=== PATIENT | female | born 1960 | race Caucasian/White ===

== ENCOUNTER → 2016-07-01 | Outpatient (CLI) | payer BC ==
--- NOTE | 2016-07-02 07:22 | US ---
EXAMINATION TYPE: US transvaginal DATE OF EXAM: 07/01/2016 5:13 PM COMPARISON: NONE CLINICAL HISTORY: N95.9 Endometriosis. order states "Thickened endometrium on 2014 TECHNIQUE: Transvaginal (TV) Date of LMP: Unknown EXAM MEASUREMENTS: Uterus: 7.9 x 3.8 x 5.0 cm Endometrial Stripe: 0.6 cm Right Ovary: 1.7 x 1.3 x 1.5 cm Left Ovary: Obscured by overlying gas 1. Uterus: Anteverted 2. Endometrium: wnl 3. Right Ovary: wnl 4. Left Ovary: Obscured by overlying bowel gas 5. Bilateral Adnexa: wnl 6. Posterior cul-de-sac: no free fluid IMPRESSION: Somewhat limited exam. Endometrial stripe thickness as described. Follow-up as indicated.
== END ==
LOC: RADUSWWP 16:58
PROVIDERS: ATTEND Specialist
DX: R93.8 Abnormal findings on diagnostic imaging of other specified body structures (principal)
CPT/HCPCS: 76830

== ENCOUNTER → 2016-09-16 | Outpatient (CLI) | payer BC ==
[2016-09-16 15:05] LABS: ALT 23 U/L (9-52); AST 21 U/L (14-36); Alkaline Phosphatase 74 U/L (38-126); Anion Gap 12 mmol/L; Blood Urea Nitrogen 13 mg/dL (7-17); Calcium 9.3 mg/dL (8.4-10.2); Carbon Dioxide 25 mmol/L (22-30); Chloride 105 mmol/L (98-107); Glucose 100 mg/dL (74-99); Non-African American GFR(MDRD) >60 (>60 ml/min/1.73 sqM); Sodium 142 mmol/L (137-145); Total Bilirubin 0.8 mg/dL (0.2-1.3); Total Protein 7.4 g/dL (6.3-8.2)
[2016-09-16 16:43] LABS: Estradiol 26 pg/mL
[2016-09-17 04:55] LABS: EBV - VCA IgM <10.0 U/mL (<36.0)
== END | disposition home or self-care (01) ==
LOC: LABWHC1 14:14
PROVIDERS: ATTEND Specialist
DX: E78.5 Hyperlipidemia, unspecified (principal); D89.9 Disorder involving the immune mechanism, unspecified; M85.80 Other specified disorders of bone density and structure, unspecified site; I10 Essential (primary) hypertension; E07.9 Disorder of thyroid, unspecified; E03.9 Hypothyroidism, unspecified; N95.9 Unspecified menopausal and perimenopausal disorder; R53.83 Other fatigue; R53.82 Chronic fatigue, unspecified
CPT/HCPCS: 36415; 80053; 82306; 82670; 82728; 84144; 84439; 84443; 84481; 86628; 86665

== ENCOUNTER → 2016-10-15 | Outpatient (CLI) | payer BC ==
--- NOTE | 2016-10-19 07:28 | MM ---
Reason for exam: screening (asymptomatic). Last mammogram was performed 1 year ago. History: Family history of breast cancer in mother at age 79. Benign left mammotome panel of the left breast, December 30, 2007. Physical Findings: A clinical breast exam by your physician is recommended on an annual basis and results should be correlated with mammographic findings. MG 3D Screening Mammo W/Cad Bilateral CC and MLO view(s) were taken. Prior study comparison: October 15, 2015, bilateral MG screening mammo w CAD. September 26, 2014, left breast MG work up mamm w CAD LT. September 21, 2014, bilateral MG screening mammo w CAD. September 15, 2013, bilateral MG screening mammo w CAD. August 26, 2012, bilateral digital screening mammo w/CAD. August 14, 2011, bilateral digital screening mammo w/CAD. The breast tissue is heterogeneously dense. This may lower the sensitivity of mammography. No significant changes when compared with prior studies. ASSESSMENT: Negative, BI-RAD 1 RECOMMENDATION: Routine screening mammogram of both breasts in 1 year.
== END | disposition home or self-care (01) ==
LOC: RADMAMWWP 13:21
PROVIDERS: ATTEND Obstetrics & Gynecology
DX: Z12.31 Encounter for screening mammogram for malignant neoplasm of breast (principal)
CPT/HCPCS: 77063; G0202

== ENCOUNTER → 2016-10-23 | Outpatient (CLI) | payer BC ==
--- NOTE | 2016-10-23 08:23 | CT ---
EXAMINATION TYPE: CT soft tissue neck w con DATE OF EXAM: 10/23/2016 COMPARISON: NONE HISTORY: Dysphagia CT DLP: 245.3 mGycm CONTRAST: CT scan of the neck is performed with IV Contrast, patient injected with 100 mL of Omnipaque 300. Contrast enhanced CT of the neck was performed from the skull base through the lung apices. AIRWAY: There is an asymmetric calcification noted adjacent to the right piriform sinus and inferio r aspect of the cricoid cartilage which measures 1.1 cm in length by approximately 0.8 cm in greatest transverse dimension. This is of uncertain clinical significance and etiology. Correlate clinically. The supraglottic, glottic, and subglottic portions of the airway appear patent and free of mass. SALIVARY GLANDS: The submandibular and parotid glands are free of mass or inflammatory process. THYROID GLAND: No nodules or masses seen. LYMPH NODES: No adenopathy seen greater than 1cm. LUNG APICES: No nodule or mass is seen. OTHER: Vascular structures are patent. Mild degenerative change of the cervical spine. No abscess s een. IMPRESSION: There is an asymmetric calcification noted adjacent to the right piriform sinus and inferior aspect of the cricoid cartilage which measures 1.1 cm in length by approximately 0.8 cm in greatest transver se dimension. This is of uncertain clinical significance and etiology. Correlate clinically.
== END | disposition home or self-care (01) ==
LOC: RADCTMAIN 07:14
PROVIDERS: ATTEND Otolaryngology
DX: J38.7 Other diseases of larynx (principal); M94.8X8 Other specified disorders of cartilage, other site; R13.10 Dysphagia, unspecified
CPT/HCPCS: 70491; Q9967

== ENCOUNTER → 2016-11-04 | Outpatient (CLI) | payer BC | END | disposition home or self-care (01) | LOC: LABWHC1 14:46 | PROVIDERS: ATTEND Otolaryngology | DX: R53.83 Other fatigue (principal) | CPT/HCPCS: 36415; 82164; 86235 ==

== ENCOUNTER → 2017-04-01 | Outpatient (CLI) | payer BC ==
--- NOTE | 2017-04-01 09:47 | CT ---
EXAMINATION TYPE: CT soft tissue neck w con DATE OF EXAM: 04/01/2017 COMPARISON: 10/23/2016 HISTORY: Follow up study for known calcification of the right piriform sinus. TECHNIQUE: Contiguous axial scanning of the soft tissues of the neck performed with IV Contrast, jose ent injected with 100 mL of Omnipaque 300. Coronal/sagittal reconstructions performed. CT DLP: 211.8 mGycm Automated exposure control for dose reduction was used. FINDINGS: Visualized intracranial structures, orbits and globes and mastoid air cells appear clear. There is tr radha mucosal thickening within the floor of the right maxillary sinus. Nasopharynx appears clear. Oropharynx appears clear. The prevertebral soft tissues and epiglottis are normal. Redemonstrated asymmetric dense calcifications in the right glottic/supraglottic region along the inf erior aspect of the right aryepiglottic fold. This seems to correspond to the expected location of th e arytenoid cartilage. Currently, this measures 9 x 10 mm versus 8 x 10 mm, previously, not significa ntly changed. No mass is identified. The tracheal column and visualized upper lungs are clear. 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 The thyroid and submandibular glands are within normal limits. Mild atrophy of the parotid glands. No cervical lymphadenopathy. Bones: Mild to moderate endplate spondylosis mid to lower cervical spine. IMPRESSION: STABLE ASYMMETRIC RIGHT ARYTENOID CARTILAGE SCLEROSIS. THIS IS OF QUESTIONABLE CLINICAL SIGNIFICANCE NO NEW OR ENLARGING LARYNGEAL MASS IS SEEN. CLINICAL AND IMAGING FOLLOW-UP INDICATED.
== END | disposition home or self-care (01) ==
LOC: RADCTMAIN 08:46
PROVIDERS: ATTEND Otolaryngology
DX: J38.7 Other diseases of larynx (principal)
CPT/HCPCS: 70491; Q9967

== ENCOUNTER 2017-04-30 18:23 | Observation (INO) | payer BC, OTHER ==
[2017-04-30] MEDS ORDERED: SODIUM CHLORIDE 0.9% 1,000 ML IV STA (18:40)
--- NOTE | 2017-04-30 18:59 | ED ---
General Adult HPI - General Chief complaint: Psychiatric Symptoms Stated complaint: Depression Time Seen by Provider: 04/30/17 18:40 Source: patient, family, RN notes reviewed, old records reviewed Mode of arrival: ambulatory Limitations: no limitations - History of Present Illness Initial comments: This is a 55-year-old female to ER for evaluation. Patient coming in for evaluation regards to depression. Patient was sent in by family doctor, Dr. Hurtado regarding symptoms, positive feeling lately. Patient denies being homicidal just does not feel well. No recent change about medications. No chest pain shortness breath or abdominal pain. No recent fevers. - Related Data Home Medications Medication Instructions Recorded Confirmed ALPRAZolam [Xanax] 1 mg PO Q6H 04/30/17 04/30/17 Aspirin [Adult Low Dose Aspirin EC] 81 mg PO DAILY 04/30/17 04/30/17 Calcium Carbonate/Vitamin D3 1 tab PO DAILY 04/30/17 04/30/17 [Calcium 600-Vit D3 400 Caplet] Metoprolol Tartrate [Lopressor] 25 mg PO DAILY 04/30/17 04/30/17 Multivitamins, Thera [Multivitamin 1 tab PO DAILY 04/30/17 04/30/17 (formulary)] Vitamin B Complex 1 tab PO DAILY 04/30/17 04/30/17 clonazePAM [KlonoPIN] 2 mg PO TID 04/30/17 04/30/17 Allergies Allergy/AdvReac Type Severity Reaction Status Date / Time hydralazine AdvReac "SHAKING Verified 04/30/17 18:58 ALL OVER" zolpidem tartrate AdvReac Unknown Verified 04/30/17 18:58 [From [place]kie] Review of Systems ROS Statement: Those systems with pertinent positive or pertinent negative responses have been documented in the HPI. ROS Other: All systems not noted in ROS Statement are negative. Past Medical History Past Medical History: GERD/Reflux, Hypertension Additional Past Medical History / Comment(s): diverticulosis. jose raul cheney virus History of Any Multi-Drug Resistant Organisms: None Reported Past Surgical History: Section, Cholecystectomy, Tonsillectomy Additional Past Surgical History / Comment(s): 10/04/14 EGD, 01/01/15 choleceystectomy, 02/05/15 EGD with BX, 2008 COLONOSCOPY, Past Anesthesia/Blood Transfusion Reactions: Motion Sickness, Postoperative Nausea & Vomiting (PONV) Past Psychological History: Anxiety Smoking Status: Never smoker Past Alcohol Use History: Rare Past Drug Use History: None Reported - Past Family History Mother Family Medical History: Cancer Additional Family Medical History / Comment(s): BREAST CANCER Father Family Medical History: Blood Disorder Additional Family Medical History / Comment(s): hemachromatosis. General Exam Limitations: no limitations General appearance: alert, in no apparent distress Head exam: Present: atraumatic, normocephalic, normal inspection Eye exam: Present: normal appearance, PERRL, EOMI. Absent: scleral icterus, conjunctival injection, periorbital swelling ENT exam: Present: normal exam, mucous membranes moist Neck exam: Present: normal inspection. Absent: tenderness, meningismus, lymphadenopathy Respiratory exam: Present: normal lung sounds bilaterally. Absent: respiratory distress, wheezes, rales, rhonchi, stridor Cardiovascular Exam: Present: regular rate, normal rhythm, normal heart sounds. Absent: systolic murmur, diastolic murmur, rubs, gallop, clicks GI/Abdominal exam: Present: soft, normal bowel sounds. Absent: distended, tenderness, guarding, rebound, rigid Extremities exam: Present: normal inspection, full ROM, normal capillary refill. Absent: tenderness, pedal edema, joint swelling, calf tenderness Back exam: Present: normal inspection Neurological exam: Present: alert, oriented X3, CN II-XII intact Psychiatric exam: Present: normal affect, normal mood Skin exam: Present: warm, dry, intact, normal color. Absent: rash Course Vital Signs 04/30/17 04/30/17 04/30/17 18:30 20:35 21:29 Temperature 98.2 F 97.7 F Pulse Rate 83 67 61 Respiratory 15 18 14 Rate Blood Pressure 123/77 115/72 125/71 O2 Sat by Pulse 99 97 98 Oximetry - Reevaluation(s) Reevaluation #1: 04/30/17 18:[address] Hurtado regarding patient, EKG Findings - EKG Comments: EKG Findings:: EKG shows normal sinus rhythm rate of 75, ND 152, QRS 80, QTC 422 Medical Decision Making - Medical Decision Making 56 female the ER for evaluation of psychiatric illness, underlying medical illness contributing to psychiatric illness. Patient will be admitted for continued evaluation and management by primary care physician - Lab Data Result diagrams: 05/01/17 06:11 05/01/17 06:11 Lab Results 04/30/17 04/30/17 04/30/17 Range/Units 18:30 18:30 18:30 WBC 6.2 (3.8-10.6) k/uL RBC 5.13 (3.80-5.40) m/uL Hgb 16.2 H (11.4-16.0) gm/dL Hct 50.1 H (34.0-46.0) % MCV 97.6 (80.0-100.0) fL MCH 31.5 (25.0-35.0) pg MCHC 32.3 (31.0-37.0) g/dL RDW 13.7 (11.5-15.5) % Plt Count 204 (150-450) k/uL Neutrophils % 62 % Lymphocytes % 28 % Monocytes % 6 % Eosinophils % 2 % Basophils % 1 % Neutrophils # 3.8 (1.3-7.7) k/uL Lymphocytes # 1.8 (1.0-4.8) k/uL Monocytes # 0.3 (0-1.0) k/uL Eosinophils # 0.1 (0-0.7) k/uL Basophils # 0.0 (0-0.2) k/uL Sodium 143 (137-145) mmol/L Potassium 4.4 (3.5-5.1) mmol/L Chloride 102 (98-107) mmol/L Carbon Dioxide 28 (22-30) mmol/L Anion Gap 13 mmol/L BUN 17 (7-17) mg/dL Creatinine 0.80 (0.52-1.04) mg/dL Est GFR (MDRD) Af Amer >60 (>60 ml/min/1.73 sqM) Est GFR (MDRD) Non-Af >60 (>60 ml/min/1.73 sqM) Glucose 91 (74-99) mg/dL Plasma Lactic Acid Gasper (0.7-2.0) mmol/L Calcium 9.0 (8.4-10.2) mg/dL Phosphorus 4.2 (2.5-4.5) mg/dL Magnesium 2.2 (1.6-2.3) mg/dL Total Bilirubin 0.7 (0.2-1.3) mg/dL AST 65 H (14-36) U/L ALT 36 (9-52) U/L Alkaline Phosphatase 78 (38-126) U/L Total Creatine Kinase 44 (30-135) U/L CK-MB (CK-2) <0.2 (0.0-2.4) ng/mL CK-MB (CK-2) Rel Index Troponin I <0.012 (0.000-0.034) ng/mL Total Protein 7.8 (6.3-8.2) g/dL Albumin 4.5 (3.5-5.0) g/dL TSH 3.860 (0.465-4.680) mIU/L Urine Color Urine Appearance (Clear) Urine pH (5.0-8.0) Ur Specific [place] (1.001-1.035) Urine Protein (Negative) Urine Glucose (UA) (Negative) Urine Ketones (Negative) Urine Blood (Negative) Urine Nitrite (Negative) Urine Bilirubin (Negative) Urine Urobilinogen (<2.0) mg/dL Ur Leukocyte Esterase (Negative) Urine RBC (0-5) /hpf Urine WBC (0-5) /hpf Ur Squamous Epith Cells (0-4) /hpf Calcium Oxalate Crystal (None) /hpf Urine Bacteria (None) /hpf Hyaline Casts (0-2) /lpf Urine Mucus (None) /hpf Salicylates mg/dL Acetaminophen ug/mL Serum Alcohol mg/dL 04/30/17 04/30/17 04/30/17 Range/Units 18:30 18:30 18:30 WBC (3.8-10.6) k/uL RBC (3.80-5.40) m/uL Hgb (11.4-16.0) gm/dL Hct (34.0-46.0) % MCV (80.0-100.0) fL MCH (25.0-35.0) pg MCHC (31.0-37.0) g/dL RDW (11.5-15.5) % Plt Count (150-450) k/uL Neutrophils % % Lymphocytes % % Monocytes % % Eosinophils % % Basophils % % Neutrophils # (1.3-7.7) k/uL Lymphocytes # (1.0-4.8) k/uL Monocytes # (0-1.0) k/uL Eosinophils # (0-0.7) k/uL Basophils # (0-0.2) k/uL Sodium (137-145) mmol/L Potassium (3.5-5.1) mmol/L Chloride (98-107) mmol/L Carbon Dioxide (22-30) mmol/L Anion Gap mmol/L BUN (7-17) mg/dL Creatinine (0.52-1.04) mg/dL Est GFR (MDRD) Af Amer (>60 ml/min/1.73 sqM) Est GFR (MDRD) Non-Af (>60 ml/min/1.73 sqM) Glucose (74-99) mg/dL Plasma Lactic Acid Gas[place] 1.3 (0.7-2.0) mmol/L Calcium (8.4-10.2) mg/dL Phosphorus (2.5-4.5) mg/dL Magnesium (1.6-2.3) mg/dL Total Bilirubin (0.2-1.3) mg/dL AST (14-36) U/L ALT (9-52) U/L Alkaline Phosphatase (38-126) U/L Total Creatine Kinase (30-135) U/L CK-MB (CK-2) (0.0-2.4) ng/mL CK-MB (CK-2) Rel Index Troponin I (0.000-0.034) ng/mL Total Protein (6.3-8.2) g/dL Albumin (3.5-5.0) g/dL TSH (0.465-4.680) mIU/L Urine Color Yellow Urine Appearance Clear (Clear) Urine pH 5.5 (5.0-8.0) Ur Specific [place] 1.018 (1.001-1.035) Urine Protein Negative (Negative) Urine Glucose (UA) Negative (Negative) Urine Ketones Negative (Negative) Urine Blood Negative (Negative) Urine Nitrite Negative (Negative) Urine Bilirubin Negative (Negative) Urine Urobilinogen 2.0 (<2.0) mg/dL Ur Leukocyte Esterase Trace H (Negative) Urine RBC 2 (0-5) /hpf Urine WBC 1 (0-5) /hpf Ur Squamous Epith Cells 6 H (0-4) /hpf Calcium Oxalate Crystal Rare H (None) /hpf Urine Bacteria Occasional H (None) /hpf Hyaline Casts 3 H (0-2) /lpf Urine Mucus Few H (None) /hpf Salicylates <1.0 mg/dL Acetaminophen <10.0 ug/mL Serum Alcohol mg/dL 04/30/17 Range/Units 19:27 WBC (3.8-10.6) k/uL RBC (3.80-5.40) m/uL Hgb (11.4-16.0) gm/dL Hct (34.0-46.0) % MCV (80.0-100.0) fL MCH (25.0-35.0) pg MCHC (31.0-37.0) g/dL RDW (11.5-15.5) % Plt Count (150-450) k/uL Neutrophils % % Lymphocytes % % Monocytes % % Eosinophils % % Basophils % % Neutrophils # (1.3-7.7) k/uL Lymphocytes # (1.0-4.8) k/uL Monocytes # (0-1.0) k/uL Eosinophils # (0-0.7) k/uL Basophils # (0-0.2) k/uL Sodium (137-145) mmol/L Potassium (3.5-5.1) mmol/L Chloride (98-107) mmol/L Carbon Dioxide (22-30) mmol/L Anion Gap mmol/L BUN (7-17) mg/dL Creatinine (0.52-1.04) mg/dL Est GFR (MDRD) Af Amer (>60 ml/min/1.73 sqM) Est GFR (MDRD) Non-Af (>60 ml/min/1.73 sqM) Glucose (74-99) mg/dL Plasma Lactic Acid [place] (0.7-2.0) mmol/L Calcium (8.4-10.2) mg/dL Phosphorus (2.5-4.5) mg/dL Magnesium (1.6-2.3) mg/dL Total Bilirubin (0.2-1.3) mg/dL AST (14-36) U/L ALT (9-52) U/L Alkaline Phosphatase (38-126) U/L Total Creatine Kinase (30-135) U/L CK-MB (CK-2) (0.0-2.4) ng/mL CK-MB (CK-2) Rel Index Troponin I (0.000-0.034) ng/mL Total Protein (6.3-8.2) g/dL Albumin (3.5-5.0) g/dL TSH (0.465-4.680) mIU/L Urine Color Urine Appearance (Clear) Urine pH (5.0-8.0) Ur Specific [place] (1.001-1.035) Urine Protein (Negative) Urine Glucose (UA) (Negative) Urine Ketones (Negative) Urine Blood (Negative) Urine Nitrite (Negative) Urine Bilirubin (Negative) Urine Urobilinogen (<2.0) mg/dL Ur Leukocyte Esterase (Negative) Urine RBC (0-5) /hpf Urine WBC (0-5) /hpf Ur Squamous Epith Cells (0-4) /hpf Calcium Oxalate Crystal (None) /hpf Urine Bacteria (None) /hpf Hyaline Casts (0-2) /lpf Urine Mucus (None) /hpf Salicylates mg/dL Acetaminophen ug/mL Serum Alcohol <10 mg/dL Disposition Clinical Impression: Weakness, Gastritis, Nausea, Depression Disposition: ADMITTED IP TO THIS HOSP Condition: Fair
[2017-04-30 19:04] LABS: Basophils % (A) 1 %; Eosinophils # (A) 0.1 k/uL (0-0.7); Eosinophils % (A) 2 %; HCT 50.1 % (34.0-46.0); HGB 16.2 gm/dL (11.4-16.0); Lymphocytes # (A) 1.8 k/uL (1.0-4.8); Lymphocytes % (A) 28 %; MCH 31.5 pg (25.0-35.0); MCHC 32.3 g/dL (31.0-37.0); MCV 97.6 fL (80.0-100.0); Mean Platelet Volume 9.3; Monocytes # (A) 0.3 k/uL (0-1.0); Monocytes % (A) 6 %; Neutrophils # (A) 3.8 k/uL (1.3-7.7); Neutrophils % (A) 62 %; Platelet Count 204 k/uL (150-450); RBC 5.13 m/uL (3.80-5.40); RDW 13.7 % (11.5-15.5); WBC 6.2 k/uL (3.8-10.6)
[2017-04-30 19:14] LABS: ALT 36 U/L (9-52); AST 65 U/L (14-36); Albumin 4.5 g/dL (3.5-5.0); Alkaline Phosphatase 78 U/L (38-126); Anion Gap 13 mmol/L; Blood Urea Nitrogen 17 mg/dL (7-17); Carbon Dioxide 28 mmol/L (22-30); Chloride 102 mmol/L (98-107); Glucose 91 mg/dL (74-99); Magnesium 2.2 mg/dL (1.6-2.3); Phosphorus 4.2 mg/dL (2.5-4.5); Potassium 4.4 mmol/L (3.5-5.1); Sodium 143 mmol/L (137-145); Total Bilirubin 0.7 mg/dL (0.2-1.3); Total Protein 7.8 g/dL (6.3-8.2)
[2017-04-30 19:15] LABS: Appearance,Urine Clear (Clear); Bacteria,Urine Occasional /hpf; Bilirubin,Urine Negative (Negative); Blood,Urine Negative (Negative); Calcium Oxalate Crystals,Urine Rare /hpf; Color,Urine Yellow; Glucose,Urine (UA) Negative (Negative); Hyaline Casts,Urine 3 /lpf (0-2); Ketones,Urine Negative (Negative); Leukocyte Esterase,Urine Trace (Negative); Mucus,Urine Few /hpf; Nitrite,Urine Negative (Negative); PH, Urine 5.5 (5.0-8.0); Protein,Urine Negative (Negative); RBC,Urine 2 /hpf (0-5); Specific Gravity,Urine 1.018 (1.001-1.035); Squamous Epithelial Cell,Urine 6 /hpf (0-4); WBC,Urine 1 /hpf (0-5)
[2017-04-30 19:16] LABS: Creatine Kinase 44 U/L (30-135)
[2017-04-30 19:30] LABS: Creatine Kinase MB <0.2 ng/mL (0.0-2.4); Troponin I <0.012 ng/mL (0.000-0.034)
[2017-04-30 19:38] LABS: Acetaminophen <10.0 ug/mL; Salicylate <1.0 mg/dL
[2017-04-30] MEDS ORDERED: SODIUM CHLORIDE 0.9% 1,000 ML IV ONE (19:49)
[2017-04-30 22:46] VITALS: BMI 23.0
[2017-04-30] MEDS ORDERED: ALPRAZolam 0.5 MG TAB PO PRN (23:03)
[2017-04-30] MEDS: clonazePAM 1 MG TAB PO SCH (23:56)
[2017-05-01 06:56] LABS: HCT 40.9 % (34.0-46.0); HGB 13.5 gm/dL (11.4-16.0); MCH 31.8 pg (25.0-35.0); MCHC 32.9 g/dL (31.0-37.0); MCV 96.5 fL (80.0-100.0); Mean Platelet Volume 8.9; Platelet Count 177 k/uL (150-450); RBC 4.24 m/uL (3.80-5.40); RDW 12.6 % (11.5-15.5)
[2017-05-01 07:18] LABS: ALT 35 U/L (9-52); AST 23 U/L (14-36); Alkaline Phosphatase 64 U/L (38-126); Anion Gap 7 mmol/L; Blood Urea Nitrogen 14 mg/dL (7-17); Calcium 8.7 mg/dL (8.4-10.2); Carbon Dioxide 30 mmol/L (22-30); Chloride 106 mmol/L (98-107); Glucose 75 mg/dL (74-99); Potassium 4.1 mmol/L (3.5-5.1); Sodium 143 mmol/L (137-145); Total Bilirubin 0.3 mg/dL (0.2-1.3); Total Protein 5.4 g/dL (6.3-8.2)
[2017-05-01] MEDS: clonazePAM 1 MG TAB PO SCH ×2 (08:50→21:01)
--- NOTE | 2017-05-01 11:17 | HP ---
HISTORY AND PHYSICAL CHIEF COMPLAINT: Psychiatric symptoms including depression, severe anxiety and severe fatigue. This is a 55-year-old white female that was admitted through the emergency room after I was called on the phone by her who said not only was she depressed, but she was weak with a fair amount of confusion. At that time, she was brought to the emergency room for evaluation and placed in the hospital for observation. Unfortunately, she has been going through situation with chronic fatigue syndrome, now going on 2 years. She has been seen by multiple institutions including [facility] and the patient is under supportive care. She just recently started seeing a new psychologist who switched her medication taking her off her Xanax and putting her on 2 mg of Klonopin 3 times a day. She is unable to sleep, so she was taking 1 mg of the Xanax at nighttime. MEDICATIONS: Include that of aspirin 81 daily, calcium carbonate, vitamin D 1 daily, metoprolol 25 daily, multivitamin, B complex, and Klonopin 2 mg 3 times a day. PAST MEDICAL HISTORY: GE reflux, hypertension, chronic fatigue syndrome. Diverticulosis. she has not had any multiple resistant organisms. PAST SURGICAL HISTORY: , cholecystectomy and tonsillectomy. She did have a colonoscopy in 2008 that was negative. Her EGD in 2014 shows some gastritis and had a biopsy of which that was at [facility]. She has had a history of some motion sickness and past anesthesia she has had post operative nausea and vomiting. PAST PSYCHIATRIC: Anxiety and depression, especially related with chronic fatigue syndrome. She has been on Zoloft. She has been on vibrio and she has been on Paxil, Cymbalta without any improvement and many many side effects. SOCIAL HISTORY: She is a rare alcohol drinker. She is a nonsmoker and no illicit drug use. FAMILY HISTORY: She has a mother who has had breast cancer. Father has hemochromatosis. REVIEW OF SYSTEMS: PSYCHIATRIC: She is very anxious, alert with multiple problems and is fairly depressed and just very fatigued. EYES: She is having no problem seeing. ENT: She has a dry mouth. CHEST: She has had no cough, no shortness of breath. HEART: No chest pain. No orthopnea. No proximal nocturnal dyspnea. GI: No hematemesis, melena or hematochezia. : No problem with urination. MUSCULOSKELETAL: Just very, very weak in general. ALLERGIES: She has had an adverse affect with HYDRALAZINE and also adverse affect with the AMBIEN. She also has had intolerance to a variety of previously mentioned ANTIDEPRESSIVE MEDICATIONS. LAB WORK: WBC is 6.2, hemoglobin is 16.2. She had a slightly elevated AST of 65. Sodium 143. Her salicylate, acetaminophen and alcohol level were all negative. Urinalysis was essentially within normal limits. CPK was negative. Troponin negative. TSH was 3.8. Vital signs at this time: Blood pressure is 133/56, heart rate was in the 60s, respiratory 16, temperature is 98.2. EYES: Pupils are equal, round, react to light and accommodation. ENT: Showed tympanic membranes and pharynx to be negative. NECK: Supple. Midline trachea. CHEST: Essentially clear to auscultation. HEART: Sinus rhythm with no murmur. ABDOMEN: Soft, nontender with no organomegaly. LOWER EXTREMITIES: She has good strength. Good palpable pulses. SKIN: Within normal limits. NEUROLOGICALLY: Cranial nerve 2-12 was intact. ALLERGIES: She does have a stuffy nose. ASSESSMENT: 1. History of chronic fatigue syndrome with severe fatigue. 2. Depression. 3. Anxiety neurosis. 4. Hypertension. 5. Rule out urinary tract infection. PLAN: Urine was cultured. Medication-daniel, patient was continued on her Xanax and Klonopin. She will be started back on metoprolol 25 mg a day. I have psychiatric consultation in order. We also will get an Infectious Disease consult. Please refer to my orders at this time. MMODL / IJN: [id number] /
[2017-05-01] MEDS ORDERED: DIVALPROEX ER 500 MG TAB.ER.24H PO STA (15:26)
[2017-05-01] MEDS: OLANZapine 5 MG TAB PO SCH ×2 (15:54→21:01)
--- NOTE | 2017-05-01 16:28 | CONS ---
CONSULTATION DATE OF CONSULTATION: 05/01/2017 PURPOSE OF CONSULTATION: Evaluate for depression, anxiety and long-term use of benzodiazepines. HISTORY OF PRESENTING ILLNESS: The patient is a 56-year-old female. She reports no distant history of any past psychiatric issues. She says most all of her problems started in 2014; at that time she had a gallbladder surgery. She also developed Rissa-Weber virus. All of this occurred right at the same time. She says pretty much immediately after surgery she got significant problems with anxiety that never went away. Also she has had chronic poor sleep where at most she sleeps for 2 hours at a time. She says anxiety and sleep problems have been persistent ever since then. She says early on she got on Xanax. She was taking up to 4 mg a day. She has been on Xanax ever since the start of her anxiety problems. In addition she has been tried on various antidepressants, including Zoloft and Paxil. She also took trazodone for sleep. She says she believes she was on some other medications. It is noteworthy that she has not been on any primary psychotropic medications while completely off of benzodiazepines. She has had a lot of exhaustion, which she relates to her Rissa-Weber virus. She had to stop work. She spends quite a bit of time at home and it is very difficult for her to do much in terms of any physical activity. She has crying spells. Her mood has been down. She has loss of motivation, energy and interest. She does not have any thoughts of self-harm. She has just seen Dr. Frias recently and was in the process of being switched from Xanax to Klonopin. Her psychotropic medications on admission are documented to be Xanax 1 mg q.6 hours and Klonopin 2 mg 3 times a day as her only psychotropic medication. She has not had any psychiatric hospitalizations going back before 2014. She did not have trouble with anxiety or depression. She had not been previously on any psychotropic medications. She says she was quite active, working, keeping up with home care and family issues. She reports no substance use issues. MENTAL STATUS: Patient was sitting up in bed. She gave good eye contact. Psychomotor activity was a little restless. Speech was clear. She answered questions with direct responses. She was spontaneous and interactive. Her affect was somewhat anxious, her mood reserved. She was moderately distressed. There was no indication of thought disorder. ASSESSMENT: This 56-year-old female is diagnosed with major depression and benzodiazepine dependence. It is noteworthy that she has not had trials of antidepressant medications when she was free of benzodiazepines; thus it would not be anticipated that she would get much benefit, if any at all, from primary antidepressant medications. I had an extensive discussion with the patient that it is critical for her to be off benzodiazepines and to get through the early withdrawal period before she can get an adequate evaluation and appropriate treatment for anxiety or mood disorder. I discussed the course of early benzodiazepine withdrawal, with most significant withdrawal issues within the first 2 weeks of stopping benzodiazepines and then beyond that being roughly 60% through withdrawal at 6 weeks and 80% through withdrawal at 3 months. I discussed treatment options for early acute benzodiazepine withdrawal. We also discussed that it would be reasonable for her to be transferred to the psychiatric unit. At this point, I will start the patient on Zyprexa 5 mg 3 times a day. The aim is Zyprexa to help reduce physiologic stress response related to acute benzodiazepine withdrawal. In addition I will start the patient on Depakote ER 500 mg twice a day. The aim of Depakote is prophylaxis to prevent seizures, which are a primary risk for tapering benzodiazepines. I will discontinue her Xanax and reduce her Klonopin from 2 mg 3 times a day down to 2 mg twice a day. We could consider starting the patient on something like trazodone or Tofranil to help with sleep, though I will wait to get an update from Nursing to see how she does with the medication changes. I have recommended the patient be admitted to the psychiatric unit for further evaluation. [id number] / JIMN: [id number] /
[2017-05-01] MEDS: DIVALPROEX ER 500 MG TAB.ER.24H PO SCH (21:01)
--- NOTE | 2017-05-01 23:58 | P.CONS ---
History of Present Illness - Reason for Consult Consult date: 05/01/17 - Chief Complaint Rissa-Weber viral infection - History of Present Illness 56-year-old female relates to a several year history of marked decline of her physical status. The patient relates that until a few years ago she was doing relatively well. 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 However in this time frame there is been a marked decline in her status. She has become so exhausted that she is not able to dissipate in almost any activities. She has lost motivation for all interactions of activity. She has stopped working. She relies on her who lives with her from most all other activities. She states she is too tired to perform activities such as shopping and cleaning and cooking. She relates when she got to the point where she had to stop working she just was so exhausted she was unable to get home safely. As noted from the psychiatric consult the patient has difficulties with benzodiazepine dependence, and apparently has not had significant trials of psychotropic medications for her significant mood disorder with depression. The patient relates that in her workup she was found evidence of positive serology for Rissa-Weber virus. The patient's and sister are present. They wanted to ensure that I was aware of the patient's positive Rissa-Weber virus status. The patient relates that she's had no significant fever chills rigors or sweats. She recently lost about 25 pounds when she first had a marked worsening of her symptoms. Her weight is now waxed and waned about 8 pounds over time. Review of Systems 56-year-old woman who relates she feels poorly all the time. She has chronic profound ongoing fatigue. HEENT:Denies headache or acute visual change. Denies sinus or mouth discomforts. Denies neck stiffness or pain. Denies significant oral cavity pain. Denies difficulty on swallowing. Lungs: Denies significant shortness of breath, cough, sputum production, or hemoptysis. Cardiovascular: Denies significant shortness of breath, chest pain, chest wall pain, orthopnea, dyspnea on exertion, syncope Gastrointestinal:Denies nausea, vomiting, diarrhea, constipation, hematemesis, melena, hematochezia. No no significant change of bowel habit noticed. Musculoskeletal: denies significant myalgias or arthralgias. No new joint swelling. Denies new back pain. Skin: Denies new rash or lesions. No new ulcers or wounds are related.. Neuro: He has occasional headache has no significant psychomotor weakness but has profound fatigue Psychiatric: Chronic depression anxiety is modestly controlled Endocrine: As noted severe fatigue and did have weight loss a couple years ago but has not been persistent Past Medical History Past Medical History: GERD/Reflux, Hypertension Additional Past Medical History / Comment(s): diverticulosis. rissa weber virus History of Any Multi-Drug Resistant Organisms: None Reported Past Surgical History: Section, Cholecystectomy, Tonsillectomy Additional Past Surgical History / Comment(s): 10/04/14 EGD, 01/01/15 choleceystectomy, 02/05/15 EGD with BX, 2008 COLONOSCOPY, Past Anesthesia/Blood Transfusion Reactions: Motion Sickness, Postoperative Nausea & Vomiting (PONV) Past Psychological History: Anxiety Additional Psychological History / Comment(s): Is noted the patient appears to have chronic depression. She is lives with and has adult children. She is a tobacco smoker or alcohol user. No recreational drug use. Is no longer working because of her fatigue. No experience. No international travel. no animal exposures Smoking Status: Never smoker Past Alcohol Use History: Rare Past Drug Use History: None Reported - Past Family History Mother Family Medical History: Cancer Additional Family Medical History / Comment(s): BREAST CANCER Father Family Medical History: Blood Disorder Additional Family Medical History / Comment(s): hemachromatosis. Medications and Allergies Home Medications and Allergies Comment(s): Current Medications Clonazepam (Klonopin) 2 mg PO BID [facility] Last Admin: 05/01/17 21:01 Dose: 2 mg Divalproex Sodium (Depakote Er) 500 mg PO BID [facility] Last Admin: 05/01/17 21:01 Dose: 500 mg Olanzapine (Zyprexa) 5 mg PO TID [facility] Last Admin: 05/01/17 21:01 Dose: 5 mg Home Medications Medication Instructions Recorded Confirmed Type ALPRAZolam [Xanax] 1 mg PO Q6H 04/30/17 04/30/17 History Aspirin [Adult Low Dose Aspirin EC] 81 mg PO DAILY 04/30/17 04/30/17 History Calcium Carbonate/Vitamin D3 1 tab PO DAILY 04/30/17 04/30/17 History [Calcium 600-Vit D3 400 Caplet] Metoprolol Tartrate [Lopressor] 25 mg PO DAILY 04/30/17 04/30/17 History Multivitamins, Thera [Multivitamin 1 tab PO DAILY 04/30/17 04/30/17 History (formulary)] Vitamin B Complex 1 tab PO DAILY 04/30/17 04/30/17 History clonazePAM [KlonoPIN] 2 mg PO TID 04/30/17 04/30/17 History Allergies Allergy/AdvReac Type Severity Reaction Status Date / Time hydralazine AdvReac "SHAKING Verified 04/30/17 18:58 ALL OVER" zolpidem tartrate AdvReac Unknown Verified 04/30/17 18:58 [[facility] Physical Exam Vitals: Vital Signs Temp Pulse Resp BP Pulse Ox 05/01/17 15:00 97 F L 76 20 134/75 98 05/01/17 14:57 81 16 05/01/17 08:00 97.8 F 54 L 16 95/57 100 05/01/17 04:00 98.2 F 60 16 113/56 05/01/17 03:24 56 L 16 Intake and Output 05/01/17 05/01/17 05/02/17 14:59 22:59 06:59 Intake Total 1200 Balance 1200 Intake: Intake, IV Titration 1200 Amount Sodium Chloride 0.9% 1, 1200 000 ml @ 100 mls/hr IV . Q10H ONE Rx#:[id number] Other: Voiding Method Toilet # Voids 3 Weight 58.967 kg Patient Weight 05/02/17 06:59 Weight 58.967 kg Pleasant 56-year-old woman who appears about her stated age HEENT: Anicteric conjunctiva are pink and moist nasal mucosa grossly intact without significant lesions, there is no thrush. Neck: The neck is supple without significant lymphadenopathy or thyromegaly. Lungs: Good bilateral air entry without significant crackles or wheezing. There is no significant bronchial sounds. There is no egophony or dullness. Heart: Regular rate and rhythm with an audible S1-S2, no S3 no S4. There is no significant murmur click or rub, PMI was nondisplaced. Abdomen: Positive bowel sounds soft and nontender without palpable masses or organomegaly. There was no guarding or rebound. Extremities: The upper extremities have excellent pulses they are symmetric, no significant petechiae or telangiectasia. No splinter hemorrhages were noted. The lower extremities are free from significant edema. The peripheral pulses were 2+ and symmetric. Neuro: Awake alert oriented to person place and time. There are no acute new gross focal sensory motor deficits. Mood patient is mildly anxious and withdrawn has significant lack of pleasure and complains of profound fatigue and lack of interaction Results CBC & Chem 7: 05/01/17 06:11 05/01/17 06:11 Labs: Abnormal Lab Results - Last 24 Hours (Table) 05/01/17 Range/Units 06:11 Total Protein 5.4 L (6.3-8.2) g/dL Albumin 3.0 L (3.5-5.0) g/dL Microbiology - Last 24 Hours (Table) 04/30/17 18:30 Urine Culture - Preliminary Urine,Voided Laboratory Results WBC 7.0 k/uL (3.8-10.6) 05/01/17 06:11 RBC 4.24 m/uL (3.80-5.40) 05/01/17 06:11 Hgb 13.5 gm/dL (11.4-16.0) 05/01/17 06:11 Hct 40.9 % (34.0-46.0) 05/01/17 06:11 MCV 96.5 fL (80.0-100.0) 05/01/17 06:11 MCH 31.8 pg (25.0-35.0) 05/01/17 06:11 MCHC 32.9 g/dL (31.0-37.0) 05/01/17 06:11 RDW 12.6 % (11.5-15.5) 05/01/17 06:11 Plt Count 177 k/uL (150-450) 05/01/17 06:11 Neutrophils % 62 % 04/30/17 18:30 Lymphocytes % 28 % 04/30/17 18:30 Monocytes % 6 % 04/30/17 18:30 Eosinophils % 2 % 04/30/17 18:30 Basophils % 1 % 04/30/17 18:30 Neutrophils # 3.8 k/uL (1.3-7.7) 04/30/17 18:30 Lymphocytes # 1.8 k/uL (1.0-4.8) 04/30/17 18:30 Monocytes # 0.3 k/uL (0-1.0) 04/30/17 18:30 Eosinophils # 0.1 k/uL (0-0.7) 04/30/17 18:30 Basophils # 0.0 k/uL (0-0.2) 04/30/17 18:30 Sodium 143 mmol/L (137-145) 05/01/17 06:11 Potassium 4.1 mmol/L (3.5-5.1) 05/01/17 06:11 Chloride 106 mmol/L (98-107) 05/01/17 06:11 Carbon Dioxide 30 mmol/L (22-30) 05/01/17 06:11 Anion Gap 7 mmol/L 05/01/17 06:11 BUN 14 mg/dL (7-17) 05/01/17 06:11 Creatinine 0.85 mg/dL (0.52-1.04) 05/01/17 06:11 Est GFR (MDRD) Af Amer >60 (>60 ml/min/1.73 sqM) 05/01/17 06:11 Est GFR (MDRD) Non-Af >60 (>60 ml/min/1.73 sqM) 05/01/17 06:11 Glucose 75 mg/dL (74-99) 05/01/17 06:11 Plasma Lactic Acid Gasper 1.3 mmol/L (0.7-2.0) 04/30/17 18:30 Calcium 8.7 mg/dL (8.4-10.2) 05/01/17 06:11 Phosphorus 4.2 mg/dL (2.5-4.5) 04/30/17 18:30 Magnesium 2.2 mg/dL (1.6-2.3) 04/30/17 18:30 Total Bilirubin 0.3 mg/dL (0.2-1.3) 05/01/17 06:11 AST 23 U/L (14-36) 05/01/17 06:11 ALT 35 U/L (9-52) 05/01/17 06:11 Alkaline Phosphatase 64 U/L (38-126) 05/01/17 06:11 Total Creatine Kinase 44 U/L (30-135) 04/30/17 18:30 CK-MB (CK-2) <0.2 ng/mL (0.0-2.4) 04/30/17 18:30 CK-MB (CK-2) Rel Index 04/30/17 18:30 Troponin I <0.012 ng/mL (0.000-0.034) 04/30/17 18:30 Total Protein 5.4 g/dL (6.3-8.2) L 05/01/17 06:11 Albumin 3.0 g/dL (3.5-5.0) L 05/01/17 06:11 TSH 3.860 mIU/L (0.465-4.680) 04/30/17 18:30 Urine Color Yellow 04/30/17 18:30 Urine Appearance Clear (Clear) 04/30/17 18: Urine pH 5.5 (5.0-8.0) 04/30/17 18:30 Ur Specific Sanderson 1.018 (1.001-1.035) 04/30/17 18:30 Urine Protein Negative (Negative) 04/30/17 18:30 Urine Glucose (UA) Negative (Negative) 04/30/17 18:30 Urine Ketones Negative (Negative) 04/30/17 18:30 Urine Blood Negative (Negative) 04/30/17 18:30 Urine Nitrite Negative (Negative) 04/30/17 18:30 Urine Bilirubin Negative (Negative) 04/30/17 18: Urine Urobilinogen 2.0 mg/dL (<2.0) 04/30/17 18:30 Ur Leukocyte Esterase Trace (Negative) H 04/30/17 18:30 Urine RBC 2 /hpf (0-5) 04/30/17 18:30 Urine WBC 1 /hpf (0-5) 04/30/17 18:30 Ur Squamous Epith Cells 6 /hpf (0-4) H 04/30/17 18:30 Calcium Oxalate Crystal Rare /hpf (None) H 04/30/17 18:30 Urine Bacteria Occasional /hpf (None) H 04/30/17 18:30 Hyaline Casts 3 /lpf (0-2) H 04/30/17 18:30 Urine Mucus Few /hpf (None) H 04/30/17 18:30 Salicylates <1.0 mg/dL 04/30/17 18: Acetaminophen <10.0 ug/mL 04/30/17 18:30 Serum Alcohol <10 mg/dL 04/30/17 19:27 Microbiology 04/30/17 18:30 Urine,Voided Urine Culture - Preliminary Assessment and Plan (1) Family history of hemochromatosis Narrative/Plan: 56-year-old female presents to Hospital because of ongoing and worsening fatigue associated with inability to perform daily activities. As noted she is now had psychiatric evaluation for her chronic and worsening depression. Also start have evidence of chronic benzodiazepine dependence. Psychiatry will be adding some psychotropic medications in attempt to try to improve her status. Suggest that she could do well on the psychiatric unit for careful monitoring. The family was concerned about her positive Rissa-Weber viral testing. It is discussed with the family that the vast majority of adults and it states have evidence of viral markers to see him for viral infection. At present time the long-standing scientific data that Rissa-Weber viral infection does not cause chronic fatigue or any syndrome such as that. Presence of Rissa-Weber viral markers cannot be used to explain her current symptoms. Agree that she has significant depression and requires aggressive therapy as outlined by psychiatry. She does relate a family history of hemochromatosis her sister is a carrier. She herself is unaware of her status. She does have evidence of an elevated AST. Iron studies will be obtained as well as hepatitis viral serologies. With her family history it is likely that her primary care physician has performed genetic testing for hemochromatosis in the past. If not can be performed as an outpatient. Current Visit: Yes Status: Acute Code(s): Z83.49 - FAMILY HISTORY OF ENDO, NUTRITIONAL AND METABOLIC DISEASES SNOMED Code(s): 420666013 (2) Elevated AST (SGOT) Current Visit: Yes Status: Acute Code(s): R74.0 - NONSPEC ELEV OF LEVELS OF TRANSAMNS & LACTIC ACID DEHYDRGNSE SNOMED Code(s): 392615241 (3) Depression Current Visit: Yes Status: Acute Code(s): F32.9 - MAJOR DEPRESSIVE DISORDER , SINGLE EPISODE, UNSPECIFIED SNOMED Code(s): 59997433
[2017-05-02 07:40] LABS: Reticulocyte % 0.9 % (0.5-2.0)
[2017-05-02] MEDS: OLANZapine 5 MG TAB PO SCH (07:52)
[2017-05-02] MEDS: clonazePAM 1 MG TAB PO SCH (07:52)
[2017-05-02] MEDS: DIVALPROEX ER 500 MG TAB.ER.24H PO SCH (07:53)
[2017-05-02 08:37] VITALS: BP 115/78; PULSE 65; RESP 18; TEMP 98.4
--- NOTE | 2017-05-02 13:18 | CONS ---
CONSULTATION DATE OF SERVICE: 05/02/2017 PURPOSE OF CONSULTATION: Evaluate for depression, anxiety, and long-term use of benzodiazepines. INTERVAL HISTORY: Patient has been doing fair. She tells me that after she got her evening medications, she slept quite hard for a couple hours, then she woke up. She says she did not sleep the rest of the night. She has been drowsy today. She said her mood is fairly good. She has not had significant anxiety issues. It is noteworthy that when I talked to her, she has some mild slurring of her speech. Her thoughts are clear. She was interactive. She did seem to be tired and a little lethargic. ASSESSMENT: I will continue the current diagnosis and treatment plan. I recommend focus on tapering her off of Klonopin. At this point, I will discontinue her Zyprexa altogether. I will continue Depakote ER 500 mg twice a day. Her Klonopin has been reduced from 2 mg 3 times a day down to 2 mg twice a day. I would look for another reduction in a few days. We may need to restart Zyprexa at a lower dose. I will get updates from nursing through the day. We could look at adding a medication to help with sleep. The patient will be reviewing the issues with her primary care, including the choice to be admitted to the psychiatric unit for a plan towards tapering her off of Klonopin completely, which is my recommendation. ARI / VARINDER: [id number] /
[2017-05-02 16:50] LABS: Iron Saturation 43.63 (12.00-45.00)
[2017-05-02 19:13] LABS: Hepatitis A Antibody IgM Non-Reactive (Non-Reactive); Hepatitis B Core IgM Non-Reactive (Non-Reactive)
--- NOTE | 2017-05-03 08:37 | DS ---
DISCHARGE SUMMARY ADMISSION DATE: 04/30/2017 DISCHARGE DATE: 05/02/2017 DISCHARGE DIAGNOSES: 1. Severe anxiety. Major depressive disorder. 2. Chronic fatigue syndrome. 3. History of palpitations. This is a 56-year-old white female who was admitted with major depressive disorder and anxiety neurosis with benzodiazepine dependence. This young lady started with severe fatigue, tiredness and panic attack-like symptomatology that did not respond to Zoloft. During that period of time, with all the testing done, she had elevated testing which was negative for cultures in general except for very, very high elevated IgG and IgM of Rissa Bar virus. She had negative herpes virus. She had negative CMV. She also had immune therapy, IgG, IgM, and IgA generalized and were within normal limits except for the elevation of the IgM independently. At this point, while in the hospital, she was seen and evaluated by Dr. Eduar He and evaluated accordingly. After evaluation and treatment, his recommendation was to have her go onto the Psychiatric Floor for treatment and in change. Dr. Pérez saw the patient and he is recommending a hepatitis A, B and C panel, iron binding transferrin level. Because for history of hematochromatosis, these levels have been drawn and they were negative in the last 2 years. At this period of time, I am sitting there talking with her and vital signs are stable. Blood pressure 115/78, heart rate is 65, respiratory rate is 16 with a 98.4 temperature. She is alert, well-orientated to person, place, and thing. She appears to be less anxious today and cognitively she is very clear. EYES: Pupils are equal, round, react to light accommodation. ENT: Showed tympanic membranes appears to be negative. Neck is supple with midline trachea. Chest is essentially clear to auscultation. Heart, sinus rhythm with no murmur. Abdomen soft, nontender with no organomegaly. She has good strength bilaterally. Skin is negative. is negative. MEDICATIONS: Have been changed. She now is on Klonopin 2 mg b.i.d. She takes Depakote ER 500 mg b.i.d. and she is on Zyprexa 5 mg 3 times a day. LAB WORK: Today shows a WBC of 7. She has a 13.5 hemoglobin. Her elevated AST was 65, it is down to 23 normally today and her CPK troponin was previously negative. We are still waiting transferrin level and also hepatitis levels. PLAN: The patient is being discharged to the Psychiatric Unit for treatment of her anxiety neurosis, to begin with and then treatment outpatient basis will be assumed and referred. I will take care of her upstairs. Prognosis is good. MMERNA / IJN: [id number] /
== END 2017-05-02 17:15 ==
LOC: EC 18:23 → 3OBS 19:50 → 5MS5E 05-01 07:12
PROVIDERS: ADMIT Family Medicine; ATTEND Family Medicine
DX: F41.1 Generalized anxiety disorder (principal); F32.9 Major depressive disorder, single episode, unspecified; R53.82 Chronic fatigue, unspecified; F13.20 Sedative, hypnotic or anxiolytic dependence, uncomplicated; R74.0 Nonspecific elevation of levels of transaminase and lactic acid dehydrogenase [LDH]; B27.00 Gammaherpesviral mononucleosis without complication; I10 Essential (primary) hypertension; K21.9 Gastro-esophageal reflux disease without esophagitis; K57.90 Diverticulosis of intestine, part unspecified, without perforation or abscess without bleeding; Z79.82 Long term (current) use of aspirin; Z79.899 Other long term (current) drug therapy; Z88.8 Allergy status to other drugs, medicaments and biological substances; Z86.79 Personal history of other diseases of the circulatory system; Z87.19 Personal history of other diseases of the digestive system; Z83.49 Family history of other endocrine, nutritional and metabolic diseases; Z80.3 Family history of malignant neoplasm of breast
CPT/HCPCS: 99285 ×2; 96360 ×2; 96361 ×5; 36415; 93005; 80053 ×2; 80074; 82550; 82553; 83540; 83550; 83605; 83735; 84100; 84443; 84484; 85025; 85027; 85045; 81001; 84466; 83520 ×2; 80320; 87086; G0378 ×3

== ENCOUNTER → 2017-08-26 | Outpatient (CLI) | payer BC ==
--- NOTE | 2017-08-26 12:23 | CONS ---
CONSULTATION DATE OF SERVICE: 08/26/2017 This 57-year-old lady has been evaluated in sleep center for her sleep problems, difficulty with falling asleep and not feeling refreshed in the morning after awakening from sleep and snoring witnessed by her . HISTORY OF PRESENT ILLNESS/SLEEP WAKE EVALUATION: Patient problems for 3 years. It happened after she has had cholecystectomy and at the same time period she stopped her menstrual periods. Presently his sleep schedule from around 10:30 to 11 p.m. until 5 to 6 a.m., basically 7 days a week. Sometimes she does have problem with falling asleep for 30 minutes and for more than 1 hour. She does not have TV in bedroom. She sleeps on the side position. She is not sure how many times she wakes up from sleep, but no episodes of nocturia. According to her , she has passing sounds while she sleeps. She wakes up tired, but usually does not take any naps. [place] Sleepiness Scale is 0. No history of hypnagogic hallucinations, sleep paralysis or cataplexy. PAST MEDICAL HISTORY: Positive for hypertension, chronic fatigue syndrome with positive history of Rissa- Weber virus infection. PAST SURGICAL HISTORY: Cholecystectomy 3 years ago. REVIEW OF SYSTEMS: Tiredness during the day. Menopause for 3 years. No fevers. No double vision. No recent chest pain. No shortness of breath. No abdominal pain. No bleeding episodes. No blood in urine. No seizure episodes. MEDICATIONS: Metoprolol, Klonopin. SOCIAL HISTORY: Negative for smoking or using alcohol. FAMILY HISTORY: Hypertension. PHYSICAL EXAMINATION: During physical exam, lady without distress. VITAL SIGNS: BP 168/84, HR 80, RR 16, height 5 feet 3 inches, weight 146, BMI 25.8, temperature 98, oxygen saturation on room air 98%. HEENT: PERRLA, EOMI. Oropharynx 1 to 2 mm retrognathia, extremely low position of soft palate. Mallampati IV. Slight restriction of nasal breathing. NECK: Supple, no JVD. Thyroid is not palpable. Neck 13 inches in circumference. LUNGS: Clear to percussion and to auscultation. Good air exchange. No wheezing or rhonchi. HEART: S1, S2 regular. No murmurs, gallops, or rubs. ABDOMEN: Soft and nontender. Bowel sounds are present. No organomegaly appreciated. EXTREMITIES: No clubbing or cyanosis. MEDICAL COLLECTOR: Awake, alert, and oriented x3. Cranial nerves 2 to 7 intact. There is no fasciculation or atrophy. noted. No focal deficits observed. IMPRESSION: 1. Insomnia with difficulties to initiate sleep. 2. Snoring, passing sounds during the sleep, extremely low position of soft palate, Mallampati IV. Symptoms of sleep problems related with starting menopause. Possible obstructive sleep apnea-hypopnea syndrome. 3. Hypertension. 4. History of chronic fatigue syndrome with history of Rissa-Weber virus infection. 5. Status post cholecystectomy 3 years ago. 6. Menopause for 3 years. PLAN: 1. We will start with home sleep apnea test, although the presence of insomnia might create some problems related to assessment of home sleep apnea test. 2. I discussed with patient psychological techniques for treatment of insomnia, including stimulus control, paradoxical intention, worry time. The patient will use these techniques. 3. No driving if feeling any sleepiness. Thank you very much for referring this patient for consultation. Sincerely. Julio Hays MD, PhD, FAASM Diplomat of [place] [employer] [place] [employer] Marketing Administrator of [facility] MMODL / IJN: [id number] /
== END | disposition home or self-care (01) ==
LOC: SLEEP 10:49
PROVIDERS: ATTEND Internal Medicine
DX: G47.00 Insomnia, unspecified (principal); R06.83 Snoring; I10 Essential (primary) hypertension; Z78.0 Asymptomatic menopausal state; Z90.49 Acquired absence of other specified parts of digestive tract; Z87.898 Personal history of other specified conditions; Z86.19 Personal history of other infectious and parasitic diseases; Z79.899 Other long term (current) drug therapy
CPT/HCPCS: 99211

== ENCOUNTER → 2017-11-19 | Outpatient (CLI) | payer BC ==
--- NOTE | 2017-11-23 13:26 | MM ---
Reason for exam: screening (asymptomatic). Last mammogram was performed 1 year and 1 month ago. History: Patient is postmenopausal. Family history of breast cancer in mother at age 79. Benign left mammotome panel of the left breast, December 30, 2007. Physical Findings: A clinical breast exam by your physician is recommended on an annual basis and results should be correlated with mammographic findings. MG 3D Screening Mammo W/Cad Bilateral CC and MLO view(s) were taken. Prior study comparison: October 15, 2016, bilateral MG 3d screening mammo w/cad. October 15, 2015, bilateral MG screening mammo w CAD. The breast tissue is heterogeneously dense. This may lower the sensitivity of mammography. Previous mammotome biopsy in the left breast. There is no discrete abnormality. ASSESSMENT: Benign, BI-RAD 2 RECOMMENDATION: Routine screening mammogram of both breasts in 1 year.
== END | disposition home or self-care (01) ==
LOC: RADMAMWWP 14:08
PROVIDERS: ATTEND Obstetrics & Gynecology
DX: Z12.31 Encounter for screening mammogram for malignant neoplasm of breast (principal); Z80.3 Family history of malignant neoplasm of breast
CPT/HCPCS: 77063; 77067

== ENCOUNTER 2018-06-06 13:19 | Observation (INO) | payer BC ==
[2018-06-06] MEDS ORDERED: NITROGLYCERIN OINT 1 INCH/GM PACKET TOPICAL STA (13:45)
[2018-06-06] MEDS ORDERED: ASPIRIN 81 MG PO STA (13:45)
--- NOTE | 2018-06-06 13:54 | ED ---
General Adult HPI - General Chief complaint: Chest Pain Stated complaint: chest pain Time Seen by Provider: 06/06/18 13:20 Source: patient, RN notes reviewed Mode of arrival: wheelchair Limitations: no limitations - History of Present Illness Initial comments: This is a 57-year-old female presents emergency Department complaining of chest pain intermittently for about a month. Patient states the chest pain comes and lasts for about an hour she sometimes is diaphoretic and the pain radiates to her left shoulder. Patient states she's also mildly short of breath when it occurs. Patient also over the last month is noted that walking up stairs makes her more short of breath. Patient states she's not had any recent fever chills or cough. Patient states there has been no swelling to her legs no calf tenderness. Patient denies any recent trips or travel. Patient states she went to see her primary medical care doctor in the center and to get an echo today and since she had more chest pain today she decided come to the emergency department. Patient denies any chest pain currently or any shortness of breath currently patient denies any lightheadedness dizziness or near syncopal episode. - Related Data Home Medications Medication Instructions Recorded Confirmed Aspirin [Adult Low Dose Aspirin EC] 81 mg PO DAILY 04/30/17 06/06/18 Ascorbic Acid [Vitamin C] 500 mg PO DAILY 06/06/18 06/06/18 Atorvastatin [Lipitor] 10 mg PO DAILY 06/06/18 06/06/18 Cholecalciferol [Vitamin D3] 1,000 unit PO DAILY 06/06/18 06/06/18 Citalopram Hydrobromide [CeleXA] 20 mg PO DAILY 06/06/18 06/06/18 Losartan [Cozaar] 25 mg PO DAILY 06/06/18 06/06/18 Multivitamin,Therapeutic [Thera] 1 tab PO DAILY 06/06/18 06/06/18 clonazePAM [KlonoPIN] 0.5 mg PO HS PRN 06/06/18 06/06/18 Allergies Allergy/AdvReac Type Severity Reaction Status Date / Time hydralazine AdvReac "SHAKING Verified 06/06/18 14:07 ALL OVER" zolpidem tartrate AdvReac Unknown Verified 06/06/18 14:07 [From Nikkie] Review of Systems ROS Statement: Those systems with pertinent positive or pertinent negative responses have been documented in the HPI. ROS Other: All systems not noted in ROS Statement are negative. Past Medical History Past Medical History: GERD/Reflux, Hypertension Additional Past Medical History / Comment(s): jose raul cheney virus History of Any Multi-Drug Resistant Organisms: None Reported Past Surgical History: Section, Cholecystectomy, Tonsillectomy Additional Past Surgical History / Comment(s): 10/04/14 EGD, 01/01/15 choleceystectomy, 02/05/15 EGD with BX, 2008 COLONOSCOPY, Past Anesthesia/Blood Transfusion Reactions: Motion Sickness, Postoperative Nausea & Vomiting (PONV) Past Psychological History: Anxiety Smoking Status: Never smoker Past Alcohol Use History: None Reported Past Drug Use History: None Reported - Past Family History Mother Family Medical History: Cancer Additional Family Medical History / Comment(s): BREAST CANCER Father Family Medical History: Blood Disorder Additional Family Medical History / Comment(s): hemachromatosis. General Exam - General Exam Comments Initial Comments: GENERAL: Patient is well-developed and well-nourished. Patient is nontoxic and well- hydrated and is in no acute distress. ENT: Neck is soft and supple. No significant lymphadenopathy is noted. Oropharynx is clear. Moist mucous membranes. Neck has full range of motion without eliciting any pain. EYES: The sclera were anicteric and conjunctiva were pink and moist. Extraocular movements were intact and pupils were equal round and reactive to light. Eyelids were unremarkable. PULMONARY: Unlabored respirations. Good breath sounds bilaterally. No audible rales rhonchi or wheezing was noted. CARDIOVASCULAR: There is a regular rate and rhythm without any murmurs gallops or rubs. Femoral pulses are equal bilaterally ABDOMEN: Soft and nontender with normal bowel sounds. No palpable organomegaly was noted. There is no palpable pulsatile mass. SKIN: Skin is clear with no lesions or rashes and otherwise unremarkable. NEUROLOGIC: Patient is alert and oriented x3. Cranial nerves II through XII are grossly intact. Motor and sensory are also intact. Normal speech, volume and content. Symmetrical smile. MUSCULOSKELETAL: Normal extremities with adequate strength and full range of motion. No lower extremity swelling or edema. No calf tenderness. LYMPHATICS: No significant lymphadenopathy is noted PSYCHIATRIC: Normal psychiatric evaluation. Normal interpersonal interactions appears functionally intact in deals appropriately with others. No signs of depression. No signs of anxiety. 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 Patient's EKG shows no acute abnormalities. Chest x-ray shows no acute abnormality. Patient's has had no chest pain while in the emergency department. I spoke with Dr. Williamson she agreed to admit the patient admitted the patient wrote admitting orders. I consult to cardiology. Because the patient's episodic chest pain I characterize this is unstable angina start the patient heparin I continue the heparin nitro and aspirin on the floor. - Lab Data Result diagrams: 06/06/18 13:45 06/06/18 13:45 Lab Results 06/06/18 06/06/18 06/06/18 Range/Units 13:45 13:45 13:45 WBC 8.5 (3.8-10.6) k/uL RBC 5.00 (3.80-5.40) m/uL Hgb 15.4 (11.4-16.0) gm/dL Hct 47.0 H (34.0-46.0) % MCV 94.0 (80.0-100.0) fL MCH 30.8 (25.0-35.0) pg MCHC 32.7 (31.0-37.0) g/dL RDW 13.0 (11.5-15.5) % Plt Count 245 (150-450) k/uL Neutrophils % 58 % Lymphocytes % 34 % Monocytes % 5 % Eosinophils % 1 % Basophils % 0 % Neutrophils # 5.0 (1.3-7.7) k/uL Lymphocytes # 2.9 (1.0-4.8) k/uL Monocytes # 0.4 (0-1.0) k/uL Eosinophils # 0.1 (0-0.7) k/uL Basophils # 0.0 (0-0.2) k/uL PT 9.9 (9.0-12.0) sec INR 0.9 (<1.2) APTT 24.7 (22.0-30.0) sec Sodium 141 (137-145) mmol/L Potassium 3.9 (3.5-5.1) mmol/L Chloride 104 (98-107) mmol/L Carbon Dioxide 28 (22-30) mmol/L Anion Gap 9 mmol/L BUN 15 (7-17) mg/dL Creatinine 0.78 (0.52-1.04) mg/dL Est GFR (CKD-EPI)AfAm >90 (>60 ml/min/1.73 sqM) Est GFR (CKD-EPI)NonAf 84 (>60 ml/min/1.73 sqM) Glucose 99 (74-99) mg/dL Calcium 9.5 (8.4-10.2) mg/dL Magnesium 2.1 (1.6-2.3) mg/dL Total Bilirubin 0.7 (0.2-1.3) mg/dL AST 25 (14-36) U/L ALT 33 (9-52) U/L Alkaline Phosphatase 99 (38-126) U/L Troponin I (0.000-0.034) ng/mL NT-Pro-B Natriuret Pep pg/mL Total Protein 7.6 (6.3-8.2) g/dL Albumin 4.4 (3.5-5.0) g/dL 06/06/18 06/06/18 Range/Units 13:45 13:45 WBC (3.8-10.6) k/uL RBC (3.80-5.40) m/uL Hgb (11.4-16.0) gm/dL Hct (34.0-46.0) % MCV (80.0-100.0) fL MCH (25.0-35.0) pg MCHC (31.0-37.0) g/dL RDW (11.5-15.5) % Plt Count (150-450) k/uL Neutrophils % % Lymphocytes % % Monocytes % % Eosinophils % % Basophils % % Neutrophils # (1.3-7.7) k/uL Lymphocytes # (1.0-4.8) k/uL Monocytes # (0-1.0) k/uL Eosinophils # (0-0.7) k/uL Basophils # (0-0.2) k/uL PT (9.0-12.0) sec INR (<1.2) APTT (22.0-30.0) sec Sodium (137-145) mmol/L Potassium (3.5-5.1) mmol/L Chloride (98-107) mmol/L Carbon Dioxide (22-30) mmol/L Anion Gap mmol/L BUN (7-17) mg/dL Creatinine (0.52-1.04) mg/dL Est GFR (CKD-EPI)AfAm (>60 ml/min/1.73 sqM) Est GFR (CKD-EPI)NonAf (>60 ml/min/1.73 sqM) Glucose (74-99) mg/dL Calcium (8.4-10.2) mg/dL Magnesium (1.6-2.3) mg/dL Total Bilirubin (0.2-1.3) mg/dL AST (14-36) U/L ALT (9-52) U/L Alkaline Phosphatase (38-126) U/L Troponin I <0.012 (0.000-0.034) ng/mL NT-Pro-B Natriuret Pep 26 pg/mL Total Protein (6.3-8.2) g/dL Albumin (3.5-5.0) g/dL Critical Care Time Critical Care Time: Yes Total Critical Care Time: 35 Disposition Clinical Impression: Unstable angina pectoris Disposition: ADMITTED IP TO THIS HOSP Referrals: Rajan Gutierres MD [Primary Care Provider] - 1-2 days Time of Disposition: 15:23
[2018-06-06 14:13] LABS: Basophils % (A) 0 %; Eosinophils # (A) 0.1 k/uL (0-0.7); Eosinophils % (A) 1 %; HGB 15.4 gm/dL (11.4-16.0); Lymphocytes # (A) 2.9 k/uL (1.0-4.8); Lymphocytes % (A) 34 %; MCH 30.8 pg (25.0-35.0); MCHC 32.7 g/dL (31.0-37.0); Mean Platelet Volume 8.5; Monocytes # (A) 0.4 k/uL (0-1.0); Monocytes % (A) 5 %; Neutrophils % (A) 58 %; Platelet Count 245 k/uL (150-450); WBC 8.5 k/uL (3.8-10.6)
[2018-06-06 14:24] LABS: ALT 33 U/L (9-52); AST 25 U/L (14-36); Albumin 4.4 g/dL (3.5-5.0); Alkaline Phosphatase 99 U/L (38-126); Anion Gap 9 mmol/L; Blood Urea Nitrogen 15 mg/dL (7-17); Calcium 9.5 mg/dL (8.4-10.2); Carbon Dioxide 28 mmol/L (22-30); Chloride 104 mmol/L (98-107); Glucose 99 mg/dL (74-99); Magnesium 2.1 mg/dL (1.6-2.3); Potassium 3.9 mmol/L (3.5-5.1); Sodium 141 mmol/L (137-145); Total Bilirubin 0.7 mg/dL (0.2-1.3); Total Protein 7.6 g/dL (6.3-8.2)
[2018-06-06 14:30] LABS: INR 0.9 (<1.2); Partial Thromboplastin Time 24.7 sec (22.0-30.0); Prothrombin Time 9.9 sec (9.0-12.0)
--- NOTE | 2018-06-06 14:36 | XR ---
EXAMINATION TYPE: XR chest 2V DATE OF EXAM: 06/06/2018 COMPARISON: 10/09/2015 HISTORY: Chest pain TECHNIQUE: Frontal and lateral views of the chest are obtained. FINDINGS: There is no focal air space opacity, pleural effusion, or pneumothorax seen. The cardiac silhouette size is within normal limits. The osseous structures are intact. IMPRESSION: No acute cardiopulmonary process.
[2018-06-06] MEDS ORDERED: HEPARIN SODIUM,PORCINE 5,000 UNIT/ML 1 ML VIAL IV ONE (15:24)
[2018-06-06] MEDS ORDERED: NITROGLYCERIN SL TABS 0.4 MG TAB SUBLINGUAL PRN (15:24)
[2018-06-06] MEDS ORDERED: HEPARIN SOD,PORK IN 0.45% NACL 25,000 UNIT in 0.45% NACL 1 250ML.BAG IV SCH (15:30)
[2018-06-06] MEDS ORDERED: NALOXONE 0.4 MG/ML 1 ML VIAL IV PRN (17:35)
[2018-06-06] MEDS ORDERED: CALCIUM CARBONATE 500 MG CHEWABLE PO PRN (17:35)
[2018-06-06] MEDS ORDERED: ACETAMINOPHEN TAB 325 MG TAB PO PRN (17:35)
[2018-06-06] MEDS ORDERED: MELATONIN 3 MG TABLET PO PRN (17:35)
[2018-06-06] MEDS ORDERED: clonazePAM 0.5 MG TAB PO PRN (17:37)
--- NOTE | 2018-06-06 17:41 | P.HPIM ---
History of Present Illness H&P Date: 06/06/18 Chief Complaint: chest pain Patient is a 57-year-old female with a past medical history of hypertension, dyslipidemia, GERD, and chronic fatigue syndrome who presented to the ER with complaints of chest pain. Per the patient she isn't having chest pain for the last month and was seen by her primary care physician. They ordered an outpatient echocardiogram which was completed today. She then decided she could no longer wait for a stress test that she presented to the ER. In the ER she underwent an extensive evaluation. Her initial troponin was negative, EKG had no signs of ischemia, and vital signs were within normal limits. She was subsequently admitted to the observation floor for further monitoring. Patient seen and examined at bedside. She complains of intermittent chest pain for the last 1 month. She describes the chest pain as left-sided with radiation into her left shoulder. It occurs 2-3 times a day. She states it happens both with movement and at rest. It mostly occurs at night when she is laying in bed and can last up to one hour. She denies any associated shortness of breath, nausea, vomiting, numbness, tingling, diaphoresis, or palpitation. She does report some dyspnea when walking up a flight of stairs, but does not have SOB when the chest pain occurs. She does report some nocturnal sweating. She denies any increased stress at home. She does not take any NSAIDs but does take a baby aspirin daily. She's never had a stress test in the past. She does report being taken off of metoprolol and placed on Cozaar she had suboptimal blood pressure control. She denies any recent cough, cold, fever, or flu. She does have a history of acid reflux. Paternal grandfather - [place] over the age of 65, maternal grandmother heart problems unknown what type and of CVA Review of Systems Pertinent positives and negatives as discussed in HPI, a complete review of systems was performed and all other systems are negative. Past Medical History Past Medical History: GERD/Reflux, Hyperlipidemia, Hypertension Additional Past Medical History / Comment(s): Chronic fatigue syndrome, depression History of Any Multi-Drug Resistant Organisms: None Reported Past Surgical History: Section, Cholecystectomy, Tonsillectomy Additional Past Surgical History / Comment(s): 10/04/14 EGD, 01/01/15 choleceystectomy, 02/05/15 EGD with BX, 2008 COLONOSCOPY, Past Anesthesia/Blood Transfusion Reactions: Motion Sickness, Postoperative Nausea & Vomiting (PONV) Past Psychological History: Anxiety Smoking Status: Never smoker Past Alcohol Use History: None Reported Past Drug Use History: None Reported Additional History: lives with her , no iassistive devices, does not work outside the house. - Past Family History Mother Family Medical History: Cancer Additional Family Medical History / Comment(s): BREAST CANCER Father Family Medical History: Blood Disorder Additional Family Medical History / Comment(s): hemachromatosis. Medications and Allergies Home Medications Medication Instructions Recorded Confirmed Type Aspirin [Adult Low Dose Aspirin EC] 81 mg PO DAILY 04/30/17 06/06/18 History Ascorbic Acid [Vitamin C] 500 mg PO DAILY 06/06/18 06/06/18 History Atorvastatin [Lipitor] 10 mg PO DAILY 06/06/18 06/06/18 History Cholecalciferol [Vitamin D3] 1,000 unit PO DAILY 06/06/18 06/06/18 History Citalopram Hydrobromide [CeleXA] 20 mg PO DAILY 06/06/18 06/06/18 History Losartan [Cozaar] 25 mg PO DAILY 06/06/18 06/06/18 History Multivitamin,Therapeutic [Thera] 1 tab PO DAILY 06/06/18 06/06/18 History clonazePAM [KlonoPIN] 0.5 mg PO HS PRN 06/06/18 06/06/18 History Allergies Allergy/AdvReac Type Severity Reaction Status Date / Time hydralazine AdvReac "SHAKING Verified 06/06/18 17:07 ALL OVER" zolpidem tartrate AdvReac Unknown Verified 06/06/18 17:07 [From Ambien] Physical Exam Osteopathic Statement: *. No significant issues noted on an osteopathic structural exam other than those noted in the History and Physical/Consult. Vitals: Vital Signs Temp Pulse Pulse Pulse Resp BP BP 06/06/18 17:10 06/06/18 16:32 98.2 F 67 18 135/83 06/06/18 16:00 16 06/06/18 15:51 78 18 137/89 06/06/18 15:00 145/92 06/06/18 13:58 75 06/06/18 13:26 97.7 F 79 18 136/89 Pulse Ox 06/06/18 17:10 97 06/06/18 16:32 97 06/06/18 16:00 06/06/18 15:51 99 06/06/18 15:00 06/06/18 13:58 06/06/18 13:26 98 Intake and Output 06/06/18 06/06/18 06/06/18 06:59 14:59 22:59 Other: Voiding Method Toilet Weight 72.121 kg General: non toxic, no distress, appears at stated age, normal weight Derm: no unusual rashes/lesions no unusual ecchymoses, warm, dry Head: atraumatic, normocephalic, symmetric Eyes: EOMI, no lid lag, anicteric sclera, pupils equal round reactive to light ENT: Nose and ears atraumatic, no thrush, no pharyngeal erythema Neck: No thyromegaly, no cervical lymphadenopathy, trachea midline, supple Mouth: no lip lesion, mucus membranes moist Cardiovascular: S1S2 reg, no murmur, positive posterior tibial pulse bilateral, trace edema, capillary refill less than 2 seconds, chest wall non tender to palpation Lungs: CTA bilateral, no rhonchi, no rales , no accessory muscle use Abdominal: soft, nontender to palpation, no guarding, no appreciable organomegaly, normal bowel sounds Ext: no gross muscle atrophy, muscle strength 5 out of 5 in all 4 extremities grossly, no contractures, Neuro: CN II-XI grossly intact, light touch intact all 4 extremities, finger to nose within normal limits, Psych: Alert, oriented, appropriate affect Results CBC & Chem 7: 06/06/18 13:45 06/06/18 13:45 Labs: Abnormal Lab Results - Last 24 Hours (Table) 06/06/18 Range/Units 13:45 Hct 47.0 H (34.0-46.0) % Thrombosis Risk Factor Assmnt - DVT/VTE Prophylaxis DVT/VTE Prophylaxis: Low risk, early ambulation encouraged - Choose All That Apply Any of the Below Risk Factors Present?: Yes Assessment and Plan Assessment: chest pain, atypical - serial troponins - tele - stop heaprin gtt - npo after midnight, stress test in AM - cardio consult - outpatient eval if stress negative - ASA - check lipid profile in AM - trial of PPI HTN, controlled - continue losartan HLD - statin GERD - PPI tonight The patient is placed in observation with an anticipated less than 2 per night stay for evaluation of chest pain. Surrogate decision-maker: - Michael CODE STATUS:Full DVT prophylaxis: SCD Discussed with: Patient, nursing Anticipated discharge date: in AM Anticipated discharge place: home A total of 35 minutes was spent on the care of this complex patient more than 50 % of the time was spent in counseling and care coordination.
[2018-06-06] MEDS: NITROGLYCERIN OINT 1 INCH/GM PACKET TOPICAL SCH (18:11)
[2018-06-06] MEDS ORDERED: CITALOPRAM HYDROBROMIDE 20 MG TAB PO SCH (21:00)
[2018-06-06] MEDS ORDERED: PANTOPRAZOLE 40 MG TABLET PO SCH (21:00)
[2018-06-07] MEDS: NITROGLYCERIN OINT 1 INCH/GM PACKET TOPICAL SCH ×2 (02:06→05:07)
[2018-06-07 03:51] LABS: Cholesterol 139 mg/dL (<200); HDL Cholesterol 33 mg/dL (40-60); LDL Cholesterol,Calculated 75 mg/dL (0-99); Triglycerides 155 mg/dL (<150)
--- NOTE | 2018-06-07 08:02 | CONS ---
CONSULTATION Mrs. Mary is a 57-year-old female with known history of hypertension and hyperlipidemia who presented with symptoms of chest discomfort. Her discomfort has been going on for the last months, on and off, not related to physical activity. The discomfort can last up to an hour. It is not associated with any other symptoms. She has underwent an echocardiogram yesterday as a not patient and the echocardiogram showed a preserved ventricular size systolic function with mild mitral and tricuspid regurgitation. Because of her symptoms, she stopped in the emergency room and she was evaluated subsequently admitted. Patient has no prior documented history of coronary artery disease. She has a little bit more active now than she has been in the past. She has prior history of Rissa's Weber virus, but she is getting more active. She denies any exertional chest pain. She has mild dyspnea on exertion. She has no PND, orthopnea, or peripheral edema. No dizziness, palpitation, or syncope. Her coronary risk factors positive for hypertension, hyperlipidemia, she is a nonsmoker, nondiabetic. MEDICATION: Includes Celexa 20 mg daily, Cozaar 25 mg daily, Lipitor 10 mg daily, clonazepam on a p.r.n. basis, and aspirin once a day. REVIEW OF SYSTEMS: RESPIRATORY SYSTEM: She has no documented history of asthma, emphysema or bronchitis. GI SYSTEM: No recent GI bleed. No peptic ulcer disease. SYSTEM: No dysuria or hematuria. NERVOUS SYSTEM: No stroke or seizure. PHYSICAL EXAMINATION: A 57-year-old female, alert, oriented, in no apparent distress. Blood pressure 103/60 with a heart in the 60s. HEAD: Normocephalic. EYES: Sclerae nonicteric. NECK: Good upstroke, no jugular venous distention. LUNGS: Clear to auscultation. HEART: Regular rhythm S1, S2. No S3. No S4. No murmur or rub. ABDOMEN: Soft nontender positive bowel sounds no organomegaly. EXTREMITIES: No edema intact distal pulses. LAB DATA: Lab data revealed troponin less than 0.012 for 3 samples. BUN and creatinine 15 and 0.78. Potassium 3.9 hemoglobin of 15.4. Cholesterol 139, LDL of 75. EKG revealed a sinus mechanism normal axis and intervals. No acute changes. Chest x-ray shows no acute infiltrate. IMPRESSION: 1. Chest discomfort has atypical features for ischemic heart disease probably noncardiac. 2. History of hypertension. 3. Hyperlipidemia. RECOMMENDATION: I will stop the nitroglycerin paste and proceed with a stress echocardiogram. If there is no evidence of inducible ischemia, then no further cardiac workup will be needed. ARI / JIMN: [id number] /
[2018-06-07] MEDS ORDERED: ATORVASTATIN 10 MG TAB PO SCH (09:00)
[2018-06-07] MEDS ORDERED: LOSARTAN 25 MG TAB PO SCH (09:00)
[2018-06-07] MEDS ORDERED: ASCORBIC ACID 500 MG TAB PO SCH (09:00)
[2018-06-07] MEDS ORDERED: CHOLECALCIFEROL 1,000 UNIT TAB PO SCH (09:00)
[2018-06-07] MEDS ORDERED: ASPIRIN 81 MG PO SCH (09:00)
[2018-06-07] MEDS ORDERED: ASPIRIN 325 MG TAB PO SCH (09:00)
[2018-06-07] MEDS ORDERED: MULTIVITAMINS, THERA 1 EACH TAB PO SCH (12:00)
[2018-06-07 13:16] VITALS: BP 122/79; PULSE 81; RESP 18; TEMP 97.9
--- NOTE | 2018-06-07 13:19 | ECHOS ---
STRESS ECHOCARDIOGRAM DATE OF SERVICE: 06/07/2018 INDICATIONS: Chest pain. MEDICATIONS: BASELINE HEART RATE: 94 BASELINE BLOOD PRESSURE: 125/70 MAXIMUM HEART RATE: 148 MAXIMUM BLOOD PRESSURE: 190/96 85% MPHR: 138 100% MPHR: 162 METS: MAXIMUM STAGE REACHED: III TOTAL EXERCISE TIME: 7 minutes CLINICAL INFORMATION: Baseline rhythm is sinus mechanism, rate of 94, normal axis and intervals, normal electrocardiogram. Baseline blood pressure 125/70 mmHg. Patient exercise on Kapil protocol for 7 minutes reaching peak rate 148 beats per minute which is equal to 91% maximum predicted heart rate. Peak blood pressure 190/96 mmHg. Test was terminated secondary to fatigue. There was no chest pain. Electrocardiograph monitoring revealed no evidence of diagnostic ischemic ST deviation. Baseline echocardiogram revealed normal wall thickening and motion. At peak exercise, there was normal wall motion augmentation with no hypokinesis or dyskinesis. CONCLUSION: 1. Average exercise tolerance with normal electrocardiographic response to exercise. 2. Normal stress echocardiogram with no evidence of stress induced ischemia. MMODL / IJN: [id number] /
--- NOTE | 2018-06-07 15:20 | P.DS ---
Providers Date of admission: 06/06/18 15:25 Expected date of discharge: 06/07/18 Attending physician: Abril Williamson DO Consults: 06/06/18 15:24 Consult Physician Urgent Consulting Provider: [facility] Consult Reason/Comments: Chest pain Do you want consulting provider notified?: Yes Primary care physician: Rajan Gutierres MD Hospital Course: Discharge Diagnosis: Atypical chest pain Probable GERD Hypertension, controlled Dyslipidemia Hospital Course: Patient is a 57-year-old female with a past medical history of hypertension, dyslipidemia, GERD, and chronic fatigue syndrome who presented to the ER with complaints of chest pain. Per the patient she isn't having chest pain for the last month and was seen by her primary care physician. They ordered an outpatient echocardiogram which was completed 06/06. She then decided she could no longer wait for a stress test that she presented to the ER. In the ER she underwent an extensive evaluation. Her initial troponin was negative , EKG had no signs of ischemia, and vital signs were within normal limits. She was subsequently admitted to the observation floor for further monitoring. Her troponin remained negative. Her echocardiogram was reviewed and did not have any definitive abnormalities. She was seen by cardiology in the morning of 06/07 and subsequently underwent stress echocardiogram did not show any evidence of ischemia. She was given a trial of the PPI prior to bed on 06/06 and she did not have any overnight chest pain. She was determined stable for discharge. I suggested a 2 week trial of Protonix 40 mg with dinner. She will try this and has an appointment to follow-up with Dr. Gutierres on 07/01. Patient seen and examined at bedside. No additional chest pain, shortness breath, nausea, or vomiting. Did not wake up with a hoarse voice today. Vital signs reviewed and stable. General: non toxic, no distress, appears at stated age Derm: warm, dry Head: atraumatic, normocephalic, symmetric Eyes: EOMI, no lid lag, anicteric sclera Mouth: no lip lesion, mucus membranes moist Cardiovascular: S1S2 reg, no murmur, positive posterior tibial pulse bilateral, Lungs: CTA bilateral, no rhonchi, no rales , no accessory muscle use Neuro: CN II-XI grossly intact, no focal neuro deficits Psych: Alert, oriented, appropriate affect A total of 25 minutes of time were spent preparing this complex discharge summary . Pertinent Studies: Stress echo-no signs of acute ischemia Echocardiogram-ejection fraction 55-60%, mild concentric LVH Patient Condition at Discharge: Stable Plan - Discharge Summary Discharge Rx Participant: No New Discharge Prescriptions: New Pantoprazole [Protonix] 40 mg PO HS tablet.dr Gregory Aspirin [Adult Low Dose Aspirin EC] 81 mg PO DAILY Losartan [Cozaar] 25 mg PO DAILY Citalopram Hydrobromide [CeleXA] 20 mg PO HS Cholecalciferol [Vitamin D3] 1,000 unit PO DAILY Atorvastatin [Lipitor] 10 mg PO DAILY Ascorbic Acid [Vitamin C] 500 mg PO DAILY clonazePAM [KlonoPIN] 0.5 mg PO HS PRN PRN Reason: Anxiety Multivitamin,Therapeutic [Thera] 1 tab PO DAILY Discharge Medication List Aspirin [Adult Low Dose Aspirin EC] 81 mg PO DAILY 04/30/17 [History] Ascorbic Acid [Vitamin C] 500 mg PO DAILY 06/06/18 [History] Atorvastatin [Lipitor] 10 mg PO DAILY 06/06/18 [History] Cholecalciferol [Vitamin D3] 1,000 unit PO DAILY 06/06/18 [History] Citalopram Hydrobromide [CeleXA] 20 mg PO HS 06/06/18 [History] Losartan [Cozaar] 25 mg PO DAILY 06/06/18 [History] Multivitamin,Therapeutic [Thera] 1 tab PO DAILY 06/06/18 [History] clonazePAM [KlonoPIN] 0.5 mg PO HS PRN 06/06/18 [History] Pantoprazole [Protonix] 40 mg PO HS tablet. 06/07/18 [Rx] Follow up Appointment(s)/Referral(s): Rajan Gutierres MD [Primary Care Provider] - 1-2 days Activity/Diet/Wound Care/Special Instructions: heart healthy diet activity as tolerated 2 week trial of protonix 40 mg at night with dinner. Discharge Disposition: HOME SELF-CARE
== END 2018-06-07 14:53 | disposition home or self-care (01) ==
LOC: EC 13:19 → 1SOBS 15:25
PROVIDERS: ADMIT Internal Medicine; ATTEND Internal Medicine
DX: R07.89 Other chest pain (principal); R61 Generalized hyperhidrosis; R06.02 Shortness of breath; I10 Essential (primary) hypertension; E78.5 Hyperlipidemia, unspecified; K21.9 Gastro-esophageal reflux disease without esophagitis; F41.9 Anxiety disorder, unspecified; R53.82 Chronic fatigue, unspecified; I08.1 Rheumatic disorders of both mitral and tricuspid valves; Z79.82 Long term (current) use of aspirin; Z79.899 Other long term (current) drug therapy; Z88.8 Allergy status to other drugs, medicaments and biological substances; Z90.49 Acquired absence of other specified parts of digestive tract; Z86.19 Personal history of other infectious and parasitic diseases; Z80.3 Family history of malignant neoplasm of breast; Z82.3 Family history of stroke; Z82.49 Family history of ischemic heart disease and other diseases of the circulatory system
CPT/HCPCS: 96366 ×3; 96376; 96365; 99291; 36415; 93005; 93351; 83880; 80061; 80053; 83735; 84484 ×2; 85025; 85610; 85730; 71046; G0378 ×2; J1644 ×2

== ENCOUNTER → 2018-06-06 | Outpatient (CLI) | payer BC ==
--- NOTE | 2018-06-06 14:29 | ECHOF ---
Referral Reason:R07.9 Chest pain MEASUREMENTS -------- HEIGHT: 160.0 cm WEIGHT: 69.4 kg BP: RVIDd: 2.1 cm (< 3.3) IVSd: 1.2 cm (0.6 - 1.1) LVIDd: 3.6 cm (3.9 - 5.3) LVPWd: 1.0 cm (0.6 - 1.1) IVSs: 1.3 cm LVIDs: 2.7 cm LVPWs: 1.2 cm LA Diam: 2.8 cm (2.7 - 3.8) LAESV Index (A-L): 14.75 ml/m Ao Diam: 2.7 cm (2.0 - 3.7) AV Cusp: 1.7 cm (1.5 - 2.6) LA Diam: 2.9 cm (2.7 - 3.8) MV EXCURSION: 14.881 mm (> 18.000) MV EF SLOPE: 62 mm/s (70 - 150) EPSS: 0.3 cm MV E Jude: 0.56 m/s MV DecT: 196 ms MV A Jude: 0.68 m/s MV E/A Ratio: 0.83 RAP: 5.00 mmHg RVSP: 16.74 mmHg FINDINGS -------- Sinus rhythm. This was a technically adequate study. The left ventricular size is normal. There is mild concentric left ventricular hypertrophy. Overa ll left ventricular systolic function is normal with, an EF between 55 - 60 %. The right ventricle is normal in size. Normal LA size by volume 22+/-6 ml/m2. The right atrial size is normal. The aortic valve is trileaflet, and appears structurally normal. No aortic stenosis or regurgitation. The mitral valve is normal. Mild mitral regurgitation is present. Mild tricuspid regurgitation present. There is no evidence of pulmonary hypertension. The right v entricular systolic pressure, as measured by Doppler, is 16.74mmHg. There is no pulmonic regurgitation present. The aortic root size is normal. There is no pericardial effusion. CONCLUSIONS -------- 1. Sinus rhythm. 2. This was a technically adequate study. 3. The left ventricular size is normal. 4. There is mild concentric left ventricular hypertrophy. 5. Overall left ventricular systolic function is normal with, an EF between 55 - 60 %. 6. Normal LA size by volume 22+/-6 ml/m2. 7. The aortic valve is trileaflet, and appears structurally normal. No aortic stenosis or regurgitati on. 8. Mild mitral regurgitation is present. 9. Mild tricuspid regurgitation present. 10. There is no evidence of pulmonary hypertension. 11. There is no pulmonic regurgitation present. 12. The aortic root size is normal. 13. There is no pericardial effusion. ENGLISH INSTRUCTOR: Rocío Hernandez RDCS
== END | disposition home or self-care (01) ==
LOC: RADECHMAIN 12:55
PROVIDERS: ATTEND Family Medicine
DX: I08.1 Rheumatic disorders of both mitral and tricuspid valves (principal); I10 Essential (primary) hypertension; R07.9 Chest pain, unspecified
CPT/HCPCS: 93306

== ENCOUNTER → 2018-12-22 | Outpatient (CLI) | payer BC ==
--- NOTE | 2018-12-23 18:42 | BD ---
EXAMINATION TYPE: Axial Bone Density DATE OF EXAM: 12/22/2018 COMPARISON: NONE CLINICAL HISTORY: Height: 5 FT 3 IN Weight: 156 FRAX RISK QUESTIONS: Family History (Parent hip fracture): YES Secondary Osteoporosis: RISK FACTORS HISTORY OF: Family History of Osteoporosis: YES Postmenopausal woman: AGE 54 Take estrogen and/or progesterone medications: TOOK FOR 6 MONTHS NOT NOW Poor Health: FAIR MEDICATIONS: Thyroid Medications: YES Which medication: SYNTHROID How Long: ONE MONTH Additional Medications: LIPITOR, LOVASTATIN, SYNTHROID Additional History: PT HAS MARY BARRS EXAM MEASUREMENTS: Bone mineral densitometry was performed using the [employer] System. Bone mineral density as measured about the Lumbar spine is: ----- L1-L4(G/cm2): 1.007 T Score Values are as follows: ----- L2: -1.4 ----- L3: -0.8 ----- L4: -0.5 ----- L1-L4: -0.9 Bone mineral density has: DECREASED -2.8 % since study of: 2015 Bone mineral density about the R hip (g/cm2): 0.778 Bone mineral density about the L hip (g/cm2): 0.728 T Score values are as follows: -----R Neck: -1.9 -----L Neck: -2.2 -----R Total: -1.4 -----L Total: -1.7 Bone mineral density has: INCREASED 2.8 % since study of: 2016 IMPRESSION: Osteopenia (T Score between -2.5 and -1). There is slightly increased risk of fracture and the patient may be considered for treatment. Re-Screen 2-5 years. NOTE: T-SCORE=SD OF THE YOUNG ADULT MEAN.
--- NOTE | 2018-12-26 10:35 | MM ---
Reason for exam: screening (asymptomatic). Last mammogram was performed 1 year and 1 month ago. History: Patient is postmenopausal. Family history of breast cancer in mother at age 79. Benign left mammotome panel of the left breast, December 30, 2007. Took hormonal contraceptives for 6 months. Physical Findings: A clinical breast exam by your physician is recommended on an annual basis and results should be correlated with mammographic findings. MG 3D Screening Mammo W/Cad Bilateral CC and MLO view(s) were taken. Prior study comparison: November 19, 2017, bilateral MG 3d screening mammo w/cad. October 15, 2016, bilateral MG 3d screening mammo w/cad. There are scattered fibroglandular densities. Previous mammotome biopsy in the left breast. No significant changes when compared with prior studies. ASSESSMENT: Benign, BI-RAD 2 RECOMMENDATION: Routine screening mammogram of both breasts in 1 year.
== END | disposition home or self-care (01) ==
LOC: RADMAMWWP 14:32
PROVIDERS: ATTEND Obstetrics & Gynecology
DX: Z12.31 Encounter for screening mammogram for malignant neoplasm of breast (principal); M85.80 Other specified disorders of bone density and structure, unspecified site; Z80.3 Family history of malignant neoplasm of breast; Z78.0 Asymptomatic menopausal state
CPT/HCPCS: 77063; 77067; 77080

== ENCOUNTER 2019-01-20 10:56 | Inpatient (IN) | payer BC, MEDICARE ==
--- NOTE | 2019-01-20 11:52 | ED ---
General Adult HPI - General Chief complaint: Psychiatric Symptoms Stated complaint: Mental health Time Seen by Provider: 01/20/19 11:12 Source: patient, family Mode of arrival: ambulatory Limitations: no limitations - History of Present Illness Initial comments: Dictation was produced using [employer] dictation software. please excuse any grammatical, word or spelling errors. Chief Complaint: 58-year-old male presents with chief complaint of depression. History of Present Illness: Patient is a 58-year-old female she presents with chief complaint of depression. Patient was struck in by her primary care physician to come to the emergency department. 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 Ever since after the surgery patient has been expressing chronic fatigue. She would sleep for 7-8 hours a day. Over the last several weeks patient has been more and more depressed. Patient has had thoughts of suicide however never does not have any detail plan. She reports that she's been admitted to the psychiatric unit in the past. Patient states she has no specific plan and explains that she would do something spontaneously. Denies any homicidal ideation. No visual or auditory hallucinations. Patient is accompanied by her significant other who states that he is worried about her well-being. She is here more for depression instead of any specific medical complaint. Patient has no medical complaints at this time. The ROS documented in this emergency department record has been reviewed and confirmed by me. Those systems with pertinent positive or negative responses have been documented in the HPI. All other systems are other negative and/or noncontributory. PHYSICAL EXAM: General Impression: Alert and oriented x3, not in acute distress HEENT: Normocephalic atraumatic, extra-ocular movements intact, pupils equal and reactive to light bilaterally, mucous membranes moist. Cardiovascular: Heart regular rate and rhythm, S1&S2 audible, no murmurs, rubs or gallops Chest: Lungs clear to auscultation bilaterally, no rhonchi, no wheeze, no rales Abdomen: Bowel sounds present, abdomen soft, non-tender, non-distended, no organomegaly Musculoskeletal: Pulses present and equal in all extremities, no peripheral edema Motor: no focal deficits noted Neurological: CN II-XII grossly intact, no focal motor or sensory deficits noted Skin: Intact with no visualized rashes Psych: Normal affect and mood ED course: 58 y old female presents with suicidal ideation and depression. Vital signs upon arrival shows heart rate 103, rest of vital signs within acceptable limits. Discussed patient case Dr. Hurtado who feels that patient has been worked up for the last 5 years for chronic fatigue. States that there is no concern for medical issue at this time. He is more concerned about her depression and suicidal ideation. Does obtained showing no acute processes. Patient medically cleared for EPS evaluation. EPS we'll admit patient to inpatient psychiatry. - Related Data Home Medications Medication Instructions Recorded Confirmed Atorvastatin [Lipitor] 10 mg PO DAILY 06/06/18 01/20/19 Multivitamin,Therapeutic [Thera] 1 tab PO DAILY 06/06/18 01/20/19 clonazePAM [KlonoPIN] 0.5 mg PO Q8H 06/06/18 01/20/19 Imipramine [Tofranil] 25 mg PO TID 01/20/19 01/20/19 Levothyroxine Sodium [Synthroid] 50 mcg PO DAILY 01/20/19 01/20/19 Losartan-Hctz 50-12.5 mg [Hyzaar 1 tab PO DAILY 01/20/19 01/20/19 50-12.5] Allergies Allergy/AdvReac Type Severity Reaction Status Date / Time hydralazine AdvReac "SHAKING Verified 01/20/19 11:32 ALL OVER" zolpidem tartrate AdvReac Unknown Verified 01/20/19 11:32 [From [place]] Review of Systems ROS Statement: Those systems with pertinent positive or pertinent negative responses have been documented in the HPI. ROS Other: All systems not noted in ROS Statement are negative. Past Medical History Past Medical History: GERD/Reflux, Hyperlipidemia, Hypertension Additional Past Medical History / Comment(s): Chronic fatigue syndrome, depression History of Any Multi-Drug Resistant Organisms: None Reported Past Surgical History: Section, Cholecystectomy, Tonsillectomy Additional Past Surgical History / Comment(s): 10/04/14 EGD, 01/01/15 cholec eystectomy, 02/05/15 EGD with BX, 2008 COLONOSCOPY, Past Anesthesia/Blood Transfusion Reactions: Motion Sickness, Postoperative Nausea & Vomiting (PONV) Past Psychological History: Anxiety Smoking Status: Never smoker Past Alcohol Use History: None Reported Past Drug Use History: None Reported - Past Family History Mother Family Medical History: Cancer Additional Family Medical History / Comment(s): BREAST CANCER Father Family Medical History: Blood Disorder Additional Family Medical History / Comment(s): hemachromatosis. General Exam Limitations: no limitations Course Vital Signs 01/20/19 11:03 Temperature 98.3 F Pulse Rate 103 H Respiratory 18 Rate Blood Pressure 118/78 O2 Sat by Pulse 96 Oximetry Medical Decision Making - Lab Data Result diagrams: 01/20/19 12:11 01/20/19 12:11 Lab Results 01/20/19 01/20/19 01/20/19 Range/Units 12:11 12:11 12:11 WBC 9.8 (3.8-10.6) k/uL RBC 4.77 (3.80-5.40) m/uL Hgb 14.9 (11.4-16.0) gm/dL Hct 46.0 (34.0-46.0) % MCV 96.4 (80.0-100.0) fL MCH 31.2 (25.0-35.0) pg MCHC 32.4 (31.0-37.0) g/dL RDW 13.2 (11.5-15.5) % Plt Count 285 (150-450) k/uL Neutrophils % 61 % Lymphocytes % 29 % Monocytes % 6 % Eosinophils % 1 % Basophils % 0 % Neutrophils # 6.0 (1.3-7.7) k/uL Lymphocytes # 2.9 (1.0-4.8) k/uL Monocytes # 0.6 (0-1.0) k/uL Eosinophils # 0.1 (0-0.7) k/uL Basophils # 0.0 (0-0.2) k/uL Sodium 144 (137-145) mmol/L Potassium 4.0 (3.5-5.1) mmol/L Chloride 106 (98-107) mmol/L Carbon Dioxide 26 (22-30) mmol/L Anion Gap 12 mmol/L BUN 14 (7-17) mg/dL Creatinine 0.83 (0.52-1.04) mg/dL Est GFR (CKD-EPI)AfAm 90 (>60 ml/min/1.73 sqM) Est GFR (CKD-EPI)NonAf 78 (>60 ml/min/1.73 sqM) Glucose 87 (74-99) mg/dL Calcium 9.6 (8.4-10.2) mg/dL Urine Opiates Screen Not Detected (NotDetected) Ur Oxycodone Screen Not Detected (NotDetected) Urine Methadone Screen Not Detected (NotDetected) Ur Propoxyphene Screen Not Detected (NotDetected) Ur Barbiturates Screen Not Detected (NotDetected) U Tricyclic Antidepress Not Detected (NotDetected) Ur Phencyclidine Scrn Not Detected (NotDetected) Ur Amphetamines Screen Not Detected (NotDetected) U Methamphetamines Scrn Not Detected (NotDetected) U Benzodiazepines Scrn Detected H (NotDetected) Urine Cocaine Screen Not Detected (NotDetected) U Marijuana (THC) Screen Not Detected (NotDetected) Disposition Clinical Impression: Suicidal ideation Disposition: ADMITTED IP TO THIS [facility] Condition: Fair Referrals: Yrn Hurtado MD [Primary Care Provider] - 1-2 days Decision Time: 15:53
[2019-01-20 12:45] LABS: Basophils % (A) 0 %; Eosinophils # (A) 0.1 k/uL (0-0.7); Eosinophils % (A) 1 %; HGB 14.9 gm/dL (11.4-16.0); Lymphocytes # (A) 2.9 k/uL (1.0-4.8); Lymphocytes % (A) 29 %; MCH 31.2 pg (25.0-35.0); MCHC 32.4 g/dL (31.0-37.0); MCV 96.4 fL (80.0-100.0); Mean Platelet Volume 7.8; Monocytes # (A) 0.6 k/uL (0-1.0); Monocytes % (A) 6 %; Neutrophils % (A) 61 %; Platelet Count 285 k/uL (150-450); RBC 4.77 m/uL (3.80-5.40); RDW 13.2 % (11.5-15.5); WBC 9.8 k/uL (3.8-10.6)
[2019-01-20 12:52] LABS: Calcium 9.6 mg/dL (8.4-10.2)
[2019-01-20 12:59] LABS: Amphetamine Screen,Urine Not Detected (NotDetected); Barbiturate Screen,Urine Not Detected (NotDetected); Benzodiazepines Screen,Urine Detected (NotDetected); Cocaine Screen,Urine Not Detected (NotDetected); Methadone Screen, Urine Not Detected (NotDetected); Opiate Screen,Urine Not Detected (NotDetected); Oxycodone Screen, Urine Not Detected (NotDetected); Phencyclidine Screen,Urine Not Detected (NotDetected); Tricyclic Antidepressant,Urine Not Detected (NotDetected); Urn Cannabinoid Scrn Not Detected (NotDetected)
[2019-01-20] MEDS ORDERED: LORazepam 1 MG TAB PO PRN (17:59)
[2019-01-20] MEDS ORDERED: MAGNESIUM HYDROXIDE 2,400 MG/10 ML CUP PO PRN (17:59)
[2019-01-20] MEDS ORDERED: ACETAMINOPHEN TAB 325 MG TAB PO PRN (17:59)
[2019-01-20] MEDS ORDERED: MAG HYDROX/AL HYDROX/SIMETH 30 ML CUP PO PRN (17:59)
[2019-01-21 03:55] LABS: Appearance,Urine Clear (Clear); Bilirubin,Urine Negative (Negative); Blood,Urine Negative (Negative); Color,Urine Yellow; Glucose,Urine (UA) Negative (Negative); Ketones,Urine Negative (Negative); Leukocyte Esterase,Urine Negative (Negative); Nitrite,Urine Negative (Negative); Protein,Urine Trace (Negative); Urobilinogen,Urine <2.0 mg/dL (<2.0)
[2019-01-21] MEDS ORDERED: IBUPROFEN 200 MG TAB PO STA (04:36)
[2019-01-21] MEDS: LEVOTHYROXINE 50 MCG TAB PO SCH (06:30)
[2019-01-21 08:13] LABS: Basophils % (A) 0 %; Eosinophils # (A) 0.1 k/uL (0-0.7); Eosinophils % (A) 1 %; HCT 42.5 % (34.0-46.0); HGB 13.6 gm/dL (11.4-16.0); Lymphocytes # (A) 2.6 k/uL (1.0-4.8); Lymphocytes % (A) 29 %; MCH 30.8 pg (25.0-35.0); MCV 96.4 fL (80.0-100.0); Mean Platelet Volume 8.1; Monocytes # (A) 0.5 k/uL (0-1.0); Monocytes % (A) 5 %; Neutrophils # (A) 5.5 k/uL (1.3-7.7); Neutrophils % (A) 62 %; Platelet Count 267 k/uL (150-450); RDW 13.2 % (11.5-15.5); WBC 8.9 k/uL (3.8-10.6)
[2019-01-21 08:35] LABS: ALT 23 U/L (9-52); AST 23 U/L (14-36); African American GFR (CKD) >90 (>60 ml/min/1.73 sqM); Alkaline Phosphatase 91 U/L (38-126); Anion Gap 7 mmol/L; Blood Urea Nitrogen 10 mg/dL (7-17); Calcium 9.2 mg/dL (8.4-10.2); Carbon Dioxide 30 mmol/L (22-30); Chloride 103 mmol/L (98-107); Cholesterol 148 mg/dL (<200); Glucose 92 mg/dL (74-99); HDL Cholesterol 31 mg/dL (40-60); LDL Cholesterol,Calculated 88 mg/dL (0-99); Sodium 140 mmol/L (137-145); Total Bilirubin 0.6 mg/dL (0.2-1.3); Total Protein 6.9 g/dL (6.3-8.2); Triglycerides 147 mg/dL (<150)
[2019-01-21] MEDS: LOSARTAN-HCTZ 50-12.5 MG 1 EACH TAB PO SCH (08:43)
[2019-01-21] MEDS: MULTIVITAMINS, THERA 1 EACH TAB PO SCH (08:43)
[2019-01-21] MEDS: ATORVASTATIN 10 MG TAB PO SCH (08:43)
--- NOTE | 2019-01-21 09:35 | CONS ---
CONSULTATION DATE OF SERVICE: 01/20/2019 REASON FOR CONSULTATION: Advice regarding chronic fatigue syndrome and other medical issues requested by Psychiatry. HISTORY OF PRESENT ILLNESS: This 58-year-old woman with a past medical history of multiple medical problems including GERD, hypertension, hyperlipidemia, chronic fatigue syndrome, depression, anxiety being followed by Dr. Hurtado in the outpatient setting was admitted with significant depression. The patient also complains of generalized weakness and occasional rigors. The patient was admitted for further evaluation and treatment. There is no history of any headache, loss of consciousness, chest pain, palpitations at this time. PAST MEDICAL HISTORY: History of GERD, hypertension, hyperlipidemia, history of Rissa Bar infection, chronic fatigue syndrome, history of anxiety and depression. MEDICATIONS: Home medications are: 1. Klonopin 0.5 mg q.8h. 2. Multivitamins 1 p.o. daily. 3. Hyzaar 50/12.5 mg p.o. daily. 4. Synthroid 50 mcg p.o. daily. 5. Tofranil 25 mg p.o. t.i.d. 6. Lipitor 10 mg p.o. daily. ALLERGIES: HYDRALAZINE. AMBIEN. FAMILY HISTORY: History of breast cancer in the family. SOCIAL HISTORY: No history of smoking. No history of alcohol intake. REVIEW OF SYSTEMS: ENT: No diminished vision. No diminished hearing. CARDIOVASCULAR: No angina or palpitations. RESPIRATIONS: No cough or hemoptysis. GI no nausea or vomiting. no dysuria. NERVOUS SYSTEM: As mentioned earlier. ALLERGIES/IMMUNOLOGY: No asthma or hayfever. MUSCULOSKELETAL as mentioned earlier. HEMATOLOGY/ONCOLOGY: No history of anemia. ENDOCRINE: Hypothyroidism. CONSTITUTIONAL: As mentioned earlier. Dermatology: Negative. Rheumatology: Negative. Psychiatry: As mentioned earlier. PHYSICAL EXAMINATION: Alert and oriented x3. Pulse 87. Blood pressure 138/89, respirations 16, temperature 97.1, pulse ox 98% on room air. HEENT: Conjunctivae normal. Oral mucosa moist. NECK is no jugular venous distention. No carotid bruit. No lymph node enlargement. CARDIOVASCULAR S1-S2. RESPIRATION: Breath sounds diminished in the bases. No rhonchi. No crackles. ABDOMEN: Soft, nontender. No mass palpable. LEGS no edema, no swelling. NERVOUS SYSTEM: Higher functions as mentioned earlier. Cranial nerves: Movements full in all directions. No nystagmus. No diplopia. No facial deviation. No facial asymmetry. No neck muscle weakness. Otherwise, power motor power is 5/5. Reflexes are normal. No sensory abnormalities. No sensory incoordination. Gait is normal. SKIN no ulcers, rashes or bleeding. JOINTS: No active deforming arthropathy. LYMPHATICS: No lymph nodes palpable in the neck, axillae or groin. LAB: Investigations are CBC, BMP within normals. Drug screen is positive benzodiazepines. ASSESSMENT: 1. Severe depression, anxiety for evaluation. 2. Chronic fatigue syndrome. 3. Hypertension. 4. Hyperlipidemia. 5. History of gastroesophageal reflux disease. 6. History of cholecystectomy. 7. History of anxiety. RECOMMENDATIONS AND DISCUSSION: In this 58-year-old woman who presented with multiple medical issues, at this time, I recommend to continue current medications, management and symptomatic treatment. I would also recommend baseline sedimentation rate and CRP. Otherwise, a UA also may be sought. Resume the home medications and the patient may be asked to follow with Dr. Hurtado closely after discharge. Thank you Dr. Newby for letting us participate in the care of this patient. MMODL / IJN: [id number] /
[2019-01-21] MEDS: DULoxetine HCL 30 MG CAPSULE.DR PO SCH (11:41)
[2019-01-21] MEDS: clonazePAM 0.5 MG TAB PO PRN ×2 (11:41→20:39)
--- NOTE | 2019-01-21 11:47 | P.HP ---
Psychiatric H&P - . H&P Date: 01/21/19 History & Physical: Allergies Allergy/AdvReac Type Severity Reaction Status Date / Time hydralazine AdvReac "SHAKING Verified 01/20/19 11:32 ALL OVER" zolpidem tartrate AdvReac Unknown Verified 01/20/19 11:32 From [place] Vital Signs Temp 96.8 F L 01/21/19 06:54 Pulse 107 H 01/21/19 08:40 Resp 16 01/21/19 06:54 BP 131/83 01/21/19 08:40 Pulse Ox 95 01/21/19 01:30 Intake & Output 01/20/19 01/21/19 01/21/19 18:59 06:59 18:59 Weight 70.76 kg 71.8 kg Laboratory Last Values WBC 8.9 k/uL (3.8-10.6) 01/21/19 07:36 RBC 4.40 m/uL (3.80-5.40) 01/21/19 07:36 Hgb 13.6 gm/dL (11.4-16.0) 01/21/19 07:36 Hct 42.5 % (34.0-46.0) 01/21/19 07:36 MCV 96.4 fL (80.0-100.0) 01/21/19 07:36 MCH 30.8 pg (25.0-35.0) 01/21/19 07:36 MCHC 32.0 g/dL (31.0-37.0) 01/21/19 07:36 RDW 13.2 % (11.5-15.5) 01/21/19 07:36 Plt Count 267 k/uL (150-450) 01/21/19 07:36 Neutrophils % 62 % 01/21/19 07:36 Lymphocytes % 29 % 01/21/19 07:36 Monocytes % 5 % 01/21/19 07:36 Eosinophils % 1 % 01/21/19 07:36 Basophils % 0 % 01/21/19 07:36 Neutrophils # 5.5 k/uL (1.3-7.7) 01/21/19 07:36 Lymphocytes # 2.6 k/uL (1.0-4.8) 01/21/19 07:36 Monocytes # 0.5 k/uL (0-1.0) 01/21/19 07:36 Eosinophils # 0.1 k/uL (0-0.7) 01/21/19 07:36 Basophils # 0.0 k/uL (0-0.2) 01/21/19 07:36 Sodium 140 mmol/L (137-145) 01/21/19 07:36 Potassium 4.0 mmol/L (3.5-5.1) 01/21/19 07:36 Chloride 103 mmol/L (98-107) 01/21/19 07:36 Carbon Dioxide 30 mmol/L (22-30) 01/21/19 07:36 Anion Gap 7 mmol/L 01/21/19 07:36 BUN 10 mg/dL (7-17) 01/21/19 07:36 Creatinine 0.78 mg/dL (0.52-1.04) 01/21/19 07:36 Est GFR (CKD-EPI)AfAm >90 (>60 ml/min/1.73 sqM) 01/21/19 07:36 Est GFR (CKD-EPI)NonAf 84 (>60 ml/min/1.73 sqM) 01/21/19 07:36 Glucose 92 mg/dL (74-99) 01/21/19 07:36 Calcium 9.2 mg/dL (8.4-10.2) 01/21/19 07:36 Total Bilirubin 0.6 mg/dL (0.2-1.3) 01/21/19 07:36 AST 23 U/L (14-36) 01/21/19 07:36 ALT 23 U/L (9-52) 01/21/19 07:36 Alkaline Phosphatase 91 U/L (38-126) 01/21/19 07:36 C-Reactive Protein 5.0 mg/L (<10.0) 01/21/19 07:36 Total Protein 6.9 g/dL (6.3-8.2) 01/21/19 07:36 Albumin 4.0 g/dL (3.5-5.0) 01/21/19 07:36 Triglycerides 147 mg/dL (<150) 01/21/19 07:36 Cholesterol 148 mg/dL (<200) 01/21/19 07:36 LDL Cholesterol, Calc 88 mg/dL (0-99) 01/21/19 07:36 HDL Cholesterol 31 mg/dL (40-60) L 01/21/19 07:36 TSH 1.600 mIU/L (0.465-4.680) 01/21/19 07:36 Urine Color Yellow 01/21/19 03:01 Urine Appearance Clear (Clear) 01/21/19 03:01 Urine pH 7.0 (5.0-8.0) 01/21/19 03:01 Ur Specific [place] 1.020 (1.001-1.035) 01/21/19 03:01 Urine Protein Trace (Negative) H 01/21/19 03:01 Urine Glucose (UA) Negative (Negative) 01/21/19 03:01 Urine Ketones Negative (Negative) 01/21/19 03:01 Urine Blood Negative (Negative) 01/21/19 03:01 Urine Nitrite Negative (Negative) 01/21/19 03:01 Urine Bilirubin Negative (Negative) 01/21/19 03:01 Urine Urobilinogen <2.0 mg/dL (<2.0) 01/21/19 03:01 Ur Leukocyte Esterase Negative (Negative) 01/21/19 03:01 Urine Opiates Screen Not Detected (NotDetected) 01/20/19 12:11 Ur Oxycodone Screen Not Detected (NotDetected) 01/20/19 12:11 Urine Methadone Screen Not Detected (NotDetected) 01/20/19 12:11 Ur Propoxyphene Screen Not Detected (NotDetected) 01/20/19 12:11 Ur Barbiturates Screen Not Detected (NotDetected) 01/20/19 12:11 U Tricyclic Antidepress Not Detected (NotDetected) 01/20/19 12:11 Ur Phencyclidine Scrn Not Detected (NotDetected) 01/20/19 12:11 Ur Amphetamines Screen Not Detected (NotDetected) 01/20/19 12:11 U Methamphetamines Scrn Not Detected (NotDetected) 01/20/19 12:11 U Benzodiazepines Scrn Detected (NotDetected) H 01/20/19 12:11 Urine Cocaine Screen Not Detected (NotDetected) 01/20/19 12:11 U Marijuana (THC) Screen Not Detected (NotDetected) 01/20/19 12:11 01/21/19 11:39 IDENTIFYING DATA: Patient is a 58-year-old female who currently lives with her in a house has 3 kids and is currently on disability HPI: Patient presented to the hospital with complaints of depression and suicid al ideations with no plan. Patient has a history of chronic fatigue syndrome for over 4 years. Today patient is endorsing flulike symptoms daily including nausea and abdominal bloating and cramping. Patient claims that she has been diagnosed with chronic fatigue syndrome per over 4 years after she got a cholecystectomy and claims that she felt "off afterwards" and claims that she has never been normal since then. She states that she was also positive for Rissa-Weber virus. Patient claims to be going to many different doctors and trying to figure out through many tests with the best form of treatment is. Patient at times feels hopeless and worthless. She claims that she is also dealing with anxiety throughout the day and claims it is hard not to be working as she had to leave her job 3 years ago due to taking excessive sickly. She reports poor sleep and poor concentration fair appetite and poor energy. At this time patient denies any auditory or visual hallucinations. Patient denies any flight of ideas racing thoughts and increased in goal directed behavior. Patient claims that she does not use any drugs or alcohol at this time. PAST PSYCHIATRIC HISTORY: Patient states that patient claims that she has a history of depression and anxiety and has been hospitalized in the mental health unit in May 2017. She was then put on Zyprexa, Tofranil, Depakote, Klonopin and states that she did well on those medications after being discharged however claims that they stopped working for her. She claims that she denies any suicide attempts in the past. PMH: GERD, each 0P, hypertension, chronic fatigue syndrome ALLERGIES: as per EMR CHEMICAL DEPENDENCY HISTORY: as per HPI FAMILY PSYCHIATRIC/SUBSTANCE USE HISTORY: denies SOCIAL HISTORY: She states that she was born in [facility] and completed high school. 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 She is currently with her lives in a house has 3 kids on disability. MENTAL STATUS EXAM: General Appearance: Patient appears to be stated age is alert, directable and cooperative. Patient has fair hygiene and fair grooming. Behavior: Patient is calmly seated without any agitated behavior. Speech: Patient's speech is fluent and nonpressured. Mood/Affect: Patient reports their mood is depressed, affect is congruent and constricted. Suicidality/Homicidality: Claims to have fleeting thoughts of suicide however no active plan at this time. Denies any homicidal ideations. Perceptions: Patient denies any auditory or visual hallucinations. Though content/process: There is no evidence of any delusional thought content and thought process is linear and goal-directed. Memory and concentration: AOX3, grossly intact for the purposes of this session. Can spell "WORLD" backwards Judgment and insight: Limited STRENGTHS/WEAKNESSES: strength is that patient has good support system, weaknesses that patient has chronic medical illness. INTELLECT: average IMPRESSIONS: Major depressive disorder, moderate-severe, recurrent Anxiety disorder unspecified PLAN: -Patient is admitted under voluntary status to MHU for stabilization of psychiatric symptoms and safety. Patient signed adult voluntary form and medication consent and is placed in patient's chart. -Medications : Will start patient on Cymbalta 30 mg daily for mood/anxiety. Patient will also start on her home dose of Klonopin 0.5 mg 3 times a day when necessary for anxiety. -Patient was informed of the risks, benefits and side effects of the medication and patient verbally consented to taking the medications. Patient signed med consent form and was placed in chart. -NRT -not need this patient does not smoke -SW on board for discharge planning
--- NOTE | 2019-01-21 13:59 | PN ---
PROGRESS NOTE DATE OF SERVICE: 01/21/2019 This 58-year-old woman who was admitted for psychiatric evaluation is complaining of bilateral abdominal pain. Patient previously also had evaluation, including apparently ultrasound from [facility]. Results are not available at this time. The patient was previously constipated on psych medications. There is no history of fever, rigors, chills. The patient is inquiring about PET scans as well as ultrasound. On exam, alert and oriented x3. Pulse 85, blood pressure 128/75, respirations 16, temperature 96.8, pulse ox 94% on room air. HEENT: Conjunctivae normal. NECK: No jugular venous distention. CARDIOVASCULAR SYSTEM: S1, S2 muffled. RESPIRATORY SYSTEM: Breath sounds diminished at the bases. A few rhonchi. No crackles. ABDOMEN: Soft. Mild diffuse discomfort. No hepatosplenomegaly. LEGS: No edema. No swelling. NERVOUS SYSTEM: No focal deficit. LABS: CBC and BMP noted. TSH 1.600. C-reactive protein is normal. ASSESSMENT: 1. Bilateral abdominal pain, possibly nonspecific; possibly irritable bowel syndrome. 2. Severe depression and anxiety for evaluation. 3. Chronic fatigue syndrome. 4. Hypertension. 5. Hyperlipidemia. 6. History of gastroesophageal reflux disease. 7. History of cholecystectomy. 8. History of anxiety. RECOMMENDATIONS AND DISCUSSION: In this 58-year-old woman who presented with multiple medical issues, at this time I recommend continue the current medications, continue with symptomatic treatment. I recommend Bentyl p.r.n. The patient also has a scheduled colonoscopy next week as an outpatient. I would recommend that the patient follow up closely with Dr. Hurtado regarding determination of further radiological investigations if needed. Further recommendations to follow. MMODL / IJN: [id number] /
[2019-01-21] MEDS ORDERED: DICYCLOMINE 20 MG TAB PO PRN (14:15)
[2019-01-21 14:41] LABS: Erythrocyte Sedimentation Rate 79 mm/hr (0-20)
[2019-01-21 20:57] LABS: Hemoglobin A1C 5.3 % (4.0-6.0)
[2019-01-22] MEDS ORDERED: IBUPROFEN 400 MG TAB PO PRN (01:38)
[2019-01-22] MEDS: LEVOTHYROXINE 50 MCG TAB PO SCH (06:25)
[2019-01-22] MEDS: ATORVASTATIN 10 MG TAB PO SCH (08:07)
[2019-01-22] MEDS: DULoxetine HCL 30 MG CAPSULE.DR PO SCH (08:07)
[2019-01-22] MEDS: MULTIVITAMINS, THERA 1 EACH TAB PO SCH (08:07)
[2019-01-22] MEDS: LOSARTAN-HCTZ 50-12.5 MG 1 EACH TAB PO SCH (08:08)
[2019-01-22] MEDS: clonazePAM 0.5 MG TAB PO PRN ×2 (11:18→20:03)
--- NOTE | 2019-01-22 12:10 | P.PN ---
Progress Note - Text Progress Note Date: 01/22/19 Interval history: Patient was seen laying down in her bed and was agreeable and directable to speak the display card writer. She states that she did feel some nausea yesterday and some upset stomach however claims that that has gotten better today. It is explained to her about the side effects of the medications and how serotonin reacts with her brain and also her stomach. Patient claims that her mood has been improving along with her anxiety. She claims that she is worried as she has not responded well to other medications in the past. She claims that she is going to some groups and try to participate and has fair appetite. She claims that she slept well last night.. At this time patient denies any suicidal or homicidal ideations intent or plan. Denies any Auditory or visual hallucinations. Patient has been compliant with meds. Mental status exam: General Appearance: Patient appears to be stated age is alert, directable and cooperative. Behavior: No agitated behavior. Patient is calm and directable Speech: Patient's speech is fluent and nonpressured. Soft spoken Mood/Affect: Mood is improving, affect is congruent and constricted. Suicidality/Homicidality: Patient denies having any suicidal or homicidal ideation intent or plan. Perceptions: Patient denies any auditory or visual hallucinations. Though content/process: There is no evidence of any delusional thought content and thought process is linear and goal-directed. Somatically preoccupied. Memory and concentration: AOX3, grossly intact for the purposes of this session Judgment and insight: Poor, improving mildly. Assessment/Plan: Continue with current diagnosis. Patient continues to meet criteria for inpatient psychiatric admission for symptom stabilization and safety.Patient will be maintained on current psychotropic medication regimen. Monitor for medication compliance and for any psychotropic medication side effects. Will continue to monitor ongoing response to treatment.
[2019-01-23 04:11] VITALS: BMI 28.0
[2019-01-23] MEDS: clonazePAM 0.5 MG TAB PO PRN ×2 (04:35→20:05)
[2019-01-23] MEDS: LEVOTHYROXINE 50 MCG TAB PO SCH (06:26)
[2019-01-23] MEDS: ATORVASTATIN 10 MG TAB PO SCH (09:05)
[2019-01-23] MEDS: DULoxetine HCL 30 MG CAPSULE.DR PO SCH ×2 (09:06→12:18)
[2019-01-23] MEDS: LOSARTAN-HCTZ 50-12.5 MG 1 EACH TAB PO SCH (09:06)
[2019-01-23] MEDS: MULTIVITAMINS, THERA 1 EACH TAB PO SCH (09:07)
[2019-01-23] MEDS ORDERED: diphenhydrAMINE 50 MG CAP PO PRN (18:19)
[2019-01-23] MEDS ORDERED: ONDANSETRON ODT 4 MG TAB PO PRN (18:20)
--- NOTE | 2019-01-23 18:37 | P.PN ---
Progress Note - Text Progress Note Date: 01/23/19 Interval History: The patient was evaluated today. Case discussed with treatment team. Reportedly the patient is more cooperative, but continued to feel "physically sick". Patient reports her depression is getting better and she feels less overwhelmed and more active with better motivation level. She minimizes hopelessness, and denies suicidal ideation. She denies A/ V hallucinations, and no delusions could be elicited. Reports last night had troubles falling asleep. Shed denies any manic symptoms. Minimizes anxiety and denies any panic attacks. Mental Status Examination: Appearance: Appears stated age, adequately groomed, average body built, and no specific features. Gait/ posture: Steady gait, normal arm swinging, and no abnormal movements, with relaxed posture. Attitude and Behavior: Engaged, cooperative, maintained eye contact during course of interview. Motor Activity: No psychomotor agitation or retardation Speech: Normal rate, rhythm, articulation, and prosody. None pressured. Mood: "better" Affect: Constricted Thought form: Goal directed, linear, and relevant, not incoherent and no clang association. Association: intact. Thought content: Logical, non-delusional, denies suicidal thoughts, denies homicidal thoughts, intentions, or plans. Perception: Denies any auditory/ visual or tactile hallucinations. Attention: No impairment. Orientation: Patient is oriented to time, place, person, and situation. Insight: better. Judgment: better Impulse control: improving. Assessment: Major depressive disorder, recurrent, moderate to severe without psychotic features. Anxiety disorder, unspecified. Hyperlipidemia. Hypertension. Plan: Continue inpatient level of care due to patient needs further stabilization on medications. Continue treatment of depression and anxiety disorders Provide psychiatric education regarding her diagnosis. Precautions: continue 15 minutes check for safety. Consider medical consultation if any acute medical issues arise Provide the patient individual, group therapy, to give better insight and learn coping skills. Continue follow up with the patient daily to monitor progress of improvement of psychiatric symptoms. Medications: Change Cymbalta to 20 mg BID for better control of depression and anxiety symptoms. Continue Klonopin 0.5 mg BID PRN for anxiety. Start Benadryl 25 mg HS PRN for insomnia Continue Lipitor 10 mg daily for hyperlipidemia Continue Losartan/HCTZ for HTN Start Zofran 2 mg Q 8 hrs PRN nausea. Discharge patient to outpatient services upon stabilization Prognosis: Improving Expected LOS: 2-3 days.
[2019-01-23] MEDS: DULoxetine HCL 20 MG CAPSULE.DR PO SCH (21:26)
[2019-01-24] MEDS: LEVOTHYROXINE 50 MCG TAB PO SCH (06:15)
[2019-01-24 06:57] VITALS: TEMP 98
[2019-01-24] MEDS: LOSARTAN-HCTZ 50-12.5 MG 1 EACH TAB PO SCH (08:32)
[2019-01-24] MEDS: MULTIVITAMINS, THERA 1 EACH TAB PO SCH (08:32)
[2019-01-24] MEDS: ATORVASTATIN 10 MG TAB PO SCH (08:32)
[2019-01-24] MEDS: DULoxetine HCL 20 MG CAPSULE.DR PO SCH ×2 (08:32→20:55)
[2019-01-24] MEDS: clonazePAM 0.5 MG TAB PO PRN (10:32)
--- NOTE | 2019-01-24 13:37 | P.PN ---
Progress Note - Text Progress Note Date: 01/24/19 Chief complaint: "I feel better today " Subjective: The patient has been seen today as follow-up, chart reviewed, case discussed with the treatment team. Patient slept about 7 hours last night. Patient has been going to groups and other unit activities. Patient reports good appetite. Patient denies feeling depressed, hopeless, or suicidal. She reports her mood is much better and her anxiety is controlled. The patient is compliant with her medications and denies any adverse reactions. The patient denies any manic symptoms including sustained period of time with elevated or irritable mood, impulsive or irrational behavior, inflated self- esteem, or absence need to sleep due to increases goal-directed activities. The patient denies any auditory or visual hallucinations. Also the patient denies any paranoid ideation. Objective: Mental status examination; Appearance: The patient appears stated age, adequately groomed and dressed, no specific features. Gait/posture: Normal gait, Normal arm swinging: No abnormal movements. Attitude and behavior: engaged, cooperative, eye contact. Motor activity: Normal psychomotor activity Speech: Normal rate, tone. Mood: "Fair" Affect: Constricted Thought form: goal-directed, linear, coherent. Thought content: Non-delusional, denies suicidal thoughts, denies homicidal thoughts, denies intentions or plans. Perception: Denies any auditory or visual hallucinations Attention: No impairment. Patient was able to repeat serial 5. Orientation: Patient patient was fully oriented to time place person and situation. Insight: Patient has fair insight about his psychiatric disorder. Judgment: Patient has fair judgment about his psychiatric treatment. Assessment: Major depressive disorder, recurrent, moderate to severe without psychotic features. Anxiety disorder, unspecified. Hyperlipidemia. Hypertension. Plan: Continue inpatient level of care due to further stabilization. Continue treatment of depression and anxiety disorders providee psychiatric education regarding her diagnosis Precautions: Continue 15 minutes check for safety. Consider medical consultation if any acute medical issues arise. Provide the patient individual, group therapy, substance use disorder counseling to give better insight and learn coping skills. Continue follow-up with the patient daily to monitor progress of depression and anxiety symptoms. Medications: Continue Cymbalta 20 mg twice daily for depression and anxiety. Continue Klonopin 0.5 mg twice daily as needed for anxiety. Continue Benadryl 25 mg at bedtime as needed for insomnia. Continue Lipitor 10 mg for hyperlipidemia. Continue losartan/HCTZ for hypertension. Continue Zofran 2 mg as needed for nausea. Discharge patient to OUTPATIENT services upon a stabilization Prognosis: Improving Expected LOS: Discharge planning tomorrow
[2019-01-25] MEDS: clonazePAM 0.5 MG TAB PO PRN ×2 (03:40→11:41)
[2019-01-25] MEDS: LEVOTHYROXINE 50 MCG TAB PO SCH (05:57)
[2019-01-25 06:48] VITALS: RESP 16
[2019-01-25] MEDS: LOSARTAN-HCTZ 50-12.5 MG 1 EACH TAB PO SCH (08:29)
[2019-01-25] MEDS: ATORVASTATIN 10 MG TAB PO SCH (08:30)
[2019-01-25] MEDS: MULTIVITAMINS, THERA 1 EACH TAB PO SCH (08:30)
[2019-01-25] MEDS: DULoxetine HCL 20 MG CAPSULE.DR PO SCH (08:30)
--- NOTE | 2019-01-25 09:33 | P.DS ---
Providers Date of admission: 01/20/19 17:48 Expected date of discharge: 01/25/19 Attending physician: Sherri Toribio MD Consults: 01/20/19 17:59 Consult Physician Routine Consulting Provider: Andrew Steele Consult Reason/Comments: H&P for mental health admission Do you want consulting provider notified?: Yes 01/21/19 06:51 Consult Physician Routine Consulting Provider: Andrew Steele Consult Reason/Comments: bilateral abdominal pain Do you want consulting provider notified?: Yes, Notify in am Primary care physician: Yrn Hurtado Hospital Course: Brief HPI: As per the HPI from initial psychiatric evaluation during this hospital stay: " Patient is a 58-year-old female she presents with chief complaint of depression. Patient was struck in by her primary care physician to come to the emergency department. 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 Ever since after the surgery patient has been expressing chronic fatigue. She would sleep for 7-8 hours a day. Over the last several weeks patient has been more and more depressed. Patient has had thoughts of suicide however never does not have any detail plan. She reports that she's been admitted to the psychiatric unit in the past. Patient states she has no specific plan and explains that she would do something spontaneously. Denies any homicidal ideation. No visual or auditory hallucinations. Patient is accompanied by her significant other who states that he is worried about her well-being. She is here more for depression instead of any specific medical complaint. Patient has no medical complaints at this time. The ROS documented in this emergency department record has been reviewed and confirmed by me. Those systems with pertinent positive or negative responses have been documented in the HPI. All other systems are other negative and/or noncontributory. " Hospital Course: Psychiatric: The patient was initiated on psychotropic medication Cymbalta for depression and anxiety symptoms, and continued home medication Klonopin as needed for severe anxiety. The medication doses has been adjusted to optimize the stability of the psychiatric symptoms, and to avoid side effects. Patient tolerated the above medication/s very well, without side effects. The patient was admitted for a safe and supportive environment. A psychiatric, medical, and psychosocial evaluations were done on admission. The patient's hospital stay is unremarkable. Patient did not exhibit any aggression towards self or others during her hospitalization, and there was no requirements for emergency medications or restraints. The patient attended most of the groups to obtain coping skills and process stress. Patient was compliant with her medications. Patient got along with her peers and with staff. The objective signs of depression and anxiety have been improved. Patient denies any suicidal ideation, not made any hopelessness/helplessness statements for more than 3 days prior to discharge. Maximum hospitalization benefit was reached and subsequently discharge was planned, and patient is appropriate to continue treatment on an outpatient basis. On the day of discharge the patient was able to create an appropriate safety plan and denies any side effect of medications. Medical: Patient continued the medical management of her medical conditions. Non- psychiatric medications including Lipitor, Synthroid, and losartan was maintained to manage hyperlipidemia, hypothyroidism, and hypertension respe ctively. Assessment: Assessment at the day of discharge: The patient was seen at the day of discharge. Patient denies any sleep or appetite disturbances, denies feeling hopeless, worthless or helpless. Also, patient denies any other depressive or manic symptoms. Patient denies any psychotic symptoms. Patient denies suicidal or homicidal thoughts, intention or plans. Nurses and therapist reported patient is psychiatrically stable, and agreed to discharge plan. Mental status examination on discharge: Appearance: The patient appears stated age, adequately groomed and dressed, no specific features. Gait/posture: Normal gait, Normal arm swinging: No abnormal movements. Attitude and behavior: engaged, cooperative, eye contact. Motor activity: Normal psychomotor activity Speech: Normal rate, tone. Mood:" Fair" Affect: Constricted Thought form: goal-directed, linear, coherent. Thought content: Non-delusional, denies suicidal thoughts, denies homicidal thoughts, denies intentions or plans. Perception: Denies any auditory or visual hallucinations Attention: No impairment. Patient was able to repeat serial 5. Orientation: Patient patient was fully oriented to time place person and situation. Insight: Patient has fair insight about his psychiatric disorder. Judgment: Patient has fair judgment about his psychiatric treatment. Health Concerns: Activity: as tolerated Diet: Low-fat Special Instructions: Labs to be completed after discharge: As clinically indicated by her outpatient psychiatrist and PCP. Discharge checklist for suicide and violence to determine stability: Safety plan was discussed with the patient. Patient denies any current suicidal/ homicidal or violent ideation/plan/ intent. Patient has ability to address stressors/emotions. Patient understands and is comfortable with discharge plan. Outpatient appointments is [facility] Emergency number (911, crisis number) provided to the patient. . Avoid the use of street drugs and alcohol. Take all medications as prescribed. When you are in need of refills please contact your medical provider and/or outpatient psychiatrist to have this done. Please go to scheduled outpatient appointment for aftercare. If symptoms return or become worse call the crisis line at and/or go to the nearest emergency room for an evaluation. Pertinent Studies: Laboratory Tests Range/Units 01/20/19 01/20/19 01/20/19 12:11 12:11 12:11 WBC (3.8-10.6) k/uL 9.8 RBC (3.80-5.40) m/uL 4.77 Hgb (11.4-16.0) gm/dL 14.9 Hct (34.0-46.0) % 46.0 MCV (80.0-100.0) fL 96.4 MCH (25.0-35.0) pg 31.2 MCHC (31.0-37.0) g/dL 32.4 RDW (11.5-15.5) % 13.2 Plt Count (150-450) k/uL 285 Neutrophils % % 61 Lymphocytes % % 29 Monocytes % % 6 Eosinophils % % 1 Basophils % % 0 Neutrophils # (1.3-7.7) k/uL 6.0 Lymphocytes # (1.0-4.8) k/uL 2.9 Monocytes # (0-1.0) k/uL 0.6 Eosinophils # (0-0.7) k/uL 0.1 Basophils # (0-0.2) k/uL 0.0 ESR (0-20) mm/hr Sodium (137-145) mmol/L 144 Potassium (3.5-5.1) mmol/L 4.0 Chloride (98-107) mmol/L 106 Carbon Dioxide (22-30) mmol/L 26 Anion Gap mmol/L 12 BUN (7-17) mg/dL 14 Creatinine (0.52-1.04) mg/dL 0.83 Est GFR (CKD-EPI)AfAm (>60 ml/min/1.73 sqM) 90 Est GFR (CKD-EPI)NonAf (>60 ml/min/1.73 sqM) 78 Glucose (74-99) mg/dL [address] Glu mg/dL Hemoglobin A1c (4.0-6.0) % Calcium (8.4-10.2) mg/dL 9.6 Total Bilirubin (0.2-1.3) mg/dL AST (14-36) U/L ALT (9-52) U/L Alkaline Phosphatase (38-126) U/L C-Reactive Protein (<10.0) mg/L Total Protein (6.3-8.2) g/dL Albumin (3.5-5.0) g/dL Triglycerides (<150) mg/dL Cholesterol (<200) mg/dL LDL Cholesterol, Calc (0-99) mg/dL HDL Cholesterol (40-60) mg/dL TSH (0.465-4.680) mIU/L Urine Color Urine Appearance (Clear) Urine pH (5.0-8.0) Ur Specific [place] (1.001-1.035) Urine Protein (Negative) Urine Glucose (UA) (Negative) Urine Ketones (Negative) Urine Blood (Negative) Urine Nitrite (Negative) Urine Bilirubin (Negative) Urine Urobilinogen (<2.0) mg/dL Ur Leukocyte Esterase (Negative) Urine Opiates Screen (NotDetected) Not Detected Ur Oxycodone Screen (NotDetected) Not Detected Urine Methadone Screen (NotDetected) Not Detected Ur Propoxyphene Screen (NotDetected) Not Detected Ur Barbiturates Screen (NotDetected) Not Detected U Tricyclic Antidepress (NotDetected) Not Detected Ur Phencyclidine Scrn (NotDetected) Not Detected Ur Amphetamines Screen (NotDetected) Not Detected U Methamphetamines Scrn (NotDetected) Not Detected U Benzodiazepines Scrn (NotDetected) Detected H Urine Cocaine Screen (NotDetected) Not Detected U Marijuana (THC) Screen (NotDetected) Not Detected Range/Units 01/21/19 01/21/19 01/21/19 03:01 07:36 07:36 WBC (3.8-10.6) k/uL 8.9 RBC (3.80-5.40) m/uL 4.40 Hgb (11.4-16.0) gm/dL 13.6 Hct (34.0-46.0) % 42.5 MCV (80.0-100.0) fL 96.4 MCH (25.0-35.0) pg 30.8 MCHC (31.0-37.0) g/dL 32.0 RDW (11.5-15.5) % 13.2 Plt Count (150-450) k/uL 267 Neutrophils % % 62 Lymphocytes % % 29 Monocytes % % 5 Eosinophils % % 1 Basophils % % 0 Neutrophils # (1.3-7.7) k/uL 5.5 Lymphocytes # (1.0-4.8) k/uL 2.6 Monocytes # (0-1.0) k/uL 0.5 Eosinophils # (0-0.7) k/uL 0.1 Basophils # (0-0.2) k/uL 0.0 ESR (0-20) mm/hr 79 H Sodium (137-145) mmol/L Potassium (3.5-5.1) mmol/L Chloride (98-107) mmol/L Carbon Dioxide (22-30) mmol/L Anion Gap mmol/L BUN (7-17) mg/dL Creatinine (0.52-1.04) mg/dL Est GFR (CKD-EPI)AfAm (>60 ml/min/1.73 sqM) Est GFR (CKD-EPI)NonAf (>60 ml/min/1.73 sqM) Glucose (74-99) mg/dL Estimated Ave Glu mg/dL 105 Hemoglobin A1c (4.0-6.0) % 5.3 Calcium (8.4-10.2) mg/dL Total Bilirubin (0.2-1.3) mg/dL AST (14-36) U/L ALT (9-52) U/L Alkaline Phosphatase (38-126) U/L C-Reactive Protein (<10.0) mg/L Total Protein (6.3-8.2) g/dL Albumin (3.5-5.0) g/dL Triglycerides (<150) mg/dL Cholesterol (<200) mg/dL LDL Cholesterol, Calc (0-99) mg/dL HDL Cholesterol (40-60) mg/dL TSH (0.465-4.680) mIU/L Urine Color Yellow Urine Appearance (Clear) Clear Urine pH (5.0-8.0) 7.0 Ur Specific [place] (1.001-1.035) 1.020 Urine Protein (Negative) Trace H Urine Glucose (UA) (Negative) Negative Urine Ketones (Negative) Negative Urine Blood (Negative) Negative Urine Nitrite (Negative) Negative Urine Bilirubin (Negative) Negative Urine Urobilinogen (<2.0) mg/dL <2.0 Ur Leukocyte Esterase (Negative) Negative Urine Opiates Screen (NotDetected) Ur Oxycodone Screen (NotDetected) Urine Methadone Screen (NotDetected) Ur Propoxyphene Screen (NotDetected) Ur Barbiturates Screen (NotDetected) U Tricyclic Antidepress (NotDetected) Ur Phencyclidine Scrn (NotDetected) Ur Amphetamines Screen (NotDetected) U Methamphetamines Scrn (NotDetected) U Benzodiazepines Scrn (NotDetected) Urine Cocaine Screen (NotDetected) U Marijuana (THC) Screen (NotDetected) Range/Units 01/21/19 07:36 WBC (3.8-10.6) k/uL RBC (3.80-5.40) m/uL Hgb (11.4-16.0) gm/dL Hct (34.0-46.0) % MCV (80.0-100.0) fL MCH (25.0-35.0) pg MCHC (31.0-37.0) g/dL RDW (11.5-15.5) % Plt Count (150-450) k/uL Neutrophils % % Lymphocytes % % Monocytes % % Eosinophils % % Basophils % % Neutrophils # (1.3-7.7) k/uL Lymphocytes # (1.0-4.8) k/uL Monocytes # (0-1.0) k/uL Eosinophils # (0-0.7) k/uL Basophils # (0-0.2) k/uL ESR (0-20) mm/hr Sodium (137-145) mmol/L 140 Potassium (3.5-5.1) mmol/L 4.0 Chloride (98-107) mmol/L 103 Carbon Dioxide (22-30) mmol/L 30 Anion Gap mmol/L 7 BUN (7-17) mg/dL 10 Creatinine (0.52-1.04) mg/dL 0.78 Est GFR (CKD-EPI)AfAm (>60 ml/min/1.73 sqM) >90 Est GFR (CKD-EPI)NonAf (>60 ml/min/1.73 sqM) 84 Glucose (74-99) mg/dL [address] Glu mg/dL Hemoglobin A1c (4.0-6.0) % Calcium (8.4-10.2) mg/dL 9.2 Total Bilirubin (0.2-1.3) mg/dL 0.6 AST (14-36) U/L 23 ALT (9-52) U/L 23 Alkaline Phosphatase (38-126) U/L 91 C-Reactive Protein (<10.0) mg/L 5.0 Total Protein (6.3-8.2) g/dL 6.9 Albumin (3.5-5.0) g/dL 4.0 Triglycerides (<150) mg/dL 147 Cholesterol (<200) mg/dL 148 LDL Cholesterol, Calc (0-99) mg/dL 88 HDL Cholesterol (40-60) mg/dL 31 L TSH (0.465-4.680) mIU/L 1.600 Urine Color Urine Appearance (Clear) Urine pH (5.0-8.0) Ur Specific [place] (1.001-1.035) Urine Protein (Negative) Urine Glucose (UA) (Negative) Urine Ketones (Negative) Urine Blood (Negative) Urine Nitrite (Negative) Urine Bilirubin (Negative) Urine Urobilinogen (<2.0) mg/dL Ur Leukocyte Esterase (Negative) Urine Opiates Screen (NotDetected) Ur Oxycodone Screen (NotDetected) Urine Methadone Screen (NotDetected) Ur Propoxyphene Screen (NotDetected) Ur Barbiturates Screen (NotDetected) U Tricyclic Antidepress (NotDetected) Ur Phencyclidine Scrn (NotDetected) Ur Amphetamines Screen (NotDetected) U Methamphetamines Scrn (NotDetected) U Benzodiazepines Scrn (NotDetected) Urine Cocaine Screen (NotDetected) U Marijuana (THC) Screen (NotDetected) Procedures: Discharge diagnoses: Major depressive disorder, recurrent, moderate to severe without psychotic features. Anxiety disorder, unspecified. Hyperlipidemia. Hypertension. Plan: Patient will continue follow-up at-. As per discharge plan Continue the following medications: As per discharge plan Patient Condition at Discharge: Stable Patient will be discharge to home Discharge Medication List Atorvastatin [Lipitor] 10 mg PO DAILY 06/06/18 [History] Multivitamin,Therapeutic [Thera] 1 tab PO DAILY 06/06/18 [History] Levothyroxine Sodium [Synthroid] 50 mcg PO DAILY 01/20/19 [History] Losartan-Hctz 50-12.5 mg [Hyzaar 50-12.5] 1 tab PO DAILY 01/20/19 [History] DULoxetine HCL 40 mg PO HS 30 Days #30 capsule. 01/25/19 [Rx] clonazePAM [KlonoPIN] 0.5 mg PO TID PRN tab 01/25/19 [Rx] Patient Condition at Discharge: Stable Plan - Discharge Summary Discharge Rx Participant: Yes New Discharge Prescriptions: New DULoxetine HCL 40 mg PO HS 30 Days #30 capsule. clonazePAM [KlonoPIN] 0.5 mg PO TID PRN tab PRN Reason: Anxiety Continue Atorvastatin [Lipitor] 10 mg PO DAILY Multivitamin,Therapeutic [Thera] 1 tab PO DAILY Losartan-Hctz 50-12.5 mg [Hyzaar 50-12.5] 1 tab PO DAILY Levothyroxine Sodium [Synthroid] 50 mcg PO DAILY Discontinued clonazePAM [KlonoPIN] 0.5 mg PO Q8H Imipramine [Tofranil] 25 mg PO TID Discharge Medication List Atorvastatin [Lipitor] 10 mg PO DAILY 06/06/18 [History] Multivitamin,Therapeutic [Thera] 1 tab PO DAILY 06/06/18 [History] Levothyroxine Sodium [Synthroid] 50 mcg PO DAILY 01/20/19 [History] Losartan-Hctz 50-12.5 mg [Hyzaar 50-12.5] 1 tab PO DAILY 01/20/19 [History] DULoxetine HCL 40 mg PO HS 30 Days #30 capsule. 01/25/19 [Rx] clonazePAM [KlonoPIN] 0.5 mg PO TID PRN tab 01/25/19 [Rx] Follow up Appointment(s)/Referral(s): [facility] Li [Outside] - 02/01/19 10:30 am (Yrn Cota MD [Primary Care Provider] - 1-2 days Patient Instructions/Handouts: Depression (DC), Suicide Prevention (DC) Activity/Diet/Wound Care/Special Instructions: Labs to be completed after discharge: As clinically indicated by her outpatient psychiatrist and PCP. Discharge checklist for suicide and violence to determine stability: Safety plan was discussed with the patient. Patient denies any current suicidal/ homicidal or violent ideation/plan/ intent. Patient has ability to address stressors/emotions. Patient understands and is comfortable with discharge plan. Outpatient appointments is near [facility] Emergency number (911, crisis number) provided to the patient. Avoid the use of street drugs and alcohol. Take all medications as prescribed. When you are in need of refills please contact your medical provider and/or outpatient psychiatrist to have this done. Please go to scheduled outpatient appointment for aftercare. If symptoms return or become worse call the crisis line at and/or go to the nearest emergency room for an evaluation. Discharge Disposition: HOME SELF-CARE
[2019-01-25 09:47] VITALS: BP 133/83; PULSE 116
== END 2019-01-25 12:23 | disposition home or self-care (01) | DRG 885 ==
LOC: EC 10:56 → 3MHU 17:48
PROVIDERS: ADMIT Psychiatry & Neurology Psychiatry; ATTEND Psychiatry & Neurology Psychiatry
DX: F33.2 Major depressive disorder, recurrent severe without psychotic features (principal); R45.851 Suicidal ideations; F41.9 Anxiety disorder, unspecified; E78.5 Hyperlipidemia, unspecified; I10 Essential (primary) hypertension; K21.9 Gastro-esophageal reflux disease without esophagitis; E03.9 Hypothyroidism, unspecified; R53.82 Chronic fatigue, unspecified; R10.9 Unspecified abdominal pain; Z79.890 Hormone replacement therapy; Z79.899 Other long term (current) drug therapy; Z90.49 Acquired absence of other specified parts of digestive tract; Z86.19 Personal history of other infectious and parasitic diseases; Z98.891 History of uterine scar from previous surgery; Z98.890 Other specified postprocedural states; Z88.8 Allergy status to other drugs, medicaments and biological substances; Z80.3 Family history of malignant neoplasm of breast; Z83.2 Family history of diseases of the blood and blood-forming organs and certain disorders involving the immune mechanism
CPT/HCPCS: 36415; 80048; 80053; 80061; 80306; 81003; 82075; 83036; 84443; 85025; 85652; 86140; 99285

== ENCOUNTER 2019-02-15 08:06 | Day surgery (SDC) | payer MEDICARE ==
[2019-02-14 10:39] VITALS: BMI 26.5
[~2019-02-15 08:06] MED LIST: LACTATED RINGERS 1,000 ML IV SCH; LIDOCAINE 1% 20 ML VIAL (10MG/ML) FOR IV START INTRADERMA PRN
[2019-02-15] MEDS ORDERED: ONDANSETRON 4 MG/2 ML VIAL IVP ONE (09:04)
[2019-02-15] MEDS ORDERED: PROPOFOL 10 MG/ML 20 ML VIAL IV ONE (09:09)
--- NOTE | 2019-02-15 09:26 | P.PCN ---
Date of Procedure: 02/15/19 Procedure(s) Performed: BRIEF HISTORY: Patient is a 58-year-old pleasant white female scheduled for an elective colonoscopy as a part of screening for colorectal neoplasia. PROCEDURE PERFORMED: Colonoscopy. PREOPERATIVE DIAGNOSIS: Screening for colon cancer. IV sedation per Anesthesia. PROCEDURE: After informed consent was obtained, the patient, was brought into the endoscopy unit. IV sedation was administered by Anesthesia under continuous monitoring. Digital rectal examination was normal. Initially the Olympus CF-160 flexible video colonoscope was then inserted in the rectum, gradually advanced into the cecum without any difficulty. Careful examination was performed as the scope was gradually being withdrawn. Ileocecal valve and the appendiceal orifice were visualized and appeared normal. Prep was excellent. Mucosa of the cecum, ascending colon, transverse colon, descending colon, sigmoid colon, and rectum appeared normal. Retroflexion was performed in the rectum and no lesions were seen. The patient tolerated the procedure well. IMPRESSION: Normal-appearing colon from rectum to cecum with no evidence of colorectal neoplasia. RECOMMENDATIONS: Findings of this examination were discussed with the patient as well as her family. She was advised to have a repeat screening colonoscopy in 10 years.
[2019-02-15] MEDS ORDERED: IV FLUID CONTINUATION 700 ML IV ONE (09:28)
[2019-02-15 10:14] VITALS: BP 124/84; PULSE 71; RESP 16
== END 2019-02-15 10:16 | disposition home or self-care (01) ==
LOC: ORWHC2ENDO 08:06
PROVIDERS: ATTEND Internal Medicine Gastroenterology
DX: Z12.11 Encounter for screening for malignant neoplasm of colon (principal); I10 Essential (primary) hypertension; E78.5 Hyperlipidemia, unspecified; R53.82 Chronic fatigue, unspecified; K21.9 Gastro-esophageal reflux disease without esophagitis; Z91.040 Latex allergy status; Z88.8 Allergy status to other drugs, medicaments and biological substances; Z79.899 Other long term (current) drug therapy; Z79.890 Hormone replacement therapy; Z87.898 Personal history of other specified conditions
CPT/HCPCS: J2405; J2704; G0121

== ENCOUNTER → 2019-05-05 | Outpatient (CLI) | payer MEDICARE ==
--- NOTE | 2019-05-07 17:28 | US ---
EXAMINATION TYPE: US transvaginal DATE OF EXAM: 05/05/2019 COMPARISON: NONE CLINICAL HISTORY: 58-year-old female R10.2 Pelvic pain. Pain since January 2019. TECHNIQUE: Transvaginal (TV). FINDINGS: EXAM MEASUREMENTS: Uterus: 6.6 x 3.6 x 3.7 cm Endometrial Stripe: .3 cm Neither ovary could be visualized. 1. Uterus: Nabothian cysts seen. Hypoechoic area seen along the anterior lower uterine segment region measuring 1.2 cm. This measured 8 mm back on 2016. An additional heterogeneous area measuring .8 x .5 x .8 cm in the region of the right uterine body is of unclear etiology. Its relationship to the en dometrium is not well delineated on these images. 2. Endometrium: wnl 3. Right Ovary: Obscured by overlying bowel gas 4. Left Ovary: Obscured by overlying bowel gas 5. Bilateral Adnexa: wnl 6. Posterior cul-de-sac: wnl IMPRESSION: 1. A 1.2 cm hypoechoic lesion along the anterior lower uterine segment measuring 8 mm back on 07/02/19 17. Possible scar niche. Correlate for history of prior . 2. An additional 8 mm heterogeneous area along the right uterine body. Its relationship to the endome trium is not well delineated on these images. A small fibroid is possible. Not clearly seen on 017. Follow-up in 6-8 weeks to reassess. 3. Neither ovary could be visualized.
== END | disposition home or self-care (01) ==
LOC: RADUSWWP 15:43
PROVIDERS: ATTEND Obstetrics & Gynecology
DX: N85.9 Noninflammatory disorder of uterus, unspecified (principal)
CPT/HCPCS: 76830

== ENCOUNTER → 2019-06-20 | Outpatient (CLI) | payer MEDICARE ==
--- NOTE | 2019-06-20 10:59 | US ---
EXAMINATION TYPE: US transvaginal DATE OF EXAM: 06/20/2019 COMPARISON: US dated 05/05/2019 and 2017 CLINICAL HISTORY: R10.2 PELVIC PAIN. F/U previous exam TECHNIQUE: Transvaginal (TV). Transvaginal sonographic images of the pelvis were acquired. EXAM MEASUREMENTS: Uterus: 7.1 x 3.2 x 3.7 cm Endometrial Stripe: 0.4 cm 1. Uterus: Anteverted Heterogeneous, hypoechoic area lower uterine segment as visualized on previo us= 1.1 x 0.9 x 1.2 cm (previously 1.2 cm on the exam of 05/05/2019 and 0.8 cm in the exam of 2017), a second hypoechoic area right uterus visualized on previous= 0.8 x 0.5 x 0.9 cm (previously 0.8 x 0.5 x 0.8 cm, possible leiomyoma. 2. Endometrium: wnl 3. Right Ovary: Obscured by overlying bowel gas 4. Left Ovary: Obscured by overlying bowel gas 5. Bilateral Adnexa: wnl 6. Posterior cul-de-sac: wnl IMPRESSION: 1. Similar size of the oval hypoechoic lesion along the lower uterine segment that on some images emmanuel ears external to the uterus. Endometrial implant could be considered or the previously mentioned cesa rean niche. CT pelvis with contrast may provide better anatomic delineation. 2. Similar size of the probable small intrauterine leiomyoma. 3. Ovaries are again nonvisualized.
== END | disposition home or self-care (01) ==
LOC: RADUSWWP 10:13
PROVIDERS: ATTEND Obstetrics & Gynecology
DX: N85.9 Noninflammatory disorder of uterus, unspecified (principal); D25.9 Leiomyoma of uterus, unspecified
CPT/HCPCS: 76830

== ENCOUNTER → 2019-12-29 | Outpatient (CLI) | payer MEDICARE ==
--- NOTE | 2020-01-01 14:05 | MM ---
Reason for exam: screening (asymptomatic). Last mammogram was performed 1 year ago. History: Patient is postmenopausal. Family history of breast cancer in mother at age 79. Benign left mammotome panel of the left breast, December 30, 2007. Took hormonal contraceptives for 6 months. Physical Findings: A clinical breast exam by your physician is recommended on an annual basis and results should be correlated with mammographic findings. MG 3D Screening Mammo W/Cad Bilateral CC and MLO view(s) were taken. Prior study comparison: December 22, 2018, bilateral MG 3d screening mammo w/cad. November 19, 2017, bilateral MG 3d screening mammo w/cad. There are scattered fibroglandular densities. Previous mammotome biopsy in the left breast. No significant changes when compared with prior studies. ASSESSMENT: Benign, BI-RAD 2 RECOMMENDATION: Routine screening mammogram of both breasts in 1 year.
== END | disposition home or self-care (01) ==
LOC: RADMAMWWP 15:51
PROVIDERS: ATTEND Obstetrics & Gynecology
DX: Z12.31 Encounter for screening mammogram for malignant neoplasm of breast (principal); Z80.3 Family history of malignant neoplasm of breast
CPT/HCPCS: 77063; 77067

== ENCOUNTER → 2020-04-25 | Outpatient (CLI) | payer MEDICARE ==
--- NOTE | 2020-04-26 07:09 | US ---
EXAMINATION TYPE: US pelvic complete DATE OF EXAM: 04/25/2020 COMPARISON: 06/20/2019 CLINICAL HISTORY: R10.2 pelvic pain. TECHNIQUE: Transabdominal (TA). Date of LMP: 5 years postmenopausal EXAM MEASUREMENTS: Uterus: 8.6 x 2.5 x 4.2 cm Endometrial Stripe: 0.4 cm Right Ovary: 1.7 x 1.4 x 1.3 cm Left Ovary: 1.2 x 1.1 x 1.0 cm 1. Uterus: probable fibroid seen previously measuring 1.2 x 0.9 x 1.0cm 2. Endometrium: wnl 3. Right Ovary: wnl 4. Left Ovary: wnl 5. Bilateral Adnexa: wnl 6. Posterior cul-de-sac: wnl IMPRESSION: 1. Hypoechoic mass within the uterus measuring 1.2 cm most likely in the basis of a small fibroid cor relate clinically. The previously noted oval hypoechoic lesion along the lower uterine segment is not seen on today's exam but may be secondary to lack of transvaginal imaging. Correlate clinically.
== END | disposition home or self-care (01) ==
LOC: RADUSWWP 15:31
PROVIDERS: ATTEND Obstetrics & Gynecology
DX: N85.8 Other specified noninflammatory disorders of uterus (principal)
CPT/HCPCS: 76856

== ENCOUNTER 2020-06-03 19:32 | Observation (INO) | payer MEDICARE ==
[2020-06-03] MEDS ORDERED: NITROGLYCERIN OINT 1 INCH/GM PACKET TOPICAL STA (20:13)
[2020-06-03] MEDS ORDERED: ASPIRIN 81 MG PO STA (20:13)
[2020-06-03 20:31] LABS: Basophils # (A) 0.1 k/uL (0-0.2); Basophils % (A) 1 %; Eosinophils # (A) 0.2 k/uL (0-0.7); Eosinophils % (A) 2 %; HCT 45.6 % (34.0-46.0); Lymphocytes # (A) 3.1 k/uL (1.0-4.8); Lymphocytes % (A) 31 %; MCH 32.8 pg (25.0-35.0); MCHC 35.1 g/dL (31.0-37.0); MCV 93.3 fL (80.0-100.0); Mean Platelet Volume 9.2; Monocytes # (A) 0.6 k/uL (0-1.0); Monocytes % (A) 6 %; Neutrophils # (A) 5.9 k/uL (1.3-7.7); Neutrophils % (A) 59 %; Platelet Count 264 k/uL (150-450); RBC 4.88 m/uL (3.80-5.40); RDW 12.5 % (11.5-15.5); WBC 9.9 k/uL (3.8-10.6)
[2020-06-03 20:43] LABS: INR 0.9 (<1.2); Partial Thromboplastin Time 23.7 sec (22.0-30.0)
[2020-06-03 20:46] LABS: ALT 29 U/L (4-34); AST 35 U/L (14-36); African American GFR (CKD) >90 (>60 ml/min/1.73 sqM); Albumin 4.5 g/dL (3.5-5.0); Alkaline Phosphatase 83 U/L (38-126); Anion Gap 9 mmol/L; Blood Urea Nitrogen 9 mg/dL (7-17); Calcium 9.9 mg/dL (8.4-10.2); Carbon Dioxide 30 mmol/L (22-30); Chloride 97 mmol/L (98-107); Glucose 128 mg/dL (74-99); Magnesium 1.9 mg/dL (1.6-2.3); Non-African American GFR(CKD) 83 (>60 ml/min/1.73 sqM); Potassium 3.5 mmol/L (3.5-5.1); Sodium 136 mmol/L (137-145); Total Bilirubin 0.7 mg/dL (0.2-1.3); Total Protein 7.7 g/dL (6.3-8.2)
--- NOTE | 2020-06-03 20:49 | XR ---
EXAMINATION TYPE: XR chest 2V DATE OF EXAM: 06/03/2020 COMPARISON: 06/06/2018 HISTORY: Chest pain TECHNIQUE: FINDINGS: Heart and mediastinum are normal. There is minimal subsegmental atelectasis left lung base. The other lung mckeon are clear. There are no hilar masses. There are chest leads. Diaphragm is norm al. IMPRESSION: Minimal subsegmental atelectasis is new compared to old exam. Normal heart.
--- NOTE | 2020-06-03 21:23 | ED ---
Chest Pain HPI - General Chief Complaint: Chest Pain Stated Complaint: Chest pain Time Seen by Provider: 06/03/20 20:05 Source: patient Mode of arrival: wheelchair Limitations: no limitations - History of Present Illness Initial Comments: This 59-year-old female present with a complaint of some chest pain. This is described as a numbness type of sensation to her bilateral chest. She denies any shortness of breath. She denies any radiation of the pain. She has had some dizziness described as a lightheadedness over the last several days. She thinks that this is related to her starting a medication called modafinil 3 days ago. She denies any known previous cardiac disease. She did have a negative stress test approximately one year ago. She denies any leg pain or swelling or history of DVT or PE. She does have a history of anxiety. She took extra Xanax today and this did not seem to help her symptoms. No other complaints or modifying factors. - Related Data Home Medications Medication Instructions Recorded Confirmed Atorvastatin [Lipitor] 10 mg PO DAILY 06/06/18 02/15/19 Multivitamin,Therapeutic [Thera] 1 tab PO DAILY 06/06/18 02/15/19 Levothyroxine Sodium [Synthroid] 50 mcg PO QAM 01/20/19 02/15/19 Losartan-Hctz 50-12.5 mg [Hyzaar 1 tab PO DAILY 01/20/19 02/15/19 50-12.5] ALPRAZolam [Xanax] 0.5 mg PO TID 02/14/19 02/15/19 Calcium Carb/Vitamin D3/Vit K1 1 each PO DAILY 02/14/19 02/15/19 [Citracal Soft Chew] Vit C/E/Zn/Coppr/Lutein/Zeaxan 1 each PO DAILY 02/14/19 02/15/19 [Preservision Areds 2 Softgel] clonazePAM [KlonoPIN] 0.5 mg PO HS 02/14/19 02/15/19 Previous Rx's Medication Instructions Recorded DULoxetine HCL 40 mg PO HS 30 Days #30 capsule. 01/25/19 Allergies Allergy/AdvReac Type Severity Reaction Status Date / Time hydralazine AdvReac "SHAKING Verified 02/15/19 08:58 ALL OVER" zolpidem tartrate AdvReac Unknown Verified 02/15/19 08:58 [From Nikkie] Review of Systems ROS Statement: Those systems with pertinent positive or pertinent negative responses have been documented in the HPI. ROS Other: All systems not noted in ROS Statement are negative. Past Medical History Past Medical History: GERD/Reflux, Hyperlipidemia, Hypertension Additional Past Medical History / Comment(s): Chronic fatigue syndrome, depression, Epi Ceja Weber History of Any Multi-Drug Resistant Organisms: None Reported Past Surgical History: Section, Cholecystectomy, Tonsillectomy Additional Past Surgical History / Comment(s): 10/04/14 EGD, 01/01/15 choleceystectomy, 02/05/15 EGD with BX, 2008 COLONOSCOPY, Past Anesthesia/Blood Transfusion Reactions: Motion Sickness, Postoperative Nausea & Vomiting (PONV) Past Psychological History: Anxiety Past Alcohol Use History: None Reported Past Drug Use History: None Reported - Past Family History Son(s) Family Medical History: No Reported History Daughter(s) Family Medical History: No Reported History Mother Family Medical History: Cancer Additional Family Medical History / Comment(s): BREAST CANCER Father Family Medical History: Blood Disorder Additional Family Medical History / Comment(s): hemachromatosis. General Exam - General Exam Comments Initial Comments: GENERAL: The patient is well nourished and well hydrated. VITAL SIGNS: Heart rate, blood pressure, respiratory rate reviewed as recorded in nurse's notes. EYES: Pupils are round and reactive. Extraocular movements are intact. No conjunctival / lid redness or swelling. ENT: No external evidence of injury, swelling, or ecchymosis. Airway is patent. Throat is clear. NECK: Nontender. No swelling or evidence of injury. No subcutaneous emphysema. Trachea is midline. No thyroid mass. HEART: Regular rate and rhythm. Good peripheral pulses. LUNGS/CHEST: Breath sounds clear and equal bilaterally. No rales, rhonchi, or wheezes. No ecchymosis, subcutaneous emphysema, or tenderness. ABDOMEN: Abdomen soft without tenderness. No palpable masses or organomegaly. No peritoneal signs. No abdominal wall swelling or ecchymosis. EXTREMITIES: No extremity tenderness. Normal muscle tone and function. No thoracolumbar tenderness. NEUROLOGIC: Sensation is grossly intact. Cranial nerve exam reveals face is symmetrical, tongue is midline, speech is clear. SKIN: No abrasions or ecchymosis is noted. No induration or masses noted. PSYCHIATRIC: Alert and oriented. Appropriate behavior and judgment. Limitations: no limitations Course Vital Signs 06/03/20 19:38 Temperature 98.1 F Pulse Rate 107 H Respiratory 18 Rate Blood Pressure 130/92 O2 Sat by Pulse 96 Oximetry Chest Pain MDM - MDM The patient was seen and examined. All diagnostics are reviewed. The patient had a EKG done which shows a sinus tachycardia with a heart rate of 101. There is no acute ST elevation. There is some nonspecific changes in the inferior leads. The MA intervals 148, QRS duration is 94, and the QTC intervals 446. The patient had a chest x-ray which did not show any acute abnormalities. The cardiac profile labs are all essentially within normal limits. She had an aspirin and also some Nitropaste and the chest pain symptoms seemed to improve to a certain degree. It is felt as though she would benefit from admission to the hospital to rule out the possibility of acute coronary syndrome. She is agreeable with this plan. Case is discussed with KIM Lockhart for internal medicine and he is agreeable with cardiology to consult. Disposition Clinical Impression: Unstable angina pectoris, Chest pain Disposition: ADMITTED IP TO THIS HOSP Condition: Fair Is patient prescribed a controlled substance at d/c from ED?: No Referrals: None,Stated [Primary Care Provider] - 1-2 days Time of Disposition: 21:23 Decision Date: 06/03/20 Decision Time: 21:23
[2020-06-03] MEDS ORDERED: NITROGLYCERIN SL TABS 0.4 MG TAB SUBLINGUAL PRN (21:24)
[2020-06-03] MEDS ORDERED: ACETAMINOPHEN TAB 325 MG TAB PO PRN (21:24)
[2020-06-03] MEDS: NITROGLYCERIN OINT 1 INCH/GM PACKET TOPICAL SCH (23:37)
[2020-06-04 03:11] LABS: Cholesterol 159 mg/dL (<200); HDL Cholesterol 34 mg/dL (40-60); LDL Cholesterol,Calculated 88 mg/dL (0-99); Triglycerides 186 mg/dL (<150)
[2020-06-04 04:25] VITALS: TEMP 97.5
[2020-06-04] MEDS: NITROGLYCERIN OINT 1 INCH/GM PACKET TOPICAL SCH (05:31)
[2020-06-04] MEDS ORDERED: LEVOTHYROXINE 50 MCG TAB PO SCH (06:30)
[2020-06-04 08:24] VITALS: BP 131/77; PULSE 82; RESP 14
[2020-06-04] MEDS ORDERED: ALPRAZolam 0.5 MG TAB PO SCH (09:00)
[2020-06-04] MEDS ORDERED: MULTIVITAMINS, THERA 1 EACH TAB PO SCH (09:00)
[2020-06-04] MEDS ORDERED: LOSARTAN-HCTZ 50-12.5 MG 1 EACH TAB PO SCH (09:00)
[2020-06-04] MEDS ORDERED: ATORVASTATIN 10 MG TAB PO SCH (09:00)
[2020-06-04] MEDS ORDERED: ENOXAPARIN 40 MG/0.4 ML SYRINGE SQ SCH (09:00)
[2020-06-04] MEDS ORDERED: ASPIRIN 325 MG TAB PO SCH (09:00)
--- NOTE | 2020-06-04 10:55 | P.CRDCN ---
History of Present Illness History of present illness: HISTORY OF PRESENTING ILLNESS This is a pleasant 59-year-old female past medical history significant for hypertension, dyslipidemia, chronic fatigue syndrome and depression. 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 We have been asked to see in consultation for chest pain. States she was started on a new medication for her chronic fatigue syndrome 4 days ago and since starting the medication she has been having persistent nausea. Yesterday she was experiencing discomfort in the left precordial region described as electrical impulses. The discomfort was brief in nature. Not related to exertion or activity. Happen multiple times throughout the day. DIAGNOSTICS EKG reveals sinus tachycardia with first-degree AV block heart rate of 101. Telemetry tracings indicate sinus mechanism. Chest xray subsegmental atelectasis. Laboratory reviewed, CBC unremarkable, sodium 136, potassium 3.5, creatinine 0.78, magnesium 1.9, cardiac enzymes negative 3, LDL 88 HDL 34. Current cardiac medications include aspirin 325 mg daily, atorvastatin 10 mg daily and losartan/hydrochlorothiazide 50/12.5 mg daily. REVIEW OF SYSTEMS At the time of my exam: CONSTITUTIONAL: Denies fever or chills. CARDIOVASCULAR: Denies chest pain, shortness of breath, orthopnea, PND or palpitations. RESPIRATORY: Denies cough. GASTROINTESTINAL: Denies abdominal pain, diarrhea, constipation, nausea or vomiting. MUSCULOSKELETAL: Denies myalgias. NEUROLOGIC: Denies numbness, tingling, headacbe or weakness. ENDOCRINE: Denies fatigue, weight change, polydipsia or polyurina. GENITOURINARY: Denies burning, hematuria or urgency with micturation. HEMATOLOGIC: Denies history of anemia or bleeding. PHYSICAL EXAMINATION Blood pressure 131/77 heart rate 82 afebrile and maintaining oxygen saturation on room air. CONSTITUTIONAL: No apparent distress. HEENT: Head is normocephalic. Pupils are equal, round. Sclerae anicteric. Mucous membranes of the mouth are moist. No JVD. No carotid bruit. CHEST EXAMINATION: Lungs are clear to auscultation. No chest wall tenderness is noted on palpation or with deep breathing. HEART EXAMINATION: Regular rate and rhythm. S1, S2 heard. No murmurs, gallops or rub. ABDOMEN: Soft, nontender. Positive bowel sounds. EXTREMITIES: 2+ peripheral pulses, no lower extremity edema and no calf tenderness. NEUROLOGIC EXAMINATION: Patient is awake, alert and oriented x3. ASSESSMENT Chest pain, atypical Hypertension Dyslipidemia Chronic fatigue syndrome PLAN Acute coronary event has been ruled out. Echocardiogram has been obtained and will be reviewed. Discussed with the patient the possibility of undergoing stress testing today however she states she did not get any rest last night she feels extremely tired and would like to do it as an outpatient. This is reasonable given her normal EKG and enzymes negative. Decrease aspirin to 81 mg daily. Follow-up in the office with Dr. Lakhani for outpatient stress test in 1-2 weeks. Thank you kindly for this consultation. Nurse Practitioner note has been reviewed, I agree with a documented findings and plan of care. Patient was seen and examined. Past Medical History Past Medical History: GERD/Reflux, Hyperlipidemia, Hypertension Additional Past Medical History / Comment(s): Chronic fatigue syndrome, depression, Epi Ceja Weber History of Any Multi-Drug Resistant Organisms: None Reported Past Surgical History: Section, Cholecystectomy, Tonsillectomy Additional Past Surgical History / Comment(s): 10/04/14 EGD, 01/01/15 choleceystectomy, 02/05/15 EGD with BX, 2008 COLONOSCOPY, Past Anesthesia/Blood Transfusion Reactions: Motion Sickness, Postoperative Nausea & Vomiting (PONV) Past Psychological History: Anxiety Additional Psychological History / Comment(s): Is noted the patient appears to have chronic depression. She is lives with and has adult children. She is not a tobacco smoker or alcohol user. No recreational drug use. Is no longer working because of her fatigue. No experience. No international travel. no animal exposures Smoking Status: Never smoker Past Alcohol Use History: None Reported Past Drug Use History: None Reported - Past Family History Son(s) Family Medical History: No Reported History Daughter(s) Family Medical History: No Reported History Mother Family Medical History: Cancer Additional Family Medical History / Comment(s): BREAST CANCER Father Family Medical History: Blood Disorder Additional Family Medical History / Comment(s): hemachromatosis. Medications and Allergies Home Medications Medication Instructions Recorded Confirmed Type Atorvastatin [Lipitor] 10 mg PO DAILY 06/06/18 06/03/20 History Multivitamin,Therapeutic [Thera] 1 tab PO DAILY 06/06/18 06/03/20 History Levothyroxine Sodium [Synthroid] 50 mcg PO DAILY 01/20/19 06/03/20 History Losartan-Hctz 50-12.5 mg [Hyzaar 1 tab PO DAILY 01/20/19 06/03/20 History 50-12.5] ALPRAZolam [Xanax] 0.5 mg PO BID 02/14/19 06/03/20 History OLANZapine [ZyPREXA] 5 mg PO 06/04/20 History Allergies Allergy/AdvReac Type Severity Reaction Status Date / Time hydralazine AdvReac "SHAKING Verified 06/03/20 21:39 ALL OVER" lorazepam [From Ativan] AdvReac insomnia Verified 06/03/20 21:39 zolpidem tartrate AdvReac Unknown Verified 06/03/20 21:39 [From Ambien] Physical Exam Vitals: Vital Signs Temp Pulse Pulse Resp BP BP Pulse Ox 06/04/20 08:15 97.5 F L 82 14 131/77 96 06/04/20 04:15 97.5 F L 75 16 116/72 99 06/03/20 23:22 97.7 F 75 16 127/81 95 06/03/20 22:20 98.1 F 74 16 121/74 96 06/03/20 21:30 89 16 128/86 95 06/03/20 21:00 96 16 127/86 95 06/03/20 20:30 92 16 132/87 95 06/03/20 19:38 98.1 F 107 H 18 130/92 96 Intake and Output 06/03/20 06/04/20 06/04/20 22:59 06:59 14:59 Other: Voiding Method Toilet Toilet # Voids 1 Weight 79.379 kg 81.3 kg Results 06/03/20 20:22 06/03/20 20:22 Cardiac Enzymes 06/03/20 06/03/20 06/03/20 Range/Units 20:22 20:22 22:22 AST 35 (14-36) U/L Troponin I <0.012 <0.012 (0.000-0.034) ng/mL 06/04/20 Range/Units 00:12 AST (14-36) U/L Troponin I <0.012 (0.000-0.034) ng/mL Coagulation 06/03/20 Range/Units 20:22 PT 10.0 (9.0-12.0) sec APTT 23.7 (22.0-30.0) sec Lipids 06/04/20 Range/Units 00:12 Triglycerides 186 H (<150) mg/dL Cholesterol 159 (<200) mg/dL HDL Cholesterol 34 L (40-60) mg/dL CBC 06/03/20 Range/Units 20:22 WBC 9.9 (3.8-10.6) k/uL RBC 4.88 (3.80-5.40) m/uL Hgb 16.0 (11.4-16.0) gm/dL Hct 45.6 (34.0-46.0) % Plt Count 264 (150-450) k/uL Comprehensive Metabolic Panel 06/03/20 Range/Units 20:22 Sodium 136 L (137-145) mmol/L Potassium 3.5 (3.5-5.1) mmol/L Chloride 97 L (98-107) mmol/L Carbon Dioxide 30 (22-30) mmol/L BUN 9 (7-17) mg/dL Creatinine 0.78 (0.52-1.04) mg/dL Glucose 128 H (74-99) mg/dL Calcium 9.9 (8.4-10.2) mg/dL AST 35 (14-36) U/L ALT 29 (4-34) U/L Alkaline Phosphatase 83 (38-126) U/L Total Protein 7.7 (6.3-8.2) g/dL Albumin 4.5 (3.5-5.0) g/dL Current Medications Generic Name Dose Route Start Last Admin Trade Name Karlq PRN Reason Stop Dose Admin Acetaminophen 650 mg 06/03/20 21:24 06/04/20 00:43 Acetaminophen Tab 325 Mg Tab PO 650 mg Q4HR PRN Administration Pain Alprazolam 0.5 mg 06/04/20 09:00 06/04/20 08:18 Alprazolam 0.5 Mg Tab PO 0.5 mg BID POPPY Administration Aspirin 325 mg 06/04/20 09:00 06/04/20 08:17 Aspirin 325 Mg Tab PO 325 mg DAILY POPPY Administration Atorvastatin Calcium 10 mg 06/04/20 09:00 06/04/20 08:18 Atorvastatin 10 Mg Tab PO 10 mg DAILY POPPY Administration Enoxaparin Sodium 40 mg 06/04/20 09:00 06/04/20 08:20 Enoxaparin 40 Mg/0.4 Ml Syringe SQ Not Given DAILY POPPY HCTZ/Losartan Potassium 1 each 06/04/20 09:00 06/04/20 08:18 Losartan-Hctz 50-12.5 Mg 1 Each Tab PO 1 each DAILY POPPY Administration Levothyroxine Sodium 50 mcg 06/04/20 06:30 06/04/20 05:32 Levothyroxine 50 Mcg Tab PO 50 mcg DAILY@0630 POPPY Administration Multivitamins 1 each 06/04/20 09:00 06/04/20 08:17 Multivitamins, Thera 1 Each Tab PO 1 each DAILY POPPY Administration Nitroglycerin 0.4 mg 06/03/20 21:24 Nitroglycerin Sl Tabs 0.4 Mg Tab SUBLINGUAL Q5M PRN Chest Pain Nitroglycerin 1 inch 06/04/20 00:00 06/04/20 05:31 Nitroglycerin Oint 1 Inch/Gm Packet TOPICAL Not Given Q6HR POPPY Intake and Output 06/03/20 06/04/20 06/04/20 22:59 06:59 14:59 Other: Voiding Method Toilet Toilet # Voids 1 Weight 79.379 kg 81.3 kg 06/03/20 20:22 06/03/20 20:22
--- NOTE | 2020-06-04 11:37 | ECHOF ---
Referral Reason:cp MEASUREMENTS -------- HEIGHT: 160.0 cm WEIGHT: 81.2 kg BP: 116/72 RVIDd: 2.7 cm (< 3.3) IVSd: 1.2 cm (0.6 - 1.1) LVIDd: 3.4 cm (3.9 - 5.3) LVPWd: 1.3 cm (0.6 - 1.1) IVSs: 1.6 cm LVIDs: 2.3 cm LVPWs: 1.7 cm LAESV Index (A-L): 17.36 ml/m Ao Diam: 2.5 cm (2.0 - 3.7) AV Cusp: 1.7 cm (1.5 - 2.6) MV EXCURSION: 13.883 mm (> 18.000) MV EF SLOPE: 58 mm/s (70 - 150) EPSS: 0.4 cm MV E Jude: 0.45 m/s MV DecT: 187 ms MV A Jude: 0.58 m/s MV E/A Ratio: 0.79 RAP: 5.00 mmHg RVSP: 15.32 mmHg FINDINGS -------- Sinus rhythm. This was a technically good study. LV size, wall thickness and systolic function are normal, with an EF greater than 55%. The left marion tricular size is normal. The right ventricle is normal in size. Normal LA size by volume 22+/-6 ml/m2. The right atrial size is normal. The aortic valve is trileaflet, and appears structurally normal. No aortic stenosis or regurgitation. Mild mitral regurgitation is present. Mild tricuspid regurgitation present. Right ventricular systolic pressure is normal at < 35 mmHg. There is no pulmonic regurgitation present. The aortic root size is normal. Echo free space represents a pericardial fat pad. CONCLUSIONS -------- 1. LV size, wall thickness and systolic function are normal, with an EF greater than 55%. 2. The left ventricular size is normal. 3. The right ventricle is normal in size. 4. Normal LA size by volume 22+/-6 ml/m2. 5. The right atrial size is normal. 6. Mild mitral regurgitation is present. 7. Mild tricuspid regurgitation present. 8. Right ventricular systolic pressure is normal at < 35 mmHg. 9. The aortic root size is normal. 10. Echo free space represents a pericardial fat pad. HOUSING GRANT ANALYST: Rocío Hernandez RDCS
[2020-06-05] MEDS ORDERED: ASPIRIN 81 MG PO SCH (09:00)
--- NOTE | 2020-06-19 07:43 | P.HPIM ---
History of Present Illness H&P Date: 06/04/20 Chief Complaint: Chest pain 59-year-old female present with a complaint of some chest pain. This is described as a numbness type of sensation to her bilateral chest. She denies any shortness of breath. She denies any radiation of the pain. She has had some dizziness described as a lightheadedness over the last several days. She thinks that this is related to her starting a medication called modafinil 3 days ago. She denies any known previous cardiac disease. She did have a negative stress test approximately one year ago. She denies any leg pain or swelling or history of DVT or PE. She does have a history of anxiety. She took extra Xanax today and this did not seem to help her symptoms. No other complaints or modifying factors. Review of Systems REVIEW OF SYSTEMS At the time of my exam: CONSTITUTIONAL: Denies fever or chills. CARDIOVASCULAR: Denies chest pain, shortness of breath, orthopnea, PND or palpitations. RESPIRATORY: Denies cough. GASTROINTESTINAL: Denies abdominal pain, diarrhea, constipation, nausea or vomiting. MUSCULOSKELETAL: Denies myalgias. NEUROLOGIC: Denies numbness, tingling, headacbe or weakness. ENDOCRINE: Denies fatigue, weight change, polydipsia or polyurina. GENITOURINARY: Denies burning, hematuria or urgency with micturation. HEMATOLOGIC: Denies history of anemia or bleeding. Past Medical History Past Medical History: GERD/Reflux, Hyperlipidemia, Hypertension Additional Past Medical History / Comment(s): Chronic fatigue syndrome, depression, Epi Ceja Weber History of Any Multi-Drug Resistant Organisms: None Reported Past Surgical History: Section, Cholecystectomy, Tonsillectomy Additional Past Surgical History / Comment(s): 10/04/14 EGD, 01/01/15 choleceystectomy, 02/05/15 EGD with BX, 2008 COLONOSCOPY, Past Anesthesia/Blood Transfusion Reactions: Motion Sickness, Postoperative Nausea & Vomiting (PONV) Past Psychological History: Anxiety Additional Psychological History / Comment(s): Is noted the patient appears to have chronic depression. She is lives with and has adult children. She is not a tobacco smoker or alcohol user. No recreational drug use. Is no longer working because of her fatigue. No experience. No international travel. no animal exposures Smoking Status: Never smoker Past Alcohol Use History: None Reported Past Drug Use History: None Reported - Past Family History Son(s) Family Medical History: No Reported History Daughter(s) Family Medical History: No Reported History Mother Family Medical History: Cancer Additional Family Medical History / Comment(s): BREAST CANCER Father Family Medical History: Blood Disorder Additional Family Medical History / Comment(s): hemachromatosis. Medications and Allergies Home Medications Medication Instructions Recorded Confirmed Type Atorvastatin [Lipitor] 10 mg PO DAILY 06/06/18 06/03/20 History Multivitamin,Therapeutic [Thera] 1 tab PO DAILY 06/06/18 06/03/20 History Levothyroxine Sodium [Synthroid] 50 mcg PO DAILY 01/20/19 06/03/20 History Losartan-Hctz 50-12.5 mg [Hyzaar 1 tab PO DAILY 01/20/19 06/03/20 History 50-12.5] ALPRAZolam [Xanax] 0.5 mg PO BID 02/14/19 06/03/20 History Aspirin 81 mg PO DAILY #90 tab 06/04/20 Rx OLANZapine [ZyPREXA] 5 mg PO 06/04/20 History Allergies Allergy/AdvReac Type Severity Reaction Status Date / Time hydralazine AdvReac "SHAKING Verified 06/03/20 21:39 ALL OVER" lorazepam [From Ativan] AdvReac insomnia Verified 06/03/20 21:39 zolpidem tartrate AdvReac Unknown Verified 06/03/20 21:39 [From Ambien] Physical Exam Vitals: Vital Signs Temp Pulse Pulse Resp BP BP Pulse Ox 06/04/20 04:15 97.5 F L 75 16 116/72 99 06/03/20 23:22 97.7 F 75 16 127/81 95 06/03/20 22:20 98.1 F 74 16 121/74 96 06/03/20 21:30 89 16 128/86 95 06/03/20 21:00 96 16 127/86 95 06/03/20 20:30 92 16 132/87 95 06/03/20 19:38 98.1 F 107 H 18 130/92 96 Intake and Output 06/03/20 06/04/20 06/04/20 22:59 06:59 14:59 Other: Voiding Method Toilet Toilet # Voids 1 Weight 79.379 kg 81.3 kg PHYSICAL EXAMINATION Blood pressure 131/77 heart rate 82 afebrile and maintaining oxygen saturation on room air. CONSTITUTIONAL: No apparent distress. HEENT: Head is normocephalic. Pupils are equal, round. Sclerae anicteric. Mucous membranes of the mouth are moist. No JVD. No carotid bruit. CHEST EXAMINATION: Lungs are clear to auscultation. No chest wall tenderness is noted on palpation or with deep breathing. HEART EXAMINATION: Regular rate and rhythm. S1, S2 heard. No murmurs, gallops or rub. ABDOMEN: Soft, nontender. Positive bowel sounds. EXTREMITIES: 2+ peripheral pulses, no lower extremity edema and no calf tenderness. NEUROLOGIC EXAMINATION: Patient is awake, alert and oriented x3. Results CBC & Chem 7: 06/03/20 20:22 06/03/20 20:22 Labs: Abnormal Lab Results - Last 24 Hours (Table) 06/03/20 06/04/20 Range/Units 20:22 00:12 Sodium 136 L (137-145) mmol/L Chloride 97 L (98-107) mmol/L Glucose 128 H (74-99) mg/dL Triglycerides 186 H (<150) mg/dL HDL Cholesterol 34 L (40-60) mg/dL Thrombosis Risk Factor Assmnt - Choose All That Apply Each Factor Represents 1 point: Age 41-60 years, Obesity (BMI >25) Thrombosis Risk Factor Assessment Total Risk Factor Score: 2 Thrombosis Risk Factor Assessment Level: Low Risk Assessment and Plan Assessment: ASSESSMENT Chest pain, atypical Hypertension Dyslipidemia Chronic fatigue syndrome PLAN Acute coronary event has been ruled out. Echocardiogram has been obtained and will be reviewed. Discussed with the patient the possibility of undergoing stress testing today however she states she did not get any rest last night she feels extremely tired and would like to do it as an outpatient. This is reasonable given her normal EKG and enzymes negative. Decrease aspirin to 81 mg daily. Follow-up in the office with Dr. Lakhani for outpatient stress test in 1-2 weeks.
--- NOTE | 2020-06-19 07:45 | P.DS ---
Providers Date of admission: 06/03/20 21:24 Expected date of discharge: 06/04/20 Attending physician: Rubén Kraft Consults: 06/03/20 21:24 Consult Physician Urgent Consulting Provider: Magali Chakraborty Consult Reason/Comments: cp Do you want consulting provider notified?: Yes Primary care physician: Stated None Hospital Course: 59-year-old female present with a complaint of some chest pain. This is described as a numbness type of sensation to her bilateral chest. She denies any shortness of breath. She denies any radiation of the pain. She has had some dizziness described as a lightheadedness over the last several days. She thinks that this is related to her starting a medication called modafinil 3 days ago. She denies any known previous cardiac disease. She did have a negative stress test approximately one year ago. She denies any leg pain or swelling or history of DVT or PE. She does have a history of anxiety. She took extra Xanax today and this did not seem to help her symptoms. No other complaints or modifying factors. EKG reveals sinus tachycardia with first-degree AV block heart rate of 101. Telemetry tracings indicate sinus mechanism. Chest xray subsegmental atelectasis. Laboratory reviewed, CBC unremarkable, sodium 136, potassium 3.5, creatinine 0.78, magnesium 1.9, cardiac enzymes negative 3, LDL 88 HDL 34. Current cardiac medications include aspirin 325 mg daily, atorvastatin 10 mg daily and losartan/hydrochlorothiazide 50/12.5 mg daily. Acute coronary event has been ruled out. Echocardiogram has been obtained and will be reviewed. Discussed with the patient the possibility of undergoing stress testing today however she states she did not get any rest last night she feels extremely tired and would like to do it as an outpatient. This is reasonable given her normal EKG and enzymes negative. Decrease aspirin to 81 mg daily. Follow-up in the office with Dr. Lakhani for outpatient stress test in 1-2 weeks. Patient Condition at Discharge: Fair Plan - Discharge Summary Discharge Rx Participant: No New Discharge Prescriptions: New Aspirin 81 mg PO DAILY #90 tab Continue Atorvastatin [Lipitor] 10 mg PO DAILY Multivitamin,Therapeutic [Thera] 1 tab PO DAILY Losartan-Hctz 50-12.5 mg [Hyzaar 50-12.5] 1 tab PO DAILY Levothyroxine Sodium [Synthroid] 50 mcg PO DAILY ALPRAZolam [Xanax] 0.5 mg PO BID OLANZapine [ZyPREXA] 5 mg PO Discharge Medication List Atorvastatin [Lipitor] 10 mg PO DAILY 06/06/18 [History] Multivitamin,Therapeutic [Thera] 1 tab PO DAILY 06/06/18 [History] Levothyroxine Sodium [Synthroid] 50 mcg PO DAILY 01/20/19 [History] Losartan-Hctz 50-12.5 mg [Hyzaar 50-12.5] 1 tab PO DAILY 01/20/19 [History] ALPRAZolam [Xanax] 0.5 mg PO BID 02/14/19 [History] Aspirin 81 mg PO DAILY #90 tab 06/04/20 [Rx] OLANZapine [ZyPREXA] 5 mg PO 06/04/20 [History] Follow up Appointment(s)/Referral(s): Bebeto Lakhani DO [STAFF PHYSICIAN] - 2 Weeks (Office to call back with appointment date and time.) None,Stated [Primary Care Provider] - 1-2 days Patient Instructions/Handouts: Chest Pain (DC) Discharge Disposition: HOME SELF-CARE
== END 2020-06-04 12:24 | disposition home or self-care (01) ==
LOC: EC 19:32 → 3SCARD 21:24
PROVIDERS: ADMIT Internal Medicine; ATTEND Internal Medicine
DX: I44.0 Atrioventricular block, first degree (principal); R00.0 Tachycardia, unspecified; I10 Essential (primary) hypertension; R07.9 Chest pain, unspecified; R42 Dizziness and giddiness; J98.11 Atelectasis; R53.82 Chronic fatigue, unspecified; E78.5 Hyperlipidemia, unspecified; R20.0 Anesthesia of skin; F41.9 Anxiety disorder, unspecified; F32.9 Major depressive disorder, single episode, unspecified; Z80.3 Family history of malignant neoplasm of breast; Z79.82 Long term (current) use of aspirin; Z79.899 Other long term (current) drug therapy; Z79.890 Hormone replacement therapy; Z20.822 Contact with and (suspected) exposure to COVID-19
CPT/HCPCS: 93005 ×2; 99285; 36415; 93306; 80061; 80053; 84443; 83735; 84484 ×2; 85025; 85610; 85730; 87635; 71046; G0378 ×2

== ENCOUNTER → 2020-07-17 | Outpatient (CLI) | payer MEDICARE ==
--- NOTE | 2020-07-17 15:55 | SFUN ---
SLEEP CENTER FOLLOW UP NOTE DATE OF SERVICE: 07/17/2020 This 60-year-old lady had been followed in [facility] for insomnia and possible obstructive sleep apnea-hypopnea syndrome. I saw patient on 08/26/2017. At that time, I recommended to proceed with a home sleep apnea test, but for different reason it was not done. The patient continues to have significant problems with falling asleep, but also she has multiple awakenings from sleep and significant fatigue during the day. Sometimes she is lying down during the day because of the fatigue, but in that situation sometimes she is also falling asleep according to her . [place] Sleepiness Scale today is 4. MEDICATIONS: Depakote extended release 500 mg every night at bedtime, Klonopin 1 mg twice a day as needed for anxiety, Lipitor 10 mg once a day, losartan 50/12.5 mg once a day, Synthroid 50 mcg once a day, imipramine 25 mg twice a day. PHYSICAL EXAMINATION: GENERAL: Patient in no distress. VITAL SIGNS: BP 121/70, HR around 100, RR 12, height 5 feet 4 inches, weight 184.2, temperature 91.7, oxygen saturation in room air 94%. BMI 31.9. HEENT: PERRLA, EOMI. Oropharynx retrognathia 1 to 2 mm, extremely low position of soft palate, Mallampati 4. NECK: Supple, no JVD. Thyroid is not palpable. LUNGS: Clear to percussion and to auscultation. Good air exchange. No wheezing or rhonchi. HEART: S1, S2 regular. No murmurs, gallops, or rubs. ABDOMEN: Soft and nontender. Bowel sounds are present. No organomegaly appreciated. EXTREMITIES: No clubbing or cyanosis. DIRECTOR CASE: Awake, alert, and oriented X3. Cranial nerves 2 to 7 intact. There is no fasciculation or atrophy. noted. No focal deficits observed. IMPRESSION: 1. Snoring, multiple awakenings from sleep, extremely low position of soft palate, feeling tiredness during the day, obstructive sleep apnea-hypopnea syndrome. 2. Insomnia with difficulties to initiate sleep. Possibly secondary to anxiety. 3. Hypertension. 4. History of chronic fatigue syndrome with history of Rissa-Weber virus infection. 5. History of anxiety. 6. Status post cholecystectomy. 7. Menopause for about 5 years. PLAN: 1. Home sleep apnea test for evaluation of patient's breathing during the sleep. 2. Following plan after reviewing results of the sleep test. 3. Continue psychological techniques which I discussed with the patient before for insomnia. 4. Precautions related to driving. No driving if feeling any sleepiness. 5. Watching and losing weight. Thank you very much for allowing me to participate in management of your patient. Sincerely, Julio Hays MD, PhD, FAASM Diplomat of [employer] [place] [facility] Laboratory Technologist of [facility] [place] MMODL / JIMN: [id number] /
== END | disposition home or self-care (01) ==
LOC: SLEEP 10:24
PROVIDERS: ATTEND Internal Medicine
DX: G47.33 Obstructive sleep apnea (adult) (pediatric) (principal); G47.00 Insomnia, unspecified; I10 Essential (primary) hypertension; Z86.19 Personal history of other infectious and parasitic diseases; Z90.49 Acquired absence of other specified parts of digestive tract; Z86.59 Personal history of other mental and behavioral disorders; Z78.0 Asymptomatic menopausal state

== ENCOUNTER 2020-08-10 20:20 | Emergency (ER) | payer MEDICARE ==
[2020-08-10] MEDS ORDERED: ONDANSETRON 4 MG/2 ML VIAL IVP STA (20:32)
[2020-08-10] MEDS ORDERED: SODIUM CHLORIDE 0.9% 1,000 ML IV STA (20:32)
[2020-08-10 21:42] LABS: Appearance,Urine Cloudy (Clear); Bacteria,Urine Few /hpf; Bilirubin,Urine Negative (Negative); Blood,Urine Trace (Negative); Color,Urine Yellow; Glucose,Urine (UA) Negative (Negative); Hyaline Casts,Urine 32 /lpf (0-2); Ketones,Urine Negative (Negative); Leukocyte Esterase,Urine Trace (Negative); Mucus,Urine Rare /hpf; Nitrite,Urine Negative (Negative); Protein,Urine Trace (Negative); RBC,Urine 2 /hpf (0-5); Specific Gravity,Urine 1.011 (1.001-1.035); Squamous Epithelial Cell,Urine 23 /hpf (0-4); Urobilinogen,Urine <2.0 mg/dL (<2.0); WBC,Urine 9 /hpf (0-5)
[2020-08-10 21:45] LABS: Basophils % (A) 1 %; Eosinophils # (A) 0.2 k/uL (0-0.7); Eosinophils % (A) 2 %; HCT 45.2 % (34.0-46.0); HGB 15.9 gm/dL (11.4-16.0); Lymphocytes # (A) 2.8 k/uL (1.0-4.8); Lymphocytes % (A) 34 %; MCH 32.8 pg (25.0-35.0); MCHC 35.2 g/dL (31.0-37.0); MCV 93.2 fL (80.0-100.0); Mean Platelet Volume 8.4; Monocytes # (A) 0.6 k/uL (0-1.0); Monocytes % (A) 7 %; Neutrophils # (A) 4.4 k/uL (1.3-7.7); Neutrophils % (A) 54 %; Platelet Count 259 k/uL (150-450); RBC 4.85 m/uL (3.80-5.40); RDW 12.6 % (11.5-15.5); WBC 8.2 k/uL (3.8-10.6)
[2020-08-10 21:48] LABS: Amphetamine Screen,Urine Not Detected (NotDetected); Barbiturate Screen,Urine Not Detected (NotDetected); Benzodiazepines Screen,Urine Detected (NotDetected); Cocaine Screen,Urine Not Detected (NotDetected); Methadone Screen, Urine Not Detected (NotDetected); Opiate Screen,Urine Not Detected (NotDetected); Oxycodone Screen, Urine Not Detected (NotDetected); Phencyclidine Screen,Urine Not Detected (NotDetected); Tricyclic Antidepressant,Urine Detected (NotDetected); Urn Cannabinoid Scrn Not Detected (NotDetected)
--- NOTE | 2020-08-10 22:55 | ED ---
General Adult HPI - General Source: patient Mode of arrival: ambulatory Limitations: no limitations <Lo Webb - Last Filed: 08/10/20 22:52> <Magdaleno Lake - Last Filed: 08/11/20 06:48> - General Chief complaint: Nausea/Vomiting/Diarrhea Stated complaint: fatigue, diarrhea Time Seen by Provider: 08/10/20 20:25 - History of Present Illness Initial comments: Patient is a 60-year-old female who presents emergency department for nausea and lightheadedness. Patient states that she's had difficulty sleeping over the past week. She did get a prescription for Ambien 5 mg filled on Wednesday and began taking them on Wednesday. She did take one pill on Wednesday night. Each night since then the patient has taken multiple doses of her medications and is almost out of the entire prescription. Patient reports that she didn't intentionally take these medications she just wanted to sleep. Denies wanting to hurt herself. She was also recently started on Xanax starting and takes this 5 times daily. Due to the excess medications she has had nausea without vomiting. No recent infections. Denies any fever or chills. No head trauma. No chest pain or shortness of breath. No changes in her bowel or bladder habits. No other alleviating, precipitating or modifying factors (Lo Webb) - Related Data Home Medications Medication Instructions Recorded Confirmed Atorvastatin [Lipitor] 10 mg PO DAILY 06/06/18 06/03/20 Multivitamin,Therapeutic [Thera] 1 tab PO DAILY 06/06/18 06/03/20 Levothyroxine Sodium [Synthroid] 50 mcg PO DAILY 01/20/19 06/03/20 Losartan-Hctz 50-12.5 mg [Hyzaar 1 tab PO DAILY 01/20/19 06/03/20 50-12.5] ALPRAZolam [Xanax] 0.5 mg PO BID 02/14/19 06/03/20 OLANZapine [ZyPREXA] 5 mg PO 06/04/20 Previous Rx's Medication Instructions Recorded Aspirin 81 mg PO DAILY #90 tab 06/04/20 Allergies Allergy/AdvReac Type Severity Reaction Status Date / Time hydralazine AdvReac "SHAKING Verified 06/03/20 21:39 ALL OVER" lorazepam [From Ativan] AdvReac insomnia Verified 06/03/20 21:39 Review of Systems ROS Other: All systems not noted in ROS Statement are negative. <Lo Webb - Last Filed: 08/10/20 22:52> ROS Other: All systems not noted in ROS Statement are negative. <AleksandraMagdaleno B - Last Filed: 08/11/20 06:48> ROS Statement: Those systems with pertinent positive or pertinent negative responses have been documented in the HPI. Past Medical History Past Medical History: GERD/Reflux, Hyperlipidemia, Hypertension Additional Past Medical History / Comment(s): Chronic fatigue syndrome, depression, Epi Ceja Weber, History of Any Multi-Drug Resistant Organisms: None Reported Past Surgical History: Section, Cholecystectomy, Tonsillectomy Additional Past Surgical History / Comment(s): 10/04/14 EGD, 01/01/15 choleceystectomy, 02/05/15 EGD with BX, 2008 COLONOSCOPY, Past Anesthesia/Blood Transfusion Reactions: Motion Sickness, Postoperative Nausea & Vomiting (PONV) Past Psychological History: Anxiety Smoking Status: Never smoker Past Alcohol Use History: None Reported Past Drug Use History: None Reported - Past Family History Son(s) Family Medical History: No Reported History Daughter(s) Family Medical History: No Reported History Mother Family Medical History: Cancer Additional Family Medical History / Comment(s): BREAST CANCER Father Family Medical History: Blood Disorder Additional Family Medical History / Comment(s): hemachromatosis. <Lo Webb A - Last Filed: 08/10/20 22:52> General Exam Limitations: no limitations <Lo Webb Jonelle - Last Filed: 08/10/20 22:52> General appearance: alert, in no apparent distress, anxious Head exam: Present: atraumatic, normocephalic, normal inspection Eye exam: Present: normal appearance, PERRL, EOMI. Absent: scleral icterus, conjunctival injection, periorbital swelling ENT exam: Present: normal exam, mucous membranes moist Neck exam: Present: normal inspection. Absent: tenderness, meningismus, lymphadenopathy Respiratory exam: Present: normal lung sounds bilaterally. Absent: respiratory distress, wheezes, rales, rhonchi, stridor Cardiovascular Exam: Present: regular rate, normal rhythm, normal heart sounds. Absent: systolic murmur, diastolic murmur, rubs, gallop, clicks GI/Abdominal exam: Present: soft, normal bowel sounds. Absent: distended, tenderness, guarding, rebound, rigid Extremities exam: Present: normal inspection, full ROM, normal capillary refill. Absent: tenderness, pedal edema, joint swelling, calf tenderness Back exam: Present: normal inspection Neurological exam: Present: alert, oriented X3, CN II-XII intact Psychiatric exam: Present: normal affect, normal mood Skin exam: Present: warm, dry, intact, normal color. Absent: rash <Magdaleno Lake - Last Filed: 08/11/20 06:48> Course Vital Signs 08/10/20 08/10/20 08/10/20 20:22 21:31 23:03 Temperature 98.1 F Pulse Rate 114 H 88 92 Respiratory 18 18 16 Rate Blood Pressure 148/97 140/88 135/83 O2 Sat by Pulse 97 98 98 Oximetry 08/11/20 00:25 Temperature 97.9 F Pulse Rate 91 Respiratory 16 Rate Blood Pressure 133/81 O2 Sat by Pulse 98 Oximetry Medical Decision Making - Lab Data Result diagrams: 08/10/20 21:00 <Lo Webb - Last Filed: 08/10/20 22:52> - Lab Data Result diagrams: 08/10/20 21:00 08/10/20 22:20 <Magdaleno Lake - Last Filed: 08/11/20 06:48> - Medical Decision Making Upon arrival the patient was placed in room 15. There are history and physical exam was performed. Poison control is contacted. Laboratory studies were conducted. Patient was given a liter bolus of normal saline and 4 mg Zofran. Patient is adamant that she did not take these medications in attempt to harm herself. Labs are currently pending at this time patient will be signed out to Dr. Lake. (Lo Webb) 60 female to the ER for accidental drug ingestion. Patient feels well here in the ER and can be discharged home, not suicidal (Magdaleno Lake) - Lab Data Lab Results 08/10/20 08/10/20 08/10/20 Range/Units 20:56 20:56 21:00 WBC 8.2 (3.8-10.6) k/uL RBC 4.85 (3.80-5.40) m/uL Hgb 15.9 (11.4-16.0) gm/dL Hct 45.2 (34.0-46.0) % MCV 93.2 (80.0-100.0) fL MCH 32.8 (25.0-35.0) pg MCHC 35.2 (31.0-37.0) g/dL RDW 12.6 (11.5-15.5) % Plt Count 259 (150-450) k/uL MPV 8.4 Neutrophils % 54 % Lymphocytes % 34 % Monocytes % 7 % Eosinophils % 2 % Basophils % 1 % Neutrophils # 4.4 (1.3-7.7) k/uL Lymphocytes # 2.8 (1.0-4.8) k/uL Monocytes # 0.6 (0-1.0) k/uL Eosinophils # 0.2 (0-0.7) k/uL Basophils # 0.0 (0-0.2) k/uL Sodium (137-145) mmol/L Potassium (3.5-5.1) mmol/L Chloride (98-107) mmol/L Carbon Dioxide (22-30) mmol/L Anion Gap mmol/L BUN (7-17) mg/dL Creatinine (0.52-1.04) mg/dL Est GFR (CKD-EPI)AfAm (>60 ml/min/1.73 sqM) Est GFR (CKD-EPI)NonAf (>60 ml/min/1.73 sqM) Glucose (74-99) mg/dL Plasma Lactic Acid Gasper (0.7-2.0) mmol/L Calcium (8.4-10.2) mg/dL Total Bilirubin (0.2-1.3) mg/dL AST (14-36) U/L ALT (4-34) U/L Alkaline Phosphatase (38-126) U/L Total Protein (6.3-8.2) g/dL Albumin (3.5-5.0) g/dL Lipase (23-300) U/L TSH (0.465-4.680) mIU/L Urine Color Yellow Urine Appearance Cloudy H (Clear) Urine pH 6.0 (5.0-8.0) Ur Specific [place] 1.011 (1.001-1.035) Urine Protein Trace H (Negative) Urine Glucose (UA) Negative (Negative) Urine Ketones Negative (Negative) Urine Blood Trace H (Negative) Urine Nitrite Negative (Negative) Urine Bilirubin Negative (Negative) Urine Urobilinogen <2.0 (<2.0) mg/dL Ur Leukocyte Esterase Trace H (Negative) Urine RBC 2 (0-5) /hpf Urine WBC 9 H (0-5) /hpf Ur Squamous Epith Cells 23 H (0-4) /hpf Urine Bacteria Few H (None) /hpf Hyaline Casts 32 H (0-2) /lpf Urine Mucus Rare H (None) /hpf Salicylates mg/dL Urine Opiates Screen Not Detected (NotDetected) Ur Oxycodone Screen Not Detected (NotDetected) Urine Methadone Screen Not Detected (NotDetected) Ur Propoxyphene Screen Not Detected (NotDetected) Acetaminophen ug/mL Ur Barbiturates Screen Not Detected (NotDetected) U Tricyclic Antidepress Detected H (NotDetected) Ur Phencyclidine Scrn Not Detected (NotDetected) Ur Amphetamines Screen Not Detected (NotDetected) U Methamphetamines Scrn Not Detected (NotDetected) U Benzodiazepines Scrn Detected H (NotDetected) Urine Cocaine Screen Not Detected (NotDetected) U Marijuana (THC) Screen Not Detected (NotDetected) 08/10/20 08/10/20 Range/Units 21:28 22:20 WBC (3.8-10.6) k/uL RBC (3.80-5.40) m/uL Hgb (11.4-16.0) gm/dL Hct (34.0-46.0) % MCV (80.0-100.0) fL MCH (25.0-35.0) pg MCHC (31.0-37.0) g/dL RDW (11.5-15.5) % Plt Count (150-450) k/uL MPV Neutrophils % % Lymphocytes % % Monocytes % % Eosinophils % % Basophils % % Neutrophils # (1.3-7.7) k/uL Lymphocytes # (1.0-4.8) k/uL Monocytes # (0-1.0) k/uL Eosinophils # (0-0.7) k/uL Basophils # (0-0.2) k/uL Sodium 137 (137-145) mmol/L Potassium 3.4 L (3.5-5.1) mmol/L Chloride 102 (98-107) mmol/L Carbon Dioxide 29 (22-30) mmol/L Anion Gap 6 mmol/L BUN 11 (7-17) mg/dL Creatinine 1.00 (0.52-1.04) mg/dL Est GFR (CKD-EPI)AfAm 71 (>60 ml/min/1.73 sqM) Est GFR (CKD-EPI)NonAf 61 (>60 ml/min/1.73 sqM) Glucose 93 (74-99) mg/dL Plasma Lactic Acid Gasper 1.7 (0.7-2.0) mmol/L Calcium 8.7 (8.4-10.2) mg/dL Total Bilirubin 0.5 (0.2-1.3) mg/dL AST 28 (14-36) U/L ALT 22 (4-34) U/L Alkaline Phosphatase 82 (38-126) U/L Total Protein 6.3 (6.3-8.2) g/dL Albumin 3.7 (3.5-5.0) g/dL Lipase 72 (23-300) U/L TSH 1.080 (0.465-4.680) mIU/L Urine Color Urine Appearance (Clear) Urine pH (5.0-8.0) Ur Specific [place] (1.001-1.035) Urine Protein (Negative) Urine Glucose (UA) (Negative) Urine Ketones (Negative) Urine Blood (Negative) Urine Nitrite (Negative) Urine Bilirubin (Negative) Urine Urobilinogen (<2.0) mg/dL Ur Leukocyte Esterase (Negative) Urine RBC (0-5) /hpf Urine WBC (0-5) /hpf Ur Squamous Epith Cells (0-4) /hpf Urine Bacteria (None) /hpf Hyaline Casts (0-2) /lpf Urine Mucus (None) /hpf Salicylates <1.0 mg/dL Urine Opiates Screen (NotDetected) Ur Oxycodone Screen (NotDetected) Urine Methadone Screen (NotDetected) Ur Propoxyphene Screen (NotDetected) Acetaminophen <10.0 ug/mL Ur Barbiturates Screen (NotDetected) U Tricyclic Antidepress (NotDetected) Ur Phencyclidine Scrn (NotDetected) Ur Amphetamines Screen (NotDetected) U Methamphetamines Scrn (NotDetected) U Benzodiazepines Scrn (NotDetected) Urine Cocaine Screen (NotDetected) U Marijuana (THC) Screen (NotDetected) Disposition <Lo Webb A - Last Filed: 08/10/20 22:52> Is patient prescribed a controlled substance at d/c from ED?: No <Magdaleno Lake - Last Filed: 08/11/20 06:48> Clinical Impression: Weakness, Nausea and vomiting, Accidental overdose Disposition: HOME SELF-CARE Condition: Fair Instructions (If sedation given, give patient instructions): Acute Nausea and Vomiting (ED) Referrals: Romeo Lim MD [Primary Care Provider] - 1-2 days
[2020-08-10 23:05] VITALS: RESP 16
[2020-08-10 23:07] LABS: ALT 22 U/L (4-34); AST 28 U/L (14-36); Acetaminophen <10.0 ug/mL; African American GFR (CKD) 71 (>60 ml/min/1.73 sqM); Albumin 3.7 g/dL (3.5-5.0); Alkaline Phosphatase 82 U/L (38-126); Anion Gap 6 mmol/L; Blood Urea Nitrogen 11 mg/dL (7-17); Calcium 8.7 mg/dL (8.4-10.2); Carbon Dioxide 29 mmol/L (22-30); Chloride 102 mmol/L (98-107); Glucose 93 mg/dL (74-99); Lipase 72 U/L (23-300); Non-African American GFR(CKD) 61 (>60 ml/min/1.73 sqM); Potassium 3.4 mmol/L (3.5-5.1); Salicylate <1.0 mg/dL; Sodium 137 mmol/L (137-145); Total Bilirubin 0.5 mg/dL (0.2-1.3); Total Protein 6.3 g/dL (6.3-8.2)
[2020-08-10] MEDS ORDERED: POTASSIUM BICARBONATE/CIT AC 20 MEQ TABLET.EFF PO ONE (23:38)
[2020-08-11 00:31] VITALS: BP 133/81; PULSE 91; TEMP 97.9
== END 2020-08-11 00:25 | disposition home or self-care (01) ==
LOC: EC 20:20
DX: T42.71XA Poisoning by unspecified antiepileptic and sedative-hypnotic drugs, accidental (unintentional), initial encounter (principal); R53.1 Weakness; R11.2 Nausea with vomiting, unspecified; R19.7 Diarrhea, unspecified; R42 Dizziness and giddiness; I10 Essential (primary) hypertension; E78.5 Hyperlipidemia, unspecified; K21.9 Gastro-esophageal reflux disease without esophagitis; F41.9 Anxiety disorder, unspecified; Z79.899 Other long term (current) drug therapy
CPT/HCPCS: 82075; 36415; 80053; 84443; 83605; 83690; 85025; 81001; 80306; 80143; 80179; 99284; 96374; 96361; J2405; 93005

== ENCOUNTER 2020-10-01 14:54 | Emergency (ER) | payer MEDICARE ==
[2020-10-01 15:00] VITALS: BP 136/84; PULSE 109; RESP 16; TEMP 99.1
--- NOTE | 2020-10-01 15:27 | ED ---
General Adult HPI - General Chief complaint: Anxiety Stated complaint: Anxiety,Brain numbness Time Seen by Provider: 10/01/20 15:26 Source: patient Mode of arrival: ambulatory Limitations: no limitations - History of Present Illness Initial comments: Jade is a pleasant 60-year-old female presents the emergency department today with a multitude of complaints. Patient was previously on Xanax taking up to 2.5 mg daily, she was weaned 1.5 mg and that approximately a week ago stopped taking any. She states she's been feeling very anxious she feels like she is an abrasion fog care of come sometimes she feels like her heart is racing. - Related Data Home Medications Medication Instructions Recorded Confirmed Atorvastatin [Lipitor] 10 mg PO DAILY 06/06/18 10/01/20 Levothyroxine Sodium [Synthroid] 50 mcg PO DAILY 01/20/19 10/01/20 Losartan-Hctz 50-12.5 mg [Hyzaar 1 tab PO DAILY 01/20/19 10/01/20 50-12.5] Imipramine [Tofranil] 25 mg PO BID 10/01/20 10/01/20 QUEtiapine [SEROquel] 150 mg PO HS 10/01/20 10/01/20 Allergies Allergy/AdvReac Type Severity Reaction Status Date / Time hydralazine AdvReac "SHAKING Verified 10/01/20 16:17 ALL OVER" lorazepam [From Ativan] AdvReac insomnia Verified 10/01/20 16:17 Review of Systems ROS Statement: Those systems with pertinent positive or pertinent negative responses have been documented in the HPI. ROS Other: All systems not noted in ROS Statement are negative. Past Medical History Past Medical History: GERD/Reflux, Hyperlipidemia, Hypertension Additional Past Medical History / Comment(s): Chronic fatigue syndrome, depression, Epi Ceja Weber, History of Any Multi-Drug Resistant Organisms: None Reported Past Surgical History: Section, Cholecystectomy, Tonsillectomy Additional Past Surgical History / Comment(s): 10/04/14 EGD, 01/01/15 choleceystectomy, 02/05/15 EGD with BX, 2008 COLONOSCOPY, Past Anesthesia/Blood Transfusion Reactions: Motion Sickness, Postoperative Nausea & Vomiting (PONV) Past Psychological History: Anxiety Smoking Status: Never smoker Past Alcohol Use History: None Reported Past Drug Use History: None Reported - Past Family History Son(s) Family Medical History: No Reported History Daughter(s) Family Medical History: No Reported History Mother Family Medical History: Cancer Additional Family Medical History / Comment(s): BREAST CANCER Father Family Medical History: Blood Disorder Additional Family Medical History / Comment(s): hemachromatosis. General Exam - General Exam Comments Initial Comments: Physical Exam GENERAL: Patient is well-developed and well-nourished. Patient is nontoxic and well- hydrated and is in no distress. HENT: Normocephalic, Atraumatic. EYES: PERRL, EOMI PULMONARY: Unlabored respirations. No audible rales rhonchi or wheezing was noted. CARDIOVASCULAR: There is a regular rate and rhythm without any murmurs gallops or rubs. ABDOMEN: Soft and nontender with normal bowel sounds. SKIN: Skin is clear with no lesions or rashes and otherwise unremarkable. : Deferred NEUROLOGIC: Patient is alert and oriented x3. Moving all extremities spontaneously MUSCULOSKELETAL: Normal extremities with adequate strength and full range of motion. No lower extremity swelling or edema. No calf tenderness. PSYCHIATRIC: Patient has no suicidal or homicidal ideation Limitations: no limitations Course Vital Signs 10/01/20 14:56 Temperature 99.1 F Pulse Rate 109 H Respiratory 16 Rate Blood Pressure 136/84 O2 Sat by Pulse 98 Oximetry Medical Decision Making - Medical Decision Making The patient was seen and evaluated history is obtained from the patient 60-year-old female who has been on Xanax for the past 5 years quit taking it last week now feels anxious shaky brain fog feels like her heart is racing, has not seen her primary care about this, has not seen a psychiatrist psychologist and a number of years is not on any antianxiety or antidepressive medications I sat with the patient and her for well over 15 minutes discussing that her symptoms are all consistent with benzodiazepine withdraw however at 10 days out she is beyond the course where I would be concerned that she will have withdrawal seizure. I did offer an alternative medication including Librium for a longer taper however she does not want to be on any benzodiazepines. I did discuss that she likely needs to be on an anti-anxiety medication and possibly SSRI and she discussed this with a mental health professional. She states that she has been recommended take Paxil the past but has never taken it. I advised the patient that though she does have multiple things going on right now including dissatisfaction due to weight gain, depression resulting in her sleeping multiple hours per day, constant anxiety that getting an appropriate medication and seeking care and counseling will be very beneficial though will take weeks to months to see a benefit. Patient is agreeable. I did offer a CAT scan of the head given the patient's repeatedly complaining that she believes she is in the brain fog something to be wrong with her brain however patient and did agree that they're comfortable about a head CT, they will follow with her primary care as scheduled tomorrow. Disposition Clinical Impression: Benzodiazepine withdrawal Disposition: HOME SELF-CARE Condition: Stable Instructions (If sedation given, give patient instructions): Generalized An xiety Disorder (ED) Additional Instructions: Follow up with Dr Boogie, discuss alternate medications for anxiety/depression Continue to use the CPAP, it will get better Is patient prescribed a controlled substance at d/c from ED?: No Referrals: Romeo Lim MD [Primary Care Provider] - 1-2 days
== END 2020-10-01 16:25 | disposition home or self-care (01) ==
LOC: EC 14:54
DX: F13.239 Sedative, hypnotic or anxiolytic dependence with withdrawal, unspecified (principal); I10 Essential (primary) hypertension; E78.5 Hyperlipidemia, unspecified; K21.9 Gastro-esophageal reflux disease without esophagitis; Z79.82 Long term (current) use of aspirin
CPT/HCPCS: 99283

== ENCOUNTER 2020-10-07 05:46 | Emergency (ER) | payer MEDICARE ==
[2020-10-07 05:55] VITALS: TEMP 97.7
[2020-10-07] MEDS ORDERED: ONDANSETRON 4 MG/2 ML VIAL IVP STA (06:11)
[2020-10-07] MEDS ORDERED: SODIUM CHLORIDE 0.9% 1,000 ML IV STA (06:11)
[2020-10-07 06:31] LABS: Basophils # (A) 0.1 k/uL (0-0.2); Basophils % (A) 0 %; Eosinophils # (A) 0.1 k/uL (0-0.7); Eosinophils % (A) 1 %; HCT 45.5 % (34.0-46.0); HGB 15.5 gm/dL (11.4-16.0); Lymphocytes # (A) 1.2 k/uL (1.0-4.8); Lymphocytes % (A) 9 %; MCH 32.2 pg (25.0-35.0); MCV 94.7 fL (80.0-100.0); Monocytes # (A) 0.6 k/uL (0-1.0); Monocytes % (A) 5 %; Neutrophils # (A) 12.1 k/uL (1.3-7.7); Neutrophils % (A) 85 %; Platelet Count 314 k/uL (150-450); RBC 4.81 m/uL (3.80-5.40); RDW 13.3 % (11.5-15.5); WBC 14.3 k/uL (3.8-10.6)
[2020-10-07 06:39] LABS: Albumin 4.7 g/dL (3.5-5.0); Calcium 10.6 mg/dL (8.4-10.2); Potassium 3.2 mmol/L (3.5-5.1); Total Bilirubin 0.6 mg/dL (0.2-1.3); Total Protein 7.3 g/dL (6.3-8.2)
--- NOTE | 2020-10-07 06:47 | XR ---
EXAMINATION TYPE: XR KUB DATE OF EXAM: 10/07/2020 COMPARISON: 10/09/2015 HISTORY: Abdominal pain TECHNIQUE: 2 views upright FINDINGS: There is no sign of intestinal obstruction or pneumoperitoneum. Fecal pattern in the rectum is fairly normal. There are a few intestinal fluid levels. Lung bases are clear of consolidation. Th ere are no pathologic calcifications over the kidneys. There is slight lumbar levoscoliosis. IMPRESSION: There is some large bowel fluid levels that could relate to ileus. No free air.
--- NOTE | 2020-10-07 06:48 | ED ---
Abdominal Pain HPI - General Chief Complaint: Abdominal Pain Stated Complaint: Constipation Time Seen by Provider: 10/07/20 06:02 Source: patient, family Mode of arrival: ambulatory Limitations: no limitations - History of Present Illness Initial Comments: Patient is a 60-year-old female presenting to the emergency Department with complaints of nausea and vomiting as well as right-sided abdominal pain for the past 2 days. She states she has been constipated for the last 5-6 days, he has tried a laxative a couple times and has not had no results. She states she's been getting abdominal pain mostly on her right side, she states it kept her up late last night. She's had some nausea on and off for couple days, vomiting started today. She's has history of cholecystectomy, C-sections, no other abdominal surgeries. She denies any fevers or chills. She denies any chest pain or shortness of breath. She states she normally can take a laxative and have bowel movement without difficulty. She's had no obstructions in the past. No difficulty with urination. She has no further complaints at this time. Upon arrival to the ER, she is afebrile, tach at 120, rest of vitals normal. - Related Data Home Medications Medication Instructions Recorded Confirmed Atorvastatin [Lipitor] 10 mg PO DAILY 06/06/18 10/07/20 Levothyroxine Sodium [Synthroid] 50 mcg PO DAILY 01/20/19 10/07/20 Losartan-Hctz 50-12.5 mg [Hyzaar 1 tab PO DAILY 01/20/19 10/07/20 50-12.5] Imipramine [Tofranil] 25 mg PO BID 10/01/20 10/07/20 QUEtiapine [SEROquel] 150 mg PO HS 10/01/20 10/07/20 Allergies Allergy/AdvReac Type Severity Reaction Status Date / Time hydralazine AdvReac "SHAKING Verified 10/07/20 07:03 ALL OVER" lorazepam [From Ativan] AdvReac insomnia Verified 10/07/20 07:03 Review of Systems ROS Statement: Those systems with pertinent positive or pertinent negative responses have been documented in the HPI. ROS Other: All systems not noted in ROS Statement are negative. Past Medical History Past Medical History: GERD/Reflux, Hyperlipidemia, Hypertension Additional Past Medical History / Comment(s): Chronic fatigue syndrome, depr ession, Epi Ceja Weber, History of Any Multi-Drug Resistant Organisms: None Reported Past Surgical History: Section, Cholecystectomy, Tonsillectomy Additional Past Surgical History / Comment(s): 10/04/14 EGD, 01/01/15 c holeceystectomy, 02/05/15 EGD with BX, 2008 COLONOSCOPY, Past Anesthesia/Blood Transfusion Reactions: Motion Sickness, Postoperative Nausea & Vomiting (PONV) Past Psychological History: Anxiety Smoking Status: Never smoker Past Alcohol Use History: None Reported Past Drug Use History: None Reported - Past Family History Son(s) Family Medical History: No Reported History Daughter(s) Family Medical History: No Reported History Mother Family Medical History: Cancer Additional Family Medical History / Comment(s): BREAST CANCER Father Family Medical History: Blood Disorder Additional Family Medical History / Comment(s): hemachromatosis. General Exam - General Exam Comments Initial Comments: GENERAL: Patient is well-developed and well-nourished. Patient is nontoxic and in mild distress. HEAD: Atraumatic, normocephalic. EYES: Pupils equal round and reactive to light, extraocular movements intact, sclera anicteric, conjunctiva are normal. Eyelids were unremarkable. ENT: TMs normal, nares patent, oropharynx clear without exudates. Moist mucous membranes. NECK: Normal range of motion, supple without lymphadenopathy or JVD. LUNGS: Unlabored respirations. Breath sounds clear to auscultation bilaterally and equal. No wheezes rales or rhonchi. HEART: Regular rate and rhythm without murmurs, rubs or gallops. ABDOMEN: Soft, tender to palpation in the right side of the abdomen, normoactive bowel sounds. No guarding, no rebound. No masses appreciated. : Deferred MUSCULOSKELETAL: Normal extremities with adequate strength and normal range of motion, no pitting or edema. No clubbing or cyanosis. NEUROLOGICAL: Patient is alert and oriented x 3. Motor and sensory are also intact. Cranial nerves II through XII grossly intact. Symmetrical smile. Normal speech, normal gait. PSYCH: Normal mood, normal affect. SKIN: Warm, Dry, normal turgor, no rashes or lesions noted. Limitations: no limitations Course Vital Signs 10/07/20 10/07/20 05:50 08:22 Temperature 97.7 F Pulse Rate 120 H 101 H Respiratory 16 17 Rate Blood Pressure 135/86 145/93 O2 Sat by Pulse 95 95 Oximetry Medical Decision Making - Medical Decision Making Patient is 60-year-old female here for right-sided abdominal pain it's been intermittent for the last 2 days as well as nausea and vomiting that started yesterday. - Lab Data Result diagrams: 10/07/20 06:17 10/07/20 06:17 Lab Results 10/07/20 10/07/20 10/07/20 Range/Units 06:17 06:17 06:17 WBC 14.3 H (3.8-10.6) k/uL RBC 4.81 (3.80-5.40) m/uL Hgb 15.5 (11.4-16.0) gm/dL Hct 45.5 (34.0-46.0) % MCV 94.7 (80.0-100.0) fL MCH 32.2 (25.0-35.0) pg MCHC 34.0 (31.0-37.0) g/dL RDW 13.3 (11.5-15.5) % Plt Count 314 (150-450) k/uL MPV 9.0 Neutrophils % 85 % Lymphocytes % 9 % Monocytes % 5 % Eosinophils % 1 % Basophils % 0 % Neutrophils # 12.1 H (1.3-7.7) k/uL Lymphocytes # 1.2 (1.0-4.8) k/uL Monocytes # 0.6 (0-1.0) k/uL Eosinophils # 0.1 (0-0.7) k/uL Basophils # 0.1 (0-0.2) k/uL Sodium 139 (137-145) mmol/L Potassium 3.2 L (3.5-5.1) mmol/L Chloride 101 (98-107) mmol/L Carbon Dioxide 26 (22-30) mmol/L Anion Gap 12 mmol/L BUN 16 (7-17) mg/dL Creatinine 0.83 (0.52-1.04) mg/dL Est GFR (CKD-EPI)AfAm 89 (>60 ml/min/1.73 sqM) Est GFR (CKD-EPI)NonAf 77 (>60 ml/min/1.73 sqM) Glucose 138 H (74-99) mg/dL Plasma Lactic Acid [place] (0.7-2.0) mmol/L Calcium 10.6 H (8.4-10.2) mg/dL Total Bilirubin 0.6 (0.2-1.3) mg/dL AST 27 (14-36) U/L ALT 26 (4-34) U/L Alkaline Phosphatase 113 (38-126) U/L Total Protein 7.3 (6.3-8.2) g/dL Albumin 4.7 (3.5-5.0) g/dL Lipase 51 (23-300) U/L Urine Color Yellow Urine Appearance Cloudy H (Clear) Urine pH 5.5 (5.0-8.0) Ur Specific [place] 1.026 (1.001-1.035) Urine Protein 1+ H (Negative) Urine Glucose (UA) Negative (Negative) Urine Ketones Trace H (Negative) Urine Blood Negative (Negative) Urine Nitrite Negative (Negative) Urine Bilirubin Negative (Negative) Urine Urobilinogen 2.0 (<2.0) mg/dL Ur Leukocyte Esterase Negative (Negative) Urine RBC 3 (0-5) /hpf Urine WBC 3 (0-5) /hpf Ur Squamous Epith Cells 9 H (0-4) /hpf Calcium Oxalate Crystal Few H (None) /hpf Urine Bacteria Rare H (None) /hpf Hyaline Casts 115 H (0-2) /lpf Urine Mucus Many H (None) /hpf // Range/Units 06:17 WBC (3.8-10.6) k/uL RBC (3.80-5.40) m/uL Hgb (11.4-16.0) gm/dL Hct (34.0-46.0) % MCV (80.0-100.0) fL MCH (25.0-35.0) pg MCHC (31.0-37.0) g/dL RDW (11.5-15.5) % Plt Count (150-450) k/uL MPV Neutrophils % % Lymphocytes % % Monocytes % % Eosinophils % % Basophils % % Neutrophils # (1.3-7.7) k/uL Lymphocytes # (1.0-4.8) k/uL Monocytes # (0-1.0) k/uL Eosinophils # (0-0.7) k/uL Basophils # (0-0.2) k/uL Sodium (137-145) mmol/L Potassium (3.5-5.1) mmol/L Chloride (98-107) mmol/L Carbon Dioxide (22-30) mmol/L Anion Gap mmol/L BUN (7-17) mg/dL Creatinine (0.52-1.04) mg/dL Est GFR (CKD-EPI)AfAm (>60 ml/min/1.73 sqM) Est GFR (CKD-EPI)NonAf (>60 ml/min/1.73 sqM) Glucose (74-99) mg/dL Plasma Lactic Acid [place] 1.1 (0.7-2.0) mmol/L Calcium (8.4-10.2) mg/dL Total Bilirubin (0.2-1.3) mg/dL AST (14-36) U/L ALT (4-34) U/L Alkaline Phosphatase (38-126) U/L Total Protein (6.3-8.2) g/dL Albumin (3.5-5.0) g/dL Lipase (23-300) U/L Urine Color Urine Appearance (Clear) Urine pH (5.0-8.0) Ur Specific [place] (1.001-1.035) Urine Protein (Negative) Urine Glucose (UA) (Negative) Urine Ketones (Negative) Urine Blood (Negative) Urine Nitrite (Negative) Urine Bilirubin (Negative) Urine Urobilinogen (<2.0) mg/dL Ur Leukocyte Esterase (Negative) Urine RBC (0-5) /hpf Urine WBC (0-5) /hpf Ur Squamous Epith Cells (0-4) /hpf Calcium Oxalate Crystal (None) /hpf Urine Bacteria (None) /hpf Hyaline Casts (0-2) /lpf Urine Mucus (None) /hpf Disposition Clinical Impression: Constipation, Nausea Disposition: HOME SELF-CARE Condition: Stable Instructions (If sedation given, give patient instructions): Constipation (ED) Additional Instructions: Please return to the Emergency Department if symptoms worsen or any other concerns. Increase your water intake, trial of MiraLAX once a day for 1-2 weeks to help improve regularity. Please follow-up with your primary care physician. Is patient prescribed a controlled substance at d/c from ED?: No Referrals: Romeo Lim MD [Primary Care Provider] - 1-2 days Time of Disposition: 09:07
[2020-10-07 07:08] LABS: Appearance,Urine Cloudy (Clear); Bacteria,Urine Rare /hpf; Bilirubin,Urine Negative (Negative); Blood,Urine Negative (Negative); Calcium Oxalate Crystals,Urine Few /hpf; Color,Urine Yellow; Glucose,Urine (UA) Negative (Negative); Hyaline Casts,Urine 115 /lpf (0-2); Ketones,Urine Trace (Negative); Leukocyte Esterase,Urine Negative (Negative); Mucus,Urine Many /hpf; Nitrite,Urine Negative (Negative); PH, Urine 5.5 (5.0-8.0); Protein,Urine 1+ (Negative); RBC,Urine 3 /hpf (0-5); Specific Gravity,Urine 1.026 (1.001-1.035); Squamous Epithelial Cell,Urine 9 /hpf (0-4); WBC,Urine 3 /hpf (0-5)
[2020-10-07 08:22] VITALS: BP 145/93; PULSE 101; RESP 17
== END 2020-10-07 09:20 | disposition home or self-care (01) ==
LOC: EC 05:46
DX: K59.00 Constipation, unspecified (principal); R11.0 Nausea; K21.9 Gastro-esophageal reflux disease without esophagitis; E78.5 Hyperlipidemia, unspecified; I10 Essential (primary) hypertension; F32.9 Major depressive disorder, single episode, unspecified; Z90.49 Acquired absence of other specified parts of digestive tract; Z90.09 Acquired absence of other part of head and neck
CPT/HCPCS: 36415; 74018; 80053; 81001; 83605; 83690; 85025; 96361; 96374; 99284

== ENCOUNTER 2020-10-11 14:47 | Observation (INO) | payer MEDICARE ==
[2020-10-11] MEDS ORDERED: SODIUM CHLORIDE 0.9% 1,000 ML IV ONE (15:04)
[2020-10-11 15:22] LABS: Basophils % (A) 0 %; Eosinophils # (A) 0.1 k/uL (0-0.7); Eosinophils % (A) 1 %; HGB 14.5 gm/dL (11.4-16.0); Lymphocytes # (A) 1.9 k/uL (1.0-4.8); Lymphocytes % (A) 27 %; MCH 33.1 pg (25.0-35.0); MCHC 35.4 g/dL (31.0-37.0); MCV 93.2 fL (80.0-100.0); Mean Platelet Volume 8.5; Monocytes # (A) 0.5 k/uL (0-1.0); Monocytes % (A) 7 %; Neutrophils # (A) 4.5 k/uL (1.3-7.7); Neutrophils % (A) 63 %; Platelet Count 306 k/uL (150-450); RBC 4.39 m/uL (3.80-5.40); RDW 12.6 % (11.5-15.5); WBC 7.2 k/uL (3.8-10.6)
[2020-10-11 15:31] LABS: Albumin 4.3 g/dL (3.5-5.0); Calcium 9.5 mg/dL (8.4-10.2); Magnesium 1.9 mg/dL (1.6-2.3); Potassium 3.9 mmol/L (3.5-5.1); Total Bilirubin 0.4 mg/dL (0.2-1.3); Total Protein 6.9 g/dL (6.3-8.2)
--- NOTE | 2020-10-11 15:51 | ED ---
General Adult HPI - General Chief complaint: Recheck/Abnormal Lab/Rx Stated complaint: Sent by pcp,nausea,Brain pain Time Seen by Provider: 10/11/20 14:56 Source: patient Mode of arrival: ambulatory Limitations: no limitations - History of Present Illness Initial comments: 60 year-old female patient presents to the emergency department sent by her primary care physician for evaluation of nausea and headaches. Patient states that for the last 3-4 weeks she has been experiencing "brain fog, brain pain, and brain numbness". States that she did go to rehab for 4 days to stop taking xanax. States that she had to leave due to the smells from the cleaning solution they use making her nauseated. States she was seen recently in the emergency department for constipation and vomiting. States she is having normal bowel movements but continues to have nausea. States she did take zofran at home but it caused a headache. States she has been getting frequent episodes of "brain pain" mostly to the frontal region. Denies any visual disturbance, numbness, tin gling, or weakness to the extremities. States her doctor sent her in to be admitted for neurology consultation. Patient denies any recent rash, fever, chills, cough, shortness of breath, chest pain, abdominal pain, nausea, vomiting, diarrhea, constipation, hematuria, dysuria, urinary urgency, urinary frequency, or any other complaints. - Related Data Home Medications Medication Instructions Recorded Confirmed Atorvastatin [Lipitor] 10 mg PO HS 06/06/18 10/11/20 Losartan-Hctz 50-12.5 mg [Hyzaar 1 tab PO DAILY 01/20/19 10/11/20 50-12.5] Imipramine [Tofranil] 25 mg PO BID 10/01/20 10/11/20 QUEtiapine [SEROquel] 150 mg PO HS 10/01/20 10/11/20 Acetylcysteine [Nac] 500 mg PO BID 10/11/20 10/11/20 Aspirin EC [Ecotrin Low Dose] 81 mg PO DAILY 10/11/20 10/11/20 Charcoal Tabs 2 tab PO BID 10/11/20 10/11/20 Glutathione 1 tab PO BID 10/11/20 10/11/20 Levothyroxine Sodium [Synthroid] 100 mcg PO DAILY 10/11/20 10/11/20 Multivitamins, Thera [Multivitamin 1 tab PO DAILY 10/11/20 10/11/20 (formulary)] Allergies Allergy/AdvReac Type Severity Reaction Status Date / Time hydralazine AdvReac "SHAKING Verified 10/11/20 16:14 ALL OVER" hydroxyzine [From Vistaril] AdvReac Nausea Verified 10/11/20 16:22 lorazepam [From Ativan] AdvReac insomnia Verified 10/11/20 16:14 Review of Systems ROS Statement: Those systems with pertinent positive or pertinent negative responses have been documented in the HPI. ROS Other: All systems not noted in ROS Statement are negative. Past Medical History Past Medical History: GERD/Reflux, Hyperlipidemia, Hypertension Additional Past Medical History / Comment(s): Chronic fatigue syndrome, depression, Epi Ceja Weber, History of Any Multi-Drug Resistant Organisms: None Reported Past Surgical History: Section, Cholecystectomy, Tonsillectomy Additional Past Surgical History / Comment(s): 10/04/14 EGD, 01/01/15 choleceystectomy, 02/05/15 EGD with BX, 2008 COLONOSCOPY, Past Anesthesia/Blood Transfusion Reactions: Motion Sickness, Postoperative Nausea & Vomiting (PONV) Past Psychological History: Anxiety Smoking Status: Never smoker Past Alcohol Use History: None Reported Past Drug Use History: None Reported - Past Family History Son(s) Family Medical History: No Reported History Daughter(s) Family Medical History: No Reported History Mother Family Medical History: Cancer Additional Family Medical History / Comment(s): BREAST CANCER Father Family Medical History: Blood Disorder Additional Family Medical History / Comment(s): hemachromatosis. General Exam Limitations: no limitations General appearance: alert, in no apparent distress, other (This is a well developed, well nourished adult female in no acute distress. Vital signs upon presentation shows temp 98.9, pulse 112, resp 20, BP 129/79, pulse ox 98% on room air.) Eye exam: Present: normal appearance, PERRL, EOMI. Absent: scleral icterus, conjunctival injection, periorbital swelling ENT exam: Present: normal exam, normal oropharynx, mucous membranes moist Respiratory exam: Present: normal lung sounds bilaterally. Absent: respiratory distress, wheezes, rales, rhonchi, stridor Cardiovascular Exam: Present: regular rate, normal rhythm, normal heart sounds. Absent: systolic murmur, diastolic murmur, rubs, gallop, clicks GI/Abdominal exam: Present: soft, normal bowel sounds. Absent: distended, tenderness, guarding, rebound, rigid Neurological exam: Present: alert, oriented X3, CN II-XII intact Expanded Speech: Present: fluid speech Cranial nerves: EOM's Intact: Normal, Nystagmus: Normal Motor strength exam: RUE: 5, LUE: 5, RLE: 5, LLE: 5 Psychiatric exam: Present: flat affect Skin exam: Present: warm, dry, intact, normal color. Absent: rash Course Vital Signs 10/11/20 14:49 Temperature 98.9 F Pulse Rate 112 H Respiratory 20 Rate Blood Pressure 129/79 O2 Sat by Pulse 98 Oximetry Medical Decision Making - Medical Decision Making 60-year-old female patient presents to the emergency department today for evaluation of headaches, nausea, and what she calls "brain fog and pain". Physical examination is unremarkable. Shows have somewhat of a flat affect. She is neurologically intact with no focal deficits. Labs are unremarkable. EKG is unremarkable. CT brain is unremarkable. Patient be admitted to the hospital for psychiatric consult and neurology consult. Her primary care physician Dr. Lim is accepting. Patient is agreeable this plan. Case discussed with my attending Dr. Daiz. - Lab Data Result diagrams: 10/11/20 15:04 10/11/20 15:04 Lab Results 10/11/20 10/11/20 10/11/20 Range/Units 15:04 15:04 15:04 WBC 7.2 (3.8-10.6) k/uL RBC 4.39 (3.80-5.40) m/uL Hgb 14.5 (11.4-16.0) gm/dL Hct 41.0 (34.0-46.0) % MCV 93.2 (80.0-100.0) fL MCH 33.1 (25.0-35.0) pg MCHC 35.4 (31.0-37.0) g/dL RDW 12.6 (11.5-15.5) % Plt Count 306 (150-450) k/uL MPV 8.5 Neutrophils % 63 % Lymphocytes % 27 % Monocytes % 7 % Eosinophils % 1 % Basophils % 0 % Neutrophils # 4.5 (1.3-7.7) k/uL Lymphocytes # 1.9 (1.0-4.8) k/uL Monocytes # 0.5 (0-1.0) k/uL Eosinophils # 0.1 (0-0.7) k/uL Basophils # 0.0 (0-0.2) k/uL Sodium 139 (137-145) mmol/L Potassium 3.9 (3.5-5.1) mmol/L Chloride 103 (98-107) mmol/L Carbon Dioxide 27 (22-30) mmol/L Anion Gap 9 mmol/L BUN 13 (7-17) mg/dL Creatinine 0.95 (0.52-1.04) mg/dL Est GFR (CKD-EPI)AfAm 75 (>60 ml/min/1.73 sqM) Est GFR (CKD-EPI)NonAf 65 (>60 ml/min/1.73 sqM) Glucose 107 H (74-99) mg/dL Calcium 9.5 (8.4-10.2) mg/dL Magnesium 1.9 (1.6-2.3) mg/dL Total Bilirubin 0.4 (0.2-1.3) mg/dL AST 25 (14-36) U/L ALT 22 (4-34) U/L Alkaline Phosphatase 90 (38-126) U/L Troponin I <0.012 (0.000-0.034) ng/mL Total Protein 6.9 (6.3-8.2) g/dL Albumin 4.3 (3.5-5.0) g/dL - Radiology Data Radiology results: report reviewed, image reviewed CT brain without contrast is obtained. Report reviewed in its entirety. Impression by Dr. Otoole shows mild cerebral atrophy. No acute intracranial abnormality. Atrophy increase slightly compared to old exam. Disposition Clinical Impression: Headache, AMS (altered mental status) Disposition: ADMITTED IP TO THIS [facility] Condition: Serious Decision to Admit Reason: Admit from EC Decision Date: 10/11/20 Decision Time: 17:11
[2020-10-11] MEDS ORDERED: NALOXONE 0.4 MG/ML 1 ML VIAL IV PRN (17:08)
--- NOTE | 2020-10-11 17:34 | CT ---
EXAMINATION TYPE: CT brain wo con DATE OF EXAM: 10/11/2020 COMPARISON: 04/11/2015 HISTORY: Headache, nausea and weakness for 2+ months without injury CT DLP: 1202.4 mGycm Automated exposure control for dose reduction was used. Ventricles have normal size. There is no mass effect nor midline shift. There is mild cerebral atroph y. There is no evidence of intracranial hemorrhage. There is no evidence of cerebral edema. Calvarium is intact. Temporal bones appear normal. There is normal aeration of the mastoid sinuses. IMPRESSION: Mild cerebral atrophy. No acute intracranial abnormality. Atrophy increased slightly compared to old exam.
[2020-10-11] MEDS ORDERED: CHARCOAL PO SCH (21:30)
[2020-10-11] MEDS ORDERED: GLUTATHIONE PO SCH (21:30)
[2020-10-11] MEDS: ATORVASTATIN 10 MG TAB PO SCH (23:02)
[2020-10-11] MEDS: QUEtiapine 50 MG TAB PO SCH (23:02)
[2020-10-11] MEDS: IMIPRAMINE 25 MG TAB PO SCH (23:02)
[2020-10-12] MEDS: LEVOTHYROXINE 100 MCG TAB PO SCH (05:46)
[2020-10-12] MEDS: LOSARTAN-HCTZ 50-12.5 MG 1 EACH TAB PO SCH (08:20)
[2020-10-12] MEDS: IMIPRAMINE 25 MG TAB PO SCH ×2 (08:20→21:01)
[2020-10-12] MEDS: MULTIVITAMINS, THERA 1 EACH TAB PO SCH (08:20)
[2020-10-12] MEDS: ASPIRIN 81 MG PO SCH (08:20)
[2020-10-12] MEDS: NON FORMULARY DRUG (Acetylcysteine [Nac] 500 MG Capsule) PO SCH ×2 (08:28→21:02)
[2020-10-12] MEDS ORDERED: PROCHLORPERAZINE 5 MG TAB PO STA (10:08)
--- NOTE | 2020-10-12 10:13 | P.CNNES ---
History of Present Illness Consult date: 10/12/20 Requesting physician: Agata Nolasco Reason for Consult: headache and brain fog History of Present Illness: This is a 60-year-old woman with medical history of hypertension and hyperlipidemia, anxiety, depression who presented emergency department on 10/11/2020 7 by her primary care physician for chronic nausea and generalized weakness with sensation of numbness on face. Patient states that her she has chronic nausea and generalized weakness in the past that resolved and that reoccurred again. The recurrence of the constant nausea was in August 2020 as well as she's been not feeling generalized weakness around that time as well. She states that she has dizziness sensation but does not describe any dizziness to me she denies any room spinning or she's been having just feels off. She said that she's been having the numbness over the bilateral frontal and it's mostly them medial portion that is intermittent for the last 2-3 weeks. She denies having headaches repeatedly. She feels her brain is "foggy" for the last 1 week. She denies of any focal weakness, any numbness anywhere besides the forehead, any visual disturbance, any hearing loss, any difficulty getting her words out, any difficulty swallowing, she denies of any fevers. She has chronic ringing of the ears since the childhood. She denies of any head trauma recently. She said that she traveled to [place] in June 2020 and that denies any sick contacts or any bites that she remembers. She denies traveling outside of the country. She said that she did have a rash about a month ago that started on the left neck then involved and the entire left neck and it was a flat rash wasn't circular then involved the right hip region as she did this was addressed by her primary care and he said it was likely due to wheat and was given steroids and she said within a week and resolved and she had similar episodes in the past. He denies off any current rash. Denies of weight loss. Denies of any jerk in of any of the extremities. Denies any family history similar to this. She has been on Xanax for at least 5 years and she's been on 0.5 mg 1 tablet 5 times a day and the she is last dose was 09/23/2020 (she had detoxification for that). She did have an episode of diarrhea in last wednesday only since was consipated and was on Laxatives but denies any further diarrhea. She denies of tobacco use, alcohol use or any illicit drug use. She denies of any stroke or seizures in the past. Some of the patient's home medication includes aspirin 81 mg daily, Lipitor 10 mg daily at bedtime, imipramine 25mg bid, Synthroid, Seroquel 150 mg daily at bedtime, losartan. Of note, patient had generalized weakness and nauseous in 2019. 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 She was on acetylcysteine, glutathione and charcoal tab and has has stopped using them about 4 months ago on her own. So she said that after her having cholecystectomy 5 years ago she was feeling generalized weakness fatigue and she had extensive testing in the past. She had lymte testing was negative. On reviewing our records patient had an EEG on 2015 for generalized weakness and a staring spell and was reported at was normal. There are no seizures or epileptiform activity or any focal slowing. Some of the workup in the hospital consisted of: Initial vital signs: Blood pressure of 129/79, heart rate of 112, respiratory of 20, temperature of 98.9 Fahrenheit oral pulse ox of 98% room air. Patient had multiple temperature checks and the sole far as she's been afebrile White blood cell is 7.2 thousand which is considered within normal limits. The CBC with differential is unremarkable. Chemistry panel seems also unremarkable. Calcium is 9.5, magnesium is 1.9, AST of 25 and ALT 22 which is within normal limits. CT of the head is reported as mild cerebral atrophy. No acute intracranial abnormality. Atrophy increased slightly compared to old exam. Her last CT of the brain is 04/11/2015 comparison. EKG is reported as sinus tachycardia. Cannot rule out anterior infarct, age undetermined. Abnormal EKG. Review of Systems Review of system: The 12 point system was reviewed and apparent positive and ne gative per HPI. Past Medical History Past Medical History: GERD/Reflux, Hyperlipidemia, Hypertension Additional Past Medical History / Comment(s): Chronic fatigue syndrome, depression, Epi Ceja Weber, History of Any Multi-Drug Resistant Organisms: None Reported Past Surgical History: Section, Cholecystectomy, Tonsillectomy Additional Past Surgical History / Comment(s): 10/04/14 EGD, 01/01/15 choleceystectomy, 02/05/15 EGD with BX, 2008 COLONOSCOPY, Past Anesthesia/Blood Transfusion Reactions: Motion Sickness, Postoperative Nausea & Vomiting (PONV) Past Psychological History: Anxiety Smoking Status: Never smoker Past Alcohol Use History: None Reported Past Drug Use History: None Reported - Past Family History Son(s) Family Medical History: No Reported History Daughter(s) Family Medical History: No Reported History Mother Family Medical History: Cancer Additional Family Medical History / Comment(s): BREAST CANCER Father Family Medical History: Blood Disorder Additional Family Medical History / Comment(s): hemachromatosis. Medications and Allergies Home Medications Medication Instructions Recorded Confirmed Type Atorvastatin [Lipitor] 10 mg PO HS 06/06/18 10/11/20 History Losartan-Hctz 50-12.5 mg [Hyzaar 1 tab PO DAILY 01/20/19 10/11/20 History 50-12.5] Imipramine [Tofranil] 25 mg PO BID 10/01/20 10/11/20 History QUEtiapine [SEROquel] 150 mg PO HS 10/01/20 10/11/20 History Acetylcysteine [Nac] 500 mg PO BID 10/11/20 10/11/20 History Aspirin EC [Ecotrin Low Dose] 81 mg PO DAILY 10/11/20 10/11/20 History Charcoal Tabs 2 tab PO BID 10/11/20 10/11/20 History Glutathione 1 tab PO BID 10/11/20 10/11/20 History Levothyroxine Sodium [Synthroid] 100 mcg PO DAILY 10/11/20 10/11/20 History Multivitamins, Thera [Multivitamin 1 tab PO DAILY 10/11/20 10/11/20 History (formulary)] Allergies Allergy/AdvReac Type Severity Reaction Status Date / Time hydralazine AdvReac "SHAKING Verified 10/11/20 16:14 ALL OVER" hydroxyzine [From Vistaril] AdvReac Nausea Verified 10/11/20 16:22 lorazepam [From Ativan] AdvReac insomnia Verified 10/11/20 16:14 Physical Examination - Vital Signs Vital Signs: Vital Signs Temp Pulse Pulse Resp BP BP Pulse Ox 10/12/20 07:00 97.7 F 87 18 130/87 98 10/12/20 01:45 97.8 F 94 16 121/82 97 10/11/20 19:15 98.4 F 99 14 132/87 97 10/11/20 17:46 98.3 F 95 16 149/87 99 10/11/20 14:49 98.9 F 112 H 20 129/79 98 Intake and Output 10/11/20 10/12/20 10/12/20 22:59 06:59 14:59 Other: Voiding Method Toilet # Voids 1 0 Weight 76.204 kg GENERAL: The patient is lying in bed and is very anxious and somewhat restless. Is not in acute distress. CHEST: The heart rate is regular rate rhythm. No murmurs to auscultation. No carotid bruit bilaterally. LUNG: Clear to auscultation bilaterally no wheezing noted throughout. Not labored breathing. ABDOMEN/GI: Bowel sounds present in all 4 quadrants. No tenderness to palpation throughout. PSYCH: Very Anxious and restless. NEUROLOGICAL: Higher mental function: The patient is awake, alert, oriented to self, place and time. Patient is following commands. No aphasia and no neglect. Cranial nerves: The pupils are round, equal and reactive to light and accommodation. Visual mckeon are full to confrontation throughout. Extraocular movement is intact no nystagmus is noted. Facial sensation is normal to touch throughout. The facial strength is normal throughout. Hearing is normal bilaterally to hand rub. Tongue is midline and moved [id number] without any difficulty. No dysarthria is noted. Shoulder shrug is normal bilaterally. Motor: Gait is normal with normal arm swings. The strength is 5 over 5 throughout. Normal tone and bulk. Cerebellum: Normal finger to nose heel to ramirez bilaterally. Sensation: Sensation is normal to touch throughout. Reflexes (right/left): 2+ throughout. Plantars are downgoing bilaterally. Results - Laboratory Findings CBC and BMP: 10/11/20 15:04 10/11/20 15:04 Abnormal Lab Findings: Abnormal Labs 10/11/20 15:04 Glucose 107 H Assessment and Plan Assessment: * Paresthesia of bilateral frontal for last 2-3 weeks, chronic nausea and generalized weakness since August 2020 (and had nausea and generalized weakness years back): Unknown etiology (Her symptoms are vague). She was told in the past she had "elevated mold" in 2019 at [facility] for similar presentation (nausea, and generalized weakness). Denies of headache. Unlikely meningoencpehalitis from her history/physical exam and from limited work-up (no fever, no leukocytosis, no neck pain or headaches). * Seems very anxious with history of anxiety and stopped Xanax in 09/2020 * Depression * Hypertension * Hyperlipidemia Plan: Ordered MRI of the brain with and without urgent. She had an EEG in the 2016 which was reported normal at. We'll repeat another EEG and likely will be done on Wednesday. If the patient decides not to get the EEG over the weekend the either or all get that at 2-1/2 hour outpatient EEG. TSH: 1.08 (08/2020) and no need to repeat another. Ordered vitamin B-12, folate, vitamin B6. Every 4 hours neuro checks Psychiatry team is consulted Queenie and for the patient to follow-up with a perinatal breastfeeding assistant as an outpatient. Consider GI consult this is a chronic nausea. We'll defer the rest of the medical management to primary team Thank you for the consultation. Felipe Cuadra M.D. Neuro-hospitalist Time with Patient: Greater than 30
[2020-10-12] MEDS ORDERED: ONDANSETRON 4 MG/2 ML VIAL IVP PRN (12:09)
--- NOTE | 2020-10-12 12:41 | HP ---
HISTORY AND PHYSICAL 60-year-old white female has history of hypertension, dyslipidemia, anxiety, depression, and chronic fatigue. She recently went to rehab center to wean off her Xanax and since then her chronic fatigue has been much better. This is 2 or 3 weeks ago. Since then, she has got nausea and severe anxiety, but her chronic fatigue is improved. She has brain pain she says and brain fog for the past 2-3 weeks. She is admitted for neurologic and psychiatry consultations at this time as she is unable to take care of this brain fog and brain pain and possible neurologic event will have to be ruled out. CT scan of the brain was done which was negative. She denies any drug use, nicotine use or alcohol use. HOME MEDICATIONS: Include aspirin 81 mg daily, Lipitor 10 mg daily, Imipramine 25 mg b.i.d. Synthroid, Seroquel 150 at night, Losartan. 14-point review of systems otherwise is negative. Blood pressure is 129/79, heart rate 80-112, respiratory rate 18-20, temp 99. Cardiovascular: S1, S2. Lungs are clear. GI soft. Hematology: Negative Homans. She appears to be anxious and nervous, giving appropriate answers. Neurologic: Cranial nerves are intact. No weakness. Skin is a little bit dry. Poor skin turgor. PAST HISTORY: GERD, dyslipidemia, hypertension, chronic fatigue, depression Rissa-Weber. SURGERY,: , cholecystectomy, tonsillectomy. FAMILY HISTORY: Mother with breast cancer. Father with hemochromatosis. ALLERGIES: HYDROXYZINE, HYDRALAZINE AND ATIVAN, but she has been taking Xanax for 5-7 years that she recently went off as mentioned above. IMPRESSION: Acute neurologic event, brain pain, brain fog, altered mental status. PLAN: Have Neurology clear her and possible psychiatry. See if she needs medicines to clear up this brain fog, possibly something for anxiety although she does not really want to get back on anxiety medicines due to chronic fatigue syndrome. Will wait for Neurology and psychiatry consultations. Prognosis guarded. MMODL / IJN: [id number] /
--- NOTE | 2020-10-12 12:43 | P.CN ---
Psychiatric Consult - . Consult date: 10/12/20 Consult:: 10/12/20 12:33 Lisa is a 60-year-old white female who was seen for anxiety and depression on the medical floor. She was taking Xanax 0.25 mg 3 times a day up until 3 weeks ago. She stopped taking Xanax and went through some withdrawal symptoms. She does not have any of those withdrawal symptoms at present. She stated she had gallbladder surgery approximately 5 years ago and subsequently she was prescribed Xanax for her anxiety. She stated she does not want to take any benzos anymore and has stopped taking it. She takes Seroquel at bedtime for sleep and imipramine for depression. She was never admitted as inpatient to a psychiatric hospital. She denies any history of mental illness or suicide in the family. 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 She denies any history of alcohol or drug abuse. She denies any thoughts of hurting herself now or in the past. She denies any history of physical or emotional or sexual abuse growing up for later on. Mental status examination: This patient appears to be of her stated age. She has adequate speech language and communication skills. She is alert and oriented to time place and person. Her appearance is neat and clean. Her behavior is cooperative. Mood and affect is euthymic. She has no auditory, visual or any other types of hallucinations. She is not delusional. She has no loose associations or flight of ideas or any other disorder of thought process. She appears to be of at least average intelligence and her memory and other cognitive functions are intact. Diagnostic impression: Depressive disorder NOS Anxiety disorder NOS Recommendations: This patient does not meet the criteria for inpatient psychiatric hospitalization. She is already taking the imipramine and Seroquel for her depression and anxiety. She needs to continue follow-up with her physician who prescribes her Seroquel and imipramine.
[2020-10-12] MEDS ORDERED: DIAZEPAM 5 MG/ML 2 ML INJ IVP STA (13:24)
[2020-10-12 18:12] LABS: Folate, Serum >24.0 ng/mL
[2020-10-12] MEDS: ATORVASTATIN 10 MG TAB PO SCH (21:01)
[2020-10-12] MEDS: QUEtiapine 50 MG TAB PO SCH (21:01)
--- NOTE | 2020-10-13 02:18 | MR ---
EXAMINATION TYPE: MR brain wo/w con DATE OF EXAM: 10/12/2020 COMPARISON: 04/12/2015 HISTORY: Prior on synapse, brain fog, nausea, feeling unwell CONTRAST: Standard multiplanar, multisequence MRI departmental protocol utilizing 7.5ml mL intravenous Gadavist gadolinium contrast. The ventricles have normal size. There is no mass effect nor midline shift. There is no sign of intra cranial hemorrhage. Bishop-white matter structures have fairly normal signal pattern. There is no evide nce of cerebral edema. Diffusion images show no evidence of an acute infarct. The brainstem is intact. Corpus callosum is intact. Sella turcica appears normal. There is no evidenc e of orbital mass. There is no pathologic enhancement. There is normal enhancement of the venous sinuses. IMPRESSION: Negative MR scan of the brain. No adverse change compared to old exam. No evidence of any significant bishop or white matter disease.
[2020-10-13] MEDS: LEVOTHYROXINE 100 MCG TAB PO SCH (05:31)
[2020-10-13 07:35] VITALS: BP 124/84; PULSE 88; RESP 14; TEMP 97.6
[2020-10-13] MEDS: ASPIRIN 81 MG PO SCH (08:29)
[2020-10-13] MEDS: LOSARTAN-HCTZ 50-12.5 MG 1 EACH TAB PO SCH (08:29)
[2020-10-13] MEDS: MULTIVITAMINS, THERA 1 EACH TAB PO SCH (08:30)
[2020-10-13] MEDS: IMIPRAMINE 25 MG TAB PO SCH (08:30)
[2020-10-13] MEDS: NON FORMULARY DRUG (Acetylcysteine [Nac] 500 MG Capsule) PO SCH (08:41)
[2020-10-13] MEDS ORDERED: PANTOPRAZOLE 40 MG/10 ML VIAL IVP SCH (09:00)
--- NOTE | 2020-10-13 10:34 | P.PN ---
Subjective Progress Note Date: 10/13/20 Seen at bedside and denies of any focal weakness, numbness, visual disturbance or any headaches at. She said that numbness and forehead has been improving but says that she's very anxious and and wants this to be addressed. Objective - Vital Signs Vital signs: Vital Signs Temp 97.6 F 10/13/20 07:00 Pulse 88 10/13/20 07:00 Resp 14 10/13/20 07:00 BP 124/84 10/13/20 07:00 Pulse Ox 99 10/13/20 07:00 Intake & Output 10/12/20 10/13/20 10/13/20 18:59 06:59 18:59 Other: Voiding Method Toilet # Voids 3 2 - Exam GENERAL: The patient is lying in bed and is very anxious and somewhat restless. Is not in acute distress. PSYCH: Very Anxious and restless. NEUROLOGICAL: Higher mental function: The patient is awake, alert, oriented to self, place and time. Patient is following commands. No aphasia and no neglect. Cranial nerves: The pupils are round, equal and reactive to light and accommodation. Visual mckeon are full to confrontation throughout. Extraocular movement is intact no nystagmus is noted. Facial sensation is normal to touch throughout. The facial strength is normal throughout. Hearing is normal bilaterally to hand rub. Tongue is midline and moved [id number] without any difficulty. No dysarthria is noted. Shoulder shrug is normal bilaterally. Motor: Gait is normal with normal arm swings. The strength is 5 over 5 throughout. Normal tone and bulk. Cerebellum: Normal finger to nose heel to ramirez bilaterally. Sensation: Sensation is normal to touch throughout. Reflexes (right/left): 2+ throughout. Plantars are downgoing bilaterally. WORK-UP: MRI of the brain is reported as negative MRI scan of the brain. No adverse changes compared to old exam. No evidence of any significant moncada or white matter disease. Folate is more than 24 which is considered within normal limits Vitamin B12 as 1774 which is seems elevated but it's unremarkable from neurological standpoint. She had an EEG in the 2015 which was reported normal at. TSH: 1.08 (08/2020) and no need to repeat another. - Labs CBC & Chem 7: 10/11/20 15:04 10/11/20 15:04 Labs: Abnormal Lab Results - Last 24 Hours (Table) 10/12/20 Range/Units 11:48 Vitamin B12 1774.0 H (200.0-944.0) pg/mL Assessment and Plan Assessment: * Paresthesia of bilateral frontal for last 2-3 weeks (seems subjective), chronic nausea and generalized weakness since August 2020 (and had nausea and generalized weakness years back): Unknown etiology (Her symptoms are vague). She was told in the past she had "elevated mold" in 2019 at [facility] for similar presentation (nausea, and generalized weakness). Denies of headache. Unlikely meningoencpehalitis from her history/physical exam and from limited work-up (no fever, no leukocytosis, no neck pain or headaches). MRI Brain is negative. Unsure if her severe anxiety has a role in this. * Very anxious with history of anxiety and stopped Xanax in 09/2020 * Depression * Hypertension * Hyperlipidemia Plan: Patient does not want to get an EEG as an inpatient and would rather get as an outpatient. I wrote a script for 2 1/2 hour EEG as outpatient. Every 4 hours neuro checks Psychiatry team is on board. GI team is consulted. Recommend for the patient to follow-up with a restaurant delivery driver as an outpatient. We'll defer the rest of the medical management to primary team. There is no further neurological work-up. She is clear from neurological perspective. Will sign off. Please reconsult if needed. Felipe Cuadra M.D. Neuro-hospitalist Time with Patient: Less than 30
--- NOTE | 2020-10-13 12:26 | CONS ---
CONSULTATION DATE OF SERVICE: October 13, 2020 REQUESTING PHYSICIAN: Dr. Lim. REASON FOR CONSULTATION: Chronic persistent nausea of 3 weeks duration. HISTORY OF PRESENT ILLNESS: The patient is a 60-year-old pleasant white female with history of severe anxiety and depression, admitted to the hospital because of nausea, persistent nausea for the last 3 weeks duration, headache and a brain fog. Symptoms have been going on almost on a daily basis. She denies any emesis. She never had these symptoms in the past. On further questioning, patient states that she was started on Seroquel about 4 weeks ago and started developing this nausea a week later. She has been having nausea almost on a daily basis, but no emesis. She states that the reason the Seroquel was started was for insomnia. She denies any abdominal pain. No prior history of peptic ulcer disease. No recent NSAID use. In regards to the chronic headaches and brain fog, she is currently being evaluated by Neurology and psychiatric. She had a CT of the head done that was unremarkable. PAST MEDICAL HISTORY: Significant for hypertension, hyperlipidemia, anxiety, depression, chronic fatigue syndrome. PAST SURGICAL HISTORY: , tonsillectomy, cholecystectomy. MEDICATIONS: Medications at home: Hyzaar, Tofranil, Seroquel, Ecotrin, tabs, [QAMARKER Synthroid, multivitamin, and Lipitor. ALLERGIES: HYDRALAZINE, VISTARIL AND ATIVAN. SOCIAL HISTORY: No smoking. No alcohol use. FAMILY HISTORY: Mother with history of breast cancer, father hemochromatosis. REVIEW OF SYSTEMS: CARDIOPULMONARY: No chest pain or shortness of breath. : No dysuria or hematuria. MUSCULOSKELETAL unremarkable. SKIN unremarkable. ENDOCRINE unremarkable. PSYCHIATRIC: Severe anxiety and depression. ENT/vision: Unremarkable. NEUROLOGY: Some headaches. CONSTITUTIONAL: No recent weight loss. No fever, chills, night sweats. PHYSICAL EXAMINATION: She appears comfortable. VITAL SIGNS: Stable. Blood pressure is 124/84, pulse 88, temperature 97.6. HEENT examination unremarkable. Conjunctivae pink. Sclerae anicteric. Oral cavity no lesions. NECK: No JVD. No lymph node enlargement. CHEST was clear to auscultation. HEART: Regular rate and rhythm. ABDOMEN: Soft. Bowel sounds are positive. No organomegaly. EXTREMITIES: No pedal edema. NEURO: She is alert and oriented x3. No focal deficits. LABS: WBC 7.2, hemoglobin 14.5, platelets normal. Rest of the labs are all within normal limits including AST, ALT, T-bilirubin and alkaline phosphatase and basic metabolic panel. IMPRESSION: 1. Chronic persistent nausea for the last 3 weeks duration, most likely medication induced. The patient states that she was started on Seroquel for insomnia about a month ago and it is likely that this could be causing her symptoms. Doubt upper gastrointestinal pathology or peptic ulcer disease as patient does not have any associated abdominal pain or recent NSAID use. 2. History of severe anxiety and depression. 3. Chronic headaches. 4. History of hypertension and hyperlipidemia. RECOMMENDATIONS: 1. Continue with Protonix 40 mg daily. 2. Antiemetics as needed. 3. Stop Seroquel for now. 4. Consider other medications for insomnia. 5. No need for any endoscopic evaluation at the present time. 6. We will follow with you closely. Thank you for this consultation. MMODL / IJN: [id number] /
[2020-10-13] MEDS ORDERED: QUEtiapine 100 MG TAB PO SCH (21:00)
[2020-10-14] MEDS ORDERED: PANTOPRAZOLE 40 MG TABLET PO SCH (07:30)
== END 2020-10-13 13:20 | disposition home or self-care (01) ==
LOC: EC 14:47 → 6NMEDSUR 17:08
PROVIDERS: ADMIT Family Medicine; ATTEND Family Medicine
DX: R41.82 Altered mental status, unspecified (principal); R51.9 Headache, unspecified; R11.2 Nausea with vomiting, unspecified; R42 Dizziness and giddiness; R19.7 Diarrhea, unspecified; F41.9 Anxiety disorder, unspecified; R94.31 Abnormal electrocardiogram [ECG] [EKG]; R20.2 Paresthesia of skin; R20.0 Anesthesia of skin; R00.0 Tachycardia, unspecified; R53.1 Weakness; K21.9 Gastro-esophageal reflux disease without esophagitis; F32.9 Major depressive disorder, single episode, unspecified; R53.83 Other fatigue; I10 Essential (primary) hypertension; E78.5 Hyperlipidemia, unspecified; G47.00 Insomnia, unspecified; Z79.82 Long term (current) use of aspirin; Z79.890 Hormone replacement therapy; Z79.899 Other long term (current) drug therapy; Z88.8 Allergy status to other drugs, medicaments and biological substances; Z90.49 Acquired absence of other specified parts of digestive tract; Z98.891 History of uterine scar from previous surgery; Z86.19 Personal history of other infectious and parasitic diseases; Z80.3 Family history of malignant neoplasm of breast; Z83.49 Family history of other endocrine, nutritional and metabolic diseases
CPT/HCPCS: 96374; 96375; 99285; 36415; 93005; 84207; 80053; 82607; 82746; 83735; 84484; 85025; 86618; 70450; 70553; G0378 ×3; S0183; J3360; J2405; C9113; A9585

== ENCOUNTER → 2021-04-03 | Outpatient (CLI) | payer MEDICARE | END | disposition home or self-care (01) | LOC: RADMAMWWP 12:18 | PROVIDERS: ATTEND Obstetrics & Gynecology | DX: Z12.31 Encounter for screening mammogram for malignant neoplasm of breast (principal) ==

== ENCOUNTER 2021-07-03 12:45 | Observation (INO) | payer MEDICARE ==
--- NOTE | 2021-07-03 14:11 | ED ---
General Adult HPI - General Chief complaint: Recheck/Abnormal Lab/Rx Stated complaint: Chronic fatigue Time Seen by Provider: 07/03/21 12:50 Source: patient, family Limitations: no limitations - History of Present Illness Initial comments: Patient is a 61-year-old female with chronic fatigue who presents to the emergency department after she was directed by her primary care doctor. She reports that she spoke with Dr. Lim and mentioned to him that she was weak, nauseated, vomiting with inability to get out of bed. She denied any unilateral weakness, headaches, visual changes. is at bedside and reports that she has not been acting herself. Admits to recent medication changes. Was slowly titrated off of her Klonopin. Patient denies excess use of any of her other medications. Denies depression, suicidal or homicidal ideations. Patient does not report much history to me. Majority of the history is obtained from Dr. Lim. Therefore the HPI may be limited - Related Data Home Medications Medication Instructions Recorded Confirmed Atorvastatin [Lipitor] 10 mg PO HS 06/06/18 07/03/21 Levothyroxine Sodium [Synthroid] 100 mcg PO DAILY 10/11/20 07/03/21 Estradiol 2 mg PO DAILY 07/03/21 07/03/21 Metoprolol Succinate (ER) [Toprol 100 mg PO DAILY 07/03/21 07/03/21 XL] NIFEdipine [NIFEdipine ER] 90 mg PO DAILY 07/03/21 07/03/21 Progesterone, Micronized 100 mg PO DAILY 07/03/21 07/03/21 [Progesterone] Testosterone Unknown Dose 1 tab PO DAILY 07/03/21 07/03/21 modafiniL [Provigil] 200 mg PO DAILY 07/03/21 07/03/21 Previous Rx's Medication Instructions Recorded Imipramine [Tofranil] 25 mg PO HS #30 tab 07/04/21 QUEtiapine [SEROquel] 100 mg PO HS #30 tab 07/04/21 Allergies Allergy/AdvReac Type Severity Reaction Status Date / Time hydralazine AdvReac "SHAKING Verified 07/03/21 13:42 ALL OVER" hydroxyzine [From Vistaril] AdvReac Nausea Verified 07/03/21 13:42 lorazepam [From Ativan] AdvReac insomnia Verified 07/03/21 13:42 Review of Systems ROS Statement: Those systems with pertinent positive or pertinent negative responses have been documented in the HPI. ROS Other: All systems not noted in ROS Statement are negative. Past Medical History Past Medical History: GERD/Reflux, Hyperlipidemia, Hypertension Additional Past Medical History / Comment(s): Chronic fatigue syndrome, depression, Epi Ceja Weber, History of Any Multi-Drug Resistant Organisms: None Reported Past Surgical History: Section, Cholecystectomy, Tonsillectomy Additional Past Surgical History / Comment(s): 10/04/14 EGD, 01/01/15 choleceystectomy, 02/05/15 EGD with BX, 2008 COLONOSCOPY, Past Anesthesia/Blood Transfusion Reactions: Motion Sickness, Postoperative Nausea & Vomiting (PONV) Past Psychological History: Anxiety Smoking Status: Never smoker Past Alcohol Use History: None Reported Past Drug Use History: None Reported - Past Family History Son(s) Family Medical History: No Reported History Daughter(s) Family Medical History: No Reported History Mother Family Medical History: Cancer Additional Family Medical History / Comment(s): BREAST CANCER Father Family Medical History: Blood Disorder Additional Family Medical History / Comment(s): hemachromatosis. General Exam Limitations: no limitations General appearance: alert, in no apparent distress, anxious Head exam: Present: atraumatic, normocephalic, normal inspection Eye exam: Present: normal appearance, PERRL, EOMI. Absent: scleral icterus, conjunctival injection, periorbital swelling ENT exam: Present: normal exam, mucous membranes moist Neck exam: Present: normal inspection. Absent: tenderness, meningismus, lymphadenopathy Respiratory exam: Present: normal lung sounds bilaterally. Absent: respiratory distress, wheezes, rales, rhonchi, stridor Cardiovascular Exam: Present: regular rate, normal rhythm, normal heart sounds. Absent: systolic murmur, diastolic murmur, rubs, gallop, clicks GI/Abdominal exam: Present: soft, normal bowel sounds. Absent: distended, ten derness, guarding, rebound, rigid Extremities exam: Present: normal inspection, full ROM, normal capillary refill. Absent: tenderness, pedal edema, joint swelling, calf tenderness Back exam: Present: normal inspection Neurological exam: Present: alert, oriented X3, CN II-XII intact Psychiatric exam: Present: anxious Skin exam: Present: warm, dry, intact, normal color. Absent: rash Course Vital Signs 07/03/21 07/03/21 07/03/21 12:48 14:45 15:00 Temperature 98.7 F Pulse Rate 82 88 89 Respiratory 16 18 18 Rate Blood Pressure 132/88 136/78 141/83 O2 Sat by Pulse 96 97 97 Oximetry EKG Findings - EKG Comments: EKG Findings:: EKG demonstrates sinus rhythm with a rate of 85. RI interval 152. QRS 11. QTC of 399. Significant baseline artifact. No acute ST segment elevations or depressions Medical Decision Making - Medical Decision Making Upon arrival patient was placed into room 20. I do attempt a history from the patient however she does not provide much information requested I call Dr. Lim. I spoke with Dr. Lim who requested the patient be admitted with a psych and neuro consult. Laboratory studies are conducted and reviewed. Patient is requesting something for anxiety and therefore is given 0.5 mg of Ativan. Patient admitted with psych consult and neuro consult - Lab Data Result diagrams: 07/04/21 07:03 07/04/21 07:03 Lab Results 07/03/21 07/03/21 07/03/21 Range/Units 14:42 14:42 14:42 WBC 10.3 (3.8-10.6) k/uL RBC 4.77 (3.80-5.40) m/uL Hgb 16.0 (11.4-16.0) gm/dL Hct 46.6 H (34.0-46.0) % MCV 97.6 (80.0-100.0) fL MCH 33.5 (25.0-35.0) pg MCHC 34.3 (31.0-37.0) g/dL RDW 12.3 (11.5-15.5) % Plt Count 252 (150-450) k/uL MPV 10.1 Neutrophils % 75 % Lymphocytes % 18 % Monocytes % 4 % Eosinophils % 1 % Basophils % 0 % Neutrophils # 7.7 (1.3-7.7) k/uL Lymphocytes # 1.9 (1.0-4.8) k/uL Monocytes # 0.5 (0-1.0) k/uL Eosinophils # 0.1 (0-0.7) k/uL Basophils # 0.0 (0-0.2) k/uL PT 10.2 (9.0-12.0) sec INR 0.9 (<1.2) APTT 20.6 L (22.0-30.0) sec Sodium 139 (137-145) mmol/L Potassium 4.0 (3.5-5.1) mmol/L Chloride 105 (98-107) mmol/L Carbon Dioxide 24 (22-30) mmol/L Anion Gap 10 mmol/L BUN 9 (7-17) mg/dL Creatinine 0.89 (0.52-1.04) mg/dL Est GFR (CKD-EPI)AfAm 80 (>60 ml/min/1.73 sqM) Est GFR (CKD-EPI)NonAf 70 (>60 ml/min/1.73 sqM) Glucose 94 (74-99) mg/dL Plasma Lactic Acid Gasper (0.7-2.0) mmol/L Calcium 9.2 (8.4-10.2) mg/dL Magnesium 2.7 H (1.6-2.3) mg/dL Total Bilirubin 0.6 (0.2-1.3) mg/dL AST 26 (14-36) U/L ALT 22 (4-34) U/L Alkaline Phosphatase 102 (38-126) U/L Troponin I (0.000-0.034) ng/mL Total Protein 8.0 (6.3-8.2) g/dL Albumin 4.6 (3.5-5.0) g/dL Progesterone ng/mL Urine Color Urine Appearance (Clear) Urine pH (5.0-8.0) Ur Specific Harlan (1.001-1.035) Urine Protein (Negative) Urine Glucose (UA) (Negative) Urine Ketones (Negative) Urine Blood (Negative) Urine Nitrite (Negative) Urine Bilirubin (Negative) Urine Urobilinogen (<2.0) mg/dL Ur Leukocyte Esterase (Negative) Urine RBC (0-5) /hpf Urine WBC (0-5) /hpf Ur Squamous Epith Cells (0-4) /hpf Urine Bacteria (None) /hpf Urine Mucus (None) /hpf EBV Capsid Ag IgG Ab AI EBV Capsid Ag IgG Intrp (NEGATIVE) EBV Capsid Ag IgM Ab AI EBV Capsid Ag IgM Intrp (NEGATIVE) EBV Early Antigen IgG AI EBV EA IgG Ab Interp (NEGATIVE) EBV Nuclear Ag IgG Ab AI EBV Nuc Ag IgG Interp (NEGATIVE) 07/03/21 07/03/21 07/03/21 Range/Units 14:42 14:42 14:42 WBC (3.8-10.6) k/uL RBC (3.80-5.40) m/uL Hgb (11.4-16.0) gm/dL Hct (34.0-46.0) % MCV (80.0-100.0) fL MCH (25.0-35.0) pg MCHC (31.0-37.0) g/dL RDW (11.5-15.5) % Plt Count (150-450) k/uL MPV Neutrophils % % Lymphocytes % % Monocytes % % Eosinophils % % Basophils % % Neutrophils # (1.3-7.7) k/uL Lymphocytes # (1.0-4.8) k/uL Monocytes # (0-1.0) k/uL Eosinophils # (0-0.7) k/uL Basophils # (0-0.2) k/uL PT (9.0-12.0) sec INR (<1.2) APTT (22.0-30.0) sec Sodium (137-145) mmol/L Potassium (3.5-5.1) mmol/L Chloride (98-107) mmol/L Carbon Dioxide (22-30) mmol/L Anion Gap mmol/L BUN (7-17) mg/dL Creatinine (0.52-1.04) mg/dL Est GFR (CKD-EPI)AfAm (>60 ml/min/1.73 sqM) Est GFR (CKD-EPI)NonAf (>60 ml/min/1.73 sqM) Glucose (74-99) mg/dL Plasma Lactic Acid Gasper 1.0 (0.7-2.0) mmol/L Calcium (8.4-10.2) mg/dL Magnesium (1.6-2.3) mg/dL Total Bilirubin (0.2-1.3) mg/dL AST (14-36) U/L ALT (4-34) U/L Alkaline Phosphatase (38-126) U/L Troponin I 0.025 (0.000-0.034) ng/mL Total Protein (6.3-8.2) g/dL Albumin (3.5-5.0) g/dL Progesterone ng/mL Urine Color Urine Appearance (Clear) Urine pH (5.0-8.0) Ur Specific Harlan (1.001-1.035) Urine Protein (Negative) Urine Glucose (UA) (Negative) Urine Ketones (Negative) Urine Blood (Negative) Urine Nitrite (Negative) Urine Bilirubin (Negative) Urine Urobilinogen (<2.0) mg/dL Ur Leukocyte Esterase (Negative) Urine RBC (0-5) /hpf Urine WBC (0-5) /hpf Ur Squamous Epith Cells (0-4) /hpf Urine Bacteria (None) /hpf Urine Mucus (None) /hpf EBV Capsid Ag IgG Ab 5.6 AI EBV Capsid Ag IgG Intrp POSITIVE A (NEGATIVE) EBV Capsid Ag IgM Ab <0.2 AI EBV Capsid Ag IgM Intrp NEGATIVE (NEGATIVE) EBV Early Antigen IgG 0.7 AI EBV EA IgG Ab Interp NEGATIVE (NEGATIVE) EBV Nuclear Ag IgG Ab >8.0 AI EBV Nuc Ag IgG Interp POSITIVE A (NEGATIVE) 07/03/21 07/03/21 Range/Units 14:42 14:53 WBC (3.8-10.6) k/uL RBC (3.80-5.40) m/uL Hgb (11.4-16.0) gm/dL Hct (34.0-46.0) % MCV (80.0-100.0) fL MCH (25.0-35.0) pg MCHC (31.0-37.0) g/dL RDW (11.5-15.5) % Plt Count (150-450) k/uL MPV Neutrophils % % Lymphocytes % % Monocytes % % Eosinophils % % Basophils % % Neutrophils # (1.3-7.7) k/uL Lymphocytes # (1.0-4.8) k/uL Monocytes # (0-1.0) k/uL Eosinophils # (0-0.7) k/uL Basophils # (0-0.2) k/uL PT (9.0-12.0) sec INR (<1.2) APTT (22.0-30.0) sec Sodium (137-145) mmol/L Potassium (3.5-5.1) mmol/L Chloride (98-107) mmol/L Carbon Dioxide (22-30) mmol/L Anion Gap mmol/L BUN (7-17) mg/dL Creatinine (0.52-1.04) mg/dL Est GFR (CKD-EPI)AfAm (>60 ml/min/1.73 sqM) Est GFR (CKD-EPI)NonAf (>60 ml/min/1.73 sqM) Glucose (74-99) mg/dL Plasma Lactic Acid Gasper (0.7-2.0) mmol/L Calcium (8.4-10.2) mg/dL Magnesium (1.6-2.3) mg/dL Total Bilirubin (0.2-1.3) mg/dL AST (14-36) U/L ALT (4-34) U/L Alkaline Phosphatase (38-126) U/L Troponin I (0.000-0.034) ng/mL Total Protein (6.3-8.2) g/dL Albumin (3.5-5.0) g/dL Progesterone 1.40 ng/mL Urine Color Yellow Urine Appearance Cloudy H (Clear) Urine pH 6.0 (5.0-8.0) Ur Specific Harlan 1.019 (1.001-1.035) Urine Protein Trace H (Negative) Urine Glucose (UA) Negative (Negative) Urine Ketones 1+ H (Negative) Urine Blood Negative (Negative) Urine Nitrite Negative (Negative) Urine Bilirubin Negative (Negative) Urine Urobilinogen <2.0 (<2.0) mg/dL Ur Leukocyte Esterase Negative (Negative) Urine RBC 2 (0-5) /hpf Urine WBC 1 (0-5) /hpf Ur Squamous Epith Cells 45 H (0-4) /hpf Urine Bacteria Many H (None) /hpf Urine Mucus Many H (None) /hpf EBV Capsid Ag IgG Ab AI EBV Capsid Ag IgG Intrp (NEGATIVE) EBV Capsid Ag IgM Ab AI EBV Capsid Ag IgM Intrp (NEGATIVE) EBV Early Antigen IgG AI EBV EA IgG Ab Interp (NEGATIVE) EBV Nuclear Ag IgG Ab AI EBV Nuc Ag IgG Interp (NEGATIVE) Disposition Clinical Impression: Depression, Acute encephalopathy, Anxiety, Nausea & vomiting Disposition: ADMITTED IP TO THIS [facility] Is patient prescribed a controlled substance at d/c from ED?: No Decision to Admit Reason: Admit from EC Decision Date: 07/03/21 Decision Time: 15:45
[2021-07-03] MEDS ORDERED: DIAZEPAM 5 MG/ML 2 ML INJ IVP STA (14:51)
[2021-07-03 14:59] LABS: Basophils % (A) 0 %; Eosinophils # (A) 0.1 k/uL (0-0.7); Eosinophils % (A) 1 %; HCT 46.6 % (34.0-46.0); Lymphocytes # (A) 1.9 k/uL (1.0-4.8); Lymphocytes % (A) 18 %; MCH 33.5 pg (25.0-35.0); MCHC 34.3 g/dL (31.0-37.0); MCV 97.6 fL (80.0-100.0); Mean Platelet Volume 10.1; Monocytes # (A) 0.5 k/uL (0-1.0); Monocytes % (A) 4 %; Neutrophils # (A) 7.7 k/uL (1.3-7.7); Neutrophils % (A) 75 %; Platelet Count 252 k/uL (150-450); RBC 4.77 m/uL (3.80-5.40); RDW 12.3 % (11.5-15.5); WBC 10.3 k/uL (3.8-10.6)
[2021-07-03 15:01] LABS: Appearance,Urine Cloudy (Clear); Bacteria,Urine Many /hpf; Bilirubin,Urine Negative (Negative); Blood,Urine Negative (Negative); Color,Urine Yellow; Glucose,Urine (UA) Negative (Negative); Ketones,Urine 1+ (Negative); Leukocyte Esterase,Urine Negative (Negative); Mucus,Urine Many /hpf; Nitrite,Urine Negative (Negative); Protein,Urine Trace (Negative); RBC,Urine 2 /hpf (0-5); Specific Gravity,Urine 1.019 (1.001-1.035); Squamous Epithelial Cell,Urine 45 /hpf (0-4); Urobilinogen,Urine <2.0 mg/dL (<2.0); WBC,Urine 1 /hpf (0-5)
[2021-07-03 15:12] LABS: Albumin 4.6 g/dL (3.5-5.0); Calcium 9.2 mg/dL (8.4-10.2); Magnesium 2.7 mg/dL (1.6-2.3); Total Bilirubin 0.6 mg/dL (0.2-1.3)
[2021-07-03 15:15] LABS: INR 0.9 (<1.2); Prothrombin Time 10.2 sec (9.0-12.0)
[2021-07-03 15:22] LABS: Partial Thromboplastin Time 20.6 sec (22.0-30.0)
--- NOTE | 2021-07-03 15:36 | CT ---
EXAMINATION TYPE: CT brain cspine wo con DATE OF EXAM: 07/03/2021 COMPARISON: CT brain 10/11/2020 HISTORY: headache, weakness, ams CT DLP: 1408.7 mGycm Automated exposure control for dose reduction was used. TECHNIQUE: CT scan of the head and cervical spine are performed without contrast. FINDINGS: There is no acute intracranial hemorrhage, mass effect, or midline shift identified. The ventricles and sulci are within normal limits in size. Periventricular white matter shows some minim al patchy low attenuation. Cortical atrophy is likely age-related. The globes are intact and the visu alized sinuses are clear. Cervical spine is visualized in its entirety from C1 through upper thoracic levels and demonstrates s atisfactory alignment without evidence of acute fracture or dislocation. There is multilevel spondylo sis, loss of disc height is present at C4-5, C5-6 and C6-7. No significant spinal stenosis. Preverteb ral soft tissue appears within normal limits. The C1-C2 articulation is unremarkable. IMPRESSION: 1. There is no acute fracture or dislocation evident in the cervical spine. 2. No acute intracranial hemorrhage, mass effect, or midline shift is seen. 3. Degenerative disc disease. No acute abnormality.
[2021-07-03] MEDS ORDERED: NALOXONE 0.4 MG/ML 1 ML VIAL IV PRN (15:49)
--- NOTE | 2021-07-03 18:47 | HP ---
HISTORY AND PHYSICAL This 61-year-old white female came in with chronic fatigue, mind racing, possibly a zaynab attack and chronic fatigue. She has severe anxiety and a history of bipolar in the past. She saw Dr. Hurtado for many years until he retired; I took her case over the last 6 months. She has a history of chronic fatigue and brain fog, in which she cannot focus and concentrate. MEDICATIONS: See list. ALLERGIES: See list. She has a history of hypertension, also. Fourteen-point review of systems: chronic fatigue, mind racing, dizziness. PAST MEDICAL HISTORY: GERD, dyslipidemia, hypertension, chronic fatigue, depression, Rissa-Weber. SURGICAL HISTORY: , cholecystectomy, tonsillectomy, motion sickness, postoperative nausea and vomiting, anxiety. FAMILY HISTORY: See list. PHYSICAL EXAMINATION: See list. Temperature 98.7, pulse 80s, blood pressures 130s over 70s to 80s. CARDIOVASCULAR: S1, S2. LUNGS: Clear. GI soft. ASSESSMENT: 1. Depression. 2. Encephalopathy. 3. Anxiety. 4. Nausea and vomiting. Will get Psych to see here and possibly Neurology. Will run some blood work on her. Prognosis guarded. MMODL / IJN: [id number] /
[2021-07-03] MEDS ORDERED: ATORVASTATIN 10 MG TAB PO SCH (21:00)
[2021-07-03] MEDS ORDERED: ONDANSETRON 4 MG/2 ML VIAL IVP PRN (21:30)
[2021-07-03] MEDS: QUEtiapine 25 MG TAB PO SCH (21:34)
[2021-07-04 02:44] LABS: EBV-EA (IgG) 0.7 AI; EBV-EBNA(IgG) >8.0 AI; EBV-VCA (IgG) 5.6 AI; EBV-VCA (IgM) <0.2 AI
[2021-07-04] MEDS ORDERED: LEVOTHYROXINE 100 MCG TAB PO SCH (06:30)
[2021-07-04] MEDS: QUEtiapine 25 MG TAB PO SCH (07:19)
[2021-07-04 07:52] VITALS: RESP 18
[2021-07-04] MEDS ORDERED: METOPROLOL SUCCINATE (ER) 100 MG TAB.ER.24H PO SCH (09:00)
[2021-07-04] MEDS ORDERED: NIFEdipine XL 90 MG TAB.ER.24 PO SCH (09:00)
[2021-07-04] MEDS ORDERED: SERTRALINE 50 MG TAB PO SCH (09:00)
[2021-07-04 10:49] LABS: Basophils # (A) 0.04 X 10*3/uL (0.00-0.10); Basophils % (A) 0.5 %; Eosinophils % (A) 1.2 %; HCT 44.9 % (37.2-46.3); HGB 14.9 g/dL (12.0-15.0); Immature Grans, Automated 0.2 %; Lymphocytes # (A) 2.47 X 10*3/uL (0.90-5.00); Lymphocytes % (A) 29.4 %; MCH 31.7 pg (27.0-32.0); MCHC 33.2 g/dL (32.0-37.0); MCV 95.5 fL (80.0-97.0); Mean Platelet Volume 11.7 fL (9.5-12.2); Monocytes # (A) 0.68 X 10*3/uL (0.20-1.00); Monocytes % (A) 8.1 %; NRBC Per 100 WBC 0 /100 WBCS (0.0-0.0); Neutrophils # (A) 5.08 X 10*3/uL (1.80-7.70); Neutrophils % (A) 60.6 %; Platelet Count 247 X 10*3/uL (140-440); RDW 13.2 % (11.5-14.5); WBC 8.39 X 10*3/uL (4.50-10.00)
[2021-07-04 11:09] LABS: African American GFR (CKD) 91.6 (60.0-200.0); BUN/Creat Ratio 9.13 Ratio (12.00-20.00); Blood Urea Nitrogen 7.3 mg/dL (9.0-27.0); Carbon Dioxide 21.9 mmol/L (20.0-27.5); Chloride 105 mmol/L (96-109); Glucose 93 mg/dL (70-110); Potassium 3.8 mmol/L (3.5-5.5); Sodium 142 mmol/L (135-145)
--- NOTE | 2021-07-04 11:29 | P.CNNES ---
History of Present Illness Consult date: 07/04/21 Requesting physician: Romeo Lim Reason for Consult: brain numbness History of Present Illness: This is a 61-year-old woman anxiety, depression, chronic intermittent paresthesia of the face and MRI Brain in past is negative , "elevated mold" who presented emergency department on 07/03/2021 because of worsening of her anxiety and patient could not sleep and as a result she felt her face was numb briefly. The patient is known to me and I previously seen patient for same complaint in 10/2020. Patient stated that she is very anxious and the is trying to set an appointment with a psychiatrist. She denies of any headache, any vomiting, visual disturbance, any current numbness tingling in the face or anywhere in the extremities or body. She denies of any focal weakness. Denies of any difficulty getting her words out. She stated it could not been tingling of face but rather brain fog according to her. Patient is not follow-up with a neurologist as an outpatient. Of note in October 2020 patient had MRI of the brain is reported as negative and reported as no adverse changes compared to old exam. No evidence of any significant moncada or white matter disease. Patient had a vitamin B12 and folate level checked which was within normal limits. Her TSH in 2020 was normal. She had a routine EEG in 2015 which is reported as normal. I recommended at at one half hour EEG as an outpatient since the patient refused inpatient EEG but was notified by the mechanic sound technician that the she canceled her appointment as outpatient. Please refer to my notes for further details. Some other workup in the hospital consisted of: CBC with differential is unremarkable Magnesium is 2.7 which is slightly elevated. otherwise rest of the chem strip panel is unremarkable Calcium is 9.2, AST and ALT is within normal limits TSH is 0.932 which is within normal limits Testosterone level is 83.[address] of the head is reported as no acute hemorrhage, mass effect or midline shift is seen. I personally reviewed the CT of the head and there is no acute subacute ischemic stroke and there is also typical hemorrhage. I feel the patient has mild to moderate bilateral frontal atrophy. CT cervical spine is reported as there is no acute fracture or dislocation evident in the cervical spine. Degenerative disc disease at. No acute abnormality. Review of Systems Review of system: The 12 point system was reviewed and apparent positive and negative per HPI. Past Medical History Past Medical History: GERD/Reflux, Hyperlipidemia, Hypertension Additional Past Medical History / Comment(s): Chronic fatigue syndrome, depression, Epi Ceja Weber, History of Any Multi-Drug Resistant Organisms: None Reported Past Surgical History: Section, Cholecystectomy, Tonsillectomy Additional Past Surgical History / Comment(s): 10/04/14 EGD, 01/01/15 choleceystectomy, 02/05/15 EGD with BX, 2008 COLONOSCOPY, Past Anesthesia/Blood Transfusion Reactions: Motion Sickness, Postoperative Nausea & Vomiting (PONV) Past Psychological History: Anxiety Smoking Status: Never smoker Past Alcohol Use History: None Reported Past Drug Use History: None Reported - Past Family History Son(s) Family Medical History: No Reported History Daughter(s) Family Medical History: No Reported History Mother Family Medical History: Cancer Additional Family Medical History / Comment(s): BREAST CANCER Father Family Medical History: Blood Disorder Additional Family Medical History / Comment(s): hemachromatosis. Medications and Allergies Home Medications Medication Instructions Recorded Confirmed Type Atorvastatin [Lipitor] 10 mg PO HS 06/06/18 07/03/21 History Levothyroxine Sodium [Synthroid] 100 mcg PO DAILY 10/11/20 07/03/21 History Estradiol 2 mg PO DAILY 07/03/21 07/03/21 History Metoprolol Succinate (ER) [Toprol 100 mg PO DAILY 07/03/21 07/03/21 History Xl] NIFEdipine [NIFEdipine ER] 90 mg PO DAILY 07/03/21 07/03/21 History Progesterone, Micronized 100 mg PO DAILY 07/03/21 07/03/21 History [Progesterone] QUEtiapine FUMARATE [SEROquel XR] 50 mg PO HS 07/03/21 07/03/21 History Sertraline [Zoloft] 50 mg PO DAILY 07/03/21 07/03/21 History Testosterone Unknown Dose 1 tab PO DAILY 07/03/21 07/03/21 History modafiniL [Provigil] 200 mg PO DAILY 07/03/21 07/03/21 History Allergies Allergy/AdvReac Type Severity Reaction Status Date / Time hydralazine AdvReac "SHAKING Verified 07/03/21 13:42 ALL OVER" hydroxyzine [From Vistaril] AdvReac Nausea Verified 07/03/21 13:42 lorazepam [From Ativan] AdvReac insomnia Verified 07/03/21 13:42 Physical Examination - Vital Signs Vital Signs: Vital Signs Temp Pulse Pulse Pulse Resp BP BP 07/04/21 07:00 97.5 F L 68 18 07/04/21 02:52 97.8 F 66 17 07/03/21 20:49 97.8 F 81 17 07/03/21 17:45 97.4 F L 83 18 119/74 07/03/21 15:00 89 18 141/83 07/03/21 14:45 88 18 136/78 07/03/21 12:48 98.7 F 82 16 132/88 BP Pulse Ox 07/04/21 07:00 132/78 97 07/04/21 02:52 138/84 98 07/03/21 20:49 144/89 95 07/03/21 17:45 97 07/03/21 15:00 97 07/03/21 14:45 97 07/03/21 12:48 96 Intake and Output 07/03/21 07/04/21 07/04/21 22:59 06:59 14:59 Intake Total 118 118 Balance 118 118 Intake: Oral 118 118 Other: # Voids 1 1 Weight 76.204 kg GENERAL: The patient is lying in bed and is not in acute distress. CHEST: The heart rate is regular rate rhythm. No murmurs to auscultation. No carotid bruit bilaterally. LUNG: Clear to auscultation bilaterally no wheezing noted throughout. Not labored breathing. ABDOMEN/GI: Bowel sounds present in all 4 quadrants. No tenderness to palpation throughout. NEUROLOGICAL: Higher mental function: The patient is awake, alert, oriented to self, place and time. Patient is following commands. No aphasia and no neglect. Cranial nerves: The pupils are round, equal and reactive to light and accommodation. Visual mckeon are full to confrontation throughout. Extraocular movement is intact no nystagmus is noted. Facial sensation is normal to touch throughout. The facial strength is normal throughout. Hearing is normal bilaterally to hand rub. Tongue is midline and moved [id number] without any difficulty. No dysarthria is noted. Shoulder shrug is normal bilaterally. Motor: The strength is 5 over 5 throughout. Normal tone and bulk. Cerebellum: Normal finger to nose heel to ramirez bilaterally. Sensation: Sensation is normal to touch throughout. Reflexes (right/left): 2+ throughout. Plantars are downgoing bilaterally. Results - Laboratory Findings CBC and BMP: 07/04/21 07:03 07/04/21 07:03 Abnormal Lab Findings: Abnormal Labs 07/03/21 07/03/21 07/03/21 14:42 14:42 14:42 Hct 46.6 H APTT 20.6 L Magnesium 2.7 H Urine Appearance Urine Protein Urine Ketones Ur Squamous Epith Cells Urine Bacteria Urine Mucus EBV Capsid Ag IgG Intrp EBV Nuc Ag IgG Interp 07/03/21 07/03/21 14:42 14:53 Hct APTT Magnesium Urine Appearance Cloudy H Urine Protein Trace H Urine Ketones 1+ H Ur Squamous Epith Cells 45 H Urine Bacteria Many H Urine Mucus Many H EBV Capsid Ag IgG Intrp POSITIVE A EBV Nuc Ag IgG Interp POSITIVE A Assessment and Plan Assessment: Chronic intermittent ?facial numbness or brain fog associate with her anxiety. She had similar presentation in October 2020 and she had MRI Brain which was negative for any intracranial process. On examination patient has no focal defi cit and she did not have any procedure on the face. Unsure if this is related to her at an anxiety. Ongoing chronic anxiety Depression Hyperlipidemia Was told in the past she had elevated mold in 2019 at [facility] Plan: We'll attempt to coordinate 2-1/2 hour EEG as an outpatient and seizure suspicion is very low. Otherwise no further neurological workup is needed. Psychiatry team is consulted. Unsure of the significance of her elevated testosterone but will leave the further workup to the primary team. We'll defer the rest of the medical management to the primary team. Recommend the patient to follow-up with a neurologist as an outpatient within 3 weeks for further evaluation of her paresthesia that is intermittent. The plan was discussed with the patient and her nurse. Thank you for the consultation. Patient is clear from a neurological perspective. No further neurological workup needed. Felipe Cuadra M.D. Neuro-hospitalist Time with Patient: Greater than 30
--- NOTE | 2021-07-04 14:08 | P.CN ---
Psychiatric Consult - . Consult date: 07/04/21 Consult:: 07/04/21 14:06 IDENTIFYING DATA: This patient is a , unemployed on disability, 61-year-old female with a significant history of Rissa-Weber virus presented to the hospital on 07/03/2021 with a chief complaint of nausea, anxiety, and fatigue. HISTORY OF PRESENT ILLNESS: The patient presented to the hospital 07/03/2021, with a chief complaint of nausea, fatigue, and anxiety. Psychiatry has been c onsulted for evaluation and management of the patient's psychiatric symptoms. Present at the patient's bedside is Michael Mary. Patient is agreeable to have him present during the psychiatric evaluation. The patient reports that she has been feeling increasingly fatigued and nauseous in the mornings which later contributes to elevated anxiety and concern for her. She reports that he has been getting worse over the past 3 weeks. She does express along with her symptoms of fatigue, feelings of hopelessness, anhedonia, emptiness, irritability, and increased appetite. However, the patient denies any suicidal or homicidal ideation, intention, and/or plan. She does report no prior attempts at suicide however notes that the patient has been found to have a knife next to her while she was sleeping many years ago and there was concern at that time whether she was going to try to kill herself. The patient is currently denying any significant symptoms of zaynab. She denies any auditory or visual hallucinations. She denies any paranoia or other delusions. The patient stresses that she began expressing symptoms of chronic fatigue and low energy or since her gallbladder surgery in 2014. Furthermore, the patient reports that she was dealing with Rissa-Weber virus. She states that in March 2019, it was determined that she had excessive amounts of mold exposure and was treated for this and felt better up until May 2019. She also reports that she was piercing prescribed regimen of Zyprexa, Depakote, and imipramine with significant improvement in symptoms. She states that she has been inconsistently taking her medications. She was recently prescribed modafinil however states that she'll retry the medication once because after she took the initial dose of the medication, she began expressing elevated anxiety and extreme restlessness. PAST PSYCHIATRIC HISTORY: As per chart review, the patient has a significant history of major depression, benzodiazepine dependence, chronic fatigue syndrome. Her previous psychiatric medications include Xanax, Klonopin, Zoloft, Paxil, Seroquel, Depakote, Tofranil, and Zyprexa. The patient was previously hospitalized on in April 2017 for depression and severe anxiety. Patient denies any current outpatient psychiatric follow-up. No reported suicide attempts in the past however the notes that there may have been prior attempts. PAST MEDICAL HISTORY: Past Medical History: GERD/Reflux, Hyperlipidemia, Hypertension Additional Past Medical History / Comment(s): Chronic fatigue syndrome, depression, Epi Ceja Weber, History of Any Multi-Drug Resistant Organisms: None Reported Past Surgical History: Section, Cholecystectomy, Tonsillectomy Additional Past Surgical History / Comment(s): 10/04/14 EGD, 01/01/15 choleceystectomy, 02/05/15 EGD with BX, 2008 COLONOSCOPY, Past Anesthesia/Blood Transfusion Reactions: Motion Sickness, Postoperative Nausea & Vomiting (PONV) Past Psychological History: Anxiety Smoking Status: Never smoker Past Alcohol Use History: None Reported Past Drug Use History: None Reported ALLERGIES: Hydralazine, hydroxyzine, lorazepam CHEMICAL DEPENDENCY HISTORY: The patient denies any tobacco, alcohol, marijuana, or illicit drug use. She has been chronically prescribed benzodiazepines but states that she has not been using them anymore. FAMILY PSYCHIATRIC/SUBSTANCE USE HISTORY: No reported family history of mental illness or substance abuse. SOCIAL HISTORY: Patient was born and raised in [place], [place]. She is and has 3 children. She is currently on disability since her surgery in 2014. She describes herself as Rastafarian. MENTAL STATUS EXAM: General Appearance: Patient appears to be stated age is alert, pleasant, and cooperative. Patient appears to have slightly disheveled hygiene and grooming wearing hospital gown with fair eye contact. Behavior: Patient is seated upright in her bed without any agitated behavior. Speech: Patient's speech is fluent and nonpressured. Mood/Affect: Patient reports their mood is "always tired", affect appears to be mood and congruent and euthymic with appropriate energy. Suicidality/Homicidality: Patient denies any current suicidal homicidal ideation, intention, and/or plan. Perceptions: Patient denies any auditory or visual hallucinations. Though content/process: There is no evidence of any delusional thought content and thought process is linear and goal-directed. Memory and concentration: AOX3, grossly intact for the purposes of this session. Can spell "WORLD" backwards Judgment and insight: Fair Vital Signs Temp 97.5 F L 07/04/21 07:00 Pulse 68 07/04/21 07:00 Resp 18 07/04/21 07:00 BP 132/78 07/04/21 07:00 Pulse Ox 97 07/04/21 07:00 Intake & Output 07/03/21 07/04/21 07/04/21 18:59 06:59 18:59 Intake Total 118 118 Balance 118 118 Weight 76.204 kg Intake: Oral 118 118 Other: # Voids 1 Laboratory Results WBC 8.39 X 10*3/uL (4.50-10.00) 07/04/21 07:03 RBC 4.70 X 10*6/uL (4.10-5.20) 07/04/21 07:03 Hgb 14.9 g/dL (12.0-15.0) 07/04/21 07:03 Hct 44.9 % (37.2-46.3) 07/04/21 07:03 MCV 95.5 fL (80.0-97.0) 07/04/21 07:03 MCH 31.7 pg (27.0-32.0) 07/04/21 07:03 MCHC 33.2 g/dL (32.0-37.0) 07/04/21 07:03 RDW 13.2 % (11.5-14.5) 07/04/21 07:03 Plt Count 247 X 10*3/uL (140-440) 07/04/21 07:03 MPV 11.7 fL (9.5-12.2) 07/04/21 07:03 Immature Gran % (Auto) 0.2 % 07/04/21 07:03 Absolute Nucleated RBC 0 X 10*3/uL (0.00-0.00) 07/04/21 07:03 Neutrophils % 60.6 % 07/04/21 07:03 Lymphocytes % 29.4 % 07/04/21 07:03 Monocytes % 8.1 % 07/04/21 07:03 Eosinophils % 1.2 % 07/04/21 07:03 Basophils % 0.5 % 07/04/21 07:03 Immature Gran # 0.02 X 10*3/uL (0.00-0.04) 07/04/21 07:03 Neutrophils # 5.08 X 10*3/uL (1.80-7.70) 07/04/21 07:03 Lymphocytes # 2.47 X 10*3/uL (0.90-5.00) 07/04/21 07:03 Monocytes # 0.68 X 10*3/uL (0.20-1.00) 07/04/21 07:03 Eosinophils # 0.10 X 10*3/uL (0.04-0.35) 07/04/21 07:03 Basophils # 0.04 X 10*3/uL (0.00-0.10) 07/04/21 07:03 NRBC/100 WBC Diff 0 /100 WBCS (0.0-0.0) 07/04/21 07:03 PT 10.2 sec (9.0-12.0) 07/03/21 14:42 INR 0.9 (<1.2) 07/03/21 14:42 APTT 20.6 sec (22.0-30.0) L 07/03/21 14:42 Sodium 142 mmol/L (135-145) 07/04/21 07:03 Potassium 3.8 mmol/L (3.5-5.5) 07/04/21 07:03 Chloride 105 mmol/L (96-109) 07/04/21 07:03 Carbon Dioxide 21.9 mmol/L (20.0-27.5) 07/04/21 07:03 Anion Gap 15.10 mmol/L (10.00-18.00) 07/04/21 07:03 BUN 7.3 mg/dL (9.0-27.0) L 07/04/21 07:03 Creatinine 0.8 mg/dL (0.6-1.5) 07/04/21 07:03 Est GFR (CKD-EPI)AfAm 91.6 (60.0-200.0) 07/04/21 07:03 Est GFR (CKD-EPI)NonAf 79.0 (60.0-200.0) 07/04/21 07:03 BUN/Creatinine Ratio 9.13 Ratio (12.00-20.00) L 07/04/21 07:03 Glucose 93 mg/dL (70-110) 07/04/21 07:03 Plasma Lactic Acid Gasper 1.0 mmol/L (0.7-2.0) 07/03/21 14:42 Calcium 9.0 mg/dL (8.7-10.3) 07/04/21 07:03 Magnesium 2.7 mg/dL (1.6-2.3) H 07/03/21 14:42 Total Bilirubin 0.6 mg/dL (0.2-1.3) 07/03/21 14:42 AST 26 U/L (14-36) 07/03/21 14:42 ALT 22 U/L (4-34) 07/03/21 14:42 Alkaline Phosphatase 102 U/L (38-126) 07/03/21 14:42 Troponin I 0.025 ng/mL (0.000-0.034) 07/03/21 14:42 Total Protein 8.0 g/dL (6.3-8.2) 07/03/21 14:42 Albumin 4.6 g/dL (3.5-5.0) 07/03/21 14:42 TSH 0.932 uIU/mL (0.350-5.500) 07/04/21 07:03 Testosterone Level 83.40 ng/mL (7.00-45.62) H 07/04/21 07:03 Cortisol 16.5 ug/dL (3.1-22.4) 07/04/21 07:03 Urine Color Yellow 07/03/21 14:53 Urine Appearance Cloudy (Clear) H 07/03/21 14:53 Urine pH 6.0 (5.0-8.0) 07/03/21 14:53 Ur Specific [place] 1.019 (1.001-1.035) 07/03/21 14:53 Urine Protein Trace (Negative) H 07/03/21 14:53 Urine Glucose (UA) Negative (Negative) 07/03/21 14:53 Urine Ketones 1+ (Negative) H 07/03/21 14:53 Urine Blood Negative (Negative) 07/03/21 14:53 Urine Nitrite Negative (Negative) 07/03/21 14:53 Urine Bilirubin Negative (Negative) 07/03/21 14:53 Urine Urobilinogen <2.0 mg/dL (<2.0) 07/03/21 14:53 Ur Leukocyte Esterase Negative (Negative) 07/03/21 14:53 Urine RBC 2 /hpf (0-5) 07/03/21 14:53 Urine WBC 1 /hpf (0-5) 07/03/21 14:53 Ur Squamous Epith Cells 45 /hpf (0-4) H 07/03/21 14:53 Urine Bacteria Many /hpf (None) H 07/03/21 14:53 Urine Mucus Many /hpf (None) H 07/03/21 14:53 EBV Capsid Ag IgG Ab 5.6 AI 07/03/21 14:42 EBV Capsid Ag IgG Intrp POSITIVE (NEGATIVE) A 07/03/21 14:42 EBV Capsid Ag IgM Ab <0.2 AI 07/03/21 14:42 EBV Capsid Ag IgM Intrp NEGATIVE (NEGATIVE) 07/03/21 14:42 EBV Early Antigen IgG 0.7 AI 07/03/21 14:42 EBV EA IgG Ab Interp NEGATIVE (NEGATIVE) 07/03/21 14:42 EBV Nuclear Ag IgG Ab >8.0 AI 07/03/21 14:42 EBV Nuc Ag IgG Interp POSITIVE (NEGATIVE) A 07/03/21 14:42 IMPRESSIONS: Major depressive disorder, with anxious features PLAN: -At this time patient DOES NOT meet criteria for inpatient psychiatric admission. The patient is not presenting with imminent risk of harm to self or others. She is not overtly psychotic. She has significant support from her family and prescribes to [facility]. No prior attempts at suicide as per patient. Patient is cleared psychiatrically for discharge. -Delirium precautions recommended with patient including - avoiding use of narcotics and PRUNER sedatives, limit anticholinergic medications when possible, frequent re-orientation, minimize use of restraints, open window shades during the day and close them at night -Would recommend the following medication changes/additions: Discontinue Zoloft and restart the patient on imipramine 25 mg by mouth at bedtime for depression Increase Seroquel to 100 mg by mouth at bedtime for mood augmentation/insomnia. Seroquel can be titrated in the outpatient setting to address symptoms of depression and insomnia to a dose of 300 mg at bedtime. Imipramine can be titrated pending patient response and tolerance. -Patient reports that she is scheduled for outpatient psychiatric care in 7 days. The patient is to be discharged today, recommend that the patient is discharged with 7-10 days worth of psychiatric medications listed above. -Hold on benzodiazepine medications for now. Patient is to discuss the reinitiation of benzodiazepine medications with her outpatient provider. Benzodiazepine use may exacerbate fatigue symptoms that the patient endorses. -Psychiatry will sign off at this point, please contact with any questions. 07/04/21 14:07
[2021-07-04 14:31] VITALS: BP 135/80; PULSE 74; TEMP 97.7
[2021-07-04] MEDS ORDERED: QUEtiapine 100 MG TAB PO SCH (21:00)
[2021-07-04] MEDS ORDERED: IMIPRAMINE 25 MG TAB PO SCH (21:00)
--- NOTE | 2021-07-04 21:57 | P.DS ---
Providers Date of admission: 07/03/21 15:52 Expected date of discharge: 07/04/21 Attending physician: Romeo Lim Consults: 07/03/21 15:50 Consult Physician Urgent Consulting Provider: Juan Ng Consult Reason/Comments: acute anxiety/depressions, ams Do you want consulting provider notified?: Yes 07/03/21 18:09 Consult Physician Routine Consulting Provider: Neurology Coverage Consult Reason/Comments: brain numbness Do you want consulting provider notified?: Yes Primary care physician: Romeo Lim [facility] Course: Presenting complaint: Fatigue Hospital course: Patient presented with significant fatigue going on for quite some time. Lab work showed a normal white count. Normal creatinine. TSH 0.9. Patient feels foggy in the brain. 2 UA contaminated. With no urine symptoms. NAJMA positive. Serology positive for Rissa-Weber virus IgG. Computed tomography scan of the brain unremarkable. July 04: I'm rounding for Dr. Lim. Seen by neurology Dr. Cuadra. He will do an outpatient with half our EEG. No further neurological workup. Patient has noted focal findings. Seen by psychiatry Dr. Ng. Diagnosed with major depressive disorder with anxious features. Patient set a quit neck was increased to 100 mg. Also prophylactically until 25 mg appetite for started. Zoloft was discontinued. Care was discussed length with the patient and at the bedside. Lifestyle changes including exercise and dietary habits were discussed. Patient is due to see psychiatry as an outpatient. Medications will be titrated accordingly. Further labs including testosterone to be followed by Dr. Lim - outpatient. On examination: 97.7, 74, 18, 135/80, 98% room air Lungs: Clear Psychiatry: AO 3, mood and affect low Neurological: No focal findings Assessment and plan: -Major depressive disorder with anxious features Seroquel increased to 100 mg daily at bedtime. Tofranil 25 mg daily at bedtime. Follow-up with psychiatry outpatient. Zoloft discontinued -NAJMA screen positive Follow with Dr. Lim outpatient -Elevated testosterone Dr. Lim will discussed with the patient regarding testosterone dosing. -GERD Tums when necessary -Hyperlipidemia Lipitor 10 mg daily at bedtime -Essential hypertension Nifedipine ER 90 mg a day. 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 Disposition: Home Plan - Discharge Summary Discharge Rx Participant: No New Discharge Prescriptions: New QUEtiapine [SEROquel] 100 mg PO HS #30 tab Imipramine [Tofranil] 25 mg PO HS #30 tab Continue Atorvastatin [Lipitor] 10 mg PO HS Levothyroxine Sodium [Synthroid] 100 mcg PO DAILY Metoprolol Succinate (ER) [Toprol XL] 100 mg PO DAILY modafiniL [Provigil] 200 mg PO DAILY Progesterone, Micronized [Progesterone] 100 mg PO DAILY Testosterone Unknown Dose 1 tab PO DAILY NIFEdipine [NIFEdipine ER] 90 mg PO DAILY Estradiol 2 mg PO DAILY Discontinued QUEtiapine FUMARATE [SEROquel XR] 50 mg PO HS Sertraline [Zoloft] 50 mg PO DAILY Discharge Medication List Atorvastatin [Lipitor] 10 mg PO HS 06/06/18 [History] Levothyroxine Sodium [Synthroid] 100 mcg PO DAILY 10/11/20 [History] Estradiol 2 mg PO DAILY 07/03/21 [History] Metoprolol Succinate (ER) [Toprol XL] 100 mg PO DAILY 07/03/21 [History] NIFEdipine [NIFEdipine ER] 90 mg PO DAILY 07/03/21 [History] Progesterone, Micronized [Progesterone] 100 mg PO DAILY 07/03/21 [History] Testosterone Unknown Dose 1 tab PO DAILY 07/03/21 [History] modafiniL [Provigil] 200 mg PO DAILY 07/03/21 [History] Imipramine [Tofranil] 25 mg PO HS #30 tab 07/04/21 [Rx] QUEtiapine [SEROquel] 100 mg PO HS #30 tab 07/04/21 [Rx] Follow up Appointment(s)/Referral(s): psychiatristdr [Other] - 1 Week Romeo Lim MD [Primary Care Provider] - 1-2 days Discharge Disposition: HOME SELF-CARE
[2021-07-06 10:53] LABS: Lyme IgG/IgM 0.18 Index
== END 2021-07-04 18:51 | disposition home or self-care (01) ==
LOC: EC 12:45 → 6NMEDSUR 15:52
PROVIDERS: ADMIT Family Medicine; ATTEND Family Medicine
DX: G93.40 Encephalopathy, unspecified (principal); R11.2 Nausea with vomiting, unspecified; F41.9 Anxiety disorder, unspecified; F32.A Depression, unspecified; R53.82 Chronic fatigue, unspecified; R41.82 Altered mental status, unspecified; B27.00 Gammaherpesviral mononucleosis without complication; F32.9 Major depressive disorder, single episode, unspecified; K21.9 Gastro-esophageal reflux disease without esophagitis; E78.5 Hyperlipidemia, unspecified; I10 Essential (primary) hypertension; Z98.891 History of uterine scar from previous surgery; Z90.49 Acquired absence of other specified parts of digestive tract; Z98.890 Other specified postprocedural states; R76.8 Other specified abnormal immunological findings in serum; G31.9 Degenerative disease of nervous system, unspecified; Z79.890 Hormone replacement therapy; Z79.899 Other long term (current) drug therapy; Z88.8 Allergy status to other drugs, medicaments and biological substances; Z80.3 Family history of malignant neoplasm of breast
CPT/HCPCS: 96374; 99285; 36415; 93005; 97161; 97165; 86665 ×2; 80053; 80048; 86663; 84443; 82533; 82672; 83605; 83735; 84484; 85025 ×2; 85610; 85730; 81001; 84403; 86664; 86618; 84144; 86038; 86039; 87086; 72125; 70450; G0378 ×2; J3360

== ENCOUNTER → 2021-07-25 | Outpatient (CLI) | payer MEDICARE | END | disposition home or self-care (01) | LOC: LABWHC1 11:41 | PROVIDERS: ATTEND Pediatrics | DX: B10.89 Other human herpesvirus infection (principal); R53.82 Chronic fatigue, unspecified | CPT/HCPCS: 36415; 82390; 83921; 86663; 86664; 86665 ==

== ENCOUNTER → 2021-10-22 | Outpatient (CLI) | payer MEDICARE ==
--- NOTE | 2021-10-22 14:34 | US ---
EXAMINATION TYPE: US pelvis complete transvag DATE OF EXAM: 10/22/2021 COMPARISON: US,CT CLINICAL HISTORY: N95.0 Post menopausal bleeding. Postmenopausal bleeding. Patient is on hormone ther apy currently. Hx C section. . TECHNIQUE: Transvaginal (TV) and Transabdominal (TA) . Transabdominal sonographic images of the pel vis were acquired. Transvaginal sonographic images were medically necessary to better assess the fol lowing anatomy: Endometrium and ovaries. Date of LMP: at 54 years old EXAM MEASUREMENTS: Uterus: 8.8 x 5.0 x 4.1 cm Endometrial Stripe: 0.61 cm Ovaries not seen. 1. Uterus: Anteverted Appears slightly heterogeneous. Subcentimeter anechoic areas seen in cervix. Hypoechoic area seen lower uterus near cervix as seen on prior transvaginal exam: 1.4 x 1.7 x 1.1 cm . Hypoechoic area seen right fundus: 1.2 x 1.4 x 1.3 cm. 2. Endometrium: Measures 0.61 cm - pt is currently on hormone therapy. 3. Right Ovary: Obscured 4. Left Ovary: Obscured 5. Bilateral Adnexa: Appears wnl 6. Posterior cul-de-sac: Appears wnl IMPRESSION: 1. Probable small leiomyomatous change of the uterus. 2. Limited evaluation of the ovaries.
== END | disposition home or self-care (01) ==
LOC: RADUSWWP 13:20
PROVIDERS: ATTEND Obstetrics & Gynecology
DX: N95.0 Postmenopausal bleeding (principal)
CPT/HCPCS: 76830; 76856

== ENCOUNTER → 2022-01-07 | Outpatient (CLI) | payer MEDICARE ==
--- NOTE | 2022-01-07 15:01 | US ---
EXAMINATION TYPE: US carotid duplex BILAT DATE OF EXAM: 01/07/2022 COMPARISON: NONE CLINICAL HISTORY: I25.10 ATHSCL HEART DISEASE OF [place] CORONARY ART. Pt states dizziness and chest p ain TECHNIQUE: Carotid duplex ultrasound examination. Indirect Doppler criteria was utilized. FINDINGS: EXAM MEASUREMENTS: RIGHT: Peak Systolic Velocity (PSV) cm/sec ----- Right CCA: 76.8 ----- Right ICA: 90.0 ----- Right ECA: 136 ICA/CCA ratio: 1.2 RIGHT: End Diastole cm/sec ----- Right CCA: 26.5 ----- Right ICA: 22.2 ----- Right ECA: 27.4 LEFT: Peak Systolic Velocity (PSV) cm/sec ----- Left CCA: 82.2 ----- Left ICA: 116 ----- Left ECA: 95.8 ICA/CCA ratio: 1.4 LEFT: End Diastole cm/sec ----- Left CCA: 25.1 ----- Left ICA: 45.2 ----- Left ECA: 21.5 VERTEBRALS (direction of flow): Right Vertebral: Antegrade Left Vertebral: Antegrade Rhythm: Normal EXTRUSION PRESS OPERATOR NOTES: No significant stenosis seen IMPRESSION: Less than 50% stenosis of the bilateral carotid bifurcations. Criteria for Assigning % of Stenosis / Diameter reduction (Estimation based on the indirect measurements of the internal carotid artery velocities (ICA PSV). 1. Normal (no stenosis)=ICA PSV < 125 cm/s: ratio < 2.0: ICA EDV<40 cm/s. 2. Less than 50% stenosis=ICA PSV < 125 cm/s: ratio < 2.0: ICA EDV<40 cm/s. 3. 50 to 69% stenosis=ICA PSV of 125 to 230 cm/s: ration 2.0 ? 4.0: ICA EDV 40-100 cm/s. 4. Greater than 70% stenosis to near occlusion= ICA PSV > 230 cm/s: ratio > 4.0: ICA EDV > 100 cm/s. 5. Near occlusion= ICA PSV velocities may be low or undetectable: variable ratio and ICA EDV. 6. Total occlusion=unable to detect flow.
== END | disposition home or self-care (01) ==
LOC: RADUSWWP 14:13
PROVIDERS: ATTEND Family Medicine
DX: I65.23 Occlusion and stenosis of bilateral carotid arteries (principal)
CPT/HCPCS: 93880

== ENCOUNTER 2022-01-20 16:39 | Emergency (ER) | payer MEDICARE ==
[2022-01-20 17:01] VITALS: RESP 18
[2022-01-20] MEDS ORDERED: SODIUM CHLORIDE 0.9% 1,000 ML IV ONE (17:26)
[2022-01-20 18:11] LABS: Basophils % (A) 0 %; Eosinophils % (A) 0 %; HCT 44.5 % (34.0-46.0); HGB 15.7 gm/dL (11.4-16.0); Lymphocytes # (A) 1.2 k/uL (1.0-4.8); Lymphocytes % (A) 18 %; MCH 32.7 pg (25.0-35.0); MCHC 35.4 g/dL (31.0-37.0); MCV 92.4 fL (80.0-100.0); Monocytes # (A) 0.4 k/uL (0-1.0); Monocytes % (A) 5 %; Neutrophils # (A) 5.3 k/uL (1.3-7.7); Neutrophils % (A) 76 %; Platelet Count 214 k/uL (150-450); RBC 4.81 m/uL (3.80-5.40); RDW 12.5 % (11.5-15.5)
[2022-01-20 18:21] VITALS: TEMP 98.5
--- NOTE | 2022-01-20 18:30 | ED ---
General Adult HPI - General Chief complaint: Chest Pain Stated complaint: Chest pain,sob,covid + Time Seen by Provider: 01/20/22 17:04 Source: patient, RN notes reviewed, old records reviewed Mode of arrival: ambulatory Limitations: no limitations - History of Present Illness Initial comments: 61-year-old female diagnosed with coronavirus 6 days ago presents for evaluation of burning chest discomfort and fatigue. Patient reports that her breathing has improved she was initially quite congested she continues to have sore throat. She also feels quite tired. No central radiating chest pain. No prior history of CAD. - Related Data Home Medications Medication Instructions Recorded Confirmed Atorvastatin [Lipitor] 10 mg PO HS 06/06/18 01/20/22 Levothyroxine Sodium [Synthroid] 100 mcg PO DAILY 10/11/20 01/20/22 NIFEdipine [NIFEdipine ER] 90 mg PO DAILY 07/03/21 01/20/22 Furosemide [Lasix] 20 mg PO DAILY 01/20/22 01/20/22 Metoprolol Succinate (ER) [Toprol 100 mg PO DAILY 01/20/22 01/20/22 Xl] Potassium Chloride ER [K-Dur 10] 10 meq PO DAILY 01/20/22 01/20/22 QUEtiapine [SEROquel] 100 - 200 mg PO HS 01/20/22 01/20/22 ZOLMitriptan 2.5 mg PO DAILY PRN 01/20/22 01/20/22 cloNIDine HCL [Catapres] 0.1 mg PO TID 01/20/22 01/20/22 clonazePAM [KlonoPIN] 1 mg PO TID PRN 01/20/22 01/20/22 Allergies Allergy/AdvReac Type Severity Reaction Status Date / Time hydralazine AdvReac "SHAKING Verified 01/20/22 18:08 ALL OVER" hydroxyzine [From Vistaril] AdvReac Nausea Verified 01/20/22 18:08 lorazepam [From Ativan] AdvReac insomnia Verified 01/20/22 18:08 Review of Systems ROS Statement: Those systems with pertinent positive or pertinent negative responses have been documented in the HPI. ROS Other: All systems not noted in ROS Statement are negative. Past Medical History Past Medical History: GERD/Reflux, Hyperlipidemia, Hypertension Additional Past Medical History / Comment(s): Chronic fatigue syndrome, d epression, Epi Brenna Weber, History of Any Multi-Drug Resistant Organisms: None Reported Past Surgical History: Section, Cholecystectomy, Tonsillectomy Additional Past Surgical History / Comment(s): 10/04/14 EGD, 01/01/15 choleceystectomy, 02/05/15 EGD with BX, 2008 COLONOSCOPY, Past Anesthesia/Blood Transfusion Reactions: Motion Sickness, Postoperative Nausea & Vomiting (PONV) Past Psychological History: Anxiety Smoking Status: Never smoker Past Alcohol Use History: None Reported Past Drug Use History: None Reported - Past Family History Son(s) Family Medical History: No Reported History Daughter(s) Family Medical History: No Reported History Mother Family Medical History: Cancer Additional Family Medical History / Comment(s): BREAST CANCER Father Family Medical History: Blood Disorder Additional Family Medical History / Comment(s): hemachromatosis. General Exam Limitations: no limitations General appearance: alert, in no apparent distress Head exam: Present: atraumatic, normocephalic Eye exam: Present: normal appearance, PERRL ENT exam: Present: normal exam Neck exam: Present: normal inspection. Absent: tenderness, meningismus Respiratory exam: Present: normal lung sounds bilaterally. Absent: respiratory distress, wheezes Cardiovascular Exam: Present: regular rate, normal rhythm GI/Abdominal exam: Present: soft. Absent: distended, tenderness, guarding Extremities exam: Present: normal inspection, normal capillary refill. Absent: pedal edema Neurological exam: Present: alert, oriented X3, CN II-XII intact. Absent: motor sensory deficit Psychiatric exam: Present: normal affect, normal mood Skin exam: Present: warm, dry, intact. Absent: cyanosis, diaphoretic Course Vital Signs 01/20/22 01/20/22 16:57 18:19 Temperature 98.0 F 98.5 F Pulse Rate 55 L 66 Respiratory 18 18 Rate Blood Pressure 109/72 118/72 O2 Sat by Pulse 99 96 Oximetry EKG Findings - EKG Comments: EKG Findings:: EKG: Sinus rhythm rate of 69, OR interval 155, QRS duration 100, QTC 399, no ST segment elevation Medical Decision Making - Medical Decision Making 61-year-old female with coronavirus, congestion, chest discomfort, stable vitals, no restaurant distress, good air entry, chest x-rays clear, normal CBC, normal CMP, negative d-dimer are patient has an appointment with her primary care physician. She is on appropriate vitamins she states overall her symptoms are improving. Return parameters discussed. - Lab Data Result diagrams: 01/20/22 17:55 01/20/22 17:55 Lab Results 01/20/22 01/20/22 01/20/22 Range/Units 17:55 17:55 17:55 WBC 7.0 (3.8-10.6) k/uL RBC 4.81 (3.80-5.40) m/uL Hgb 15.7 (11.4-16.0) gm/dL Hct 44.5 (34.0-46.0) % MCV 92.4 (80.0-100.0) fL MCH 32.7 (25.0-35.0) pg MCHC 35.4 (31.0-37.0) g/dL RDW 12.5 (11.5-15.5) % Plt Count 214 (150-450) k/uL MPV 11.0 Neutrophils % 76 % Lymphocytes % 18 % Monocytes % 5 % Eosinophils % 0 % Basophils % 0 % Neutrophils # 5.3 (1.3-7.7) k/uL Lymphocytes # 1.2 (1.0-4.8) k/uL Monocytes # 0.4 (0-1.0) k/uL Eosinophils # 0.0 (0-0.7) k/uL Basophils # 0.0 (0-0.2) k/uL PT 10.0 (9.0-12.0) sec INR 0.9 (<1.2) APTT 22.6 (22.0-30.0) sec D-Dimer 0.61 H (<0.60) mg/L FEU Sodium 136 L (137-145) mmol/L Potassium 4.2 (3.5-5.1) mmol/L Chloride 101 (98-107) mmol/L Carbon Dioxide 23 (22-30) mmol/L Anion Gap 12 mmol/L BUN 21 H (7-17) mg/dL Creatinine 0.86 (0.52-1.04) mg/dL Est GFR (CKD-EPI)AfAm 84 (>60 ml/min/1.73 sqM) Est GFR (CKD-EPI)NonAf 73 (>60 ml/min/1.73 sqM) Glucose 121 H (74-99) mg/dL Calcium 8.7 (8.4-10.2) mg/dL Total Bilirubin 0.6 (0.2-1.3) mg/dL AST 27 (14-36) U/L ALT 27 (4-34) U/L Alkaline Phosphatase 87 (38-126) U/L Total Protein 6.8 (6.3-8.2) g/dL Albumin 4.1 (3.5-5.0) g/dL Disposition Clinical Impression: COVID-19 Disposition: HOME SELF-CARE Condition: Fair Instructions (If sedation given, give patient instructions): COVID-19 (Coronavirus Disease 2019) (ED) Is patient prescribed a controlled substance at d/c from ED?: No Referrals: Romeo Lim MD [Primary Care Provider] - 1-2 days Time of Disposition: 19:16
[2022-01-20 18:33] LABS: Albumin 4.1 g/dL (3.5-5.0); Calcium 8.7 mg/dL (8.4-10.2); Potassium 4.2 mmol/L (3.5-5.1); Total Bilirubin 0.6 mg/dL (0.2-1.3); Total Protein 6.8 g/dL (6.3-8.2)
--- NOTE | 2022-01-20 18:34 | XR ---
EXAMINATION TYPE: XR chest 2V DATE OF EXAM: 01/20/2022 6:16 PM COMPARISON: Chest radiographs from 06/03/2020. TECHNIQUE: XR chest 2V Frontal and lateral views of the chest. CLINICAL INDICATION:Female, 61 years old with history of covid; FINDINGS: Lungs/Pleura: There is no evidence of pleural effusion, focal consolidation, or pneumothorax. Pulmonary vascularity: Unremarkable. Heart/mediastinum: Cardiomediastinal silhouette is unremarkable. Musculoskeletal: No acute osseous pathology. IMPRESSION: No acute cardiopulmonary disease/process.
[2022-01-20 18:43] LABS: INR 0.9 (<1.2); Partial Thromboplastin Time 22.6 sec (22.0-30.0)
[2022-01-20 19:39] VITALS: BP 121/76; PULSE 61
== END 2022-01-20 19:40 | disposition home or self-care (01) ==
LOC: EC 16:39
DX: U07.1 COVID-19 (principal); E78.5 Hyperlipidemia, unspecified; I10 Essential (primary) hypertension; Z88.8 Allergy status to other drugs, medicaments and biological substances; Z88.1 Allergy status to other antibiotic agents
CPT/HCPCS: 36415; 71046; 80053; 85025; 85379; 85610; 85730; 93005; 96360; 99285

== ENCOUNTER 2022-09-09 10:17 | Observation (INO) | payer MEDICARE ==
[2022-09-09] MEDS ORDERED: SODIUM CHLORIDE 0.9% 1,000 ML IV STA (11:04)
--- NOTE | 2022-09-09 11:11 | ED ---
Dizziness HPI - General Chief Complaint: Dizziness Stated Complaint: low b/p Time Seen by Provider: 09/09/22 10:55 Source: patient, RN notes reviewed Mode of arrival: ambulatory Limitations: no limitations - History of Present Illness Initial Comments: 62-year-old female presents emergency Department with chief complaint of elevated heart rate, low blood pressure. Patient states she woke up was not feeling well. Patient states she just felt very lousy in which she does state that she's been sick for a long period time secondary to mold exposure. Patient states that she woke up took her blood pressure meds interactive blood pressure. Patient states her blood pressure was 90/60. Patient states she laid back down she also noted that her heart rate was in the 130s. Patient denies any chest pain she recently was placed on nifedipine in which she was on Lasix prior to this. She's been having some medication adjustments for her blood pressure. Patient denies any leg pain or leg swelling no GI symptoms - Related Data Home Medications Medication Instructions Recorded Confirmed NIFEdipine [NIFEdipine ER] 90 mg PO DAILY 07/03/21 09/09/22 Metoprolol Succinate (ER) [Toprol 100 mg PO DAILY 01/20/22 09/09/22 Xl] Potassium Chloride ER [K-Dur 10] 10 meq PO DAILY 01/20/22 09/09/22 QUEtiapine [SEROquel] 100 mg PO HS 01/20/22 09/09/22 cloNIDine HCL [Catapres] 0.05 mg PO DAILY 01/20/22 09/09/22 clonazePAM [KlonoPIN] 1 mg PO DAILY 01/20/22 09/09/22 Levothyroxine Sodium [Synthroid] 88 mcg PO DAILY 09/09/22 09/09/22 Liothyronine Sodium [Cytomel] 5 mcg PO DAILY 09/09/22 09/09/22 Ondansetron [Zofran] 4 mg PO Q6H PRN 09/09/22 09/09/22 Allergies Allergy/AdvReac Type Severity Reaction Status Date / Time codeine Allergy Anaphylaxis Verified 09/09/22 12:27 hydralazine AdvReac "SHAKING Verified 09/09/22 12:27 ALL OVER" hydroxyzine [From Vistaril] AdvReac Nausea Verified 09/09/22 12:27 lorazepam [From Ativan] AdvReac insomnia Verified 09/09/22 12:27 Review of Systems ROS Statement: Those systems with pertinent positive or pertinent negative responses have been documented in the HPI. ROS Other: All systems not noted in ROS Statement are negative. Past Medical History Past Medical History: GERD/Reflux, Hyperlipidemia, Hypertension Additional Past Medical History / Comment(s): Chronic fatigue syndrome, depression, Epi Ceja Weber, History of Any Multi-Drug Resistant Organisms: None Reported Past Surgical History: Section, Cholecystectomy, Tonsillectomy Additional Past Surgical History / Comment(s): 10/04/14 EGD, 01/01/15 choleceystectomy, 02/05/15 EGD with BX, 2008 COLONOSCOPY, Past Anesthesia/Blood Transfusion Reactions: Motion Sickness, Postoperative Nausea & Vomiting (PONV) Past Psychological History: Anxiety Smoking Status: Never smoker Past Alcohol Use History: None Reported Past Drug Use History: None Reported - Past Family History Son(s) Family Medical History: No Reported History Daughter(s) Family Medical History: No Reported History Mother Family Medical History: Cancer Additional Family Medical History / Comment(s): BREAST CANCER Father Family Medical History: Blood Disorder Additional Family Medical History / Comment(s): hemachromatosis. General Exam Limitations: no limitations General appearance: alert, in no apparent distress Head exam: Present: atraumatic, normocephalic, normal inspection Eye exam: Present: normal appearance, PERRL, EOMI. Absent: scleral icterus, conjunctival injection, periorbital swelling ENT exam: Present: normal exam, normal oropharynx, mucous membranes moist Neck exam: Present: normal inspection, full ROM. Absent: tenderness, meningismus, lymphadenopathy Respiratory exam: Present: normal lung sounds bilaterally. Absent: respiratory distress, wheezes, rales, rhonchi, stridor Cardiovascular Exam: Present: normal rhythm, tachycardia, normal heart sounds. Absent: systolic murmur, diastolic murmur, rubs, gallop, clicks GI/Abdominal exam: Present: soft, normal bowel sounds. Absent: distended, tenderness, guarding, rebound, rigid Neurological exam: Present: alert, oriented X3, reflexes normal. Absent: motor sensory deficit Skin exam: Present: warm, dry, intact, normal color. Absent: rash Course Vital Signs 09/09/22 09/09/22 10:28 12:21 Temperature 98 F Pulse Rate 120 H 112 H Respiratory 20 Rate Blood Pressure 104/66 O2 Sat by Pulse 97 Oximetry EKG Findings - EKG Comments: EKG Findings:: EKG performed at 10:43 sinus tachycardia rate of 113 OK 156 QRS 88 QT/QTC 322/441 and there is an inverted T-wave in lead 3, Q wave noted in lead 3 - EKG Results: EKG: interpreted by LIANA Medical Decision Making - Medical Decision Making Was pt. sent in by a medical professional or institution (, KIM, SWATCHER, urgent care, hospital, or group home...) When possible be specific @ -No Did you speak to anyone other than the patient for history (EMS, parent, family, police, friend...)? What history was obtained from this source @ -No Did you review nursing and triage notes (agree or disagree)? Why? @ -I reviewed and agree with nursing and triage notes Were old charts reviewed (outside hosp., previous admission, EMS record, old EKG, old radiological studies, urgent care reports/EKG's, group home records)? Report findings @ -No old charts were reviewed Differential Diagnosis (chest pain, altered mental status, abdominal pain women, abdominal pain men, vaginal bleeding, weakness, fever, dyspnea, syncope, headache, dizziness, GI bleed, back pain, seizure, CVA, palpatations, mental health, musculoskeletal)? @ -Differential Palpitations Ventricular arrhythmias, atrial arrhythmias, myocardial infarction, anemia, thyrotoxicosis, electrolyte imbalance, hypokalemia, pulmonary embolism, pulmonary disease, drugs, alcohol, anxiety, stress.... This is not meant to be an all-inclusive list.e EKG interpreted by me (3pts min.). @ -As above X-rays interpreted by me (1pt min.). @ -CT chest PE study no acute evidence of PE, no infiltrate CT interpreted by me (1pt min.). @ -None done U/S interpreted by me (1pt. min.). @ -None done What testing was considered but not performed or refused? (CT, X-rays, U/S, labs)? Why? @ -None What meds were considered but not given or refused? Why? @ -None Did you discuss the management of the patient with other professionals (professionals i.e. , KIM, SWATCHER, lab, RT, psych nurse, older adult social work specialist, electric stop installer, teacher, title officer, correctional case records supervisor)? Give summary @ -Dr. Boogie for admission secondary to persistent symptomatic tachycardia, Was smoking cessation discussed for >3mins.? @ -No Was critical care preformed (if so, how long)? @ -No Were there social determinants of health that impacted care today? How? (Homelessness, low income, unemployed, alcoholism, drug addiction, transportation, low edu. Level, literacy, decrease access to med. care, [place] [facility], rehab)? @ -No Was there de-escalation of care discussed even if they declined (Discuss DNR or withdrawal of care, Hospice)? DNR status @ -No What co-morbidities impacted this encounter? (DM, HTN, Smoking, COPD, CAD, Cancer, CVA, ARF, Chemo, Hep., AIDS, mental health diagnosis, sleep apnea, morbid obesity)? @ -None Was patient admitted / discharged? Hospital course, mention meds given and route, prescriptions, significant lab abnormalities, going to OR and other pertinent info. @ -Admitted patient's having persistent tachycardia, symptomatic, blood pressure issues. I did discuss case with PCP recommend inpatient treatment and evaluation with cardiology Undiagnosed new problem with uncertain prognosis? @ -No Drug Therapy requiring intensive monitoring for toxicity (Heparin, Nitro, Insulin, Cardizem)? @ -No Were any procedures done? @ -No Diagnosis/symptom? @ -Tachycardia Acute, or Chronic, or Acute on Chronic? @ -Acute Uncomplicated (without systemic symptoms) or Complicated (systemic symptoms)? @ -Complicated] Side effects of treatment? @ -[No] Exacerbation, Progression, or Severe Exacerbation? @ -[No] Poses a threat to life or bodily function? How? (Chest pain, USA, MA, pneumonia, PE, COPD, DKA, ARF, appy, cholecystitis, CVA, Diverticulitis, Homicidal, Suicidal, threat to staff... and all critical care pts) @ -[No] - Lab Data Result diagrams: 09/09/22 10:43 09/09/22 10:43 Lab Results 09/09/22 09/09/22 09/09/22 Range/Units 10:43 10:43 10:43 WBC 8.7 (3.8-10.6) k/uL RBC 5.14 (3.80-5.40) m/uL Hgb 15.9 (11.4-16.0) gm/dL Hct 47.8 H (34.0-46.0) % MCV 93.0 (80.0-100.0) fL MCH 31.0 (25.0-35.0) pg MCHC 33.3 (31.0-37.0) g/dL RDW 13.8 (11.5-15.5) % Plt Count 329 (150-450) k/uL MPV 8.9 Neutrophils % 53 % Lymphocytes % 36 % Monocytes % 6 % Eosinophils % 3 % Basophils % 1 % Neutrophils # 4.6 (1.3-7.7) k/uL Lymphocytes # 3.1 (1.0-4.8) k/uL Monocytes # 0.5 (0-1.0) k/uL Eosinophils # 0.2 (0-0.7) k/uL Basophils # 0.0 (0-0.2) k/uL D-Dimer (<0.60) mg/L FEU Sodium 139 (137-145) mmol/L Potassium 4.3 (3.5-5.1) mmol/L Chloride 103 (98-107) mmol/L Carbon Dioxide 21 L (22-30) mmol/L Anion Gap 15 mmol/L BUN 12 (7-17) mg/dL Creatinine 1.09 H (0.52-1.04) mg/dL Est GFR (CKD-EPI)AfAm 63 (>60 ml/min/1.73 sqM) Est GFR (CKD-EPI)NonAf 54 (>60 ml/min/1.73 sqM) Glucose 131 H (74-99) mg/dL Lactic Ac Sepsis Rflx Plasma Lactic Acid Gasper 2.6 H* (0.7-2.0) mmol/L Calcium 9.6 (8.4-10.2) mg/dL Total Bilirubin 0.6 (0.2-1.3) mg/dL AST 68 H (14-36) U/L ALT 93 H (4-34) U/L Alkaline Phosphatase 127 H (38-126) U/L Troponin I (0.000-0.034) ng/mL Total Protein 7.5 (6.3-8.2) g/dL Albumin 4.5 (3.5-5.0) g/dL TSH 4.650 (0.465-4.680) mIU/L Urine Color Urine Appearance (Clear) Urine pH (5.0-8.0) Ur Specific [place] (1.001-1.035) Urine Protein (Negative) Urine Glucose (UA) (Negative) Urine Ketones (Negative) Urine Blood (Negative) Urine Nitrite (Negative) Urine Bilirubin (Negative) Urine Urobilinogen (<2.0) mg/dL Ur Leukocyte Esterase (Negative) Urine RBC (0-5) /hpf Urine WBC (0-5) /hpf Ur Squamous Epith Cells (0-4) /hpf Urine Bacteria (None) /hpf Hyaline Casts (0-2) /lpf Urine Mucus (None) /hpf 09/09/22 09/09/22 09/09/22 Range/Units 10:43 10:43 11:09 WBC (3.8-10.6) k/uL RBC (3.80-5.40) m/uL Hgb (11.4-16.0) gm/dL Hct (34.0-46.0) % MCV (80.0-100.0) fL MCH (25.0-35.0) pg MCHC (31.0-37.0) g/dL RDW (11.5-15.5) % Plt Count (150-450) k/uL MPV Neutrophils % % Lymphocytes % % Monocytes % % Eosinophils % % Basophils % % Neutrophils # (1.3-7.7) k/uL Lymphocytes # (1.0-4.8) k/uL Monocytes # (0-1.0) k/uL Eosinophils # (0-0.7) k/uL Basophils # (0-0.2) k/uL D-Dimer 1.19 H (<0.60) mg/L FEU Sodium (137-145) mmol/L Potassium (3.5-5.1) mmol/L Chloride (98-107) mmol/L Carbon Dioxide (22-30) mmol/L Anion Gap mmol/L BUN (7-17) mg/dL Creatinine (0.52-1.04) mg/dL Est GFR (CKD-EPI)AfAm (>60 ml/min/1.73 sqM) Est GFR (CKD-EPI)NonAf (>60 ml/min/1.73 sqM) Glucose (74-99) mg/dL Lactic Ac Sepsis Rflx Plasma Lactic Acid Gasper (0.7-2.0) mmol/L Calcium (8.4-10.2) mg/dL Total Bilirubin (0.2-1.3) mg/dL AST (14-36) U/L ALT (4-34) U/L Alkaline Phosphatase (38-126) U/L Troponin I <0.012 (0.000-0.034) ng/mL Total Protein (6.3-8.2) g/dL Albumin (3.5-5.0) g/dL TSH (0.465-4.680) mIU/L Urine Color Light Yellow Urine Appearance Clear (Clear) Urine pH 7.0 (5.0-8.0) Ur Specific [place] 1.006 (1.001-1.035) Urine Protein Negative (Negative) Urine Glucose (UA) Negative (Negative) Urine Ketones Negative (Negative) Urine Blood Negative (Negative) Urine Nitrite Negative (Negative) Urine Bilirubin Negative (Negative) Urine Urobilinogen <2.0 (<2.0) mg/dL Ur Leukocyte Esterase Moderate H (Negative) Urine RBC 1 (0-5) /hpf Urine WBC 5 (0-5) /hpf Ur Squamous Epith Cells 1 (0-4) /hpf Urine Bacteria Rare H (None) /hpf Hyaline Casts 1 (0-2) /lpf Urine Mucus Rare H (None) /hpf 09/09/22 09/09/22 Range/Units 11:39 14:23 WBC (3.8-10.6) k/uL RBC (3.80-5.40) m/uL Hgb (11.4-16.0) gm/dL Hct (34.0-46.0) % MCV (80.0-100.0) fL MCH (25.0-35.0) pg MCHC (31.0-37.0) g/dL RDW (11.5-15.5) % Plt Count (150-450) k/uL MPV Neutrophils % % Lymphocytes % % Monocytes % % Eosinophils % % Basophils % % Neutrophils # (1.3-7.7) k/uL Lymphocytes # (1.0-4.8) k/uL Monocytes # (0-1.0) k/uL Eosinophils # (0-0.7) k/uL Basophils # (0-0.2) k/uL D-Dimer (<0.60) mg/L FEU Sodium (137-145) mmol/L Potassium (3.5-5.1) mmol/L Chloride (98-107) mmol/L Carbon Dioxide (22-30) mmol/L Anion Gap mmol/L BUN (7-17) mg/dL Creatinine (0.52-1.04) mg/dL Est GFR (CKD-EPI)AfAm (>60 ml/min/1.73 sqM) Est GFR (CKD-EPI)NonAf (>60 ml/min/1.73 sqM) Glucose (74-99) mg/dL Lactic Ac Sepsis Rflx Y Plasma Lactic Acid Gasper 2.0 (0.7-2.0) mmol/L Calcium (8.4-10.2) mg/dL Total Bilirubin (0.2-1.3) mg/dL AST (14-36) U/L ALT (4-34) U/L Alkaline Phosphatase (38-126) U/L Troponin I (0.000-0.034) ng/mL Total Protein (6.3-8.2) g/dL Albumin (3.5-5.0) g/dL TSH (0.465-4.680) mIU/L Urine Color Urine Appearance (Clear) Urine pH (5.0-8.0) Ur Specific [place] (1.001-1.035) Urine Protein (Negative) Urine Glucose (UA) (Negative) Urine Ketones (Negative) Urine Blood (Negative) Urine Nitrite (Negative) Urine Bilirubin (Negative) Urine Urobilinogen (<2.0) mg/dL Ur Leukocyte Esterase (Negative) Urine RBC (0-5) /hpf Urine WBC (0-5) /hpf Ur Squamous Epith Cells (0-4) /hpf Urine Bacteria (None) /hpf Hyaline Casts (0-2) /lpf Urine Mucus (None) /hpf Disposition Clinical Impression: Tachycardia, Lightheaded Disposition: ADMITTED IP TO THIS [facility] Condition: Fair Time of Disposition: 14:30
[2022-09-09 11:28] LABS: Basophils % (A) 1 %; Eosinophils # (A) 0.2 k/uL (0-0.7); Eosinophils % (A) 3 %; HCT 47.8 % (34.0-46.0); HGB 15.9 gm/dL (11.4-16.0); Lymphocytes # (A) 3.1 k/uL (1.0-4.8); Lymphocytes % (A) 36 %; MCHC 33.3 g/dL (31.0-37.0); Mean Platelet Volume 8.9; Monocytes # (A) 0.5 k/uL (0-1.0); Monocytes % (A) 6 %; Neutrophils # (A) 4.6 k/uL (1.3-7.7); Neutrophils % (A) 53 %; Platelet Count 329 k/uL (150-450); RBC 5.14 m/uL (3.80-5.40); RDW 13.8 % (11.5-15.5); WBC 8.7 k/uL (3.8-10.6)
--- NOTE | 2022-09-09 11:36 | XR ---
EXAMINATION TYPE: XR chest 2V DATE OF EXAM: 09/09/2022 11:31 AM COMPARISON: Chest radiographs from 01/20/2022 TECHNIQUE: XR chest 2V Frontal and lateral views of the chest. CLINICAL INDICATION:Female, 62 years old with history of sob; FINDINGS: Lungs/Pleura: There is no evidence of pleural effusion, focal consolidation, or pneumothorax. Pulmonary vascularity: Unremarkable. Heart/mediastinum: Cardiomediastinal silhouette is unremarkable. Musculoskeletal: No acute osseous pathology. IMPRESSION: No acute cardiopulmonary disease/process. No significant change from prior examination.
[2022-09-09 11:40] LABS: ALT 93 U/L (4-34); AST 68 U/L (14-36); African American GFR (CKD) 63 (>60 ml/min/1.73 sqM); Albumin 4.5 g/dL (3.5-5.0); Alkaline Phosphatase 127 U/L (38-126); Anion Gap 15 mmol/L; Blood Urea Nitrogen 12 mg/dL (7-17); Calcium 9.6 mg/dL (8.4-10.2); Carbon Dioxide 21 mmol/L (22-30); Chloride 103 mmol/L (98-107); Glucose 131 mg/dL (74-99); Non-African American GFR(CKD) 54 (>60 ml/min/1.73 sqM); Potassium 4.3 mmol/L (3.5-5.1); Sodium 139 mmol/L (137-145); Total Bilirubin 0.6 mg/dL (0.2-1.3); Total Protein 7.5 g/dL (6.3-8.2)
[2022-09-09] MEDS ORDERED: SODIUM CHLORIDE 0.9% 500 ML 500 ML IV ONE (11:42)
[2022-09-09 12:06] LABS: Appearance,Urine Clear (Clear); Bacteria,Urine Rare /hpf; Bilirubin,Urine Negative (Negative); Blood,Urine Negative (Negative); Color,Urine Light Yellow; Glucose,Urine (UA) Negative (Negative); Hyaline Casts,Urine 1 /lpf (0-2); Ketones,Urine Negative (Negative); Leukocyte Esterase,Urine Moderate (Negative); Mucus,Urine Rare /hpf; Nitrite,Urine Negative (Negative); Protein,Urine Negative (Negative); RBC,Urine 1 /hpf (0-5); Specific Gravity,Urine 1.006 (1.001-1.035); Squamous Epithelial Cell,Urine 1 /hpf (0-4); Urobilinogen,Urine <2.0 mg/dL (<2.0); WBC,Urine 5 /hpf (0-5)
--- NOTE | 2022-09-09 14:06 | CT ---
EXAMINATION TYPE: CT chest angio for PE DATE OF EXAM: 09/09/2022 COMPARISON: NONE HISTORY: Hypotension and dizziness. Shortness of breath. CT DLP: 375.3 mGycm. Automated Exposure Control for Dose Reduction was Utilized. CONTRAST: CTA scan of the thorax is performed with IV Contrast, patient injected with 60ml mL of Isovue 370, pu lmonary embolism protocol. MIP Images are created on CT scanner and reviewed. FINDINGS: LUNGS: Elevated anterior right hemidiaphragm with mild to moderate linear scarring and/or atelectasis in the bilateral lung bases. No suspicious focal consolidation. No pleural effusion or pneumothorax seen bilaterally. MEDIASTINUM: There is satisfactory enhancement of the pulmonary artery and its branches, there is no CT evidence for pulmonary embolism. Satisfactory enhancement of the thoracic aorta without aneurysm o r dissection. There are no greater than 1 cm hilar or mediastinal lymph nodes. No cardiomegaly or pericardial effusion is seen. There is a 4 vessel origin from the aortic arch which is normal variant . OTHER: No additional significant abnormality is seen. IMPRESSION: No CT evidence for acute pulmonary embolism. [id number] bibasilar linear scarring a nd/or atelectasis. No suspicious acute pulmonary infiltrate.
[2022-09-09] MEDS ORDERED: NALOXONE 0.4 MG/ML 1 ML VIAL IV PRN (14:30)
[2022-09-09] MEDS ORDERED: IBUPROFEN 600 MG TAB PO STA (14:32)
[2022-09-09] MEDS ORDERED: ONDANSETRON 4 MG TAB PO PRN (14:32)
[2022-09-09 18:04] LABS: T4, Free (Free Thyroxine) 1.18 ng/dL (0.78-2.19)
[2022-09-09] MEDS: SODIUM CHLORIDE 0.9% 1,000 ML IV SCH (19:15)
[2022-09-09] MEDS: ACETAMINOPHEN TAB 325 MG TAB PO PRN (20:05)
[2022-09-09] MEDS: QUEtiapine 100 MG TAB PO SCH (20:05)
[2022-09-10] MEDS: SODIUM CHLORIDE 0.9% 1,000 ML IV SCH ×2 (05:40→17:32)
[2022-09-10] MEDS: LEVOTHYROXINE 88 MCG TAB PO SCH (05:40)
[2022-09-10] MEDS: LIOTHYRONINE SODIUM 5 MCG TAB PO SCH (05:40)
[2022-09-10] MEDS: ACETAMINOPHEN TAB 325 MG TAB PO PRN ×2 (06:33→13:04)
[2022-09-10] MEDS ORDERED: cloNIDine HCL 0.1 MG TAB PO SCH (09:00)
[2022-09-10] MEDS: NIFEdipine XL 90 MG TAB.ER.24 PO SCH (09:13)
[2022-09-10] MEDS: POTASSIUM CHLORIDE ER 10 MEQ TAB.ER.PRT PO SCH (09:13)
[2022-09-10] MEDS: clonazePAM 1 MG TAB PO SCH (09:13)
[2022-09-10] MEDS: METOPROLOL SUCCINATE (ER) 100 MG TAB.ER.24H PO SCH (09:13)
--- NOTE | 2022-09-10 10:08 | CA ---
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 18 - 58 / 22 - 52 cm??? M-MODE Aortic Root Diameter MM 2.5 cm LA Systolic Diameter MM 3.4 cm LA Ao Ratio MM 1.4 AV Cusp Separation MM 1.5 cm DOPPLER AV Peak Velocity 130.1 cm/s AV Peak Gradient 6.8 mmHg AV Mean Velocity 95.9 cm/s AV Mean Gradient 3.9 mmHg AV Velocity Time Integral 23.0 cm LVOT Peak Velocity 105.6 cm/s LVOT Peak Gradient 4.5 mmHg LVOT Velocity Time Integral 21.2 cm MV Area PHT 3.3 cm??? Mitral E Point Velocity 57.3 cm/s Mitral A Point Velocity 71.2 cm/s Mitral E to A Ratio 0.8 MV Deceleration Time 231.7 ms MV E' Velocity 6.7 cm/s Mitral E to MV E' Ratio 8.5 TR Peak Velocity 230.4 cm/s TR Peak Gradient 21.2 mmHg Right Ventricular Systolic Press 26.2 mmHg FINDINGS Left Ventricle Mildly increased left ventricular wall thickness. Left ventricular cavity size normal. Normal left ventricular systolic function with no obvious regional wall motion abnormalities. Left ventricular ejection fraction is estimated at 55-60 %. Right Ventricle Normal right ventricular size. Right ventricular systolic pressure within normal limits. Right Atrium Normal right atrial size. Left Atrium Normal left atrial size. Mitral Valve Structurally normal mitral valve. No mitral stenosis, regurgitation or prolapse. Aortic Valve No aortic valve stenosis or regurgitation. Tricuspid Valve Structurally normal tricuspid valve. Mild tricuspid regurgitation. Pulmonic Valve Structurally normal pulmonic valve. Trace pulmonic regurgitation. Pericardium Minimal pericardial effusion (normal variant). Prominent epicardial fat. Aorta Normal size aortic root and proximal ascending aorta. CONCLUSIONS Hyperdynamic LV with EF between 65-70% Mild concentric left ventricular hypertrophy Previewed by: Dr. Alberto Obrien MD (Electronically Signed) Final Date: 10 September 2022 10:07
--- NOTE | 2022-09-10 11:26 | P.CRDCN ---
History of Present Illness History of present illness: HISTORY OF PRESENT ILLNESS: This is a 62-year-old female with a past medical history significant for tachycardia, hypertension, hyperlipidemia, chronic fatigue syndrome, anxiety, depression, and Rissa-Weber. Patient follows in the office with Dr. Lakhani. We have been asked to see the patient in consultation for tachycardia. Patient examined at the bedside. He shouldn't states that yesterday she checked her blood pressure home which was found to be 90 over 60s. She also reports that her heart rate was high in the 130s. She denied any chest pain or pressure. She denied any shortness of breath. She denied feeling dizzy or lightheaded. She denies any loss of consciousness. She denied any palpitations. She reports that her body felt shaky which prompted her to come to the emergency room. The patient was found to be mildly tachycardic on arrival with a heart rate around 110. Patient's blood pressure has been stable with a systolic greater than 100 since arrival. She states that she saw Dr. Lim recently and he decreased her dose of Catapres. * EKG reveals sinus tachycardia with no signs of acute ischemia * Chest xray no acute cardiopulmonary process * Laboratory data: WBC 8.7. Hemoglobin 15.9. Platelet count 329. Sodium 139. Potassium 4.3. BUN 12. Creatinine 1.09. Lactic acid 2.6. Repeat 2.0. Troponin negative 1. TSH 4.6 x 0. * Current home cardiac medications include metoprolol succinate 100 mg daily, nifedipine 90 mg daily, and Catapres 0.05 mg daily * Echocardiogram obtained reveals ejection fraction 55-60% with mild concentric LVH * Patient underwent stress echocardiogram June 2020 which was negative for ischemia REVIEW OF SYSTEMS: At the time of my exam: CONSTITUTIONAL: Denies fever or chills. HEENT: Denies blurred vision, vision changes, or eye pain. Denies hemoptysis CARDIOVASCULAR: Denies chest pain. Denies orthopnea. Denies PND. Denies palpitations RESPIRATORY: Denies shortness of breath. GASTROINTESTINAL: Denies abdominal pain. Denies nausea or vomiting. HEMATOLOGIC: Denies bleeding disorders. GENITOURINARY: Denies any blood in urine. SKIN: Denies pruitis. Denies rash. PHYSICAL EXAM: VITAL SIGNS: Reviewed. GENERAL: Well-developed in no acute distress. HEENT: Head is normocephalic. Pupils are equal, round. Sclerae anicteric. Mucous membranes of the mouth are moist. Neck supple. No JVD or thyromegaly LUNGS: Respirations even and unlabored. Lungs essentially clear to auscultation bilaterally. HEART: Regular rate and rhythm. S1 and S2 heard. ABDOMEN: Soft. Nondistended. Nontender. EXTREMITIES: Normal range of motion. No clubbing or cyanosis. Peripheral pulses intact. No lower extremity edema NEUROLOGIC: Awake and alert. Oriented x 3. ASSESSMENT: Mild sinus tachycardia Hypotension at home, per patient, blood pressure stable since arrival Hyperlipidemia Chronic fatigue syndrome Anxiety Depression History of Rissa-Weber PLAN: Resume home cardiac medications Discontinue Catapres Continue to monitor blood pressure and telemetry If patient is feeling better this afternoon, she may be discharged home from a cardiac standpoint and follow up on an outpatient basis Nurse practitioner note has been reviewed by physician. Signing provider agrees with the documented findings, assessment, and plan of care. Past Medical History Past Medical History: GERD/Reflux, Hyperlipidemia, Hypertension Additional Past Medical History / Comment(s): Chronic fatigue syndrome, depression, Epi Ceja Weber, History of Any Multi-Drug Resistant Organisms: None Reported Past Surgical History: Section, Cholecystectomy, Tonsillectomy Additional Past Surgical History / Comment(s): 10/04/14 EGD, 01/01/15 choleceystectomy, 02/05/15 EGD with BX, 2008 COLONOSCOPY, Past Anesthesia/Blood Transfusion Reactions: Motion Sickness, Postoperative Nausea & Vomiting (PONV) Past Psychological History: Anxiety Additional Psychological History / Comment(s): Is noted the patient appears to have chronic depression. She is lives with and has adult children. She is not a tobacco smoker or alcohol user. No recreational drug use. Is no longer working because of her fatigue. No experience. No international travel. no animal exposures Smoking Status: Never smoker Past Alcohol Use History: None Reported Past Drug Use History: None Reported - Past Family History Son(s) Family Medical History: No Reported History Daughter(s) Family Medical History: No Reported History Mother Family Medical History: Cancer Additional Family Medical History / Comment(s): BREAST CANCER Father Family Medical History: Blood Disorder Additional Family Medical History / Comment(s): hemachromatosis. Medications and Allergies Home Medications Medication Instructions Recorded Confirmed Type NIFEdipine [NIFEdipine ER] 90 mg PO DAILY 07/03/21 09/09/22 History Metoprolol Succinate (ER) [Toprol 100 mg PO DAILY 01/20/22 09/09/22 History Xl] Potassium Chloride ER [K-Dur 10] 10 meq PO DAILY 01/20/22 09/09/22 History QUEtiapine [SEROquel] 100 mg PO HS 01/20/22 09/09/22 History cloNIDine HCL [Catapres] 0.05 mg PO DAILY 01/20/22 09/09/22 History clonazePAM [KlonoPIN] 1 mg PO DAILY 01/20/22 09/09/22 History Levothyroxine Sodium [Synthroid] 88 mcg PO DAILY 09/09/22 09/09/22 History Liothyronine Sodium [Cytomel] 5 mcg PO DAILY 09/09/22 09/09/22 History Ondansetron [Zofran] 4 mg PO Q6H PRN 09/09/22 09/09/22 History Allergies Allergy/AdvReac Type Severity Reaction Status Date / Time codeine Allergy Anaphylaxis Verified 09/09/22 12:27 hydralazine AdvReac "SHAKING Verified 09/09/22 12:27 ALL OVER" hydroxyzine [From Vistaril] AdvReac Nausea Verified 09/09/22 12:27 lorazepam [From Ativan] AdvReac insomnia Verified 09/09/22 12:27 Physical Exam Vitals: Vital Signs Temp Pulse Pulse Resp BP BP BP 09/10/22 07:00 97.9 F 90 18 129/81 09/10/22 02:54 97.8 F 91 16 111/70 09/09/22 19:22 98.2 F 101 H 16 131/77 09/09/22 16:48 106 H 18 112/82 09/09/22 12:21 112 H Pulse Ox 09/10/22 07:00 97 09/10/22 02:54 93 L 09/09/22 19:22 95 09/09/22 16:48 98 09/09/22 12:21 Intake and Output 09/09/22 09/10/22 09/10/22 22:59 06:59 14:59 Other: # Voids 1 2 Weight 79.832 kg Results 09/09/22 10:43 09/09/22 10:43 Cardiac Enzymes 09/09/22 09/09/22 Range/Units 10:43 10:43 AST 68 H (14-36) U/L Troponin I <0.012 (0.000-0.034) ng/mL CBC 09/09/22 Range/Units 10:43 WBC 8.7 (3.8-10.6) k/uL RBC 5.14 (3.80-5.40) m/uL Hgb 15.9 (11.4-16.0) gm/dL Hct 47.8 H (34.0-46.0) % Plt Count 329 (150-450) k/uL Comprehensive Metabolic Panel 09/09/22 Range/Units 10:43 Sodium 139 (137-145) mmol/L Potassium 4.3 (3.5-5.1) mmol/L Chloride 103 (98-107) mmol/L Carbon Dioxide 21 L (22-30) mmol/L BUN 12 (7-17) mg/dL Creatinine 1.09 H (0.52-1.04) mg/dL Glucose 131 H (74-99) mg/dL Calcium 9.6 (8.4-10.2) mg/dL AST 68 H (14-36) U/L ALT 93 H (4-34) U/L Alkaline Phosphatase 127 H (38-126) U/L Total Protein 7.5 (6.3-8.2) g/dL Albumin 4.5 (3.5-5.0) g/dL Current Medications Generic Name Dose Route Start Last Admin Trade Name Freq PRN Reason Stop Dose Admin Acetaminophen 650 mg 09/09/22 14:30 09/10/22 06:33 Acetaminophen Tab 325 Mg Tab PO 650 mg Q6HR PRN Administration Mild Pain or Fever > 100.5 Clonazepam 1 mg 09/10/22 09:00 09/10/22 09:13 Clonazepam 1 Mg Tab PO 1 mg DAILY POPPY Administration Sodium Chloride 1,000 mls @ 75 mls/hr 09/09/22 14:30 09/10/22 05:40 Saline 0.9% IV 75 mls/hr .[id number] POPPY Administration Levothyroxine Sodium 88 mcg 09/10/22 06:30 09/10/22 05:40 Levothyroxine 88 Mcg Tab PO 88 mcg DAILY@0630 POPPY Administration Liothyronine Sodium 5 mcg 09/10/22 06:30 09/10/22 05:40 Liothyronine Sodium 5 Mcg Tab PO 5 mcg DAILY@0630 POPPY Administration Metoprolol Succinate 100 mg 09/10/22 09:00 09/10/22 09:13 Metoprolol Succinate (Er) 100 Mg Tab.Er.24h PO 100 mg DAILY POPPY Administration Naloxone HCl 0.2 mg 09/09/22 14:30 Naloxone 0.4 Mg/Ml 1 Ml Vial IV Q2M PRN Opioid Reversal Nifedipine 90 mg 09/10/22 09:00 09/10/22 09:13 Nifedipine Xl 90 Mg Tab.Er.24 PO 90 mg DAILY POPPY Administration Ondansetron HCl 4 mg 09/09/22 14:32 Ondansetron 4 Mg Tab PO Q6H PRN Nausea And Vomiting Potassium Chloride 10 meq 09/10/22 09:00 09/10/22 09:13 Potassium Chloride Er 10 Meq Tab.Er.Prt PO 10 meq DAILY POPPY Administration Quetiapine Fumarate 100 mg 09/09/22 21:00 09/09/22 20:05 Quetiapine 100 Mg Tab PO 100 mg HS POPPY Administration Intake and Output 09/09/22 09/10/22 09/10/22 22:59 06:59 14:59 Other: # Voids 1 2 Weight 79.832 kg 09/09/22 10:43 09/09/22 10:43
[2022-09-10] MEDS: BUTALB/APAP/CAFF 50-325-40MG TAB PO PRN ×2 (15:16→22:06)
[2022-09-10] MEDS: QUEtiapine 100 MG TAB PO SCH (20:04)
[2022-09-11] MEDS: SODIUM CHLORIDE 0.9% 1,000 ML IV SCH (06:36)
[2022-09-11] MEDS: LEVOTHYROXINE 88 MCG TAB PO SCH (06:36)
[2022-09-11] MEDS: LIOTHYRONINE SODIUM 5 MCG TAB PO SCH (06:36)
[2022-09-11] MEDS: POTASSIUM CHLORIDE ER 10 MEQ TAB.ER.PRT PO SCH (08:17)
[2022-09-11] MEDS: clonazePAM 1 MG TAB PO SCH (08:17)
[2022-09-11] MEDS: BUTALB/APAP/CAFF 50-325-40MG TAB PO PRN (08:18)
[2022-09-11] MEDS: METOPROLOL SUCCINATE (ER) 100 MG TAB.ER.24H PO SCH (08:18)
[2022-09-11] MEDS: NIFEdipine XL 90 MG TAB.ER.24 PO SCH (08:18)
[2022-09-11 08:44] VITALS: BP 136/78; PULSE 90; RESP 16; TEMP 97.8
--- NOTE | 2022-09-11 10:54 | P.HPPUL ---
History of Present Illness H&P Date: 09/10/22 Chief Complaint: Not feeling well with hypotension 62-year-old female who presented into the emergency department with tachycardia hypotension patient sees Dr. Boogie for primary care activity her symptoms started 1 day. She has prior history of ALLERGY disorder and more exposure. On arrival her blood pressure was noted to be 104/66 with a heart rate of 120 however at home her blood pressure systolic was 90. On specific questioning she denies any chest pain denies any cough congestion shortness of breath denies any loss of consciousness and dizziness. Denies any nausea vomiting or diarrhea denies any fever or chills. Her primary medical history significant for GERD dyslipidemia and hypertension with chronic fatigue syndrome and morbid major depression. Patient admitted with cardiology on consultation. I EKG revealed sinus tachycardia heart rate of 13 prolonged [place] with normal QT interval inverted t waves in lead 3. Her chest x-ray no acute process identified. Computed tomography scan of the chest revealed elevated right hemidiaphragm with basilar scarring subsegmental atelectasis at the bases, no pulmonary embolism seen. Echocardiogram revealed hyperdynamic LV with ejection fraction 65%, concentric LVH is noted. Labs were significant for elevated lactic acid and d-dimer on arrival chemistry also revealed BUN/creatinine 12/1.09 otherwise CBC was within normal limit her T3-T4 and TSH also within normal limit and urine analysis unremarkable with hydration lactic acid came down to normal range of 2 Review of Systems All systems: negative Past Medical History Past Medical History: GERD/Reflux, Hyperlipidemia, Hypertension Additional Past Medical History / Comment(s): Chronic fatigue syndrome, depression, Epi Ceja Weber, History of Any Multi-Drug Resistant Organisms: None Reported Past Surgical History: Section, Cholecystectomy, Tonsillectomy Additional Past Surgical History / Comment(s): 10/04/14 EGD, 01/01/15 choleceystectomy, 02/05/15 EGD with BX, 2008 COLONOSCOPY, Past Anesthesia/Blood Transfusion Reactions: Motion Sickness, Postoperative Nausea & Vomiting (PONV) Past Psychological History: Anxiety Additional Psychological History / Comment(s): Is noted the patient appears to have chronic depression. She is lives with and has adult children. She is not a tobacco smoker or alcohol user. No recreational drug use. Is no longer working because of her fatigue. No experience. No international travel. no animal exposures Smoking Status: Never smoker Past Alcohol Use History: None Reported Past Drug Use History: None Reported - Past Family History Son(s) Family Medical History: No Reported History Daughter(s) Family Medical History: No Reported History Mother Family Medical History: Cancer Additional Family Medical History / Comment(s): BREAST CANCER Father Family Medical History: Blood Disorder Additional Family Medical History / Comment(s): hemachromatosis. Medications and Allergies Home Medications Medication Instructions Recorded Confirmed Type NIFEdipine [NIFEdipine ER] 90 mg PO DAILY 07/03/21 09/09/22 History Metoprolol Succinate (ER) [Toprol 100 mg PO DAILY 01/20/22 09/09/22 History Xl] Potassium Chloride ER [K-Dur 10] 10 meq PO DAILY 01/20/22 09/09/22 History QUEtiapine [SEROquel] 100 mg PO HS 01/20/22 09/09/22 History cloNIDine HCL [Catapres] 0.05 mg PO DAILY 01/20/22 09/09/22 History clonazePAM [KlonoPIN] 1 mg PO DAILY 01/20/22 09/09/22 History Levothyroxine Sodium [Synthroid] 88 mcg PO DAILY 09/09/22 09/09/22 History Liothyronine Sodium [Cytomel] 5 mcg PO DAILY 09/09/22 09/09/22 History Ondansetron [Zofran] 4 mg PO Q6H PRN 09/09/22 09/09/22 History Allergies Allergy/AdvReac Type Severity Reaction Status Date / Time codeine Allergy Anaphylaxis Verified 09/09/22 12:27 hydralazine AdvReac "SHAKING Verified 09/09/22 12:27 ALL OVER" hydroxyzine [From Vistaril] AdvReac Nausea Verified 09/09/22 12:27 lorazepam [From Ativan] AdvReac insomnia Verified 09/09/22 12:27 Physical Examination Vital signs: Vital Signs Temp Pulse Resp BP Pulse Ox 98 F 120 H 20 104/66 97 09/09/22 10:28 09/09/22 10:28 09/09/22 10:28 09/09/22 10:28 09/09/22 10:28 General appearance: no acute distress, alert Eyes: nonicteric ENT: oropharynx moist Neck: supple, no lymphadenopathy, no JVD Effort: normal Auscultation: Bilateral: clear Tactile fremitus: Bilateral: normal Cardiovascular: regular rate and rhythm Gastrointestinal: normoactive bowel sounds, non-distended Integumentary: normal Extremities: no cyanosis, no edema, pink and warm, pulses normal, no ischemia or petechiae Musculoskeletal: no deformities, ROM normal Gait: normal gait, normal posture normal mental status mood appropriate Results - Laboratory Findings CBC and BMP: 09/09/22 10:43 09/09/22 10:43 PT/INR, D-dimer D-Dimer 1.19 mg/L FEU (<0.60) H 09/09/22 10:43 Abnormal lab findings: Abnormal Labs 09/09/22 09/09/22 09/09/22 10:43 10:43 10:43 Hct 47.8 H D-Dimer Carbon Dioxide 21 L Creatinine 1.09 H Glucose 131 H Plasma Lactic Acid Gasper 2.6 H* AST 68 H ALT 93 H Alkaline Phosphatase 127 H Ur Leukocyte Esterase Urine Bacteria Urine Mucus 09/09/22 09/09/22 10:43 11:09 Hct D-Dimer 1.19 H Carbon Dioxide Creatinine Glucose Plasma Lactic Acid Gasper AST ALT Alkaline Phosphatase Ur Leukocyte Esterase Moderate H Urine Bacteria Rare H Urine Mucus Rare H - Diagnostic Findings Chest x-ray: report reviewed, image reviewed CT scan - chest: report reviewed, image reviewed (Finding as noted above) Assessment and Plan Assessment: Sinus tachycardia with hypotension, and constitutional symptoms of weakness not feeling well cardiology on consultation Volume depletion and dehydration with elevated lactic acid, Acute kidney injury Dyslipidemia Chronic fatigue syndrome History of EBV infection Major depression Plan: Gentle hydration Monitor patient closely on telemetry bed Further recommendations as per cardiovascular services Continue home medications Echocardiogram as well as computed tomography scan along with chest x-ray and labs reviewed discussed with the patient at length Time with Patient: Greater than 30
--- NOTE | 2022-09-11 11:01 | P.DS ---
Providers Date of admission: 09/09/22 14:51 Expected date of discharge: 09/11/22 Attending physician: Romeo Lim Consults: 09/09/22 14:30 Consult Physician Urgent Consulting Provider: Alberto Obrien Consult Reason/Comments: Persistent tachycardia Do you want consulting provider notified?: Yes Primary care physician: [facility] Course: 62-year-old female who presented into the emergency department with tachycardia hypotension patient sees Dr. Boogie for primary care activity her symptoms started 1 day. She has prior history of ALLERGY disorder and more exposure. On arrival her blood pressure was noted to be 104/66 with a heart rate of 120 however at home her blood pressure systolic was 90. On specific questioning she denies any chest pain denies any cough congestion shortness of breath denies any loss of consciousness and dizziness. Denies any nausea vomiting or diarrhea denies any fever or chills. Her primary medical history significant for GERD d yslipidemia and hypertension with chronic fatigue syndrome and morbid major depression. Patient admitted with cardiology on consultation. I EKG revealed sinus tachycardia heart rate of 13 prolonged [place] with normal QT interval inverted t waves in lead 3. Her chest x-ray no acute process identified. Computed tomography scan of the chest revealed elevated right hemidiaphragm with basilar scarring subsegmental atelectasis at the bases, no pulmonary embolism seen. Echocardiogram revealed hyperdynamic LV with ejection fraction 65%, concentric LVH is noted. Labs were significant for elevated lactic acid and d-dimer on arrival chemistry also revealed BUN/creatinine 12/1.09 otherwise CBC was within normal limit her T3-T4 and TSH also within normal limit and urine analysis unremarkable with hydration lactic acid came down to normal range of 2. Cardiovascular services evaluated the patient and recommended to DC the Catapres patient recommended to have a Holter monitor and to be evaluated on outpatient basis other medications to be resumed Assessment: Hypotension related to Catapres as well as intravascular volume depletion with associated complication of acute kidney injury Health Concerns: Do not take clonidine/Catapres until advised by cardiovascular services Patient Condition at Discharge: Good Plan - Discharge Summary New Discharge Prescriptions: Discontinued cloNIDine HCL [Catapres] 0.05 mg PO DAILY No Action Potassium Chloride ER [K-Dur 10] 10 meq PO DAILY Ondansetron [Zofran] 4 mg PO Q6H PRN PRN Reason: Nausea And Vomiting Levothyroxine Sodium [Synthroid] 88 mcg PO DAILY NIFEdipine [NIFEdipine ER] 90 mg PO DAILY QUEtiapine [SEROquel] 100 mg PO HS Metoprolol Succinate (ER) [Toprol Xl] 100 mg PO DAILY clonazePAM [KlonoPIN] 1 mg PO DAILY Liothyronine Sodium [Cytomel] 5 mcg PO DAILY Discharge Medication List NIFEdipine [NIFEdipine ER] 90 mg PO DAILY 07/03/21 [History] Metoprolol Succinate (ER) [Toprol Xl] 100 mg PO DAILY 01/20/22 [History] Potassium Chloride ER [K-Dur 10] 10 meq PO DAILY 01/20/22 [History] QUEtiapine [SEROquel] 100 mg PO HS 01/20/22 [History] clonazePAM [KlonoPIN] 1 mg PO DAILY 01/20/22 [History] Levothyroxine Sodium [Synthroid] 88 mcg PO DAILY 09/09/22 [History] Liothyronine Sodium [Cytomel] 5 mcg PO DAILY 09/09/22 [History] Ondansetron [Zofran] 4 mg PO Q6H PRN 09/09/22 [History] Follow up Appointment(s)/Referral(s): Romeo Lim MD [Primary Care Provider] - 1-2 days Patient Instructions/Handouts: Tachycardia (GEN)
--- NOTE | 2022-09-11 11:53 | P.PN ---
Subjective HISTORY OF PRESENT ILLNESS: This is a 62-year-old female with a past medical history significant for tachycardia, hypertension, hyperlipidemia, chronic fatigue syndrome, anxiety, depression, and Rissa-Weber. Patient follows in the office with Dr. Lakhani. We have been asked to see the patient in consultation for tachycardia. Patient examined at the bedside. He shouldn't states that yesterday she checked her blood pressure home which was found to be 90 over 60s. She also reports that her heart rate was high in the 130s. She denied any chest pain or pressure. She denied any shortness of breath. She denied feeling dizzy or lightheaded. She denies any loss of consciousness. She denied any palpitations. She reports that her body felt shaky which prompted her to come to the emergency room. The patient was found to be mildly tachycardic on arrival with a heart rate around 110. Patient's blood pressure has been stable with a systolic greater than 100 since arrival. She states that she saw Dr. Lim recently and he decreased her dose of Catapres. * EKG reveals sinus tachycardia with no signs of acute ischemia * Chest xray no acute cardiopulmonary process * Laboratory data: WBC 8.7. Hemoglobin 15.9. Platelet count 329. Sodium 139. Potassium 4.3. BUN 12. Creatinine 1.09. Lactic acid 2.6. Repeat 2.0. Troponin negative 1. TSH 4.6 x 0. * Current home cardiac medications include metoprolol succinate 100 mg daily, nifedipine 90 mg daily, and Catapres 0.05 mg daily * Echocardiogram obtained reveals ejection fraction 55-60% with mild concentric LVH * Patient underwent stress echocardiogram June 2020 which was negative for ischemia 09/11/2022 Patient examined this morning at the bedside. Patient denies chest pain or pressure. She denies shortness of breath. Patient's blood pressure is stable. Heart rate is in the 90s. PHYSICAL EXAM: VITAL SIGNS: Reviewed. GENERAL: Well-developed in no acute distress. HEENT: Head is normocephalic. Pupils are equal, round. Sclerae anicteric. Mucous membranes of the mouth are moist. Neck supple. No JVD or thyromegaly LUNGS: Respirations even and unlabored. Lungs essentially clear to auscultation bilaterally. HEART: Regular rate and rhythm. S1 and S2 heard. ABDOMEN: Soft. Nondistended. Nontender. EXTREMITIES: Normal range of motion. No clubbing or cyanosis. Peripheral pulses intact. No lower extremity edema NEUROLOGIC: Awake and alert. Oriented x 3. ASSESSMENT: Mild sinus tachycardia Hypotension at home, per patient, blood pressure stable since arrival Hyperlipidemia Chronic fatigue syndrome Anxiety Depression History of Rissa-Weber PLAN: Continue current cardiac medications Patient is stable for discharge home today from a cardiac standpoint She is to follow up on an outpatient basis with Dr. Lakhani Nurse practitioner note has been reviewed by physician. Signing provider agrees with the documented findings, assessment, and plan of care. Objective - Vital Signs Vital signs: Vital Signs Temp 97.8 F 09/11/22 07:45 Pulse 90 09/11/22 07:45 Resp 16 09/11/22 07:45 BP 136/78 09/11/22 07:45 Pulse Ox 96 09/11/22 09:06 FiO2 Intake & Output 09/10/22 09/11/22 09/11/22 18:59 06:59 18:59 Intake Total 120 Balance 120 Intake: Oral 120 Other: # Voids 3 2 # Bowel Movements 2 2 - Labs CBC & Chem 7: 09/09/22 10:43 09/09/22 10:43
== END 2022-09-11 12:11 | disposition home or self-care (01) ==
LOC: EC 10:17 → 6NMEDSUR 14:51
PROVIDERS: ADMIT Family Medicine; ATTEND Family Medicine
DX: I95.9 Hypotension, unspecified (principal); E86.0 Dehydration; N17.9 Acute kidney failure, unspecified; I10 Essential (primary) hypertension; E78.5 Hyperlipidemia, unspecified; F32.9 Major depressive disorder, single episode, unspecified; G93.32 Myalgic encephalomyelitis/chronic fatigue syndrome; K21.9 Gastro-esophageal reflux disease without esophagitis; R00.0 Tachycardia, unspecified; F41.9 Anxiety disorder, unspecified; B27.00 Gammaherpesviral mononucleosis without complication; Z79.899 Other long term (current) drug therapy; Z79.890 Hormone replacement therapy; Z88.5 Allergy status to narcotic agent; Z88.8 Allergy status to other drugs, medicaments and biological substances; R79.89 Other specified abnormal findings of blood chemistry; Z90.49 Acquired absence of other specified parts of digestive tract; Z80.3 Family history of malignant neoplasm of breast
CPT/HCPCS: 96360; 96361 ×2; 99285; 36415; 94760 ×2; 93005; 93306; 85379; 84439; 84481; 80053; 84443; 83605; 84484; 85025; 81001; 71046; 71275; G0378 ×3; Q9967

== ENCOUNTER 2022-09-11 16:48 | Emergency (ER) | payer MEDICARE ==
[2022-09-11] MEDS ORDERED: hydrOXYzine HCL 50 MG/ML 1 ML VIAL IM STA (17:19)
[2022-09-11] MEDS ORDERED: diphenhydrAMINE 50 MG/ML 1 ML VIAL IM STA (17:20)
--- NOTE | 2022-09-11 17:26 | ED ---
General Adult HPI - General Chief complaint: Recheck/Abnormal Lab/Rx Stated complaint: high blood pressure Time Seen by Provider: 09/11/22 16:59 Source: patient, RN notes reviewed Mode of arrival: ambulatory Limitations: no limitations - History of Present Illness Initial comments: Patient presents with chief complaint of high blood pressure. States it was running 144/104 at home. Patient was just discharged from the hospital after being admitted on the seventh for symptomatic hypotension and tachycardia. Patient had an extensive workup to include echocardiogram, CT of the chest, cardiology consultation. He had increased anxiety at home, possibly due to the fact she is weaning herself off of Klonopin. States that they also stopped her Catapres here. Patient is on nifedipine and metoprolol currently. States that she did have some palpitations and anxiety. Patient denied any chest pain. No fever or chills. No shortness of breath. No nausea or vomiting. - Related Data Home Medications Medication Instructions Recorded Confirmed NIFEdipine [NIFEdipine ER] 90 mg PO DAILY 07/03/21 09/09/22 Metoprolol Succinate (ER) [Toprol 100 mg PO DAILY 01/20/22 09/09/22 Xl] Potassium Chloride ER [K-Dur 10] 10 meq PO DAILY 01/20/22 09/09/22 QUEtiapine [SEROquel] 100 mg PO HS 01/20/22 09/09/22 clonazePAM [KlonoPIN] 1 mg PO DAILY 01/20/22 09/09/22 Levothyroxine Sodium [Synthroid] 88 mcg PO DAILY 09/09/22 09/09/22 Liothyronine Sodium [Cytomel] 5 mcg PO DAILY 09/09/22 09/09/22 Ondansetron [Zofran] 4 mg PO Q6H PRN 09/09/22 09/09/22 Allergies Allergy/AdvReac Type Severity Reaction Status Date / Time codeine Allergy Anaphylaxis Verified 09/11/22 16:53 hydralazine AdvReac "SHAKING Verified 09/11/22 16:53 ALL OVER" hydroxyzine [From Vistaril] AdvReac Nausea Verified 09/11/22 16:53 lorazepam [From Ativan] AdvReac insomnia Verified 09/11/22 16:53 Review of Systems ROS Statement: Those systems with pertinent positive or pertinent negative responses have been documented in the HPI. ROS Other: All systems not noted in ROS Statement are negative. Past Medical History Past Medical History: GERD/Reflux, Hyperlipidemia, Hypertension Additional Past Medical History / Comment(s): Chronic fatigue syndrome, de pression, Epi Ceja Weber, History of Any Multi-Drug Resistant Organisms: None Reported Past Surgical History: Section, Cholecystectomy, Tonsillectomy Additional Past Surgical History / Comment(s): 10/04/14 EGD, 01/01/15 choleceystectomy, 02/05/15 EGD with BX, 2008 COLONOSCOPY, Past Anesthesia/Blood Transfusion Reactions: Motion Sickness, Postoperative Nausea & Vomiting (PONV) Past Psychological History: Anxiety Smoking Status: Never smoker Past Alcohol Use History: None Reported Past Drug Use History: None Reported - Past Family History Son(s) Family Medical History: No Reported History Daughter(s) Family Medical History: No Reported History Mother Family Medical History: Cancer Additional Family Medical History / Comment(s): BREAST CANCER Father Family Medical History: Blood Disorder Additional Family Medical History / Comment(s): hemachromatosis. General Exam - General Exam Comments Initial Comments: Does not appear to be ill or toxic. Patient noted to be tachycardic rouse in the room at 124. Certainly could be related to anxiety. Patient states that her heart rate here was running in the 110 range. Refill less than 2 seconds. No murmur. No respiratory distress Limitations: no limitations General appearance: alert, in no apparent distress Head exam: Present: atraumatic, normocephalic, normal inspection Eye exam: Present: normal appearance, PERRL, EOMI. Absent: scleral icterus, conjunctival injection, periorbital swelling ENT exam: Present: normal exam, normal oropharynx, mucous membranes dry, mucous membranes moist, normal external ear exam Neck exam: Present: normal inspection, full ROM. Absent: tenderness, meningismus, lymphadenopathy Respiratory exam: Present: normal lung sounds bilaterally. Absent: respiratory distress, wheezes, rales, rhonchi, stridor Cardiovascular Exam: Present: regular rate, normal rhythm, normal heart sounds. Absent: systolic murmur, diastolic murmur, rubs, gallop, clicks GI/Abdominal exam: Present: soft, normal bowel sounds. Absent: distended, tenderness, guarding, rebound, rigid Extremities exam: Present: normal inspection, full ROM, normal capillary refill. Absent: tenderness, pedal edema, joint swelling, calf tenderness Back exam: Present: normal inspection Neurological exam: Present: alert, oriented X3, CN II-XII intact Psychiatric exam: Present: normal affect, normal mood Skin exam: Present: warm, dry, intact, normal color. Absent: rash Course Vital Signs 09/11/22 09/11/22 09/11/22 16:50 17:20 17:40 Temperature 98.7 F Pulse Rate 134 H 126 H 118 H Pulse Rate [ Pulse Oximetery ] Respiratory 20 Rate Blood Pressure 147/102 143/101 135/89 O2 Sat by Pulse 96 92 L Oximetry 09/11/22 09/11/22 17:43 17:45 Temperature Pulse Rate 118 H Pulse Rate [ 123 H Pulse Oximetery ] Respiratory 18 Rate Blood Pressure 135/89 O2 Sat by Pulse 96 Oximetry - Reevaluation(s) Reevaluation #1: 09/11/22 18:17 Patient reevaluated, resting comfortably in bed. Appears to be somewhat improved. Reevaluation #2: 09/11/22 18:35 Patient's workup here essentially negative. Negative troponin. BMP unremarkable. CBC unremarkable. EKG shows no significant changes. Call placed for the patient's primary care physician. Medical Decision Making - Medical Decision Making Was pt. sent in by a medical professional or institution? @ -no Did you speak to anyone other than the patient for history? @ -Significant other in the room providing additional details of history Did you review nursing and triage notes? @ -Agree Were old charts reviewed? @ -Chart from admission, patient discharged this morning from this facility, reviewed previous labs, reviewed previous EKG, echocardiogram, CTA of the chest Differential Diagnosis? @ -Differential diagnosis includes but is not limited to: Anxiety attack, tachycardia, hypertension, electrolyte disturbance, does not appear to be consistent with ischemic cardiac disease. Does not appear to be consistent with pulmonary disease. EKG interpreted by me (3pts min.)? @ EKG interpreted by me at 1700 and reviewed by the ED attending physician shows no evidence of significant acute changes. Patient does have an amplitude change from the previous study on 09/09/2022 but no significant ischemic changes. There is poor R-wave progression. Rate 133. Normal axis. Normal intervals. X-rays interpreted by me (1pt min.)? @ -none CT interpreted by me (1pt min.)? @ -[none] U/S interpreted by me (1pt. min.)? @ -[none] What testing was considered but not performed? (CT, X-rays, U/S, labs)? Why? @ [CT, X-rays, U/S, labs? Why?] What meds were considered but not given? Why? @ -[none] Did you discuss the management of the patient with other professionals? @ -[Discussed with Dr. Bravo, the patient's admitting physician and discharging physician from this morning.The case was discussed in detail with ED attending physician. Presentation, findings, treatment plan discussed in detail.] Did you reconcile home meds? @ -[none] Was smoking cessation discussed for >3mins.? @ -[none] Was critical care preformed (if so, how long)? @ -[none] Were there social determinants of health that impacted care today? How? (Homelessness, low income, unemployed, alcoholism, drug addiction, transporta tion, low edu. Level, literacy, decrease access to med. care, longterm, rehab)? @ -[Patient has anxiety and is trying to wean herself off Klonopin. This certainly an issue with this weaning of controlled substances.] Was there de-escalation of care discussed even if they declined? (Discuss DNR or withdrawal of care, Hospice)? @ -Not applicable What co-morbidities impacted this encounter? (DM, HTN, Smoking, COPD, CAD, Cancer, CVA, Hep., AIDS, mental health diagnosis, sleep apnea, morbid obesity)? @ -Tachycardia, anxiety Was patient admitted / discharged? @ -Patient discharged Undiagnosed new problem with uncertain prognosis? @ -This is a diagnosed relatively new problem, patient does have a history of tachycardia. Prognosis is relatively good this time. Patient may need further medication management for hypertension and anxiety as well as tachycardia. Drug Therapy requiring intensive monitoring for toxicity (Heparin, Nitro, Insulin, Cardizem)? @ -[none] Were any procedures done? @ -[none] Diagnosis/symptom? @ -Tachycardia, recent diagnosis, patient has been evaluated by cardiology and primary care. Patient was discharged this morning. Patient on metoprolol. Uncontrolled hypertension. Patient recently had Catapres removed. Patient's anxiety and panic attack are likely related to her underlying anxiety with current bleeding off of Klonopin. Acute, or Chronic, or Acute on Chronic? @ -Acute on chronic Patient does have complicated situation with multiple medications being changed her removed as well as her trying to wean herself off Klonopin. Patient to follow-up with the primary care doctor on Wednesday or Wednesday as well as cardio logy as directed. @ -Complicated due to medication management and patient's history of anxiety as well. Side effects of treatment? @ -[none] Exacerbation, Progression, or Severe Exacerbation] @ -Exacerbation Poses a threat to life or bodily function? @ -She will need follow-up and possible further medication management to prevent threat to life or bodily function. - Lab Data Result diagrams: 09/11/22 17:34 09/11/22 17:34 Lab Results 09/11/22 09/11/22 09/11/22 Range/Units 17:34 17:34 17:34 WBC 7.0 (3.8-10.6) k/uL RBC 5.19 (3.80-5.40) m/uL Hgb 15.9 (11.4-16.0) gm/dL Hct 47.8 H (34.0-46.0) % MCV 92.1 (80.0-100.0) fL MCH 30.5 (25.0-35.0) pg MCHC 33.2 (31.0-37.0) g/dL RDW 13.7 (11.5-15.5) % Plt Count 288 (150-450) k/uL MPV 8.6 Neutrophils % 55 % Lymphocytes % 33 % Monocytes % 7 % Eosinophils % 2 % Basophils % 1 % Neutrophils # 3.9 (1.3-7.7) k/uL Lymphocytes # 2.3 (1.0-4.8) k/uL Monocytes # 0.5 (0-1.0) k/uL Eosinophils # 0.1 (0-0.7) k/uL Basophils # 0.0 (0-0.2) k/uL APTT 23.9 (22.0-30.0) sec Sodium 141 (137-145) mmol/L Potassium 3.5 (3.5-5.1) mmol/L Chloride 105 (98-107) mmol/L Carbon Dioxide 23 (22-30) mmol/L Anion Gap 13 mmol/L BUN 7 (7-17) mg/dL Creatinine 0.79 (0.52-1.04) mg/dL Est GFR (CKD-EPI)AfAm >90 (>60 ml/min/1.73 sqM) Est GFR (CKD-EPI)NonAf 81 (>60 ml/min/1.73 sqM) Glucose 102 H (74-99) mg/dL Calcium 9.3 (8.4-10.2) mg/dL Magnesium 2.0 (1.6-2.3) mg/dL Troponin I (0.000-0.034) ng/mL 09/11/22 Range/Units 17:34 WBC (3.8-10.6) k/uL RBC (3.80-5.40) m/uL Hgb (11.4-16.0) gm/dL Hct (34.0-46.0) % MCV (80.0-100.0) fL MCH (25.0-35.0) pg MCHC (31.0-37.0) g/dL RDW (11.5-15.5) % Plt Count (150-450) k/uL MPV Neutrophils % % Lymphocytes % % Monocytes % % Eosinophils % % Basophils % % Neutrophils # (1.3-7.7) k/uL Lymphocytes # (1.0-4.8) k/uL Monocytes # (0-1.0) k/uL Eosinophils # (0-0.7) k/uL Basophils # (0-0.2) k/uL APTT (22.0-30.0) sec Sodium (137-145) mmol/L Potassium (3.5-5.1) mmol/L Chloride (98-107) mmol/L Carbon Dioxide (22-30) mmol/L Anion Gap mmol/L BUN (7-17) mg/dL Creatinine (0.52-1.04) mg/dL Est GFR (CKD-EPI)AfAm (>60 ml/min/1.73 sqM) Est GFR (CKD-EPI)NonAf (>60 ml/min/1.73 sqM) Glucose (74-99) mg/dL Calcium (8.4-10.2) mg/dL Magnesium (1.6-2.3) mg/dL Troponin I <0.012 (0.000-0.034) ng/mL Disposition Clinical Impression: Tachycardia, Anxiety, Panic attack, Uncontrolled hypertension Disposition: HOME SELF-CARE Condition: Good Instructions (If sedation given, give patient instructions): Anxiety (ED), Hussain c Attack (ED) Additional Instructions: Follow-up with your regular physician as directed. Return to the ER immediately if any symptoms worsen, new symptoms arise, or any other problems develop. Call your regular physician Wednesday to schedule follow-up on Wednesday or Wednesday. Follow-up with cardiology as planned. Wean herself off the Klonopin slower. Take half tablet every 8 hours. Reduce by 0.5 mg every 2 days. Is patient prescribed a controlled substance at d/c from ED?: No Referrals: Romeo Lim MD [Primary Care Provider] - 09/14/22 Time of Disposition: 18:53
[2022-09-11 17:45] VITALS: RESP 18
[2022-09-11 17:52] LABS: Basophils % (A) 1 %; Eosinophils # (A) 0.1 k/uL (0-0.7); Eosinophils % (A) 2 %; HCT 47.8 % (34.0-46.0); HGB 15.9 gm/dL (11.4-16.0); Lymphocytes # (A) 2.3 k/uL (1.0-4.8); Lymphocytes % (A) 33 %; MCH 30.5 pg (25.0-35.0); MCHC 33.2 g/dL (31.0-37.0); MCV 92.1 fL (80.0-100.0); Mean Platelet Volume 8.6; Monocytes # (A) 0.5 k/uL (0-1.0); Monocytes % (A) 7 %; Neutrophils # (A) 3.9 k/uL (1.3-7.7); Neutrophils % (A) 55 %; Platelet Count 288 k/uL (150-450); RBC 5.19 m/uL (3.80-5.40); RDW 13.7 % (11.5-15.5)
[2022-09-11 18:07] LABS: African American GFR (CKD) >90 (>60 ml/min/1.73 sqM); Anion Gap 13 mmol/L; Blood Urea Nitrogen 7 mg/dL (7-17); Calcium 9.3 mg/dL (8.4-10.2); Carbon Dioxide 23 mmol/L (22-30); Chloride 105 mmol/L (98-107); Glucose 102 mg/dL (74-99); Non-African American GFR(CKD) 81 (>60 ml/min/1.73 sqM); Potassium 3.5 mmol/L (3.5-5.1); Sodium 141 mmol/L (137-145)
[2022-09-11 19:07] VITALS: BP 134/91; PULSE 102; TEMP 98.3
== END 2022-09-11 19:07 | disposition home or self-care (01) ==
LOC: EC 16:48
DX: R00.0 Tachycardia, unspecified (principal); F41.0 Panic disorder [episodic paroxysmal anxiety]; I10 Essential (primary) hypertension; K21.9 Gastro-esophageal reflux disease without esophagitis; E78.5 Hyperlipidemia, unspecified; F32.A Depression, unspecified; Z88.5 Allergy status to narcotic agent; Z88.8 Allergy status to other drugs, medicaments and biological substances; Z79.899 Other long term (current) drug therapy
CPT/HCPCS: 99284 ×2; 96372; 36415; 93005; 80048; 83735; 84484; 85025; 85730; J1200

== ENCOUNTER 2022-12-23 23:35 | Emergency (ER) | payer MEDICARE ==
[2022-12-23 23:40] VITALS: TEMP 98
[2022-12-23 23:57] LABS: Basophils % (A) 0 %; Eosinophils # (A) 0.2 k/uL (0-0.7); Eosinophils % (A) 2 %; HCT 47.4 % (34.0-46.0); HGB 15.8 gm/dL (11.4-16.0); Lymphocytes # (A) 3.5 k/uL (1.0-4.8); Lymphocytes % (A) 33 %; MCH 31.8 pg (25.0-35.0); MCHC 33.3 g/dL (31.0-37.0); MCV 95.5 fL (80.0-100.0); Mean Platelet Volume 8.9; Monocytes # (A) 0.7 k/uL (0-1.0); Monocytes % (A) 6 %; Neutrophils % (A) 56 %; Platelet Count 296 k/uL (150-450); RBC 4.96 m/uL (3.80-5.40); RDW 12.3 % (11.5-15.5); WBC 10.7 k/uL (3.8-10.6)
[2022-12-24 00:05] LABS: ALT 27 U/L (4-34); AST 27 U/L (14-36); African American GFR (CKD) 68 (>60 ml/min/1.73 sqM); Albumin 4.5 g/dL (3.5-5.0); Alkaline Phosphatase 80 U/L (38-126); Amylase 55 U/L (30-110); Anion Gap 12 mmol/L; Blood Urea Nitrogen 21 mg/dL (7-17); Calcium 9.3 mg/dL (8.4-10.2); Carbon Dioxide 22 mmol/L (22-30); Chloride 97 mmol/L (98-107); Glucose 139 mg/dL (74-99); Lipase 121 U/L (23-300); Non-African American GFR(CKD) 59 (>60 ml/min/1.73 sqM); Potassium 4.3 mmol/L (3.5-5.1); Sodium 131 mmol/L (137-145); Total Bilirubin 0.6 mg/dL (0.2-1.3); Total Protein 7.4 g/dL (6.3-8.2)
[2022-12-24] MEDS ORDERED: MAG HYDROX/AL HYDROX/SIMETH 30 ML, HYOSCYAMINE ELIXIR 10 ML, LIDOCAINE 2% GLYDO JELLY 1... PO STA ×3 (01:44)
[2022-12-24] MEDS ORDERED: ONDANSETRON ODT 4 MG TAB PO STA (01:44)
[2022-12-24] MEDS ORDERED: SODIUM CHLORIDE 0.9% 1,000 ML IV ONE (02:14)
--- NOTE | 2022-12-24 04:01 | ED ---
General Adult HPI - General Source: patient, RN notes reviewed Mode of arrival: ambulatory Limitations: no limitations <Yaa Decker - Last Filed: 12/24/22 04:05> <Raymundo Rodrigeuz - Last Filed: 12/24/22 06:15> - General Chief complaint: Abdominal Pain Stated complaint: Abd Pain, Burning sensation Liver Area Time Seen by Provider: 12/24/22 00:49 - History of Present Illness Initial comments: 62-year-old female with a past medical history significant for chronic pain syndrome presents the emergency department with a chief complaint of right sided abdominal pain and bleeding. She reports that sometimes it will sometimes be a dull ache and other times will be sharp pain that radiated to her right flank. She is complaining of accompanying symptoms of nausea. Denies fevers, chills, chest pain, shortness breath, melena, hematochezia, dysuria, hematuria. She reports Tylenol will make her pain worse however Motrin will help. She reports cholecystectomy. She does report having kidney stones. (Yaa Decker) - Related Data Home Medications Medication Instructions Recorded Confirmed NIFEdipine [NIFEdipine ER] 90 mg PO DAILY 07/03/21 09/09/22 Metoprolol Succinate (ER) [Toprol 100 mg PO DAILY 01/20/22 09/09/22 Xl] Potassium Chloride ER [K-Dur 10] 10 meq PO DAILY 01/20/22 09/09/22 QUEtiapine [SEROquel] 100 mg PO HS 01/20/22 09/09/22 clonazePAM [KlonoPIN] 1 mg PO DAILY 01/20/22 09/09/22 Levothyroxine Sodium [Synthroid] 88 mcg PO DAILY 09/09/22 09/09/22 Liothyronine Sodium [Cytomel] 5 mcg PO DAILY 09/09/22 09/09/22 Ondansetron [Zofran] 4 mg PO Q6H PRN 09/09/22 09/09/22 Allergies Allergy/AdvReac Type Severity Reaction Status Date / Time acetaminophen [From Tylenol] Allergy Unknown Verified 12/23/22 23:37 codeine Allergy Anaphylaxis Verified 09/11/22 16:53 hydralazine AdvReac "SHAKING Verified 09/11/22 16:53 ALL OVER" hydroxyzine [From Vistaril] AdvReac Nausea Verified 09/11/22 16:53 lorazepam [From Ativan] AdvReac insomnia Verified 09/11/22 16:53 Review of Systems ROS Other: All systems not noted in ROS Statement are negative. <Yaa Decker - Last Filed: 12/24/22 04:05> ROS Other: All systems not noted in ROS Statement are negative. <Raymundo Rodriguez - Last Filed: 12/24/22 06:15> ROS Statement: Those systems with pertinent positive or pertinent negative responses have been documented in the HPI. Past Medical History Past Medical History: GERD/Reflux, Hyperlipidemia, Hypertension Additional Past Medical History / Comment(s): Chronic fatigue syndrome, depression, Epi Ceja Weber, History of Any Multi-Drug Resistant Organisms: None Reported Past Surgical History: Section, Cholecystectomy, Tonsillectomy Additional Past Surgical History / Comment(s): 10/04/14 EGD, 01/01/15 choleceystectomy, 02/05/15 EGD with BX, 2008 COLONOSCOPY, Past Anesthesia/Blood Transfusion Reactions: Motion Sickness, Postoperative Nausea & Vomiting (PONV) Past Psychological History: Anxiety Smoking Status: Never smoker Past Alcohol Use History: None Reported Past Drug Use History: None Reported - Past Family History Son(s) Family Medical History: No Reported History Daughter(s) Family Medical History: No Reported History Mother Family Medical History: Cancer Additional Family Medical History / Comment(s): BREAST CANCER Father Family Medical History: Blood Disorder Additional Family Medical History / Comment(s): hemachromatosis. <Yaa Decker - Last Filed: 12/24/22 04:05> General Exam Limitations: no limitations <Yaa Decker - Last Filed: 12/24/22 04:05> - General Exam Comments Initial Comments: General: Alert, in no acute distress Head: atraumatic normocephalic. Eyes PERRL, EOMI intact, mucous membranes moist Respiratory: Lungs clear to auscultation bilaterally Cardiovascular: Rate regular rate and rhythm Abdominal: Soft without guarding or rebound, generalized tenderness Extremities: Normal inspection with full range of motion and normal capillary refill Neuroogic: alert and oriented 3, CN II-XII intact, able to ambulate with steady gait Skin: warm dry and intact with normal color (Yaa Decker) Course <Yaa Decker - Last Filed: 12/24/22 04:05> Vital Signs 12/23/22 12/24/22 12/24/22 23:37 02:55 05:15 Temperature 98 F Pulse Rate 123 H 82 91 Respiratory 18 19 18 Rate Blood Pressure 121/78 136/89 139/86 O2 Sat by Pulse 98 95 97 Oximetry - Reevaluation(s) Reevaluation #1: 12/24/22 04:05 Patient reevaluated. Patient updated on laboratory results. Patient aware awaiting CT report. Patient reports symptomatic relief status medications. (Yaa Decker) Medical Decision Making - Lab Data Result diagrams: 12/23/22 23:49 12/23/22 23:49 <Yaa Decker - Last Filed: 12/24/22 04:05> - Lab Data Result diagrams: 12/23/22 23:49 12/23/22 23:49 <Raymundo Rodriguez - Last Filed: 12/24/22 06:15> - Medical Decision Making Was pt. sent in by a medical professional or institution (, PA, QUARRY EXTRACTION WORKER, urgent care, hospital, or snf...) When possible be specific @ -[No] Did you speak to anyone other than the patient for history (EMS, parent, family, police, friend...)? What history was obtained from this source @ -Patient Did you review nursing and triage notes (agree or disagree)? Why? @ -[I reviewed and agree with nursing and triage notes] Were old charts reviewed (outside hosp., previous admission, EMS record, old EKG, old radiological studies, urgent care reports/EKG's, snf records)? Report findings @ -[No old charts were reviewed] Differential Diagnosis (chest pain, altered mental status, abdominal pain women, abdominal pain men, vaginal bleeding, weakness, fever, dyspnea, syncope, headache, dizziness, GI bleed, back pain, seizure, CVA, palpatations, mental health, musculoskeletal)? @ -[not applicable] EKG interpreted by me (3pts min.). @ -[As above] X-rays interpreted by me (1pt min.). @ -[None done] CT interpreted by me (1pt min.). @ -[None done] U/S interpreted by me (1pt. min.). @ -[None done] What testing was considered but not performed or refused? (CT, X-rays, U/S, labs)? Why? @ -[None] What meds were considered but not given or refused? Why? @ -[None] Did you discuss the management of the patient with other professionals (professionals i.e. Dr., PA, QUARRY EXTRACTION WORKER, lab, RT, psych nurse, public health social worker, sprinkler fitter, teacher, sustainability officer, vocational case manager)? Give summary @ -[No] Was smoking cessation discussed for >3mins.? @ -[No] Was critical care preformed (if so, how long)? @ -[No] Were there social determinants of health that impacted care today? How? (Homelessness, low income, unemployed, alcoholism, drug addiction, transportation, low edu. Level, literacy, decrease access to med. care, detention, rehab)? @ -[No] Was there de-escalation of care discussed even if they declined (Discuss DNR or withdrawal of care, Hospice)? DNR status @ -[No] What co-morbidities impacted this encounter? (DM, HTN, Smoking, COPD, CAD, Cancer, CVA, ARF, Chemo, Hep., AIDS, mental health diagnosis, sleep apnea, morbid obesity)? @ -[None] Was patient admitted / discharged? Hospital course, mention meds given and route, prescriptions, significant lab abnormalities, going to OR and other pertinent info. @ -Disposition pending. This is a pleasant 62-year-old female who presents the emergency department with right-sided dominant pain. Patient had a thorough history and physical exam performed in the ED. Vital signs stable upon initial assessment. Heart rate regular rate and rhythm, lungs clear to auscultation, abdomen soft with generalized tenderness. No CVA tenderness noted. Patient had laboratory studies which revealed WBC 10.7, hemoglobin 15.8 sodium 131, potassium 4.3 BUN 21, creatinine 1.0 to liver function tests negative, amylase 55, lipase 121. Despite having unremarkable laboratory studies patient requesting to have CT performed. Patient given GI cocktail, Zofran, 1 L IV fluids while in the ED. Patient will be signed out to LASHELL Ball who will assume care of the patient pending CT results (Yaa Decker) Patient signed out to me pending results of CT imaging. CT imaging completed and interpreted by me showing no obvious acute abdominal process. Patient's labs are unremarkable. Patient is asymptomatic at this time. I did discuss with her the results of the CT. She has an appointment with her PCP Dr. Lim later this morning. She'll be discharged home with strict return precautions. I instructed the patient to follow up with their PCP in the next 1-3 days. I ex plained that the patient should return to the emergency department if they experience any worsening symptoms. Strict return precautions were discussed with the patient. The patient expressed understanding of these instructions. I answered all questions that the patient had. The patient was discharged home in good condition with their prescriptions and follow up information. Diagnosis/symptom? @ -Abdominal pain of unknown etiology Acute, or Chronic, or Acute on Chronic? @ -Acute Uncomplicated (without systemic symptoms) or Complicated (systemic symptoms)? @ -Uncomplicated Side effects of treatment? @ -none Exacerbation, Progression, or Severe Exacerbation] @ -no Poses a threat to life or bodily function? @ -no (Raymundo Rodriguez) - Lab Data Lab Results 12/23/22 12/23/22 12/24/22 Range/Units 23:49 23:49 04:04 WBC 10.7 H (3.8-10.6) k/uL RBC 4.96 (3.80-5.40) m/uL Hgb 15.8 (11.4-16.0) gm/dL Hct 47.4 H (34.0-46.0) % MCV 95.5 (80.0-100.0) fL MCH 31.8 (25.0-35.0) pg MCHC 33.3 (31.0-37.0) g/dL RDW 12.3 (11.5-15.5) % Plt Count 296 (150-450) k/uL MPV 8.9 Neutrophils % 56 % Lymphocytes % 33 % Monocytes % 6 % Eosinophils % 2 % Basophils % 0 % Neutrophils # 6.0 (1.3-7.7) k/uL Lymphocytes # 3.5 (1.0-4.8) k/uL Monocytes # 0.7 (0-1.0) k/uL Eosinophils # 0.2 (0-0.7) k/uL Basophils # 0.0 (0-0.2) k/uL Sodium 131 L (137-145) mmol/L Potassium 4.3 (3.5-5.1) mmol/L Chloride 97 L (98-107) mmol/L Carbon Dioxide 22 (22-30) mmol/L Anion Gap 12 mmol/L BUN 21 H (7-17) mg/dL Creatinine 1.02 (0.52-1.04) mg/dL Est GFR (CKD-EPI)AfAm 68 (>60 ml/min/1.73 sqM) Est GFR (CKD-EPI)NonAf 59 (>60 ml/min/1.73 sqM) Glucose 139 H (74-99) mg/dL Calcium 9.3 (8.4-10.2) mg/dL Total Bilirubin 0.6 (0.2-1.3) mg/dL AST 27 (14-36) U/L ALT 27 (4-34) U/L Alkaline Phosphatase 80 (38-126) U/L Total Protein 7.4 (6.3-8.2) g/dL Albumin 4.5 (3.5-5.0) g/dL Amylase 55 (30-110) U/L Lipase 121 (23-300) U/L Urine Color Colorless Urine Appearance Clear (Clear) Urine pH 5.5 (5.0-8.0) Ur Specific [place] 1.012 (1.001-1.035) Urine Protein Negative (Negative) Urine Glucose (UA) Negative (Negative) Urine Ketones 1+ H (Negative) Urine Blood Negative (Negative) Urine Nitrite Negative (Negative) Urine Bilirubin Negative (Negative) Urine Urobilinogen <2.0 (<2.0) mg/dL Ur Leukocyte Esterase Negative (Negative) Disposition <Yaa Decker - Last Filed: 12/24/22 04:05> Is patient prescribed a controlled substance at d/c from ED?: No Time of Disposition: 05:09 <Raymundo Rodriguez - Last Filed: 12/24/22 06:15> Clinical Impression: Abdominal pain of unknown etiology Disposition: HOME SELF-CARE Condition: Good Instructions (If sedation given, give patient instructions): Abdominal Pain (ED) Referrals: Romeo Lim MD [Primary Care Provider] - 1-2 days
[2022-12-24 04:29] LABS: Appearance,Urine Clear (Clear); Bilirubin,Urine Negative (Negative); Blood,Urine Negative (Negative); Color,Urine Colorless; Glucose,Urine (UA) Negative (Negative); Ketones,Urine 1+ (Negative); Leukocyte Esterase,Urine Negative (Negative); Nitrite,Urine Negative (Negative); PH, Urine 5.5 (5.0-8.0); Protein,Urine Negative (Negative); Specific Gravity,Urine 1.012 (1.001-1.035); Urobilinogen,Urine <2.0 mg/dL (<2.0)
--- NOTE | 2022-12-24 05:02 | CT ---
EXAM: CT Abdomen and Pelvis Without Intravenous Contrast CLINICAL HISTORY: ITS.REASON CT Reason: flank pain TECHNIQUE: Axial computed tomography images of the abdomen and pelvis without intravenous contrast. CTDI is 10 mGy and DLP is 593.8 mGy-cm. This CT exam was performed using one or more of the following dose reduction techniques: automated exposure control, adjustment of the mA and/or kV according to patient size, and/or use of iterative reconstruction technique. COMPARISON: No relevant prior studies available. FINDINGS: ABDOMEN: Liver: Unremarkable. Gallbladder and bile ducts: Status post cholecystectomy. No biliary dilatation or radiopaque stones. Pancreas: Unremarkable. Spleen: Unremarkable. Adrenals: Unremarkable. Kidneys and ureters: Unremarkable. No obstructing stones. No hydronephrosis. Stomach and bowel: Unremarkable. PELVIS: Appendix: No findings to suggest acute appendicitis. Bladder: Unremarkable. Reproductive: Unremarkable as visualized. ABDOMEN and PELVIS: Intraperitoneal space: Unremarkable. No free air. No significant fluid collection. Bones/joints: No acute fracture. Soft tissues: Unremarkable. Vasculature: Unremarkable. Lymph nodes: Unremarkable. IMPRESSION: No acute findings in the abdomen or pelvis.
[2022-12-24 05:18] VITALS: BP 139/86; PULSE 91; RESP 18
== END 2022-12-24 05:16 | disposition home or self-care (01) ==
LOC: EC 23:35
DX: R10.9 Unspecified abdominal pain (principal); I10 Essential (primary) hypertension; F41.9 Anxiety disorder, unspecified; Z79.899 Other long term (current) drug therapy; Z88.6 Allergy status to analgesic agent; Z88.5 Allergy status to narcotic agent; Z88.8 Allergy status to other drugs, medicaments and biological substances
CPT/HCPCS: 36415; 74176; 80053; 81003; 82150; 83690; 85025; 93005; 96360; 99284

== ENCOUNTER → 2023-06-21 | Outpatient (CLI) | payer MEDICARE ==
--- NOTE | 2023-06-22 09:52 | MM ---
Reason for Exam: Screening (asymptomatic). Last mammogram was performed 1 year(s) and 1 month(s) ago. Patient History: Menarche at age 12. First Full-Term at age 23. Postmenopausal. Hormonal Contraceptives for 6 months. 12/30/2007, Benign Core Biopsy on the left side. Mother had breast cancer, age 79. Risk Values: Ninoska 5 year model risk: 3.6%. NCI Lifetime model risk: 14.1%. Prior Study Comparison: 12/29/2019 Bilateral Screening Mammogram, [facility]. 05/19/2021 Bilateral Screening Mammogram, [facility]. 05/21/2022 Bilateral MG 3D screening mammo w/cad, [facility]. Tissue Density: There are scattered areas of fibroglandular density. Findings: Analyzed By CAD. There is no suspicious group of microcalcifications or new suspicious mass. Overall Assessment: Negative, BI-RAD 1 Management: Screening Mammogram of both breasts in [address] [facility] will attempt to contact patient to return for supplemental views and ultrasound if indicated. Patient should continue monthly self-breast exams. A clinical breast exam by your physician is recommended on an annual basis. This exam should not preclude additional follow-up of suspicious palpable abnormalities. Note on Ninoska scores and lifetime risk: 1. A Ninoska score greater than 3% is considered moderate risk. If this is the case, consider specialist referral to assess eligibility for a risk reducing agent. 2. If overall lifetime risk for the development of breast cancer is 20% or higher, the patient may qualify for future screening with alternating mammogram and breast MRI. Electronically signed and approved by: Guillermo Griffin DO
== END | disposition home or self-care (01) ==
LOC: RADMAMWWP 16:09
PROVIDERS: ATTEND Obstetrics & Gynecology
DX: Z12.31 Encounter for screening mammogram for malignant neoplasm of breast (principal); Z80.3 Family history of malignant neoplasm of breast; Z78.0 Asymptomatic menopausal state
CPT/HCPCS: 77063; 77067

== ENCOUNTER → 2024-04-14 | Outpatient (CLI) | payer MEDICARE ==
--- NOTE | 2024-04-14 15:23 | XR ---
EXAMINATION TYPE: XR chest 2V DATE OF EXAM: 04/14/2024 3:16 PM COMPARISON: Chest x-ray September 09, 2022 CLINICAL INDICATION: Female, 63 years old with history of R05 COUGH, B34.9, TECHNIQUE: Frontal and lateral views of the chest are obtained. FINDINGS: There is no focal air space opacity, pleural effusion, or pneumothorax seen. The cardiac silhouette size is within normal limits. The osseous structures are intact. IMPRESSION: No acute pulmonary infiltrate. [facility], , 04/14/2024 3:21 PM
== END | disposition home or self-care (01) ==
LOC: RADXRMAIN 15:07
PROVIDERS: ATTEND Family Medicine
DX: R05.9 Cough, unspecified (principal); B34.9 Viral infection, unspecified
CPT/HCPCS: 71046